=== PATIENT | male | born 1960 | race Caucasian/White ===

== ENCOUNTER 2016-11-16 15:47 | Inpatient (IN) | payer OTHER ==
[~2016-11-16] VITALS: Ht 175.3 cm; Wt 62.1 kg
[~2016-11-16 15:47] MED LIST: ACET-171 PO; DOCU-41 PO; FURO-128 PO; GABA300C PO; HYDR4TAB PO; Marijuana TOPICAL; ONDA-54 PO; POLY17PO2 PO; POTA20TA16 PO
[2016-11-16 16:28] VITALS: BP 107/66; PULSE 104; RESP 16; O2SAT 98
--- NOTE | 2016-11-16 16:57 | ED.REPORT ---
HPI-General Illness Date of Service Nov 16, 2016 ED Provider: Braulio Vanessa MD 56 y/o pt with the hx of stage IV colorectal CA on palliative care, ulcerative colitis, presents to the ED complaining of left flank pain and swelling onset 1 week ago. He c/o associated erythema and induration over the affected area. He denies fever, chills, nausea, vomiting. He was admitted here and transferred to on Jun 25 with diagnosis of "severe sepsis due to pelvic and psoas muscle abscess due to distal colonic perforation". He states a drain was placed into the left flank during that admission. He had surgery at 9 days ago to attempt to resect the cancer, but it was too extensive to treat. Nursing Notes Stated Complaint: PAIN-INFECTION Chief Complaint: Skin Rash/Abscess Nursing Notes Reviewed: Yes Allergies: Coded Allergies: No Known Drug Allergies (Verified Allergy, Unknown, 06/18/16) Scheduled ([Marijuana]) 6-8 PO DAILY Docusate Sodium (Colace) 100 Mg Capsule 100 MG PO BID Furosemide (Lasix) 40 Mg Tablet 40 MG PO DAILY Take twice a day for 3 days then every morning until edema resolves Gabapentin (Neurontin) 300 Mg Capsule 300 MG PO TID take 1 tab PO q 12 06/25 and 1 tab q8 thereafter. Ondansetron (Ondansetron) 8 Mg Tablet 8 MG PO BID Polyethylene Glycol 3350 (Polyethylene Glycol 3350) 17 Gm Powd.pack 17 GM PO DAILY Potassium Chloride (Potassium Chloride) 20 Meq Tab.er.prt 10 MEQ PO DAILY TAKE WITH FOOD, stop taking when no longer taking Lasix Scheduled PRN Acetaminophen (Acetaminophen) 500 Mg Tablet 500 MG PO Q3hrs PRN PRN For Pain Hydromorphone (Hydromorphone) 4 Mg Tablet 4 MG PO Q4H PRN PRN Pain General Time Seen by MD: 16:50 Chief Complaint Abdominal pain Hx Obtained From: Patient Arrived By: Wheelchair Sudden in Onset?: No Onset Occurred: 1 week ago Symptom Duration: Since onset Location: : Abdomen Quality: Painful Severity: Current: Moderate Severity: Maximum: Moderate Similar Sx Previous: Yes Past Medical History Past Medical History - 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 - ulcerative colitis - hx of pneumonia Past Surgical History Shoulder surgery. Placement of colonic stent. Colostomy placement Port-A-Cath Smoking History Never Smoker Social History Other Social History: Good social support, , Local resident Ambulatory Status Independent Review of Systems Full Review of Systems Constitutional: Denies: Chills, Fever Respiratory: Denies: Non-productive cough, Shortness of breath Cardiovascular: Denies: Chest pain, Dyspnea on exertion GI: Reports: Abdominal pain, Denies: Nausea, Vomiting Male: Reports Flank pain, Denies Dysuria Complete sys rev & neg: except as marked. Physical Exam Vital Signs Vital Signs Date Time Temp Pulse Resp B/P Pulse Ox O2 Delivery O2 Flow Rate FiO2 11/16/16 16:28 36.7 104 16 107/66 98 Room Air Initial VS: Reviewed, Vital signs normal Head / Eyes: Atraumatic, Normocephalic, PERRL ENT: Mucous membranes moist, Conjunctiva normal, No scleral icterus Neck: Supple, Full range of motion Respiratory: Breath sounds normal, Clear to auscultation, No respiratory distress Cardiovascular: Regular rate & rhythm, Heart sounds normal, Intact distal pulses Extremities: Vascular intact, Neuro intact, No swelling, No tenderness Skin: Warm, Dry, No cyanosis Neurologic: Alert, Oriented, Nonfocal Psychiatric: Mood/affect normal, Behavior normal, Normal thought content General/Constitutional: Awake, Alert, Cooperative, Not toxic appearing Chronically ill-appearing Abdomen: Atraumatic Diffuse induration, swelling, and tenderness about the left flank 1 cm pustule at the base with surrounding fluctuance Interpretation & Diagnostics Lab Results Interpretation Result Diagram: 11/16/16 1655 11/16/16 1655 Test 11/16/16 16:55 11/16/16 17:51 White Blood Count 41.8th/mm3 (3.8-10.1) Red Blood Count 2.69mil/mm3 (4.40-5.80) Hemoglobin 7.7g/dL (13.8-17.2) Hematocrit 24.6% (41.0-50.0) Mean Corpuscular Volume 91.4fL (81-100) Mean Corpuscular Hemoglobin 28.6pg (27.0-35.0) Mean Corpuscular Hemoglobin Concent 31.3% (32.0-37.0) Red Cell Distribution Width 16.9% (12.3-15.4) Platelet Count 624bil/L (150-400) Neutrophils (%) (Auto) 94.6% (40-74) Lymphocytes (%) (Auto) 1.7% (14-46) Monocytes (%) (Auto) 2.5% (4-12) Eosinophils (%) (Auto) 0.3% (0-5) Basophils (%) (Auto) 0.1% (0-3) Sodium Level 138mEq/L (134-144) Potassium Level 3.3mEq/L (3.5-5.2) Chloride Level 91mEq/L (97-108) Carbon Dioxide Level 31mmol/L (18-29) Blood Urea Nitrogen 14mg/dL (6-24) Creatinine 0.94mg/dL (0.76-1.27) Estimat Glomerular Filtration Rate 89mL/min (>59) Glucose Level 94mg/dL (60-99) Lactic Acid Level 1.3mmol/L (0.4-2.0) Calcium Level 8.8mg/dL (8.5-10.1) Magnesium Level 1.8mg/dL (1.6-2.6) Total Bilirubin 0.3mg/dL (0.0-1.2) Aspartate Amino Transf (AST/SGOT) 21U/L (0-50) Alanine Aminotransferase (ALT/SGPT) 18U/L (0-44) Alkaline Phosphatase 283U/L (25-150) Troponin T < 0.010ug/L (0.0-0.011) Total Protein 6.8g/dL (6.4-8.4) Albumin 2.0g/dL (3.4-5.0) ECG Interpretation ECG Interpretation: Sinus tachycardia rate 100 Multiple PVCs RBBB T wave inversions in V1-V6 which are new compared to EKG on 06/25/16 Time: 17:37 Interpreted by: ED physician Re-Eval/Medical Decision Med Decision/Clinical Course 56-year-old male history of stage IV colon cancer presenting one week status post exploratory laparotomy at outside hospital today with worsening left abdominal swelling and redness. Transfer care to Dr. Oliveira pending labs and CT scan. White blood cell count was noticeably elevated at 41,000 with normal lactate 1.2. Vancomycin and Zosyn were started. Blood cultures were sent. Source of Hx: Old records Re-Evaluation/Progress Note: Pt rechecked. Informed pt of need for admission. pt understand and agrees with plan for admission. All questions addressed. Counseled Regarding: Diagnosis, Lab results Discharge & Departure Primary Impression: Abdominal pain Abdominal location: unspecified location Qualified Code: R10.9 - Unspecified abdominal pain Discharge Condition All VS Reviewed: Yes Condition: Stable Referrals: NOPCP (PCP) Care Transferred to: Dr. Oliveira Care Transferred at: 18:01 Marielena Attestation Portions of this note were transcribed by Tad Garcia. I, Dr. Vanessa personally performed the history, physical exam and medical decision-making; I reviewed and confirmed the accuracy of the information in the transcribed note. Signed by Tad Garcia and Marielena Gilbert, 11/16/16 - 1747 Braulio Vanessa MD Nov 16, 2016 16:56 Divina Galarza Nov 16, 2016 17:09 TAD GARCIA Nov 16, 2016 17:20
[2016-11-16 17:10] LABS: BASOPHILS % (AUTO) 0.1 % (0-3); EOSINOPHILS % (AUTO) 0.3 % (0-5); MONOCYTES % (AUTO) 2.5 % (4-12); Mean Corpuscular Hemoglobin 28.6 pg (27.0-35.0); Mean Corpuscular Volume 91.4 fL (81-100); NEUTROPHILS % (AUTO) 94.6 % (40-74); Platelet Count 624 bil/L (150-400)
[2016-11-16] MEDS ORDERED: Piperacillin-Tazo 3.375 Gm Inj 3.375 GM in Dextrose 5% Minibag Plus 50 ML IV ONE (17:30)
[2016-11-16] MEDS ORDERED: Vancomycin Dose per Pharmacist XX ONE (17:30)
[2016-11-16 17:40] LABS: Magnesium 1.8 mg/dL (1.6-2.6)
[2016-11-16] MEDS ORDERED: Vancomycin Inj 1,250 MG in 0.9% Sodium Chloride 250 ML IV ONE (17:40)
[2016-11-16 17:41] LABS: TROPONIN T < 0.010 ug/L (0.0-0.011)
[2016-11-16] MEDS ORDERED: Iohexol 300 mg/mL 30 mL Inj PO ONE (18:15)
[2016-11-16 18:21] LABS: APPEARANCE,URINE CLOUDY (CLEAR,HAZY); COLOR,URINE DARK YELLOW (YELLOW); OCCULT BLOOD,URINE MODERATE (NEGATIVE); PH,URINE 7.5 (5.0-8.0); UROBILINOGEN,URINE NORMAL (NORMAL)
[2016-11-16 19:13] VITALS: BP 102/62; PULSE 90; RESP 18; O2SAT 96
[2016-11-16] MEDS ORDERED: 0.9% Sodium Chloride 1,000 ML IV ONE (19:15)
[2016-11-16] MEDS ORDERED: HYDROmorphone 1 mg/mL Inj IVPUSH ONE ×3 (19:15→22:00)
--- NOTE | 2016-11-16 19:20 | DRSVH ---
PROCEDURE: X-RAY CHEST ONE VIEW, PORTABLE ([id number]) INDICATIONS: possible sepsis TECHNIQUE: One view of the chest was acquired. COMPARISON: [facility], CR, XR CHEST 1VW (PORTABLE), 06/24/2016, 21:36. FINDINGS: Surgical changes and devices: Left chest port with the tip projecting in the lower SVC. Lungs and pleura: No pleural effusions or pneumothorax. Lungs are clear. Mild bibasilar scarring/a telectasis Mediastinum: Mediastinal contours appear normal. Heart size is normal. Bones and chest wall: No suspicious bony lesions. Overlying soft tissues appear unremarkable. IMPRESSION: No acute disease. Dictated by: Doc Gonzalez M.D. on 11/16/2016 at 19:17 Approved by: Doc Gonzalez M.D. on 11/16/2016 at 19:18
[2016-11-16 20:30] VITALS: BP 109/66
--- NOTE | 2016-11-16 20:30 | DRSVH ---
PROCEDURE: CT ABDOMEN AND PELVIS WITH CONTRAST ([id number]) INDICATIONS: abd pain TECHNIQUE: After the administration of oral and intravenous contrast, 5 mm thick sections acquired from the diap hragms to the symphysis. 5 mm thick coronal and sagittal reformats were performed. For radiation do se reduction, the following was used: automated exposure control, adjustment of mA and/or kV accordi ng to patient size. COMPARISON: Outside Film, CT, CT CHEST ABD PELVIS W CON, 10/19/2016, 13:54. Outside Film, CT, CT ABD PELVIS W CON, 07/27/2016, 12:04. FINDINGS: Image quality: Excellent. ABDOMEN: Lung bases: Patchy mild consolidation in the left lung base. Heart appears enlarged. There is trace p ericardial fluid Solid organs: Liver and spleen are normal in size and enhancement. Gallbladder negative. Biliary s ystem is non-dilated. Pancreas enhances normally. No adrenal nodules. Kidneys are normal in size a nd enhancement, and there is mild bilateral hydronephrosis Peritoneum and bowel: Postsurgical changes are present including a left lower quadrant ostomy, and a stent presumably within the distal large bowel/rectum. There is surrounding abnormal soft tissue mas s presumably rectal neoplasm, measuring 10.6 x 8.2 cm and possible low attenuation internal necrotic appearance. There is diffuse bowel wall thickening, and inflammatory stranding throughout the left abdomen. Nodes and vessels: Shotty retroperitoneal lymph nodes. Aorta IVC unremarkable except for incidentally noted IVC filter Miscellaneous: No ventral hernias. There are innumerable presumed abscesses/phlegmon scattered thro ughout the left psoas muscle, left iliacis muscle, left pelvis, right gluteal region and left postero lateral abdominal wall, which are depicted in detail on the montage image PELVIS: Genitourinary: Bladder wall thickness is normal. Miscellaneous: No inguinal hernias or adenopathy. Diffuse left upper thigh subcutaneous edema/cellu litis. Bones: No suspicious bony lesions. No vertebral body compression fractures. IMPRESSION: Development of innumerable scattered abscesses throughout the left retroperitoneum, pelvis and left p osterior abdominal wall as detailed above, and depicted on the montage image. Redemonstration of large necrotic appearing rectal mass, status post placement of rectal stent. Diffuse bowel wall thickening mostly in the left abdomen which is probably reactive in nature althoug h technically nonspecific. Trace pericardial effusion. Mild patchy left lower lobe consolidation. Mild bilateral hydronephrosis. Findings were personally telephoned and discussed with Dr. Oliveira in the emergency department 11/16/16 20 /27 hours Dictated by: Doc Gonzalez M.D. on 11/16/2016 at 20:11 Approved by: Doc Gonzalez M.D. on 11/16/2016 at 20:27
[2016-11-16] MEDS ORDERED: Alum-Mag Hydrox-Simeth 30 mL Suspension PO PRN ×2 (21:40→22:40)
[2016-11-16] MEDS ORDERED: Ondansetron 2 mg/mL 2 mL Inj IVPUSH PRN ×2 (21:40→22:40)
[2016-11-16] MEDS ORDERED: Polyethylene Glycol (PEG) 17 Gm Powder PO PRN (22:40)
[2016-11-16] MEDS ORDERED: DOCU-41 PO (22:48)
[2016-11-16] MEDS ORDERED: CHOL200025 PO (22:50)
[2016-11-16] MEDS ORDERED: LOV40 SUBQ (22:50)
[2016-11-16] MEDS ORDERED: METH5TAB3 PO (22:50)
[2016-11-16] MEDS ORDERED: GABA600T2 PO (22:50)
[2016-11-16] MEDS ORDERED: FUR20 PO (22:55)
[2016-11-16] MEDS ORDERED: ONDA-53 PO (22:55)
[2016-11-16] MEDS ORDERED: OXYC-474 PO (22:55)
[2016-11-16] MEDS ORDERED: ACET325T51 PO (22:55)
[2016-11-16] MEDS ORDERED: MELA3TAB35 PO (22:55)
[2016-11-16] MEDS ORDERED: IBUP200C PO (22:55)
[2016-11-16] MEDS ORDERED: [UNRECOGNIZED DRUG - REMARK] PO (22:59)
[2016-11-16 23:06] VITALS: BP 101/61; PULSE 99; RESP 18; O2SAT 94
[2016-11-16 23:39] VITALS: BP 101/66; PULSE 92; RESP 20; O2SAT 92
[2016-11-16] MEDS ORDERED: 0.9% Sodium Chloride 250 ML ONE (23:44)
[2016-11-17] MEDS: HYDROmorphone 1 mg/mL Inj IVPUSH PRN ×2 (00:39→04:21)
[2016-11-17] MEDS: Piperacillin-Tazo 3.375 Gm Inj 3.375 GM in Dextrose 5% Minibag Plus 50 ML IV SCH ×2 (01:04→08:36)
--- NOTE | 2016-11-17 01:09 | PCM.HPMED ---
Subjective Date of Service Nov 17, 2016 Primary Provider: Admitting Physician: Lane Mendes MD Primary Care Physician: Nopjania Attending Physician: Lane Mendes MD Admit Status: From the Emergency Department Chief Complaint: Left flank pain and swelling History of Present Illness: 56 y/o M with a history of ulcerative colitis and stage IV colorectal cancer s/ p colostomy in Jun 2016 who underwent surgery 9 days ago at the [facility] in an attempt to resect the cancer, which was unfortunately unsuccessful. He presented to the ED with the complaint of left-sided flank pain and a pustular wound. Associated symptoms include left-sided erythema, swelling and increased abdominal pain. He endorses severe 10/10 abdominal and left flank pain that is worse with movement but otherwise is without symptoms. He denies fever, chills, nausea, vomiting, shortness of breath or chest pain. He states that his colostomy has been functioning normally. Of note he was transferred to on Jun 25 from [facility] for severe sepsis secondary to a pelvic abscess and distal colonic perforation and states that a drain was placed in his left flank during that admission. He states that he first noticed the wound earlier today when his brother was applying a cannabinoid cream to his side and saw a "pimple like" lesion, which "popped" on his way to the ED. In the ED vitals: 36.7, BP 107/66, pulse 104, SpO2 98% on room air. Labs significant for a leukocytosis (wbc of 41.8 with left shift), normal lactic acid of 1.3, anemia (Hgb 7.7/Hct 24.6), hypoalbuminemia (albumin 2.0) and elevated alk phos of 283. ECG sinus rhythm, tachycardia with rate low 100s, multiple PVCs and T wave inversions in V1-V6. Troponin neg x1. Chest xray was negative for acute disease and CT abdomen and pelvis revealed innumerable, scattered abscesses throughout the left retroperitoneum, pelvis and left posterior abdominal wall, re-demonstration of large necrotic appearing rectal mass and diffuse bowel wall thickening. Review of Systems: A comprehensive review of systems was conducted with the patient and found to be negative except as above in the History of Present Illness. Allergies Coded Allergies: No Known Drug Allergies (Verified Allergy, Unknown, 06/18/16) Home Medications Med rec not available at time of admission. reportedly will bring in home med list. PMH Stage IV colorectal adenocarcinoma moderately differentiated adenocarcinoma of the rectum - with invasion through the rectal wall, significant mass effect on the bladder, and extensive metastatic lymphadenopathy. Ulcerative colitis Surgical History Shoulder surgery. Placement of colonic stent. Colostomy placement Port-A-Cath Family History Father at age 79 of Alzheimer's and coronary artery disease. Paternal grandmother had lung cancer. Social History Hx Alcohol Use: Yes (NOTHING TO DRINK SINCE APR 2016) Hx Substance Use: No Hx Tobacco Use: No Smoking Status: Never Smoker Living Arrangement: with Family Exam Vital Signs Vital Sign - Last Date Time Temp Pulse Resp B/P Pulse Ox O2 Delivery O2 Flow Rate FiO2 11/16/16 23:39 37.0 92 20 101/66 92 Room Air Intake and Output 11/16/16 11/16/16 11/17/16 Cumulative From/Thru 14:59 22:59 06:59 11/16/16 16:28 - 11/17/16 00:26 Intake Total 1000 ml 1000 ml Balance 1000 ml 1000 ml Intake IV Total 1000 ml 1000 ml Exam GEN: Alert and oriented x3, no moderate distress secondary to pain, appropriately interactive. HEENT: atraumatic, normocephalic, PERRLA, EOMI, sclera anicteric, mucus membranes dry NECK: No cervical lymphadenopathy, neck supple, nontender, No JVD noted CARDIAC: regular rate and rhythm with no murmur appreciated LUNGS: clear to auscultation bilaterally with adequate respiratory effort ABD: tenderness noted diffusely, mildly distended, normoactive bowel tones; colostomy pink, healthy appearing no surrounding erythema, purulence, stool present in colostomy bag. 1-2cm pustule on left flank seeping pus with surrounding fluctuance. EXT: Radial pulses normal and equivalent bilaterally, dorsalis pedis pulses normal and equivalent bilaterally, pitting edema to mid tibia bilaterally, no cyanosis or clubbing. NEURO: Cranial nerves appear to be fully intact, normal speech, no focal motor or sensory deficits. PSYCH: AOx3, mood and affect appropriate. Lab and Diagnostics Labs Laboratory Tests Test 11/16/16 16:55 11/16/16 17:51 White Blood Count 41.8th/mm3 (3.8-10.1) Red Blood Count 2.69mil/mm3 (4.40-5.80) Hemoglobin 7.7g/dL (13.8-17.2) Hematocrit 24.6% (41.0-50.0) Mean Corpuscular Volume 91.4fL (81-100) Mean Corpuscular Hemoglobin 28.6pg (27.0-35.0) Mean Corpuscular Hemoglobin Concent 31.3% (32.0-37.0) Red Cell Distribution Width 16.9% (12.3-15.4) Platelet Count 624bil/L (150-400) Neutrophils (%) (Auto) 94.6% (40-74) Lymphocytes (%) (Auto) 1.7% (14-46) Monocytes (%) (Auto) 2.5% (4-12) Eosinophils (%) (Auto) 0.3% (0-5) Basophils (%) (Auto) 0.1% (0-3) Sodium Level 138mEq/L (134-144) Potassium Level 3.3mEq/L (3.5-5.2) Chloride Level 91mEq/L (97-108) Carbon Dioxide Level 31mmol/L (18-29) Blood Urea Nitrogen 14mg/dL (6-24) Creatinine 0.94mg/dL (0.76-1.27) Estimat Glomerular Filtration Rate 89mL/min (>59) Glucose Level 94mg/dL (60-99) Lactic Acid Level 1.3mmol/L (0.4-2.0) Calcium Level 8.8mg/dL (8.5-10.1) Magnesium Level 1.8mg/dL (1.6-2.6) Total Bilirubin 0.3mg/dL (0.0-1.2) Aspartate Amino Transf (AST/SGOT) 21U/L (0-50) Alanine Aminotransferase (ALT/SGPT) 18U/L (0-44) Alkaline Phosphatase 283U/L (25-150) Troponin T < 0.010ug/L (0.0-0.011) Total Protein 6.8g/dL (6.4-8.4) Albumin 2.0g/dL (3.4-5.0) Urine Color Dark yellow (YELLOW) Urine Appearance Cloudy (CLEAR,HAZY) Urine pH 7.5 (5.0-8.0) Urine Specific [place] 1.010 (1.003-1.035) Urine Protein 30mg/dL (NEG,TRACE) Urine Glucose (UA) Negativemg/dL (NEGATIVE) Urine Ketones Negativemg/dL (NEGATIVE) Urine Occult Blood Moderate (NEGATIVE) Urine Nitrite Negative (NEGATIVE) Urine Bilirubin Negative (NEGATIVE) Urine Urobilinogen Normalmg/dL (NORMAL) Urine Leukocyte Esterase Large (NEGATIVE) Urine RBC 3-10/hpf (0-2) Urine WBC Packed/hpf (0-5) Urine Epithelial Cells Occasional/hpf (NONE-MOD) Urine Crystals None seen (NONE SEEN) Urine Bacteria Many/hpf (NONE-FEW) Urine Hyaline Casts None/lpf (NONE) Urine Granular Casts None seen (NONE SEEN) Urine Waxy Casts None seen (NONE SEEN) Urine Red Blood Cell Casts None seen (NONE SEEN) Urine White Blood Cell Casts None seen (NONE SEEN) Urine Mucus None seen (None Seen) Urine Trichomonas None seen (NONE SEEN) Urine Yeast None (NONE SEEN) Urinalysis Comment Urine Culture Reflexed Indicated Microbiology 11/16/16 Blood Culture, Received Pending 11/16/16 Urine Culture, Received Pending Result Diagram: 11/16/16 1655 11/16/16 1655 X-Rays, CTs and MRIs X-RAY CHEST ONE VIEW, PORTABLE IMPRESSION: No acute disease. Dictated by: Doc Gonzalez M.D. on 11/16/2016 at 19:17 Approved by: Doc Gonzalez M.D. on 11/16/2016 at 19:18 CT ABDOMEN AND PELVIS WITH CONTRAST IMPRESSION: -Development of innumerable scattered abscesses throughout the left retroperitoneum, pelvis and left posterior abdominal wall as detailed above, and depicted on the montage image. -Redemonstration of large necrotic appearing rectal mass, status post placement of rectal stent. -Diffuse bowel wall thickening mostly in the left abdomen which is probably reactive in nature although technically nonspecific. -Trace pericardial effusion. -Mild patchy left lower lobe consolidation. -Mild bilateral hydronephrosis. -Findings were personally telephoned and discussed with Dr. Oliveira in the emergency department 11/16/16 20/27 hours Dictated by: Doc Gonzalez M.D. on 11/16/2016 at 20:11 Approved by: Doc Gonzalez M.D. on 11/16/2016 at 20:27 Assessment & Plan 56 y/o M with a history of ulcerative colitis and stage IV colorectal cancer s/ p colostomy in Jun 2016 who presented to the ED with the complaint of left- sided flank pain. Admitted for management of multiple intra-abdominal abscesses. 1. Multiple intra-abdominal abscesses, present on admission. Active. - Hx of colorectal cancer s/p colostomy in Jun 2016; unsuccessful attempt to resect cancer at 9 days ago. - CT abd/pelvis with innumerable, abscesses in the left retroperitoneum, pelvis , and left posterior abdominal wall. - General surgery consulted from the ED, recommend IVFs/antibiotics. Will see in the morning. - s/p 1L bolus of NS in the ED - IVFs NS at 150mls/hr - start IV vancomycin/zosyn, pending cultures - IV dilaudid q4h prn for pain 2. Pain secondary to stage IV colorectal adenocarcinoma, present on admission. Ongoing. - IV dilaudid q4h for breakthrough pain - re-evaluate, pending med list ( to bring in) - Could consider Palliative care consultation in the AM as they have seen this patient during prior hospitalizations. 3. Leukocytosis, acute, present on admission. Active - WBC 41.6 with left shift, pt remains afebrile - Blood cultures pending - Repeat CBC with diff in AM. - IVFs and antibiotics as above 4. Stage IV colorectal cancer, ongoing. - Consider contacting the patient's oncologist, Dr. Elias, in the morning. - Pain management as above - Antiemetic available PRN. - Antacid available PRN. - Tylenol available PRN mild pain or fever. Patient admitted under inpatient status with expected length of stay greater than 2 midnights for severity of present symptoms, complexities of treatment plan and risk for adverse events. Pain Evaluation: Adequate Pain Control VTE Prophylaxis Indicated: Meets Criteria for Anticoag Therapy VTE Prophylaxis: Sub-Q Enoxaparin Resuscitation Status: CPR: Attempt Resuscitation Attending Statement The patient was seen and examined together with Dr. Bolden on 11/17/2016 and I agree with the history, exam and plan as outlined in the note above. Violeta Heath DO Nov 17, 2016 01:[address] MD Nov 17, 2016 05:14 Patient admitted under inpatient status with expected length of stay greater than 2 midnights for severity of present symptoms, complexities of treatment plan and risk for adverse events. Disposition: Patient is admitted under observation status with expected length of stay less than 2 midnights due to severity of presenting symptoms, risk of adverse event, and complexity of treatment plan. (Please note that I would not expect all 3 reasons for admission to be listed for observation. Feel free to pick and choose, but have at least 1. CODE STATUS: FEN: IVF: GI Prophylaxis: DVT Prophylaxis: Sub-q Heparin, 5,000units Q8h PRN: Acetaminophen-fever/headache/mild/moderate pain Antiemetics, as needed Bowel regimen, as needed. Pain Evaluation: Adequate Pain Control VTE Prophylaxis Indicated: Meets Criteria for Anticoag Therapy VTE Prophylaxis: Sub-Q Enoxaparin Resuscitation Status: CPR: Attempt Resuscitation Violeta Heath Nov 17, 2016 01:09 adverse event, and complexity of treatment plan. (Please note that I would not expect all 3 reasons for admission to be listed for observation. Feel free to pick and choose, but have at least 1. CODE STATUS: FEN: IVF: GI Prophylaxis: DVT Prophylaxis: Sub-q Heparin, 5,000units Q8h PRN: Acetaminophen-fever/headache/mild/moderate pain Antiemetics, as needed Bowel regimen, as needed. Pain Evaluation: Adequate Pain Control VTE Prophylaxis Indicated: Meets Criteria for Anticoag Therapy VTE Prophylaxis: Sub-Q Enoxaparin Resuscitation Status: CPR: Attempt Resuscitation Violeta Heath Nov 17, 2016 01:09 Bowel regimen, as needed. Pain Evaluation: Adequate Pain Control VTE Prophylaxis Indicated: Meets Criteria for Anticoag Therapy VTE Prophylaxis: Sub-Q Enoxaparin Resuscitation Status: CPR: Attempt Resuscitation Violeta Heath Nov 17, 2016 01:09 adverse event, and complexity of treatment plan. (Please note that I would not expect all 3 reasons for admission to be listed for observation. Feel free to pick and choose, but have at least 1. CODE STATUS: FEN: IVF: GI Prophylaxis: DVT Prophylaxis: Sub-q Heparin, 5,000units Q8h PRN: Acetaminophen-fever/headache/mild/moderate pain Antiemetics, as needed Bowel regimen, as needed. Pain Evaluation: Adequate Pain Control Violeta Heath Nov 17, 2016 01:09
[2016-11-17] MEDS ORDERED: HYDROmorphone 1 mg/mL Inj IVPUSH ONE (01:45)
[2016-11-17 02:06] VITALS: PULSE 95
[2016-11-17] MEDS: 0.9% Sodium Chloride 1,000 ML IV SCH ×2 (02:23→10:16)
--- NOTE | 2016-11-17 02:38 | NUR ---
Arrival to Unit Patient arrived to floor at 2320 from ED via gurney. Patient was in severe pain due to his left flank abscess actively draining during transport. Patient was able to scoot self over to hospital bed, which caused the abscess to drain even more. When discussing patients prescribed IV morphine for pain, patient requested something else, stating that he did not tolerate morphine well the last time it was given. paged, and a new order for 1mg Dilaudid was written to replace the morphine order. NS is currently infusing at 150cc/hr in addition to intermittent abx via portacath access. Patient is able to use the urinal, and is currently on bed rest. Abscess has abd pads and gauze underneath to absorb the drainage. Tele monitor applied, and reads SR 95 per educational technician. Will continue to monitor, and continue Q1 hour checks.
--- NOTE | 2016-11-17 03:46 | PCM.CONPHA ---
Subjective Date of Service: Nov 17, 2016 Requesting Provider: Violeta Heath DO Left flank pain and swelling Reason for Pharmacy Consult: Vancomycin Dosing Objective Vital Signs Date Time Temp Pulse Resp B/P Pulse Ox O2 Delivery O2 Flow Rate FiO2 11/17/16 02:06 95 11/16/16 23:39 37.0 92 20 101/66 92 Room Air 11/16/16 23:06 36.7 99 18 101/61 94 Room Air 11/16/16 20:30 109/66 11/16/16 19:13 36.6 90 18 102/62 96 Room Air 11/16/16 16:28 36.7 104 16 107/66 98 Room Air Intake and Output 11/15/16 11/16/16 11/17/16 00:00 00:00 00:00 Intake Total 1000 ml Balance 1000 ml Weight (Kilograms): 62.100 Height (Feet): 5 Height (Inches): 9.00 Test 11/16/16 16:55 11/16/16 17:51 White Blood Count 41.8th/mm3 (3.8-10.1) Red Blood Count 2.69mil/mm3 (4.40-5.80) Hemoglobin 7.7g/dL (13.8-17.2) Hematocrit 24.6% (41.0-50.0) Mean Corpuscular Volume 91.4fL (81-100) Mean Corpuscular Hemoglobin 28.6pg (27.0-35.0) Mean Corpuscular Hemoglobin Concent 31.3% (32.0-37.0) Red Cell Distribution Width 16.9% (12.3-15.4) Platelet Count 624bil/L (150-400) Neutrophils (%) (Auto) 94.6% (40-74) Lymphocytes (%) (Auto) 1.7% (14-46) Monocytes (%) (Auto) 2.5% (4-12) Eosinophils (%) (Auto) 0.3% (0-5) Basophils (%) (Auto) 0.1% (0-3) Sodium Level 138mEq/L (134-144) Potassium Level 3.3mEq/L (3.5-5.2) Chloride Level 91mEq/L (97-108) Carbon Dioxide Level 31mmol/L (18-29) Blood Urea Nitrogen 14mg/dL (6-24) Creatinine 0.94mg/dL (0.76-1.27) Estimat Glomerular Filtration Rate 89mL/min (>59) Glucose Level 94mg/dL (60-99) Lactic Acid Level 1.3mmol/L (0.4-2.0) Calcium Level 8.8mg/dL (8.5-10.1) Magnesium Level 1.8mg/dL (1.6-2.6) Total Bilirubin 0.3mg/dL (0.0-1.2) Aspartate Amino Transf (AST/SGOT) 21U/L (0-50) Alanine Aminotransferase (ALT/SGPT) 18U/L (0-44) Alkaline Phosphatase 283U/L (25-150) Troponin T < 0.010ug/L (0.0-0.011) Total Protein 6.8g/dL (6.4-8.4) Albumin 2.0g/dL (3.4-5.0) Urine Color Dark yellow (YELLOW) Urine Appearance Cloudy (CLEAR,HAZY) Urine pH 7.5 (5.0-8.0) Urine Specific [place] 1.010 (1.003-1.035) Urine Protein 30mg/dL (NEG,TRACE) Urine Glucose (UA) Negativemg/dL (NEGATIVE) Urine Ketones Negativemg/dL (NEGATIVE) Urine Occult Blood Moderate (NEGATIVE) Urine Nitrite Negative (NEGATIVE) Urine Bilirubin Negative (NEGATIVE) Urine Urobilinogen Normalmg/dL (NORMAL) Urine Leukocyte Esterase Large (NEGATIVE) Urine RBC 3-10/hpf (0-2) Urine WBC Packed/hpf (0-5) Urine Epithelial Cells Occasional/hpf (NONE-MOD) Urine Crystals None seen (NONE SEEN) Urine Bacteria Many/hpf (NONE-FEW) Urine Hyaline Casts None/lpf (NONE) Urine Granular Casts None seen (NONE SEEN) Urine Waxy Casts None seen (NONE SEEN) Urine Red Blood Cell Casts None seen (NONE SEEN) Urine White Blood Cell Casts None seen (NONE SEEN) Urine Mucus None seen (None Seen) Urine Trichomonas None seen (NONE SEEN) Urine Yeast None (NONE SEEN) Urinalysis Comment Urine Culture Reflexed Indicated Assessment/Plan Assessment/Plan A: * Vancomycin dosing by pharmacy for 56 y/o man with intra-abdominal abscesses * The patient received a vancomycin loading dose of 1250 mg IV in the ED * He is also being started on Zosyn * Estimated CrCl is 79 mL/min (Cockcroft & Gault) * Estimated vancomycin half-life is 10 hours and estimated Vd is 43 liters P: * Starting vancomycin 1000 mg IV every 12 hours * Target a vancomycin trough range of 15 - 20 mcg/mL * Drawing a trough level prior to the fourth dose Thank you. Pharmacy will continue to follow this patient. Liz Galvin, PharmD Liz Galvin Nov 17, 2016 03:46
--- NOTE | 2016-11-17 04:32 | NUR ---
Pain Patient is experiencing 10/10 pain after being repositioned in bed. MD notified due to no pain medications due at this time. BP 116/70, HR 94, O2 95% on 2L O2 via NC. @ 0421 T.O. to give the scheduled, Q4 hour, Dilaudid early one time now for pain, in hopes of controlling patients pain. Will continue to monitor, and continue Q 1hour checks.
[2016-11-17 05:00] VITALS: BP 133/77; PULSE 98; RESP 22; O2SAT 96
[2016-11-17 05:33] VITALS: PULSE 94
[2016-11-17] MEDS ORDERED: Vancomycin Inj 1,000 MG in IV Premix 1 EACH IV SCH (06:00)
[2016-11-17 06:12] LABS: BASOPHILS % (AUTO) 0.1 % (0-3); EOSINOPHILS % (AUTO) 0.1 % (0-5); MONOCYTES % (AUTO) 2.4 % (4-12); Mean Corpuscular Hemoglobin 28.7 pg (27.0-35.0); Mean Corpuscular Volume 90.7 fL (81-100); Platelet Count 573 bil/L (150-400)
[2016-11-17 06:23] LABS: Magnesium 1.9 mg/dL (1.6-2.6)
[2016-11-17] MEDS ORDERED: HYDROmorphone 1 mg/mL Inj IVPUSH PRN (08:25)
[2016-11-17] MEDS ORDERED: Vancomycin Dose per Pharmacist XX SCH (08:30)
[2016-11-17] MEDS ORDERED: HYDROmorphone PCA 0.2 mg/mL 30 mL Inj IV PRN (08:45)
[2016-11-17] MEDS ORDERED: Potassium Chloride Inj 30 MEQ in Dextrose 5% 500 ML IV ONE (08:45)
--- NOTE | 2016-11-17 08:45 | PCM.DIMED ---
Discharge Instructions Date of Service Nov 17, 2016 Dates of Hospitalization Nov 16, 2016 at 23:03 Discharge Diagnosis Discharge Diagnosis 1. Retroperitoneal Abscess 2. Rectal Cancer, Unresectable 3. Acute Blood Loss Anemia 4. Hypokalemia Diet Heart Healthy Activity Other (bedrest during transfer) Call your provider Fever or Chills, Shortness of breath, Bleeding, Chest pain, Vomitting, Excessive diarrhea, Weakness (unilateral) Otis Bejarano MD Nov 17, 2016 08:45
--- NOTE | 2016-11-17 09:10 | NUR ---
Social Work- Brief Note Data: EMR reviewed. Pt is a 56 year old male admitted 11/16/16 for intra abdominal abscess, rectal cancer per H&P. Pt's insurance is [facility] and PCP is MD Vivas. SW met with pt and family at bedside regarding discharge plan, SW role explained. Pt alert and oriented. Pt resides in [place] with his family where he receives assistance with ADLs. Pt has DPOA on file, [facility]. Pt is awaiting potential transfer to [facility] or further surgical intervention, status pending. Pt anticipated to transfer to [facility] for further medical care. SW will continue to follow. Assessment: Pt who may transfer to [facility]. Plan: Pt awaiting transfer to [facility] or further surgical intervention, status pending. Pt anticipated to transfer to [facility] for further medical care. SW will continue to follow. LAKISHA Sifuentes
[2016-11-17 09:17] VITALS: PULSE 92
[2016-11-17 10:05] VITALS: RESP 22
--- NOTE | 2016-11-17 11:15 | PCM.DC.MED ---
Discharge Summary Date of Service Nov 17, 2016 Dates of Hospitalization Date of Hospital Admission Nov 16, 2016 at 23:03 Date of Discharge: Nov 17, 2016 Providers: Admitting Physician: Lane Mendes MD Primary Care Physician: Nopjania Attending Physician: Lane Mendes MD Diagnosis at Time of Discharge Diagnosis at Time of Discharge 1. Retroperitoneal Abscess 2. Rectal Cancer, Unresectable 3. Acute Blood Loss Anemia 4. Hypokalemia Consultations 1. General Surgery Procedures XRay, CTs & MRIs X-RAY CHEST ONE VIEW, PORTABLE IMPRESSION: No acute disease. Dictated by: Doc Gonzalez M.D. on 11/16/2016 at 19:17 Approved by: Doc Gonzalez M.D. on 11/16/2016 at 19:18 CT ABDOMEN AND PELVIS WITH CONTRAST IMPRESSION: -Development of innumerable scattered abscesses throughout the left retroperitoneum, pelvis and left posterior abdominal wall as detailed above, and depicted on the montage image. -Redemonstration of large necrotic appearing rectal mass, status post placement of rectal stent. -Diffuse bowel wall thickening mostly in the left abdomen which is probably reactive in nature although technically nonspecific. -Trace pericardial effusion. -Mild patchy left lower lobe consolidation. -Mild bilateral hydronephrosis. -Findings were personally telephoned and discussed with Dr. Oliveira in the emergency department 11/16/16 20/27 hours Dictated by: Doc Gonzalez M.D. on 11/16/2016 at 20:11 Approved by: Doc Gonzalez M.D. on 11/16/2016 at 20:27 Brief History 56 y/o M with a history of ulcerative colitis and stage IV colorectal cancer s/ p colostomy in Jun 2016 who underwent surgery 9 days ago at the [facility] in an attempt to resect the cancer, which was unfortunately unsuccessful. He presented to the ED with the complaint of left-sided flank pain and a pustular wound. Associated symptoms include left-sided erythema, swelling and increased abdominal pain. He endorses severe 10/10 abdominal and left flank pain that is worse with movement but otherwise is without symptoms. He denies fever, chills, nausea, vomiting, shortness of breath or chest pain. He states that his colostomy has been functioning normally. Of note he was transferred to on Jun 25 from [facility] for severe sepsis secondary to a pelvic abscess and distal colonic perforation and states that a drain was placed in his left flank during that admission. He states that he first noticed the wound earlier today when his brother was applying a cannabinoid cream to his side and saw a "pimple like" lesion, which "popped" on his way to the ED. In the ED vitals: 36.7, BP 107/66, pulse 104, SpO2 98% on room air. Labs significant for a leukocytosis (wbc of 41.8 with left shift), normal lactic acid of 1.3, anemia (Hgb 7.7/Hct 24.6), hypoalbuminemia (albumin 2.0) and elevated alk phos of 283. ECG sinus rhythm, tachycardia with rate low 100s, multiple PVCs and T wave inversions in V1-V6. Troponin neg x1. Chest xray was negative for acute disease and CT abdomen and pelvis revealed innumerable, scattered abscesses throughout the left retroperitoneum, pelvis and left posterior abdominal wall, re-demonstration of large necrotic appearing rectal mass and diffuse bowel wall thickening. Hospital Course 56 y/o M with a history of ulcerative colitis and stage IV colorectal cancer s/ p colostomy in Jun 2016 who presented to the ED with the complaint of left- sided flank pain. Admitted for management of multiple intra-abdominal abscesses. 1. Multiple intra-abdominal abscesses, present on admission. Active. - Hx of colorectal cancer s/p colostomy in Jun 2016; unsuccessful attempt to resect cancer at 9 days ago. - CT abd/pelvis with innumerable, abscesses in the left retroperitoneum, pelvis , and left posterior abdominal wall. - General surgery consulted from the ED, recommend IVFs/antibiotics. General Surgery feels pt is too high risk to have surgery here and therefore pt has been transferred to his surgeon at [facility], Dr. Jalloh, who has accepted the patient - s/p 1L bolus of NS in the ED - IVFs NS at 150mls/hr - started pt on IV vancomycin/zosyn, pending cultures - IV dilaudid q4h prn for pain 2. Pain secondary to stage IV colorectal adenocarcinoma, present on admission. Ongoing. - IV dilaudid q4h for breakthrough pain - re-evaluate, pending med list ( to bring in) - Could consider Palliative care consultation in the AM as they have seen this patient during prior hospitalizations. 3. Leukocytosis, acute, present on admission. Active - WBC 41.6 with left shift, pt remains afebrile - Blood cultures pending - Repeat CBC with diff in AM. - IVFs and antibiotics as above 4. Stage IV colorectal cancer, ongoing. - Pain management as above 5. Anemia, Severe - Transfuse 2 units PRBCs prior to transfer to [facility] today 6. Hypokalemia - Replace with IV KCl 30 mEq prior to transfer to [facility] today 7. Disposition - Pt is transferred to [facility] with Dr. Jalloh as the accepting physician in fair/ stable condition Exam Vital Signs (Last) Date Time Temp Pulse Resp B/P Pulse Ox O2 Delivery O2 Flow Rate FiO2 11/17/16 09:17 92 11/17/16 05:00 36.8 22 133/77 96 Nasal Cannula 2.00 Exam GENERAL: NAD, Pt laying in bed comfortably HEENT: AT/NC, PERRLA, EOMI, Mucus Membranes are moist CARDIAC: RRR; No M/R/G PULM: CTAB; No wheezes or rhonchi bilaterally ABD: Soft, Nontender, Nondistended, Positive bowel sounds in all quadrants, No Hepatosplenomegaly appreciated NEURO: Alert and oriented x3; Following all commands PSYCH: Normal mood and affect Test 11/16/16 16:55 11/16/16 17:51 11/17/16 05:40 Lactic Acid Level 1.3mmol/L (0.4-2.0) Total Bilirubin 0.3mg/dL (0.0-1.2) Aspartate Amino Transf (AST/SGOT) 21U/L (0-50) Alanine Aminotransferase (ALT/SGPT) 18U/L (0-44) Alkaline Phosphatase 283U/L (25-150) Troponin T < 0.010ug/L (0.0-0.011) Total Protein 6.8g/dL (6.4-8.4) Albumin 2.0g/dL (3.4-5.0) Urine Color Dark yellow (YELLOW) Urine Appearance Cloudy (CLEAR,HAZY) Urine pH 7.5 (5.0-8.0) Urine Specific [place] 1.010 (1.003-1.035) Urine Protein 30mg/dL (NEG,TRACE) Urine Glucose (UA) Negativemg/dL (NEGATIVE) Urine Ketones Negativemg/dL (NEGATIVE) Urine Occult Blood Moderate (NEGATIVE) Urine Nitrite Negative (NEGATIVE) Urine Bilirubin Negative (NEGATIVE) Urine Urobilinogen Normalmg/dL (NORMAL) Urine Leukocyte Esterase Large (NEGATIVE) Urine RBC 3-10/hpf (0-2) Urine WBC Packed/hpf (0-5) Urine Epithelial Cells Occasional/hpf (NONE-MOD) Urine Crystals None seen (NONE SEEN) Urine Bacteria Many/hpf (NONE-FEW) Urine Hyaline Casts None/lpf (NONE) Urine Granular Casts None seen (NONE SEEN) Urine Waxy Casts None seen (NONE SEEN) Urine Red Blood Cell Casts None seen (NONE SEEN) Urine White Blood Cell Casts None seen (NONE SEEN) Urine Mucus None seen (None Seen) Urine Trichomonas None seen (NONE SEEN) Urine Yeast None (NONE SEEN) Urinalysis Comment Urine Culture Reflexed Indicated White Blood Count 41.9th/mm3 (3.8-10.1) Red Blood Count 2.47mil/mm3 (4.40-5.80) Hemoglobin 7.1g/dL (13.8-17.2) Hematocrit 22.4% (41.0-50.0) Mean Corpuscular Volume 90.7fL (81-100) Mean Corpuscular Hemoglobin 28.7pg (27.0-35.0) Mean Corpuscular Hemoglobin Concent 31.7% (32.0-37.0) Red Cell Distribution Width 16.8% (12.3-15.4) Platelet Count 573bil/L (150-400) Neutrophils (%) (Auto) 95.0% (40-74) Lymphocytes (%) (Auto) 1.5% (14-46) Monocytes (%) (Auto) 2.4% (4-12) Eosinophils (%) (Auto) 0.1% (0-5) Basophils (%) (Auto) 0.1% (0-3) Hematology Comments Rbc Sodium Level 142mEq/L (134-144) Potassium Level 3.2mEq/L (3.5-5.2) Chloride Level 97mEq/L (97-108) Carbon Dioxide Level 31mmol/L (18-29) Blood Urea Nitrogen 12mg/dL (6-24) Creatinine 0.91mg/dL (0.76-1.27) Estimat Glomerular Filtration Rate 92mL/min (>59) Glucose Level 99mg/dL (60-99) Calcium Level 8.1mg/dL (8.5-10.1) Magnesium Level 1.9mg/dL (1.6-2.6) Discharge Medications Discharge Medications ([Marijuana]) 6-8 TOPICAL DAILY (Reported) ([Baking Soda W/ H20]) 2 TSP PO QAM (Reported) 2 TSP OF BAKING SODA W/ 80Z H20 AND ORGANIC SYRUP Cholecalciferol (Vitamin D3) (Vitamin D3) 2,000 Unit Tablet 2,000 UNIT PO QAM ( Reported) Docusate Sodium (Colace) 100 Mg Capsule 300 MG PO QAM (Reported) DOCUSATE 300 MG IN AM, 200 MG AT NOON, 200 MG AT HS Docusate Sodium (Colace) 100 Mg Capsule 200 MG PO BID (Reported) DOCUSATE 300 MG IN AM, 200 MG AT NOON, 200 MG AT HS Enoxaparin (Lovenox) 40 Mg/0.4 Ml Syringe 40 MG SUBQ HS (Reported) Furosemide (Furosemide) 20 Mg Tab 20 MG PO QAM (Reported) Gabapentin (Gabapentin) 600 Mg Tablet 600 MG PO TID (Reported) Methadone (Methadone) 5 Mg Tablet 2.5 MG PO BID (Reported) Polyethylene Glycol 3350 (Polyethylene Glycol 3350) 17 Gm Powd.pack 17 GM PO QAM (Reported) Potassium Chloride (Potassium Chloride) 20 Meq Tab.er.prt 10 MEQ PO DAILY TAKE WITH FOOD, stop taking when no longer taking Lasix Prescribed by: ELDA MAYER, DO As needed Acetaminophen (Acetaminophen) 325 Mg Tablet 650 MG PO Q4H PRN PRN For Pain ( Reported) Ibuprofen (Ibuprofen) 200 Mg Capsule 200-600 MG PO Q6H PRN PRN For Pain ( Reported) Melatonin (Melatonin) 3 Mg Tablet 6 MG PO HS PRN PRN Insomnia (Reported) Ondansetron (Ondansetron) 4 Mg Tablet 4-8 MG PO Q8H PRN PRN For Nausea/Vomiting (Reported) Oxycodone (Roxicodone) 5 Mg Tablet 5-15 MG PO Q4H PRN PRN For Pain (Reported) Followup Plan Disposition: Pt is transferred to [facility] with Dr. Jalloh as the accepting physician. Discharge Diet: Heart Healthy Discharge Activity: Other (bedrest during transfer) Otis Bejarano MD Nov 17, 2016 11:15
[2016-11-17] MEDS ORDERED: 0.9% Sodium Chloride 250 ML IV SCH (11:16)
[2016-11-17] MEDS ORDERED: Sodium Chloride LOK Flush 10 mL Syringe IVFLUSH PRN ×2 (11:20)
[2016-11-17] MEDS ORDERED: HepLOK Flush 100 unit/mL 5 mL Inj IVFLUSH PRN (11:20)
[2016-11-17 12:19] VITALS: BP 115/70; PULSE 83; RESP 20; O2SAT 97
--- NOTE | 2016-11-17 14:31 | CONS ---
[address] [address] CONSULTATION REPORT PATIENT: YANCY ALARCON : 1960 MR#: [id number] ADMIT: 11/16/2016 JOB ID: [id number] DATE OF SERVICE: 11/17/2016 CHIEF COMPLAINT: Left flank pain. HISTORY OF PRESENT ILLNESS: This patient is a 56-year-old man who has been treated for locally advanced rectal cancer, diagnosed in May 2016. He has been stated to have stage IV disease or stage III disease. I do not personally know of any known distant sites of metastases, but he has had a very locally advanced tumor in the pelvis. This was treated with rectal stent as well as diverting sigmoid colostomy. He was then treated with chemotherapy and radiation therapy, and then 10 days ago was taken to the operating room by Dr. Lee at the [facility] for attempted rectal resection. Apparently the operation was technically not possible and was aborted. He was in the hospital there for a few days and was discharged, and at the time of discharge, he thought he was doing fairly well. Promptly after discharge, he started developing increased left-sided abdominal pain and left flank pain. This has progressed over the past five days until he came into the emergency department last night to be evaluated. He has not had any vomiting. He has not had fevers or chills. Yesterday, he noticed a pimple on his left flank and that area spontaneously started draining foul smelling and slightly bloody fluid. He was admitted to the hospitalist service overnight. PAST MEDICAL HISTORY: Ulcerative colitis, history of pneumonia, stage IV adenocarcinoma of the rectum with extensive lymphadenopathy. PAST SURGICAL HISTORY: Shoulder surgery, rectal stent, sigmoid colostomy, Port-A-Cath placement. MEDICATIONS: Home medications include docusate, furosemide, gabapentin, ondansetron, MiraLAX and potassium chloride, Tylenol and Dilaudid tablets. ALLERGIES: No known drug allergies. SOCIAL HISTORY: He is a nonsmoker. He denies alcohol or illicit drug use. FAMILY HISTORY: Noncontributory. REVIEW OF SYSTEMS: A 10-point review of systems is negative. He is complaining of chronic left leg swelling and left leg numbness. Review of systems is otherwise negative. PHYSICAL EXAMINATION: Body mass index 20.2. Temperature 36.8, pulse 94, blood pressure 133/77, saturation 96% on 2 liters. General: Chronically ill-appearing man sitting up in bed. HEENT: Sclerae are anicteric. Mucous membranes are moist. Neck: No lymphadenopathy. Chest is clear. Heart: Regular rate and rhythm. No murmurs. Abdomen is distended and edematous on the left side. He has a left-sided colostomy with soft brown stool in the appliance. He has a low midline scar which is well approximated with no erythema. His left abdomen is diffusely tender with guarding. There is erythema and induration of the left flank. Just above the left iliac crest, there is a 5 mm skin opening which is draining foul-smelling purulent pierce fluid. Extremities: The left leg is edematous. Neuro: No deficits. Psychiatric: Affect is appropriate. LABORATORY DATA: White blood cell count is 41.9, hemoglobin 7.1, hematocrit 22.4, platelets 573. Differential includes 95% polys, potassium 3.2, bicarb 31, creatinine 0.91. Glucose 99. Lactate 1.3. Calcium 8.1. Albumin 2.0. Urinalysis shows a large amount of leukocyte esterase, urine is packed with white blood cells, culture is indicated. IMAGING: CT of the abdomen and pelvis with contrast yesterday shows innumerable scattered abscesses throughout the left retroperitoneum, pelvis and left posterior abdominal wall. The presumed rectal neoplasm has very abnormal soft tissue density measuring 10.6 x 8.2 cm with possible internal necrosis. There is an IVC filter in place. There is mild bilateral hydronephrosis. There is a trace pericardial effusion. There is mild patchy left lower lobe consolidation. ASSESSMENT AND PLAN: A 56-year-old man with a left retroperitoneal and flank abscess, now 10 days status post attempted resection of locally advanced rectal cancer. He is spontaneously draining purulent fluid through the left flank. I have discussed his case with Dr. Clark Jalloh, who is a colorectal surgeon, and partner of Dr. Lee at the [facility]. I am recommending transfer to the [facility] for definitive management, since this is a direct surgical complication of his attempted resection last week. I suspect that he will need to undergo operative drainage. At the very least, I think he will need to undergo surgical debridement of the left flank through the area of spontaneous drainage. Unfortunately, this certainly connects with his left pelvis and left retroperitoneum. It is possible he will require abdominal exploration as well. If transfer cannot be accomplished today, I personally will take him to the operating room here for debridement through the left flank at the very minimum, but even following that, I recommend transfer to the [facility] for definitive management.
--- NOTE | 2016-11-17 15:28 | NUR ---
TRANSFER Patient transferred to [facility] for more advanced care. Patient transported via ALS . Report given to receiving facility. family present upon transfer. Pt had K rider today for K of 3.2. Pt was to receive a blood transfusion prior to transport but transport team here so transfusion was not done. Left flank area red, swollen and draining purulent odorous drainage.
[2016-11-18] MEDS ORDERED: Vancomycin Serum Trough XX ONE (05:00)
== END 2016-11-17 14:49 | disposition short-term general hospital (02) | DRG 372 ==
LOC: SED 15:47 → OSC 23:03
PROVIDERS: ADMIT Family Medicine; ATTEND Family Medicine
DX: K65.1 Peritoneal abscess (principal); C19 Malignant neoplasm of rectosigmoid junction; D62 Acute posthemorrhagic anemia; Z93.3 Colostomy status; E87.6 Hypokalemia

== ENCOUNTER 2016-12-12 16:04 | Inpatient (IN) | payer OTHER ==
[~2016-12-12] VITALS: Ht 177.8 cm; Wt 62.5 kg
[~2016-12-12 16:04] MED LIST changes: -ACET-171 PO; +ACET325T51 PO; +CHOL200025 PO; +FUR20 PO; -FURO-128 PO; -GABA300C PO; +GABA600T2 PO; -HYDR4TAB PO; +IBUP200C PO; +LOV40 SUBQ; +MELA3TAB35 PO; +METH5TAB3 PO; +ONDA-53 PO; -ONDA-54 PO; +OXYC-474 PO; +[UNRECOGNIZED DRUG - REMARK] PO
[2016-12-12 16:10] VITALS: BP 129/83; PULSE 101; RESP 16; O2SAT 99
--- NOTE | 2016-12-12 16:36 | ED.REPORT ---
HPI-General Illness Date of Service December 12, 2016 ED Provider: Rafael Robles MD Patient is a 56 year old male with a hx of ulcerative colitis and stage 4 rectal CA. He was previous treated with pelvic chemoradio therapy and is followed by Dr. Elias. Upon receiving his lab results at a routine visit with Dr. Elias today, he was told he needed to be admitted to the hospital for acute renal failure. Associated symptoms include hematuria (although he did eat a large beet prior), dysuria, and decreased urination onset a few days ago. At baseline, the patient is fatigued. He denies nausea, vomiting, or any other symptoms. He had an exploratory laparotomy in October 2016 in which it was determined his mass was unresectable. He had a CT with contrast on 12/04. Nursing Notes Stated Complaint: KIDNEY FAILURE/CANCER CARE Chief Complaint: General Complaint Nursing Notes Reviewed: Yes Allergies: Coded Allergies: No Known Drug Allergies (Verified Allergy, Unknown, 12/12/16) Scheduled ([Marijuana]) 6-8 TOPICAL DAILY Cholecalciferol (Vitamin D3) (Vitamin D3) 2,000 Unit Tablet 2,000 UNIT PO QAM Ciprofloxacin Hcl (Cipro (eq) 500 MG-6 Tab Prepack) 1 Pkg Pkg 1 EACH PO BID started 12/10/16 Docusate Sodium (Colace) 100 Mg Capsule 200 MG PO BID Furosemide (Furosemide) 20 Mg Tab 20 MG PO QAM Gabapentin (Gabapentin) 600 Mg Tablet 600 MG PO TID Metronidazole (Metronidazole) 500 Mg Tablet 500 MG PO TID started 12/10/16 Polyethylene Glycol 3350 (Polyethylene Glycol 3350) 17 Gm Powd.pack 17 GM PO QAM Potassium Chloride (Potassium Chloride) 20 Meq Tab.er.prt 20 MEQ PO DAILY TAKE WITH FOOD Scheduled PRN Acetaminophen (Acetaminophen) 325 Mg Tablet 650 MG PO Q4H PRN PRN For Pain Ibuprofen (Ibuprofen) 200 Mg Capsule 200-600 MG PO Q6H PRN PRN For Pain Ondansetron (Ondansetron) 4 Mg Tablet 4-8 MG PO Q8H PRN PRN For Nausea/Vomiting Oxycodone (Roxicodone) 5 Mg Tablet 5-20 MG PO Q4H PRN PRN For Pain General Time Seen by MD: 16:30 Chief Complaint Other (Renal failure ) Hx Obtained From: Patient, Spouse Arrived By: Walk-in Sudden in Onset?: Yes Onset Occurred: 3 days ago Symptom Duration: Since onset Recent Healthcare: Recent doctor visit Past Medical History Past Medical History - 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 - ulcerative colitis - hx of pneumonia Past Surgical History Shoulder surgery. Placement of colonic stent. Colostomy placement Port-A-Cath Smoking History Never Smoker Social History Other Social History: Good social support, Local resident Ambulatory Status Independent Review of Systems +renal failure Full Review of Systems Constitutional: Reports: Fatigue GI: Denies: Nausea, Vomiting Male: Reports Dysuria, Reports Hematuria, Reports Urination decreased Complete sys rev & neg: except as marked. Physical Exam Vital Signs Vital Signs Date Time Temp Pulse Resp B/P Pulse Ox O2 Delivery O2 Flow Rate FiO2 12/12/16 16:10 36.7 101 16 129/83 99 Room Air Initial VS: Reviewed General/Constitutional: Well-developed, Well-nourished Head / Eyes: Atraumatic, Normocephalic Neck: Full range of motion Skin: Warm, Dry Neurologic: Alert, Oriented, Nonfocal Psychiatric: Mood/affect normal, Behavior normal, Normal thought content Respiratory / Chest: Breath sounds NL, Breath sounds = bilat, No respiratory distress Port in L anterior chest wall Cardiovascular: Regular rhythm, Heart sounds NL, No gallop, No murmurs, No rubs , Peripheral circulation NL Pitting edema bilaterally with L>R Abdomen: No guarding, No rebound Tenderness/Guarding/Rebound: Positive: Tender diffuse L colostomy bag Well healed surgical scar Lower Extremity / Pelvis / MS: Non-tender Perineum: Positive: Swelling present Significant scrotal edema without erythema or induration Interpretation & Diagnostics Lab Results Interpretation Result Diagram: 12/12/16 1715 12/12/16 2104 Test 12/12/16 17:15 12/12/16 17:47 White Blood Count 16.7th/mm3 (3.8-10.1) Red Blood Count 2.59mil/mm3 (4.40-5.80) Hemoglobin 7.5g/dL (13.8-17.2) Hematocrit 23.9% (41.0-50.0) Mean Corpuscular Volume 92.3fL (81-100) Mean Corpuscular Hemoglobin 29.0pg (27.0-35.0) Mean Corpuscular Hemoglobin Concent 31.4% (32.0-37.0) Red Cell Distribution Width 17.8% (12.3-15.4) Platelet Count 700bil/L (150-400) Neutrophils (%) (Auto) 88.2% (40-74) Lymphocytes (%) (Auto) 3.0% (14-46) Monocytes (%) (Auto) 7.8% (4-12) Eosinophils (%) (Auto) 0.4% (0-5) Basophils (%) (Auto) 0.2% (0-3) Prothrombin Time 12.0sec (8.1-12.5) Prothromb Time International Ratio 1.12ratio Activated Partial Thromboplast Time 31.8sec (22.8-33.0) Estimat Glomerular Filtration Rate 9mL/min (>59) Lactic Acid Level 0.8mmol/L (0.4-2.0) Magnesium Level 1.9mg/dL (1.6-2.6) Total Bilirubin < 0.2mg/dL (0.0-1.2) Aspartate Amino Transf (AST/SGOT) 13U/L (0-50) Alanine Aminotransferase (ALT/SGPT) 5U/L (0-44) Alkaline Phosphatase 72U/L (25-150) Total Protein 7.1g/dL (6.4-8.4) Lipase 10U/L (13-60) Urine Color Yellow (YELLOW) Urine Appearance Cloudy (CLEAR,HAZY) Urine pH 6.5 (5.0-8.0) Urine Specific Reserve 1.010 (1.003-1.035) Urine Protein 100mg/dL (NEG,TRACE) Urine Glucose (UA) Negativemg/dL (NEGATIVE) Urine Ketones Negativemg/dL (NEGATIVE) Urine Occult Blood Large (NEGATIVE) Urine Nitrite Negative (NEGATIVE) Urine Bilirubin Negative (NEGATIVE) Urine Urobilinogen Normalmg/dL (NORMAL) Urine Leukocyte Esterase Large (NEGATIVE) Urine RBC 11-50/hpf (0-2) Urine WBC >50/hpf (0-5) Urine Epithelial Cells Occasional/hpf (NONE-MOD) Urine Crystals Amorphous urates (NONE Urine Bacteria Few/hpf (NONE-FEW) Urine Hyaline Casts None/lpf (NONE) Urine Granular Casts None seen (NONE SEEN) Urine Waxy Casts None seen (NONE SEEN) Urine Red Blood Cell Casts None seen (NONE SEEN) Urine White Blood Cell Casts None seen (NONE SEEN) Urine Mucus None seen (None Seen) Urine Trichomonas None seen (NONE SEEN) Urine Yeast None (NONE SEEN) Urinalysis Comment None Urine Culture Reflexed Indicated Lab Results Interpretation: AU: 2+ Leukocytes 3+ blood ECG Interpretation ECG Interpretation: sinus 98 nL axis and interval no ST, T cahnges no prior for comparison Time: 19:17 Interpreted by: ED physician Re-Eval/Medical Decision Med Decision/Clinical Course The patient is a 56-year-old male with history of nonresectable rectal cancer and large associated mass that is known to be a mass effect upon his bladder and her recent CT scan at the [facility] "invading the bladder" who presents to the emergency department sent in by his oncologist due to acute renal failure. Upon arrival, the patient reports that he has been having hematuria though denies any other acute symptoms. He is cachectic in appearance though otherwise afebrile with stable vital signs. Examination as above. UA: 2+ Leukocytes 3+ blood CBC demonstrated leukocytosis of 16 and hematocrit of 23. Patient's potassium was 6.1, creatinine 6.53 and BUN of 52. These are all markedly elevated from baseline. EKG did not demonstrate any obviously peaked T waves. The patient's hyperkalemia he was treated with the below medications: Insulin/glucose Calcium gluconate Kayexalate IV fluids A Bravo catheter was placed he only drained about 50 mL of bloody appearing urine. Bilateral renal ultrasound was obtained as below: There is a moderate degree of bilateral hydronephrosis as was previously the case associated with a large pelvic mass, reportedly representing rectal carcinoma, with a endoluminal stent passing through the central portion of this mass. The exact boundaries of the mass are somewhat indistinct. No definite acute disease found. Pt was discussed with nephrology and they will formally consult for consideration of hemodialysis. Urology has been consulted as well and they agree with plan thus far. They will additionally consult for consideration of ureteral stent placement. At this time I suspect the patient's acute renal failure is multifactorial and likely related to contrast load from recent contrast CT scan as well as mass effect from his large tumor. She should has been admitted for further management and was signed out to the hospitalist in improved condition. Time of Eval: 18:30 Re-Evaluation/Progress Note: Rechecked patient. Discussed plan for admission. Patient understands and agrees with plan. All questions addressed at this time. Consultation #1: Referral / Consult Name: Noam Elias MD Hvac Tech: Will see patient Note: Discussed pt. case in person. Will see pt. Consultation #2: Referral / Consult Name: Ariel Terrell MD Consulted With: Nephrology Call Returned at: 18:17 Note: Discussed pt. case. Will consult Consultation #3: Referral / Consult Name: Joshua Lovelace MD Consulted With: Hospitalist Call Returned at: 19:12 Hvac Tech: Will see patient, Agrees with eval, Agrees with plan, Accepts admit Note: Discussed pt's case. Accepts admit. Consultation #4: Referral / Consult Name: Yovany Trujillo MD Consulted With: Urology Call Returned at: 20:04 Note: Would like CT's from . Will consult. Counseled Regarding: Diagnosis, Lab results, Need for admission Discharge & Departure Primary Impression: Acute renal failure (ARF) Acute renal failure type: unspecified Qualified Code: N17.9 - Acute kidney failure, unspecified Additional Impressions: Hyperkalemia Hydronephrosis Hydronephrosis type: unspecified Qualified Code: N13.30 - Unspecified hydronephrosis Rectal cancer Abdominal mass Abdominal location: unspecified location Qualified Code: R19.00 - Intra- abdominal and pelvic swelling, mass and lump, unspecified site Severe anemia Leukocytosis Leukocytosis type: unspecified Qualified Code: D72.829 - Elevated white blood cell count, unspecified Dehydration Disposition: ADMITTED TO HOSPITAL Referrals: NOPCP (PCP) Crit Care Except Billable Proc Time Spent: 135-164 minutes Services Performed: Patient management by me, Time spent at bedside, Reviewing test results, Reviewing imaging, Discussing patient care, Documentation in record, Time with fam/surrogate Scribe Attestation Portions of this note were transcribed by Timi Nelson. I, Dr. Robles personally performed the history, physical exam and medical decision-making; I reviewed and confirmed the accuracy of the information in the transcribed note. Signed by: Timi Nelson 12/12/162045 Rafael Robles MD December 12, 2016 16:36 TIMI NELSON December 12, 2016 17:22
[2016-12-12 17:28] LABS: BASOPHILS % (AUTO) 0.2 % (0-3); EOSINOPHILS % (AUTO) 0.4 % (0-5); MONOCYTES % (AUTO) 7.8 % (4-12); Mean Corpuscular Volume 92.3 fL (81-100); NEUTROPHILS % (AUTO) 88.2 % (40-74); Platelet Count 700 bil/L (150-400)
[2016-12-12 17:53] LABS: INR 1.12 ratio
[2016-12-12 17:59] LABS: Lipase 10 U/L (13-60); Magnesium 1.9 mg/dL (1.6-2.6)
[2016-12-12 18:07] LABS: APPEARANCE,URINE CLOUDY (CLEAR,HAZY); COLOR,URINE YELLOW (YELLOW); OCCULT BLOOD,URINE LARGE (NEGATIVE); PH,URINE 6.5 (5.0-8.0); UROBILINOGEN,URINE NORMAL (NORMAL)
[2016-12-12] MEDS ORDERED: Calcium GLUCOnate 10% (Gm) 1 Gm/10 mL Inj IVPUSH PRN (18:10)
[2016-12-12] MEDS ORDERED: Sodium Polystyrene Sulfonate 0.25 Gm/mL 500 mL Suspension PO ONE (18:10)
[2016-12-12] MEDS ORDERED: Ondansetron 2 mg/mL 2 mL Inj IVPUSH PRN ×2 (18:10→20:20)
[2016-12-12] MEDS ORDERED: Insulin Human REGular-Omnicell 100 Unit/mL IV ONE (18:10)
[2016-12-12] MEDS ORDERED: Alum-Mag Hydrox-Simeth 30 mL Suspension PO PRN ×2 (18:10→20:20)
[2016-12-12] MEDS ORDERED: POTA20TA16 PO (18:13)
[2016-12-12] MEDS ORDERED: METR500T19 PO (18:14)
[2016-12-12] MEDS ORDERED: CIPR-198 PO (18:14)
[2016-12-12] MEDS ORDERED: 0.9% Sodium Chloride 1,000 ML IV ONE (18:15)
[2016-12-12] MEDS ORDERED: Dextrose 50% Water 50 mL Inj IV ONE (18:30)
[2016-12-12 18:55] VITALS: BP 126/76; PULSE 91; RESP 11; O2SAT 97
--- NOTE | 2016-12-12 19:34 | DRSVH ---
PROCEDURE: US RENAL SONOGRAM INDICATIONS: arf, hynronephrosis, mass effect? TECHNIQUE: Real-time scanning was performed of the kidneys and bladder, with image documentation. COMPARISON: [facility], CT, CT ABD PELVIS W CON, 11/16/2016, 19:49. FINDINGS: Kidneys: Kidneys are normal in size. Right kidney measures 11.9 cm long; left kidney measures 12.9 cm long. Right renal cortical thickness is 1.5 cm; left renal cortical thickness is 2.7 cm. Renal c ortical echotexture is normal. Again noted is bilateral moderate hydronephrosis but no nephrolithiasi s. This pattern was previously present 11/16/16 No suspicious solid mass lesions. Bladder: The bladder is compressed by a large heterogeneous mass within the lower pelvis as was prev iously the case, currently estimated at measuring up to 10.6 x 17.2 x 11.2 cm. The exact boundaries, however, are indistinct by ultrasound. Centrally positioned within this mass is a stent like struct ure, previously present during CT scanning 11/16/16. Miscellaneous: No free pelvic fluid. IMPRESSION: Impression: There is a moderate degree of bilateral hydronephrosis as was previously th e case associated with a large pelvic mass, reportedly representing rectal carcinoma, with a endolumi nal stent passing through the central portion of this mass. The exact boundaries of the mass are [place] ewhat indistinct. No definite acute disease found. Dictated by: Kavon Arellano M.D. on 12/12/2016 at 19:26 Approved by: Kavon Arellano M.D. on 12/12/2016 at 19:32
[2016-12-12] MEDS ORDERED: Lidocaine 2% 6mL Topical Jelly ONE (19:48)
[2016-12-12 19:52] VITALS: BP 157/97; PULSE 94; RESP 14; O2SAT 97
[2016-12-12] MEDS ORDERED: Polyethylene Glycol (PEG) 17 Gm Powder PO PRN (20:20)
[2016-12-12 20:40] VITALS: BP 129/78; PULSE 93; RESP 16; O2SAT 97
[2016-12-12] MEDS: Heparin 5,000 Unit/mL Inj SUBQ SCH (21:51)
[2016-12-12 22:05] LABS: Phosphorus 8.2 mg/dL (2.5-4.9)
[2016-12-12] MEDS: HYDROcodone-APAP 5-325 mg Tablet PO PRN (22:52)
--- NOTE | 2016-12-12 22:59 | PROG NOTE ---
[address] [address] PROGRESS NOTE PATIENT: YANCY ALARCON : 1960 MR#: [id number] ADMIT: 12/12/2016 JOB ID: [id number] DATE: 12/12/2016 DIAGNOSES: 1. Current admission for acute renal failure, associated with edema, hyperkalemia and muscle twitching. 2. Stage IV rectal adenocarcinoma, currently off therapy. 3. Left iliopsoas abscess, percutaneous drainage tube in place. HISTORY OF PRESENT ILLNESS: The patient is a 56-year-old male with longstanding diagnosis of ulcerative colitis who was diagnosed with stage IV rectal cancer in late 2015. He was treated with two cycles of induction chemotherapy and subsequently completed a course of neoadjuvant pelvic chemoradiotherapy, but his tumor was surgically unresectable. He underwent an exploratory laparotomy at [facility] on November 07, 2016, but the tumor was huge and unresectable with attachment to pelvic sidewalls. Resection attempts were aborted. He has a sigmoid loop colostomy in place. He currently has a percutaneous drainage tube in place for a chronic left lower quadrant abscess. Initial drain was placed on November 17, 2016, but later, about two weeks ago, his drainage tube got caught on something at home and was pulled out. He went back to the [facility] on December 03 , and a new drainage tube was placed in the abscess, which is the current one he has. A CT scan of the abdomen and pelvis with contrast was obtained on that day, with no precontrast serum creatinine measurement, and that showed slight increase of ill-defined rim enhancing abscess in left lower quadrant, and continued increase in size of large rectal mass involving the bladder with a rectal stent in place. There was also a rim enhancing collection tracking along left psoas musculature and a presacral abscess. SUBJECTIVE: The patient came to office for oncology followup today. He has been admitted to hospital for acute renal failure. He reports persistent pelvic pain. Recently, he had two days of gross hematuria, but now his urine has cleared. He has retained a lot of edema lately, and reports bilateral lower extremity swelling and massive scrotal edema. He feels very tired. He has been having frequent involuntary muscle twitches. PHYSICAL EXAMINATION: Blood pressure 144/89, heart rate 107, temperature afebrile, O2 saturation mid 90s on room air. He has bilateral edema in lower extremities. The rest of exam is unremarkable. CURRENT LABORATORIES: Creatinine is 6.53, up from 1.73 two weeks ago. BUN is 52. Albumin is 2.3. Sodium 129. Potassium 6.1. Leukocyte count is 16,700 with neutrophilia hemoglobin 7.5 and platelet count 700,000. IMPRESSION AND RECOMMENDATIONS: 1. Acute renal insufficiency with uremic symptoms and hyperkalemia. Nephrology has been consulted. Most likely etiology is bilateral hydronephrosis due to his large pelvic tumor, as well as IV contrast exposure on December 03 at [facility], and possible ongoing infection given his multiple pelvic abscesses. Urine output is severely low. A Bravo catheter will be placed at emergency department. His recent CT scan showed bladder invasion of tumor with intraluminal mass. I think the patient will need to undergo dialysis given his edema and hyperkalemia, as well as muscle twitches. This will be determined by Nephrology. 2. Once his dialysis has been started and condition stabilized, will need to discuss long-term goals for this patient with advanced unresectable rectal cancer, who is also a poor candidate for palliative chemotherapy given his renal disease and chronic severe anemia. I will follow up on this issue with him tomorrow, and will consider palliative care consult as well. JOSE LUIS
[2016-12-12] MEDS ORDERED: Insulin Human REGular 300 Unit/3 mL Inj SUBQ SCH (23:05)
[2016-12-12] MEDS ORDERED: 0.9% Sodium Chloride 1,000 ML IV SCH (23:05)
--- NOTE | 2016-12-12 23:47 | PCM.HPMED ---
Subjective Date of Service December 12, 2016 Primary Provider: Admitting Physician: Joshua Lovelace MD Primary Care Physician: Tessa Anderson MD Attending Physician: Joshua Lovelace MD Chief Complaint: kidney failure History of Present Illness: Patient is a 56-year-old male history of ulcerative colitis, stage IV rectal adenocarcinoma with diverting colostomy, and LLE DVT who presented to the ED at the recommendation of his oncologist, Dr. Elias, for evaluation of his acute renal failure noted on lab work. Patient was recently admitted at the [facility] for abdominal abscess infection and had a follow-up CT scan on December 03. It was reported that his tumor was too large to resect and there was compression of the colon and bladder and adjacent iliac structures. Prior to the CT scan his creatinine was normal, but no repeat creatinine was done until today. At the office visit it was noted that his creatinine was 6.26 with a BUN of 51 and a potassium of 6.1. Patient reports he has been more fatigued than usual in the last week and is noted some hematuria, dysuria, and muscle twitching. He also reports that his lower extremity edema has been worse then usual and has also had extensive scrotal swelling and tenderness. He has not noticed any fevers, chills, nausea, or diarrhea, but continues to have abdominal pain especially near the site of his colostomy. He denies any chest pain or shortness of breath. In the ER he was afebrile with a pulse of 101 and blood pressure 129/83 and saturating 99% on room air. His CBC was pertinent for a white count of 16.7 which is his similar to his baseline. His hemoglobin was 7.5 with hematocrit 23.9. His platelet count was 700. His CMP was remarkable for sodium 129, potassium 6.1, BUN of 52, creatinine of 6.53, and albumin of 2.3 His UA showed large occult blood, large leukocyte esterase, urine RBC 11-50, urine white blood cell > 50 He had a renal ultrasound which showed moderate bilateral hydronephrosis, which had been previously seen, and also bladder compression medical large tumor In the ER he also received an amp of D50 with 10 units of insulin, Kayexalate, and calcium gluconate for his hyperkalemia Review of Systems: 12 Pt ROS neg except as stated in the HPI Allergies Coded Allergies: No Known Drug Allergies (Verified Allergy, Unknown, 12/12/16) Home Medications Tylenol Vitamin D3 Ciprofloxacin 500 mg twice a day Metronidazole 500 mg 3 times a day Docusate twice a day Furosemide 20 mg daily gabapentin 600 mg 3 times a day Zofran when necessary Oxycodone 5 mg when necessary MiraLAX daily Potassium chloride 20 mEq daily Marijuana topical PMH Stage IV colorectal adenocarcinoma moderately differentiated adenocarcinoma of the rectum - with invasion through the rectal wall, significant mass effect on the bladder, and extensive metastatic lymphadenopathy. Ulcerative colitis Surgical History Shoulder surgery. Placement of colonic stent. Colostomy placement Port-A-Cath on left chest Family History Father at age 79 of Alzheimer's and coronary artery disease. Paternal grandmother had lung cancer. Social History Hx Alcohol Use: Yes (NOTHING TO DRINK SINCE APR 2016) Hx Substance Use: No Hx Tobacco Use: No Smoking Status: Never Smoker Living Arrangement: with Family Exam Vital Signs Vital Sign - Last Date Time Temp Pulse Resp B/P Pulse Ox O2 Delivery O2 Flow Rate FiO2 12/12/16 19:52 94 14 157/97 97 Room Air 12/12/16 16:10 36.7 Exam General: Thin male who appears in no acute distress, alert and oriented 3 HEENT: PERRLA, EOMI, sclerae anicteric, oropharynx mucosa dry Neck: Soft, nontender, no JVD noted CV: Regular rate and rhythm, soft systolic murmur, peripheral pulses intact and equal, Port-A-Cath noted left upper chest Respiratory: CTA B, no wheezing or rhonchi, normal respiratory effort Abdomen: Colostomy in place at left lower quadrant, site is clean with no erythema, bag is draining soft brown stool, pink incision scar noted near hypogastrium, tender to palpation in the lower quadrants, no guarding, no rebound, no rashes noted MSK: Muscle strength grossly intact and equal, no tender joints Extremities: Left lower extremity with 2+ pitting edema from feet up to mid thigh, right lower extremity with trace pitting edema of feet of the knee, no cyanosis noted Neuro: Cranial nerves II-12 grossly intact, face symmetric, sensation grossly intact : Large edematous scrotum, with palpable, edematous, and tender epididymides right greater than left. No rash noted, no Bravo placed yet at time of examination Skin: Warm, dry, intact although fragile and thin skin Psychiatric: Appropriate mood and affect, linear thought process Lab and Diagnostics Result Diagram: 12/12/16 1715 12/12/16 1715 Additional Diagnostics: PROCEDURE: US RENAL SONOGRAM INDICATIONS: arf, hynronephrosis, mass effect? TECHNIQUE: Real-time scanning was performed of the kidneys and bladder, with image documentation. COMPARISON: [facility], CT, CT ABD PELVIS W CON, 11/16/2016, 19:49. FINDINGS: Kidneys: Kidneys are normal in size. Right kidney measures 11.9 cm long; left kidney measures 12.9 cm long. Right renal cortical thickness is 1.5 cm; left renal cortical thickness is 2.7 cm. Renal cortical echotexture is normal. Again noted is bilateral moderate hydronephrosis but no nephrolithiasis. This pattern was previously present 11/16/16 No suspicious solid mass lesions. Bladder: The bladder is compressed by a large heterogeneous mass within the lower pelvis as was previously the case, currently estimated at measuring up to 10.6 x 17.2 x 11.2 cm. The exact boundaries, however, are indistinct by ultrasound. Centrally positioned within this mass is a stent like structure, previously present during CT scanning 11/16/16. Miscellaneous: No free pelvic fluid. IMPRESSION: Impression: There is a moderate degree of bilateral hydronephrosis as was previously the case associated with a large pelvic mass, reportedly representing rectal carcinoma, with a endoluminal stent passing through the central portion of this mass. The exact boundaries of the mass are somewhat indistinct. No definite acute disease found. Assessment & Plan Patient is a 56-year-old male history of ulcerative colitis, stage IV rectal adenocarcinoma with diverting colostomy, and LLE DVT who presented to the ED for acute renal failure and hyperkalemia. 1. Acute Kidney Injury, Present on Admission Likely due to a combination ATN and post obstructive uropathy due to large tumor. Patient has had multiple CTs with contrast in the last few weeks, with the most recent one on December 03. It is also been demonstrated that he has a large tumor burden that is compressing on his colon and bladder. There is also possibility of urinary tract infection with his grossly abnormal UA. Patient received copious hydration in the ED, nephrology, and urology was consulted. Continue to avoid nephrotoxic medications if possible IV normal saline at 150mls/hr Nephrology will evaluate patient in the AM. If symptoms worsen, will call nephrology back for urgent dialysis Urology will evaluate patient in the AM. 2. Hyperkalemia, acute, POA Patient was given Kayexalate 30g, regular insulin and D50 in the ER. This brought the potassium down to 5.7. We will place on telemetry for CV monitoring We will give him another amp of D50 and 10 units of insulin and recheck potassium We will monitor blood sugars closely also, will consider D5 or D10NS if persistently low blood sugar 3. Left Psoas Abscess, POA Patient is currently on ciprofloxacin and Flagyl by mouth. He was originally admitted to [facility] for this, but subsequently was transferred to [facility] for further management. Likely the cause of patient's leukocytosis, although a UTI may also be possible. We will continue patient's antibiotics, may need to request records from [facility] for sensitivity if patient is not improving. 4. Scrotal Edema, POA Scrotal support Urology consulted 5. Rectal Adenocarcinoma, stage IV, POA As managed by oncology, Dr. Elias Peripheral edema secondary to tumor compression of Iliac vessels May need palliative care consultation 6.Ulcerative Colitis with colostomy, POA Colostomy in place in left lower quadrant Inpatient colostomy care ordered Casey 5/325 1-2 tabs PO prn mild pain IV Morphine prn severe pain 7. Chronic normocytic Anemia, POA Hgb 7.5 on admission. Typed and Cross Transfuse if Hgb <7.0 or symptomatic. Tylenol prn fever Zofran prn nausea CODE STATUS: Full resuscitation Disposition: Patient is admitted under inpatient status with expected length of stay greater than to midnight due to risk of adverse effects, decompensation, and medical complexity Pain Evaluation: Adequate Pain Control VTE Prophylaxis: Sub-Q Heparin (Unfractionated), SCDs Resuscitation Status: CPR: Attempt Resuscitation Attending Statement The patient was seen and examined together with Dr. Burton on 12/12 and I agree with the history, exam and plan as outlined in the note above. Ronnie Burton DO December 12, 2016 20:36 Joshua Lovelace MD December 13, 2016 01:39
[2016-12-13] VITALS (18 sets, daily range): BP systolic 125–138; BP diastolic 73–91; PULSE 81–104; RESP 12–18; O2SAT 95–100
[2016-12-13] MEDS: Heparin 5,000 Unit/mL Inj SUBQ SCH (03:28)
[2016-12-13] MEDS ORDERED: Dextrose 5% 0.9% NaCl 1,000 ML IV ONE (03:55)
[2016-12-13] MEDS: HYDROcodone-APAP 5-325 mg Tablet PO PRN (03:58)
[2016-12-13 05:23] LABS: BASOPHILS % (AUTO) 0.2 % (0-3); EOSINOPHILS % (AUTO) 0.6 % (0-5); MONOCYTES % (AUTO) 10.6 % (4-12); Mean Corpuscular Hemoglobin 28.7 pg (27.0-35.0); Mean Corpuscular Volume 93.1 fL (81-100); NEUTROPHILS % (AUTO) 85.7 % (40-74); Platelet Count 659 bil/L (150-400)
[2016-12-13 05:48] LABS: Phosphorus 8.3 mg/dL (2.5-4.9)
[2016-12-13] MEDS: Polyethylene Glycol (PEG) 17 Gm Powder PO SCH (08:30)
[2016-12-13] MEDS ORDERED: 0.9% Sodium Chloride 250 ML ONE (11:21)
--- NOTE | 2016-12-13 11:22 | PCM.CONPAL ---
Date of Service December 13, 2016 Date of Hospital Admission: December 12, 2016 at 18:34 Palliative Care Recommendation Summary of palliative recommendations: -Symptom management (Pain/other) PAIN: pt complaining of blurred vision on Milano and MS IV. HAs done well with oxycodone at home at 15 mg several times a day. He further states that he has had poor outcomes with morphine and methadone, both causing significant AMS without pain relief. He was on dilaudid in the past and this did relieve pain for him while leaving him clear-headed. His brother also states that he had good relief with IV fentanyl once in the past and it did not affect his MS, but the patient is probably not a candidate for patch--see note below under malnutrition. Informed by all this we will change his orders as follows: --DC morphine IV --DC Milano --start 15 mg oxycodone po q 3 hrs to be alternated with --6 mg hydromorphone po q 3 hrs. --Also start hydromorphone 1 mg IV for breakthrough severe pain to replace morphine which was not working. --Start OxyContin 20 mg q 12 hours, first dose tonight. --ABDELRAHMAN Graf who agrees to document the effectiveness as well as any side effects, a my phone is in the orders; please call with questions up till about 11pm. SCROTAL EDEMA: will hope to manage pain of this with med regime above. US to lower pelvis ordered for tonight. MALNUTRITION: his wasting and cachexia are significant. If further treatment is an option, he may need alternative/artifical nutrition support to withstand any anorexia that might accompany the chemotherapy. --pt does express hunger now and is keeping food down. --pt is probably not a candidate for fentanyl patch due to poor fat stores. D/w Dr. Elias the PC consult and what role he would like us to have. He states that while the patient "knows his disease is terminal", he is not "ready to give up"; he has children living at home and wants to have all the time possible with them. Dr. Elias states that they have focused on getting him into radiation for tumor shrinking, then he underwent exploratory lap in [place]. This, unfortunately, showed that his tumor burden was too large to be addressed surgically. The patient returns now to his local oncologist to explore chemotherapy options for the first time. In presenting to the office, his renal function was clearly emergent and so he is admitted to seek a solution that will resume the renal failure 2/2 hydronephrosis 2/[address] Elias plans to see him here in the hospital to discuss his options and long-term goals. Dr. Elias has agreed that palliative care may be helpful in discussing goals and determining what level of intervention would be consistent with this gentleman's goals. Renal Failure: Options for treatment: The patient told me as I entered "I am waiting for them to take me to surgery". His SO has suggested a "second opinion " regarding the nephrostomy tubes; but rather it appears that she just wants to make sure [place] SO [place] call in to [facility]/ oncologist (couldn't find him in the [facility] or directory; not sure what team he is with). They do understand that the nephrostomy tubes are more of an "emergency intervention" to allow his kidneys to return to normal function. PC will return to visit with the patient after nephrostomy tube placements, or tomorrow depending on the patient condition. -DPOA/Advanced Directives/POLST: Patient is making comments regarding " This isn 't worth it" referring to his unrelenting severe pain. He agrees to try the increases of pain medication to see if these can give him relief, and we agreed to wait until he has better pain relief, thus better ability to envision his goals for quality life to continue the palliative care consultation. He is aware that Dr. Elisa will be here tonight to discuss (palliative) chemo options. PLEASE NOTE: His children were in the room during our later conversation so he wished to defer any abby conversation this evening. His SO other or mom might choose to have them out of the room for his conversation with Dr. Elias. did discuss this with RN> -Family/emotional support -Spiritual support Patient Goals: 1. Patient wants to be told the truth about his/her illness, even if it is unpleasant. 2. Patient would like to be told prognosis when it can be predicted, to better guide treatment decisions. 3. Patient would choose quality of life over quantity of life, and defines quality as being able to enjoy family, having adequate pain control. 4. Patient would request that comfort care take priority over cognitive/mental confusion. Additional Medical Diagnoses with primary management by Hospitalist team include : Problems: Resuscitation Status Resuscitation Status: CPR: Attempt Resuscitation . Pain: Severe Symptom management: Pain Pt History History of Present Illness Patient is a 56-year-old male history of ulcerative colitis, stage IV rectal adenocarcinoma with diverting colostomy, and LLE DVT who presented to the ED at the recommendation of his oncologist, Dr. Elias, for evaluation of his acute renal failure noted on lab work. Patient was recently admitted at the [facility] for abdominal abscess infection and had a follow-up CT scan on December 03. It was reported that his tumor was too large to resect and there was compression of the colon and bladder and adjacent iliac structures. Prior to the CT scan his creatinine was normal, but no repeat creatinine was done until today. At the office visit it was noted that his creatinine was 6.26 with a BUN of 51 and a potassium of 6.1. Patient reports he has been more fatigued than usual in the last week and is noted some hematuria, dysuria, and muscle twitching. He also reports that his lower extremity edema has been worse then usual and has also had extensive scrotal swelling and tenderness. He has not noticed any fevers, chills, nausea, or diarrhea, but continues to have abdominal pain especially near the site of his colostomy. He denies any chest pain or shortness of breath. In the ER he was afebrile with a pulse of 101 and blood pressure 129/83 and saturating 99% on room air. His CBC was pertinent for a white count of 16.7 which is his similar to his baseline. His hemoglobin was 7.5 with hematocrit 23.9. His platelet count was 700. His CMP was remarkable for sodium 129, potassium 6.1, BUN of 52, creatinine of 6.53, and albumin of 2.3 His UA showed large occult blood, large leukocyte esterase, urine RBC 11-50, urine white blood cell > 50 He had a renal ultrasound which showed moderate bilateral hydronephrosis, which had been previously seen, and also bladder compression medical large tumor In the ER he also received an amp of D50 with 10 units of insulin, Kayexalate, and calcium gluconate for his hyperkalemia Medications Current Medications: Current Medications Calcium Gluconate 1 gm Q5MIN PRN IVPUSH Last administered on 12/12/16 18:34; Admin Dose 1 GM; Start 12/12/16 at 18:10 Al Hydrox/Mg Hydrox/Simethicone 30 ml Q6 PRN PO; Start 12/12/16 at 18:10; Stop 12/12/16 at 20:32; Status DC Ondansetron HCl Dose range: 4 mg to 8 mg Q4H PRN IVPUSH; Start 12/12/16 at 18:10 ; Stop 12/12/16 at 20:32; Status DC Acetaminophen 975 mg Q6H PRN PO; Start 12/12/16 at 18:10 Heparin Sodium (Porcine) 5,000 unit Q8H SUBQ; Start 12/12/16 at 20:20; Stop at 07:02; Status DC Al Hydrox/Mg Hydrox/Simethicone 30 ml Q6H PRN PO; Start 12/12/16 at 20:20 Ondansetron HCl 4 to 8 mg Q4H PRN IVPUSH; Start 12/12/16 at 20:20 Senna 17.2 mg BID PRN PO; Start 12/12/16 at 20:20 Polyethylene Glycol 17 gm DAILY PRN PO; Start 12/12/16 at 20:20 Temazepam 15 mg HS PRN PO; Start 12/12/16 at 20:20 Acetaminophen/ Hydrocodone Bitart 1-2 TABS Q4H PRN PO Last administered on 03:58; Admin Dose 2 TABLET; Start 12/12/16 at 20:20 Morphine Sulfate 1-2 mg Q4H PRN IV Last administered on 12/13/16 10:07; Admin Dose 2 MG; Start 12/12/16 at 20:20 Docusate Sodium 200 mg BID PO; Start 12/13/16 at 08:30 Furosemide 20 mg DAILY PO; Start 12/13/16 at 08:30 Polyethylene Glycol 17 gm DAILY PO; Start 12/13/16 at 08:30 Cholecalciferol 2,000 unit DAILY PO; Start 12/13/16 at 08:30 Gabapentin 600 mg TID PO; Start 12/13/16 at 08:30 Ciprofloxacin 500 mg BID PO Last administered on 12/12/16 22:52; Admin Dose 500 MG; Start 5/3/17 at 22:00 Metronidazole HCl 500 mg 500 mg TID PO Last administered on 12/12/16 22:52; Admin Dose 500 MG; Start 12/12/16 at 22:00 Sodium Chloride 1,000 ml @ 150 mls/hr Q6H40M IV Last administered on 12/12/16 23:41; Admin Dose 150 MLS/HR; Start 12/12/16 at 23:05; Stop 12/13/16 at 03:56; Status DC Scheduled ([Marijuana]) 6-8 TOPICAL DAILY Cholecalciferol (Vitamin D3) (Vitamin D3) 2,000 Unit Tablet 2,000 UNIT PO QAM Ciprofloxacin Hcl (Cipro (eq) 500 MG-6 Tab Prepack) 1 Pkg Pkg 1 EACH PO BID started 12/10/16 Docusate Sodium (Colace) 100 Mg Capsule 200 MG PO BID Furosemide (Furosemide) 20 Mg Tab 20 MG PO QAM Gabapentin (Gabapentin) 600 Mg Tablet 600 MG PO TID Metronidazole (Metronidazole) 500 Mg Tablet 500 MG PO TID started 12/10/16 Polyethylene Glycol 3350 (Polyethylene Glycol 3350) 17 Gm Powd.pack 17 GM PO QAM Potassium Chloride (Potassium Chloride) 20 Meq Tab.er.prt 20 MEQ PO DAILY TAKE WITH FOOD Scheduled PRN Acetaminophen (Acetaminophen) 325 Mg Tablet 650 MG PO Q4H PRN PRN For Pain Ibuprofen (Ibuprofen) 200 Mg Capsule 200-600 MG PO Q6H PRN PRN For Pain Ondansetron (Ondansetron) 4 Mg Tablet 4-8 MG PO Q8H PRN PRN For Nausea/Vomiting Oxycodone (Roxicodone) 5 Mg Tablet 5-20 MG PO Q4H PRN PRN For Pain Objective Findings Exam Vital Sign - Last Date Time Temp Pulse Resp B/P Pulse Ox O2 Delivery O2 Flow Rate FiO2 12/13/16 08:08 36.6 91 18 127/73 97 Room Air Intake and Output 12/12/16 12/12/16 12/13/16 Cumulative From/Thru 15:00 23:00 07:00 12/12/16 16:10 - 12/13/16 06:17 Intake Total 1000 ml 400 ml 1400 ml Output Total 1000 ml 1000 ml Balance 1000 ml -600 ml 400 ml Intake Oral 400 ml 400 ml IV Total 1000 ml 1000 ml Output Urine Total 500 ml 500 ml Stool Total 500 ml 500 ml # Bowel Movements 0 0 General: Alert/Oriented x3, Moderate distress Lungs: Normal Air Movement Extremities: Warm, Edema (3+scrotal and ALETA) Lab/Diagnostics Lab and Imaging results reviewed in detail in EMR. Patient/Family Conference Members Present Family Members Present SO tello Lopes Discussion/Goals of Care Discussion FAMILY UNDERSTANDING OF DISEASE: [family is present and involved in care. Unable to address issues of advance care planning due to scheduled therapies and severe pain needing intervention. Palliative Care counselled: Time spent Total time 80 minutes; >50% face to face with patient and/or family, providing counselling regarding plans and recommendations, and in care coordination with his/her medical teams. copies to: Noam Elias MD, Sharmon M. ARNP December 13, 2016 11:22 Would patient choose quality of life over quantity of life? Would comfort care be more important than being awake and alert? If patient is no longer alert and aware because of their illness, would you choose comfort for them? Palliative Care counselled: Time spent Total time [ ] minutes; >50% face to face with patient and/or family, providing counselling regarding plans and recommendations, and in care coordination with his/her medical teams. I also spent an additional [ ] minutes counseling for advanced care planning with the patient/the patients family/the surrogate decision maker. Jessica Pete December 13, 2016 11:22
[2016-12-13] MEDS ORDERED: Albuterol 2.5 mg/3 mL Inhalation Solution NEB ONE (11:55)
[2016-12-13] MEDS ORDERED: Heparin 5,000 Units/500 mL NS Premix IV ONE (12:07)
[2016-12-13] MEDS: 0.9% Sodium Chloride 250 ML IV SCH ×2 (12:33→16:20)
[2016-12-13] MEDS ORDERED: Sodium Chloride LOK Flush 10 mL Syringe IVFLUSH PRN ×2 (12:35)
[2016-12-13] MEDS ORDERED: HepLOK Flush 100 unit/mL 5 mL Inj IVFLUSH PRN (12:35)
[2016-12-13] MEDS ORDERED: fentaNYL-PF 50 mCg/mL 2 mL Inj ONE ×2 (12:37→13:16)
[2016-12-13] MEDS ORDERED: levoFLOXacin Inj 500 MG in IV Premix 1 EACH IV ONE (13:01)
--- NOTE | 2016-12-13 13:25 | CONS ---
[address] [address] CONSULTATION REPORT PATIENT: YANCY ALARCON : 1960 MR#: [id number] ADMIT: 12/12/2016 JOB ID: [id number] DATE OF SERVICE: 12/13/2016 CHIEF COMPLAINT: Bilateral hydronephrosis, acute renal failure. HISTORY OF PRESENT ILLNESS: I was asked by emergency department doctor, Dr. Rafael Robles, and hospitalist, Dr. Joshua Lovelace, to evaluate this 56-year-old male for bilateral hydronephrosis and acute renal failure. The patient is followed by medical oncologist, Dr. Noam Elias. The patient has stage IV rectal adenocarcinoma, status post chemotherapy, status post radiation therapy, status post recent exploratory laparotomy on November 07, 2016 at [facility] with tumor unresectable, also with left iliopsoas abscess with percutaneous drainage tube in place, and also with diverting colostomy. The patient was found yesterday to have acute renal failure with creatinine 6.26 and was admitted by hospitalist, Dr. Lovelace, last night for acute renal failure. Laboratories upon presentation in the emergency department showed creatinine 6.53 and hyperkalemia with potassium 6.1. Patient had a CT scan pelvis with IV and p.o. contrast on November 16, 2016 showing mild bilateral hydroureteronephrosis down to a large 10.6 cm rectal mass, also with left retroperitoneal, left pelvis and left posterior abdominal wall abscesses. Of note, patient also had mild bilateral hydronephrosis on CT scan on July 06, 2016. The patient reportedly had a recent CT scan at [facility] with IV contrast, with the CT scan reportedly showing bilateral hydronephrosis. The patient had a renal ultrasound last night showing moderate bilateral hydronephrosis, no nephrolithiasis, no renal mass lesions. Of note, patient was seen by Urology physician certified nursing assistant instructor, Tessa Vasquez, in August 2016 for dysuria, history of recent UTI and incomplete bladder emptying, with dysuria improved with Pyridium, with urinalysis negative and PVR 265 mL during the last visit in August 2016, with plan for cystoscopy in the future after radiation therapy. Patient states he has been recently having significant dysuria, bilateral left greater than right flank and lower abdominal pain. The patient states he had recent gross hematuria which resolved. The patient reports significant fatigue and lower extremity and bilateral scrotal swelling with mild bilateral scrotal discomfort. The patient states he has had urinary urgency. The patient states he has not been having fever or chills at home, with no nausea and no vomiting. Bravo catheter was placed in the emergency department last night with Bravo catheter draining approximately 50-100 mL of clear yellow urine. The patient was admitted by hospitalist, Dr. Lovelace, last night and started on antibiotics and IV fluid hydration and also given Kayexalate, regular insulin and D50 for hyperkalemia, with potassium subsequently decreasing to 5.7. PAST MEDICAL AND SURGICAL HISTORY: Stage IV rectal adenocarcinoma as above, status post chemotherapy, status post radiation therapy, status post diverting colostomy, left iliopsoas abscess with percutaneous drainage tube in place, as per HPI. Status post exploratory laparotomy, as per HPI. Ulcerative colitis, shoulder surgery, left lower extremity DVT, placement of colonic stent, Port-A-Cath placement. MEDICATIONS: Present hospital medications: Colace, Lasix, MiraLAX, vitamin D3, Neurontin, Insulin, Cipro, Flagyl, Maalox p.r.n., Zofran p.r.n., senna p.r.n., MiraLAX p.r.n., temazepam p.r.n., [place] p.r.n., morphine p.r.n., Tylenol p.r.n. ALLERGIES: No known drug allergies. SOCIAL HISTORY: No smoking. No recent alcohol use. FAMILY HISTORY: Noncontributory. REVIEW OF SYSTEMS: Constitutional: No fever, no chills. GI: No nausea, no vomiting. PHYSICAL EXAMINATION: Vital signs: The patient had a fever of 37.9 degrees Celsius last night at 8:40 p.m. Afebrile since then. Temperature presently 36.6 degrees Celsius, heart rate 91, respiratory rate 18, BP 127/73, O2 sat 97% on room air. Bravo cathete urine output 500 mL during the last 8 hour shift. General: Well-developed, well-nourished male in no acute distress. HEENT exam: Head normocephalic, atraumatic. Eyes: Extraocular muscles intact. Neck is supple. Back: Positive for left costovertebral angle tenderness. Chest: No use of accessory muscles. Nonlabored respirations. No retractions. Abdomen: Soft, nondistended, mildly tender left lower quadrant and right lower quadrant, no palpable masses, no rebound, no guarding, midline incision well healed, colostomy in place, left lower quadrant percutaneous drain in place. Skin: Warm and dry. Urologic exam: Penis normal, no lesions. Urethral meatus normal. Bravo catheter in place draining clear yellow urine. Scrotum: Moderate to severe bilateral scrotal edema, nontender, no palpable masses, no erythema, warmth, discharge, fluctuance or crepitus. Bilateral testes not palpable secondary to scrotal edema. Bilateral lower extremities with significant edema. Neurologic exam: Sensation grossly intact to touch. Normal speech. Psych exam: Alert and oriented x3. Normal mood and affect. LABORATORY DATA: Laboratories yesterday at 5:15 p.m. - White blood cell count 16.7, hematocrit 23.9, platelets 700. Sodium 129, potassium 6.1, chloride 94, CO2 17, BUN 52, creatinine 6.53. Glucose 77. Lactic acid 0.8, which is within normal limits. Also yesterday - urinalysis 11-50 red blood cells, greater than 50 white blood cells, negative nitrite, large leukocyte esterase. This morning at 4:47 a.m. - White blood cell count 14.4, hematocrit 23.0, platelets 659. Sodium 137, potassium 6.0, chloride 100, CO2 19, BUN 48, creatinine 6.48, glucose 84. Microbiology: Urine culture December 12, 2016 pending. On November 17, 2016, creatinine 0.901. November 29, 2016, creatinine 1.73. IMAGING: CT scan November 16, 2016 as per HPI. Renal ultrasound December 12, 2016 as per HPI. ASSESSMENT: New onset acute renal failure, likely secondary to combination of bilateral hydronephrosis and bilateral ureteral obstruction which is secondary to large rectal mass, recent administration of IV contrast during CT scan at the [facility], infection with abscesses, and possible urinary tract infection, with hyperkalemia. The patient also has bilateral scrotal edema likely secondary to anasarca. Risks, benefits, and alternatives of bilateral percutaneous nephrostomy tube placement by Interventional Radiology versus surgery, specifically cystoscopy and bilateral ureteral stent placement, versus observation, discussed with the patient. All questions were answered. The patient wishes to have bilateral percutaneous nephrostomy tube placement as recommended, as cystoscopy and bilateral ureteral stent placement would have a very low likelihood of success secondary to very large rectal mass compressing bilateral ureters. PLAN: The plan is for bilateral percutaneous nephrostomy tube placement this morning by Interventional Radiology. Case discussed with interventional radiologist, Dr. Alfredo. Will continue n.p.o. status until patient has Interventional Radiology procedure. Recommend following laboratories, including creatinine, electrolytes, and white blood cell count. Recommend following up on urine culture results. Recommend continuing antibiotics. The case was also discussed with wrapper counter, Dr. Ariel Terrell, who agrees with the plan. Recommend scrotal support and elevating scrotum at all times with rolled towels under the scrotum and athletic supporter. Will order a scrotal ultrasound. The patient will need cystoscopy in the future as an outpatient for his gross hematuria. JOSE LUIS
[2016-12-13] MEDS ORDERED: levoFLOXacin Inj 250 MG in IV Premix 1 EACH IV ONE (13:30)
--- NOTE | 2016-12-13 13:49 | PCM.PNMED ---
Subjective Date of Service December 13, 2016 Subjective Patient is seen and examined. He appears distraught over his current situation. Patient has several lines and tubes coming out of his body. He just has come out of the nephrostomy procedure and the staff tell me that he is producing good urine output. Wanting to eat. He states that he has been bleeding from his urethra when he urinated whenever he urinated on and off for a week now. Patient has completed chemotherapy in the August 24 for patient's brother with Dr. tan. He underwent radiation but also waiting to start maintenance therapy with Dr. tan. But then he happened to have this psosas muscle infection for which he was hospitalized in [facility]. Thus the chemotherapy list postponed. during his clinic visit [facility] dr. tan yesterday lab showed concern for worsened renal function. He states that he received more than one CT scan around December 03. He has intense pain over the suprapubic area. He has a drain placed for the u of w procedure that has clear drainage and it he also has 2 nephrostomy tubes joined draining into one urine catheter. He has a prior placed on the left side of his chest. He has a urine regular Bravo catheter. Patient did not remember when he is supposed to have completed his ciprofloxacin and Flagyl from [facility]. Exam Vital Signs Vital Sign - Last Date Time Temp Pulse Resp B/P Pulse Ox O2 Delivery O2 Flow Rate FiO2 12/13/16 08:08 36.6 91 18 127/73 97 Room Air Intake and Output 12/12/16 12/12/16 12/13/16 Cumulative From/Thru 15:00 23:00 07:00 12/12/16 16:10 - 12/13/16 06:17 Intake Total 1000 ml 400 ml 1400 ml Output Total 1000 ml 1000 ml Balance 1000 ml -600 ml 400 ml Intake Oral 400 ml 400 ml IV Total 1000 ml 1000 ml Output Urine Total 500 ml 500 ml Stool Total 500 ml 500 ml # Bowel Movements 0 0 Exam Gen.: Cachectic appearing Psych: Very distraught Heart: Regular rate and rhythm*or murmurs Lungs: Clear to auscultation Abdomen flat incisions below umbilicus can be seen, has a colostomy bag that without any output, abdomen is flat and nondistended, normal bowel sounds Extremities: His left extremity is swollen all the way up into his groin and scrotum is also swollen, c/o severe tenderness and scrotum Skin: Mild erythema over the lower left leg Neuro: No focal deficits Psych: Mood is somewhat agitated, affect is cooperative IVs and Medications Medications Reviewed: Medications were reviewed in detail Lab and Diagnostics Result Diagram: 12/13/1644612/13/16446 Additional Diagnostics PROCEDURE: US RENAL SONOGRAM INDICATIONS: arf, hynronephrosis, mass effect? TECHNIQUE: Real-time scanning was performed of the kidneys and bladder, with image documentation. COMPARISON: [facility], CT, CT ABD PELVIS W CON, 11/16/2016, 19:49. FINDINGS: Kidneys: Kidneys are normal in size. Right kidney measures 11.9 cm long; left kidney measures 12.9 cm long. Right renal cortical thickness is 1.5 cm; left renal cortical thickness is 2.7 cm. Renal cortical echotexture is normal. Again noted is bilateral moderate hydronephrosis but no nephrolithiasis. This pattern was previously present 11/16/16 No suspicious solid mass lesions. Bladder: The bladder is compressed by a large heterogeneous mass within the lower pelvis as was previously the case, currently estimated at measuring up to 10.6 x 17.2 x 11.2 cm. The exact boundaries, however, are indistinct by ultrasound. Centrally positioned within this mass is a stent like structure, previously present during CT scanning 11/16/16. Miscellaneous: No free pelvic fluid. IMPRESSION: Impression: There is a moderate degree of bilateral hydronephrosis as was previously the case associated with a large pelvic mass, reportedly representing rectal carcinoma, with a endoluminal stent passing through the central portion of this mass. The exact boundaries of the mass are somewhat indistinct. No definite acute disease found. Assessment & Plan Patient is a 56-year-old male history of ulcerative colitis, stage IV rectal adenocarcinoma with diverting colostomy, and LLE DVT who presented to the ED for acute renal failure and hyperkalemia. 1. Acute Kidney Injury, Present on Admission Likely due to a combination ATN and post obstructive uropathy due to large tumor. Patient has had multiple CTs with contrast in the last few weeks, with the most recent one on December 03. It is also been demonstrated that he has a large tumor burden that is compressing on his colon and bladder. There is also possibility of urinary tract infection with his grossly abnormal UA. Patient received copious hydration in the ED, nephrology, and urology was consulted. Continue to avoid nephrotoxic medications if possible Nephrology will evaluate patient in the AM. If symptoms worsen, will call nephrology back for urgent dialysis: Contacted nephrology has seen the patient removed ciprofloxacin, started him on Zosyn. He also contacted urology for nephrostomy procedure. Urology will evaluate patient in the AM.: Urology has seen the patient, patient underwent bilateral suprapubic catheter placement. 2. Hyperkalemia, acute, POA Patient was given Kayexalate 30g, regular insulin and D50 in the ER. This brought the potassium down to 5.7. We will place on telemetry for CV monitoring We will give him another amp of D50 and 10 units of insulin and recheck potassium We will monitor blood sugars closely also, will consider D5 or D10NS if persistently low blood sugar Patient is given given another round of Kayexalate 15 g, and also one gram of Calcium gluconate based on the follow-up evening lab 12/13 that showed potassium of 6.4: Nephrology is aware. Follow-up potassium at 9 PM 3. Left Psoas Abscess, POA Patient is currently on ciprofloxacin and Flagyl by mouth. He was originally admitted to [facility] for this, but subsequently was transferred to [facility] for further management. Likely the cause of patient's leukocytosis, although a UTI may also be possible. We will continue patient's antibiotics, may need to request records from [facility] for sensitivity if patient is not improving. -- Nephrology has switched him to Zosyn to Cipro renal toxic 4. Scrotal Edema, POA Scrotal support Urology consulted: The patient said a scrotal ultrasound is done, read is pending 5. Rectal Adenocarcinoma, stage IV, POA As managed by oncology, Dr. Elias: Dr. Tan has come to see the patient when patient was undergoing the procedure. Peripheral edema secondary to tumor compression of Iliac vessels May need palliative care consultation: Palliative care is consulted, they try to help with pain control. 6.Ulcerative Colitis with colostomy, POA Colostomy in place in left lower quadrant Inpatient colostomy care ordered Pain management per palliative care 7. Chronic normocytic Anemia, POA Hgb 7.5 on admission. Typed and Cross Transfuse if Hgb <7.0 or symptomatic. Patient is transfused with 2 units of blood 12/13, posttransfusion H&H pending Tylenol prn fever Zofran prn nausea CODE STATUS: Full resuscitation Disposition: Patient is admitted under inpatient status with expected length of stay greater than to midnight due to risk of adverse effects, decompensation, and medical complexity Pain Evaluation: Pain not Controlled VTE Prophylaxis: Sub-Q Heparin (Unfractionated), SCDs VTE Mechanical Devices: Intermittant Pneumatic CD Resuscitation Status: CPR: Attempt Resuscitation Time spent 25 minutes Mitzi Salguero DO December 13, 2016 13:49
--- NOTE | 2016-12-13 14:11 | DRSVH ---
PROCEDURE: NEPHROSTOMY INSERT CATH (PNL) 1. Left nephrostomy tube placement. 2. Left antegrade pyelogram. 3. Right nephrostomy tube placement. 4. Right antegrade pyelogram. 5. Ultrasound guidance for renal access. 6. Conscious sedation for 50 minutes. INDICATIONS: Ureteral obstruction. TECHNIQUE: The indications, alternatives, benefits, risks, and complications of the procedure were e xplained to the patient and any family members present. Informed written consent was obtained and pl aced in the chart. The patient was brought to the angiography suite. Conscious sedation was adminis tered intravenously by care home staff, with continuous cardiorespiratory monitoring. The patient was placed in the oblique position on the angiography table. The back was prepped and dr aped in a sterile fashion, with 1% lidocaine used for local anaesthesia. A left interpolar posterior renal calyx was accessed using sonographic guidance with an Accustick set. A small amount of air wa s instilled to confirm positioning of the needle. Contrast was injected through the Accustick needle for an antegrade pyelogram. An 0.018 Mandrill wire was advanced into the renal pelvis and exchanged for an Accustick dilator/sheath. A 035 wire was advanced into the proximal to mid ureter. After di latation of the nephrostomy tract, a 8 Burkinan pigtail catheter was advanced under fluoroscopic guidan ce. The catheter was pigtailed in the renal pelvis and locked. A small amount of contrast was injec randell through the nephrostomy catheter. Catheter was secured to the skin surface. A right interpolar posterior renal calyx was accessed using sonographic guidance with an Accustick se t. A small amount of air was instilled to confirm positioning of the needle. Contrast was injected through the Accustick needle for an antegrade pyelogram. An 0.018 Mandrill wire was advanced into th e renal pelvis and exchanged for an Accustick dilator/sheath. A 035 wire was advanced into the proxi mal to mid ureter. After dilatation of the nephrostomy tract, a 8 Burkinan pigtail catheter was advanc ed under fluoroscopic guidance. The catheter was pigtailed in the renal pelvis and locked. A small amount of contrast was injected through the nephrostomy catheter. Catheter was secured to the skin s urface. The patient was stable during the course of the procedure. FLUOROSCOPY TIME: 4.3 minutes. COMPARISON: [facility], CT, CT ABD PELVIS W CON, 11/16/2016, 19:49. FINDINGS: Bilateral hydronephrosis is present, moderate in degree. At the conclusion of the procedur e, the pigtail catheter is within the renal pelvis. IMPRESSION: Successful placement of bilateral nephrostomy tubes without complication. Dictated by: Edgar Alfredo M.D. on 12/13/2016 at 14:07 Approved by: Edgar Alfredo M.D. on 12/13/2016 at 14:10
--- NOTE | 2016-12-13 15:09 | CONS ---
[address] [address] CONSULTATION REPORT PATIENT: YANCY ALARCON : 1960 MR#: [id number] ADMIT: 12/12/2016 JOB ID: [id number] NEPHROLOGY CONSULTATION: DATE OF SERVICE: 12/13/2016 REQUESTING PHYSICIAN: Dr. Salguero. REASON FOR CONSULTATION: Management of abnormal kidney function and hyperkalemia. CHIEF COMPLAINT: Abnormal blood work. PRESENT ILLNESS: This is a 56-year-old, male with significant past medical history of ulcerative colitis, stage IV rectal adenocarcinoma, status post diverting colostomy, and history of DVT, who presented to the emergency room due to abnormal blood work. The patient was evaluated by Dr. Elias yesterday and he was found to have BUN of 52 and creatinine of 6.53. The patient then was informed to go to the hospital for further investigation. Unfortunately, he was recently diagnosed with stage IV rectal cancer. He had chemotherapy and radiation. He underwent exploratory laparotomy in October 2016. Unfortunately, the tumor was enormous and unresectable. He ended up having sigmoid loop colostomy. Later on, patient was found to have left psoas abscess and the drain was placed on November 17, 2016. Later on, the catheter was accidentally pulled out. He went back to the [facility] and had a new catheter placed. He also had CAT scan abdomen and pelvis with contrast performed on that day. According to the family, it was done about a week ago. They were not aware of the level of his serum creatinine at that time. The patient came to see Dr. Elisa yesterday and was found to have abnormal kidney function and he was told to come to the hospital. The renal sonogram showed moderate degree of bilateral hydronephrosis; as was previously the case associated with a large pelvic mass. The patient received IV fluid overnight and received medical management for his potassium. His current BMP showed potassium of 6.0 and BUN of 48 and creatinine of 6.48. I have discussed with urologist, Dr. Trujillo. We had agreed that the first approach should be percutaneous nephrostomy tube placement. The patient has not decided to proceed with the procedure yet. He would like to discuss with his family members first. PAST MEDICAL HISTORY: 1. Stage IV colorectal adenocarcinoma, status post chemo and radiation. 2. Status post colostomy. 3. Underlying disease of ulcerative colitis. 4. Left toe abscess, status post drainage. SURGICAL HISTORY: 1. Status post shoulder surgery. 2. Status post Port-A-Cath placement on the left upper chest. 3. Status post loop diverting colostomy. 4. Status post percutaneous drainage tube place of the left iliopsoas abscess. 5. Left lower extremity DVT. SOCIAL HISTORY: Denies current use of alcohol, tobacco, illicit drugs. FAMILY HISTORY: Father at age 79 of Alzheimer's and coronary artery disease. Paternal grandmother had lung cancer. ALLERGIES: No known drug allergies. MEDICATIONS: Tylenol, vitamin D3, ciprofloxacin, Flagyl, docusate, furosemide, gabapentin, Zofran, oxycodone, MiraLAX, potassium chloride, marijuana topical. REVIEW OF SYSTEMS: Fourteen point review of system was performed. PHYSICAL EXAMINATION: Temperature 36.6, pulse 91, respiratory rate 18, blood pressure 127/73, O2 sat 96% on room air. General appearance: Awake, alert, oriented x3. Frail appearance. HEENT: PERRLA. Atraumatic. Dry mucous membranes. No icteric sclerae. No JVD. No lymphadenopathy. No thyroid enlargement. Heart: Regular rhythm. Normal S1, S2. No murmurs, rubs, or gallops. Lungs: Clear to auscultation bilaterally. Abdomen is soft. Active bowel sounds. Colostomy in place on the left lower quadrant. Percutaneous drainage noted. Extremities: 1+ edema on the lower extremity; left more than right. Positive for skin wrinkles. : Bravo catheter in place. LABORATORY DATA: Sodium 137, potassium 6.0, chloride 100, bicarb 19, BUN 48, creatinine 6.48. Glucose 84, calcium 8.4, phosphorus 8.3, albumin 2.6. Hemoglobin 7.1. INR 1.12. UA: Specific gravity 1.010, protein 111, 250 RBC over 50 WBC. ASSESSMENT: 1. Acute kidney injury, multifactorial including obstructive uropathy, contrast-induced nephropathy, possible acute interstitial nephritis from the antibiotics. At this point, I would like to continue IV fluids. We will give him D5W with 150 mEq of sodium bicarbonate at 100 cc/hour. Before starting dialysis, I would like to correct the obstruction. We will arrange for percutaneous nephrostomy tube placement if patient agrees. If it cannot improve his kidney function, we will consider hemodialysis. 2. Hyperkalemia. The patient received medical management overnight. I will repeat his BMP again. I will add albuterol 10 mg nebulizer for that matter. 3. Pyuria, suspected complicated urinary tract infection in the setting of obstruction. 4. Iliopsoas abscess, status post drainage. 5. Stage IV colorectal cancer, status post chemoradiation and colostomy. 6. Left lower extremity deep venous thrombosis. PLAN: Will check the BMP at 3 p.m. Will start patient on D5W with 150 mEq of sodium bicarb. Will order urine eosinophils. Will contact IR for the percutaneous nephrostomy tube placement. We will monitor closely. The patient would benefit for a Palliative Care consultation. Thank you for the consultation. We will monitor along with you. MTDD
[2016-12-13] MEDS: Sodium Bicarb 8.4% Inj 150 MEQ in Dextrose 5% 1,000 ML IV SCH (16:00)
[2016-12-13] MEDS: Piperacillin-Tazo 3.375 Gm Inj 3.375 GM in Dextrose 5% Minibag Plus 50 ML IV SCH (16:05)
[2016-12-13] MEDS ORDERED: HYDROmorphone 1 mg/mL Inj IVPUSH PRN (16:40)
[2016-12-13] MEDS ORDERED: Calcium GLUCO 10% (Gm) Inj 1 GM in 0.9% Sodium Chloride 50 ML IV ONE (18:15)
[2016-12-13] MEDS: oxyCODONE ER 20 mg ER12 Tablet PO SCH (20:29)
--- NOTE | 2016-12-13 22:01 | DRSVH ---
PROCEDURE: US TESTICULAR AND SCROTAL SONOGRAM ([id number]) INDICATIONS: B/L scrotal edema TECHNIQUE: Real-time scanning was performed of the scrotum and testicles, with image documentation. Color and p ulse Doppler interrogation was performed of both testicles. COMPARISON: None. FINDINGS: Right: Testicle is normal in size at 2.9 x 1.9 x 2.3 cm, and homogenous in echotexture. Epididymis is normal in overall size and morphology. Several small epididymal cysts are present. The largest willy sures 13 x 9 x 9 mm. No hydrocele or varicoceles. Overlying scrotal skin is abnormally thickened me asuring 1.7 cm Left: Testicle is normal in size at 3.0 x 2.1 x 2.4 cm, and homogeneous in echotexture. Epididymis is normal in overall size and morphology. No hydrocele or varicoceles. Overlying scrotal skin is ab normally thickened measuring 1.4 cm Doppler: Color and pulse Doppler demonstrate normal and symmetric arterial flow in both testicles. IMPRESSION: No abnormality of either testicle. Right epididymis shows some small cysts but is otherwi se normal and the left epididymis is normal. Bilateral scrotal swelling is present. No abnormal blood flow is appreciated to indicate cellulitis o f the mass cannot be excluded. Recent CT scan shows generous amount of subcutaneous edema in the upper thighs. Images at this part o f a generalized process? Dictated by: Bro White M.D. on 12/13/2016 at 21:55 Approved by: Bro White M.D. on 12/13/2016 at 22:00
[2016-12-14] VITALS (7 sets, daily range): BP systolic 121–146; BP diastolic 76–97; PULSE 99–112; RESP 14–18; O2SAT 95–98
[2016-12-14] MEDS: oxyCODONE ER 20 mg ER12 Tablet PO SCH ×2 (00:10→09:32)
[2016-12-14] MEDS: Piperacillin-Tazo 3.375 Gm Inj 3.375 GM in Dextrose 5% Minibag Plus 50 ML IV SCH ×2 (02:03→13:18)
[2016-12-14 03:33] LABS: BASOPHILS % (AUTO) 0.4 % (0-3); EOSINOPHILS % (AUTO) 0.6 % (0-5); MONOCYTES % (AUTO) 8.6 % (4-12); NEUTROPHILS % (AUTO) 87.1 % (40-74); Platelet Count 679 bil/L (150-400)
[2016-12-14 03:57] LABS: Magnesium 1.7 mg/dL (1.6-2.6); Phosphorus 7.3 mg/dL (2.5-4.9)
[2016-12-14] MEDS: Sodium Bicarb 8.4% Inj 150 MEQ in Dextrose 5% 1,000 ML IV SCH (08:33)
[2016-12-14] MEDS: Polyethylene Glycol (PEG) 17 Gm Powder PO SCH (09:56)
--- NOTE | 2016-12-14 09:59 | PCM.PALLBR ---
Palliative Care Recommendation Summary of palliative recommendations: Symptom management (Pain/other) PAIN: Patient has had altered mental status and blurred vision on [place], Methadone, and MS IV in the past. He reports well toleration with oxycodone 15mg PO several times a day at home. He also had good experience with Dilaudid in the past, but seems to be bothered by it this morning. We started him on alternating Oxycodone PO and Dilaudid PO with the hope to see which one works the best for the patient. He is not a good candidate for Fentanyl patch due to malnutrition. We do not think a pain drip is appropriate for the patient as he is concerned of altered mental status from too much opioids. At this point, we are not clear which pain medication works the best for the patient. However, we will change his pain regimen as follows: --DC oxycodone PO. --Continue with 6 mg hydromorphone po q 3 hrs. --Also continue hydromorphone 1 mg IV for breakthrough severe pain to replace morphine which was not working. --Continue OxyContin 20 mg q 12 hours. --Discussed with ARAM Bertrand who agrees to document the effectiveness as well as any side effects. She has Jessica's cell phone to call with questions. --If patient continues to have more symptoms with the oral Hydromorphone with no significant pain relief, will switch him back to oral Oxycodone. UPDATED PAIN PLAN as of 1600 on 12/14/16: --After multiple discussions with hospitalist, other palliative care provider and oncologist, we are opting to put patient on a dilaudid ORDER MAKE UP CLERK to get him through the weekend. --start at 0.5mg/hr, with 0.5 mg doses q 15 min --CAll Jessica OKEEFE with PC if needed to adjust: [phone] Elias: --Dr. Elias feels this would interfere with treating infection. FCTM with Dr. Jada amador [phone]: Patient was very emotional about his level of suffering and the poor options he feels he has. Dr. Elias did state that chemo might offer a chance at further life prolongation but could end up coming with additional burden to patient. He stated that it would be "perfectly reasonable" for patient to consider hospice at home and forego chemo. HAd two discussions with family members, both Magdy his brother and Marianne his SO, who both understand the options. Marianne states that he has done poorly on chemo that he received twice down at [facility]. She feels he would be at high risk for poor QOL with any chemo. FAmily will continue to discuss over weekend. I have given them my number to call if they have questions. PLEASE NOTE: Given the intensity of the decision that the patient is facing, we deferred discussion of his code status. His focus on QOL is consistent with him opting to be DNR--This could be addressed over the weekend or with palliative care on Saturday. SCROTAL EDEMA: will hope to manage pain medication regime as above. Testicular U/S on 12/13 showed No abnormality of either testicle. Right epididymis shows some small cysts but is otherwise normal and the left epididymis is normal. Bilateral scrotal swelling is present. No abnormal blood flow is appreciated to indicate cellulitis of the mass cannot be excluded. Recent CT scan shows generous amount of subcutaneous edema in the upper thighs. --improved now with nephrostomy tubes MALNUTRITION: his wasting and cachexia are significant. If further treatment is an option, he may need alternative/artifical nutrition support to withstand any anorexia that might accompany the chemotherapy. --pt does express hunger now and is keeping food down. No note from Oncology yesterday. Will follow up with Dr. Elias for treatment plan. Palliative care team will see the patient later this afternoon to discuss about his discussion with Oncology and his long-term goals. RENAL FAILURE: his renal function improved s/p nephrostomy tubes placement. Continue to follow up with Nephrology. -DPOA/Advanced Directives/POLST: Patient made comments regarding " This isn't worth it" referring to his unrelenting severe pain. Palliative care team will wait until the patient has better pain relief before we start the discussion about his goals for quality life. -Family/emotional support: Excellent. We met the patient's significant other ( Sherron), his daughters, his brother, and his mother yesterday. -Spiritual support: Pascale saw the patient before her nephostomy tube placement and will continue to follow. Patient Goals: 1. Patient wants to be told the truth about his/her illness, even if it is unpleasant. 2. Patient would like to be told prognosis when it can be predicted, to better guide treatment decisions. 3. Patient would choose quality of life over quantity of life, and defines quality as being able to enjoy family, having adequate pain control. 4. Patient would request that comfort care take priority over cognitive/mental confusion. Additional Medical Diagnoses with primary management by Hospitalist team include : Problems: End of Life Preferences Pt was in too much pain throughout the day to have a focused conversation regarding his goals. Goals of Care currently wanting full range of treatments to improve his condition, but he also states at times that "this isn't worth it". Unable to focus on his true goals today other than to continue to want pain to be better relieved. Disposition Pt wants to go home as soon as possible. Does not think anything is getting better in the hospital now that the immediate danger from the hydronephrosis/ acute renal failure is passed. Resuscitation Status Resuscitation Status: CPR: Attempt Resuscitation POLST Updates/Changes Previous POLST?: No . Pain: Severe Symptom management: Pain Total time 150 minutes; >50% face to face with patient and/or family, providing counselling regarding plans and recommendations, making multiple adjustments to his medication regime in response to unrelenting pain, also multiple conversations in care coordination with his/her medical teams. Of this 60 minutes is spent counseling for advanced care planning with the patient/the patients family/the surrogate decision maker. Attending Statement The patient was seen and examined together with Dr. Hill on 12/14/2016 and I have added additional information to the note above to reflect further care and plans that developed later in the day, requiring additional time spent with the patient and in care coordination.. copies to: Noam Elias MD Palliative Brief Note Date of Service December 14, 2016 . Kirill is a 56-year-old male history of ulcerative colitis, stage IV rectal adenocarcinoma with diverting colostomy, and LLE DVT who presented to the ED at the recommendation of his oncologist, Dr. Elias, for evaluation of his acute renal failure noted on lab work. Overnight, patient complains about uncontrolled pain despite of being on Oxycotin and alternating Oxycodone PO and Dilaudid PO overnight. He is not sure which oral narcotic worked better for him, but seems to feel "loopy" from both. No Dilaudid IV was given overnight. Patient received 1 unit of PRBC. No other acute event per nursing. This morning, patient states to feel tired from lack of sleep the last couple days. He inquires about 6mg of Dilaudid PO seems so little compared to the 15mg of Oxycodone PO, so the opioid conversion was briefly discussed. Patient reports to feel loopy from the Dilaudid PO that was last administered at 0700am this morning, but he would like to get some sleep. He also states that abdominal and back pain is still persistent. On exam, patient appears cachetic but not in acute distress. He seems to space out intermittently. ADDENDUM: Returned to patient room from [phone] and then [phone] to discuss pain plan with hospitalist, RN and oncologist, if he is able to get over. Multiple options and plans discussed--see plan above. Crystal Hill DO December 14, 2016 09:59 Jessica Pete December 14, 2016 16:05
--- NOTE | 2016-12-14 12:16 | PCM.PNNEPH ---
Subjective Date of Service December 14, 2016 Subjective Kidney function continue to improved. Good UOP via nephrostomy tube. Exam Vital Signs Vital Sign - Last Date Time Temp Pulse Resp B/P Pulse Ox O2 Delivery O2 Flow Rate FiO2 12/14/16 08:43 36.5 112 18 146/97 98 Room Air 12/13/16 15:29 2.00 Intake and Output 12/13/16 12/13/16 12/14/16 Cumulative From/Thru 15:00 23:00 07:00 12/12/16 16:10 - 12/14/16 05:57 Intake Total 2868 ml 2606 ml 6874 ml Output Total 4050 ml 5230 ml 99329 ml Balance -1182 ml -2624 ml -3406 ml Intake Oral 600 ml 1737 ml 2737 ml IV Total 2268 ml 569 ml 3837 ml Packed Cells 300 ml 300 ml Output Urine Total 550 ml 100 ml 1150 ml Stool Total 250 ml 750 ml Drainage Total 3500 ml 4880 ml 8380 ml # Bowel Movements 2 2 Exam General appearance: Awake, alert, oriented x3. Frail appearance. HEENT: PERRLA. Atraumatic. Dry mucous membranes. No icteric sclerae. No JVD. No lymphadenopathy. No thyroid enlargement. Heart: Regular rhythm. Normal S1, S2. No murmurs, rubs, or gallops. Lungs: Clear to auscultation bilaterally. Abdomen is soft. Active bowel sounds. Colostomy in place on the left lower quadrant. Percutaneous drainage noted. Extremities: 1+ edema on the lower extremity; left more than right. Positive for skin wrinkles. : Bravo catheter in place, scrotal swelling noted. bilateral nephrostomy tube in place. Lab and Diagnostics Result Diagram: 12/14/16 0320 12/14/16 0320 Additional Diagnostics PROCEDURE: US RENAL SONOGRAM INDICATIONS: arf, hynronephrosis, mass effect? TECHNIQUE: Real-time scanning was performed of the kidneys and bladder, with image documentation. COMPARISON: [facility], CT, CT ABD PELVIS W CON, 11/16/2016, 19:49. FINDINGS: Kidneys: Kidneys are normal in size. Right kidney measures 11.9 cm long; left kidney measures 12.9 cm long. Right renal cortical thickness is 1.5 cm; left renal cortical thickness is 2.7 cm. Renal cortical echotexture is normal. Again noted is bilateral moderate hydronephrosis but no nephrolithiasis. This pattern was previously present 11/16/16 No suspicious solid mass lesions. Bladder: The bladder is compressed by a large heterogeneous mass within the lower pelvis as was previously the case, currently estimated at measuring up to 10.6 x 17.2 x 11.2 cm. The exact boundaries, however, are indistinct by ultrasound. Centrally positioned within this mass is a stent like structure, previously present during CT scanning 11/16/16. Miscellaneous: No free pelvic fluid. IMPRESSION: Impression: There is a moderate degree of bilateral hydronephrosis as was previously the case associated with a large pelvic mass, reportedly representing rectal carcinoma, with a endoluminal stent passing through the central portion of this mass. The exact boundaries of the mass are somewhat indistinct. No definite acute disease found. Plan Impression ASSESSMENT: 1. Acute kidney injury, multifactorial including obstructive uropathy, contrast-induced nephropathy and low effective circulating volume. s/p bilateral nephrostomy tube placement on 12/13. Kidney function improving slowly. 2. Hyperkalemia. improving. 3. Pyuria, suspected complicated urinary tract infection in the setting of obstruction. 4. Iliopsoas abscess, status post drainage. 5. Stage IV colorectal cancer, status post chemoradiation and colostomy. 6. Left lower extremity deep venous thrombosis. Plan: d/c bicarb gtt. start D5 1/2NS 100 m/lhr. Decrease dose of neurontin 600 mg TID to 300 mg BID given low eGFR. Continue IV zosyn. Repeat abd US in 1-2 days. Ariel Terrell MD December 14, 2016 12:16
[2016-12-14] MEDS: 0.9% Sodium Chloride 250 ML IV SCH ×2 (12:33→16:20)
[2016-12-14] MEDS: Dextrose 5% 0.45% NaCl 1,000 ML IV SCH ×2 (13:22→22:15)
--- NOTE | 2016-12-14 14:30 | PCM.PNMED ---
Subjective Date of Service December 14, 2016 Subjective Patient is seen and examined. He appears to have better pain control though he appears also more sleepy. Has a lot of family in the room. says she feels his antibiotics on Saturday the for a total of 10 days. Patient's renal function and potassium are improving. Patient has not seen Dr. Tan yet due to his procedures yesterday, but thinks he will be here soon this afternoon. Patient is able to walk and eat. No other concerns today Exam Vital Signs Vital Sign - Last Date Time Temp Pulse Resp B/P Pulse Ox O2 Delivery O2 Flow Rate FiO2 12/14/16 08:43 36.5 112 18 146/97 98 Room Air 12/13/16 15:29 2.00 Intake and Output 12/13/16 12/13/16 12/14/16 Cumulative From/Thru 15:00 23:00 07:00 12/12/16 16:10 - 12/14/16 05:57 Intake Total 2868 ml 2606 ml 6874 ml Output Total 4050 ml 5230 ml 85385 ml Balance -1182 ml -2624 ml -3406 ml Intake Oral 600 ml 1737 ml 2737 ml IV Total 2268 ml 569 ml 3837 ml Packed Cells 300 ml 300 ml Output Urine Total 550 ml 100 ml 1150 ml Stool Total 250 ml 750 ml Drainage Total 3500 ml 4880 ml 8380 ml # Bowel Movements 2 2 Exam Gen.: Cachectic appearing Psych: Very distraught Heart: Mildly tachycardic and rhythm no S3-S4 murmurs Lungs: Clear to auscultation Abdomen flat incisions below umbilicus can be seen, has a colostomy bag that without any output, abdomen is flat and nondistended, normal bowel sounds Extremities: His left extremity is swollen all the way up into his groin and scrotum is also swollen, c/o severe tenderness and scrotum. Swelling has improved in his left lower extremity today Skin: Mild erythema over the lower left leg Neuro: No focal deficits Psych: Mood is somewhat agitated, affect is cooperative IVs and Medications IV Fluids None Medications Reviewed: Medications were reviewed in detail Lab and Diagnostics Result Diagram: 12/14/16 0320 12/14/16 0320 Additional Diagnostics PROCEDURE: US RENAL SONOGRAM INDICATIONS: arf, hynronephrosis, mass effect? TECHNIQUE: Real-time scanning was performed of the kidneys and bladder, with image documentation. COMPARISON: [facility], CT, CT ABD PELVIS W CON, 11/16/2016, 19:49. FINDINGS: Kidneys: Kidneys are normal in size. Right kidney measures 11.9 cm long; left kidney measures 12.9 cm long. Right renal cortical thickness is 1.5 cm; left renal cortical thickness is 2.7 cm. Renal cortical echotexture is normal. Again noted is bilateral moderate hydronephrosis but no nephrolithiasis. This pattern was previously present 11/16/16 No suspicious solid mass lesions. Bladder: The bladder is compressed by a large heterogeneous mass within the lower pelvis as was previously the case, currently estimated at measuring up to 10.6 x 17.2 x 11.2 cm. The exact boundaries, however, are indistinct by ultrasound. Centrally positioned within this mass is a stent like structure, previously present during CT scanning 11/16/16. Miscellaneous: No free pelvic fluid. IMPRESSION: Impression: There is a moderate degree of bilateral hydronephrosis as was previously the case associated with a large pelvic mass, reportedly representing rectal carcinoma, with a endoluminal stent passing through the central portion of this mass. The exact boundaries of the mass are somewhat indistinct. No definite acute disease found. Assessment & Plan Patient is a 56-year-old male history of ulcerative colitis, stage IV rectal adenocarcinoma with diverting colostomy, and LLE DVT who presented to the ED for acute renal failure and hyperkalemia. 1. Acute Kidney Injury, Present on Admission Likely due to a combination ATN and post obstructive uropathy due to large tumor. Patient has had multiple CTs with contrast in the last few weeks, with the most recent one on December 03. It is also been demonstrated that he has a large tumor burden that is compressing on his colon and bladder. There is also possibility of urinary tract infection with his grossly abnormal UA. Patient received copious hydration in the ED, nephrology, and urology was consulted. Continue to avoid nephrotoxic medications if possible Nephrology will evaluate patient in the AM. If symptoms worsen, will call nephrology back for urgent dialysis: Contacted nephrology has seen the patient removed ciprofloxacin, started him on Zosyn. He also contacted urology for nephrostomy procedure. Urology will evaluate patient in the AM.: Urology has seen the patient, patient underwent bilateral suprapubic catheter placement. -- Postop day #2 nephrostomy procedure bilateral. Patient is producing good urine output. Creatinine is improving -- Started patient on normal saline 100 mL per hour fluids 2. Hyperkalemia, acute, POA Patient was given Kayexalate 30g, regular insulin and D50 in the ER. This brought the potassium down to 5.7. We will place on telemetry for CV monitoring We will give him another amp of D50 and 10 units of insulin and recheck potassium We will monitor blood sugars closely also, will consider D5 or D10NS if persistently low blood sugar Patient is given given another round of Kayexalate 15 g, and also one gram of Calcium gluconate based on the follow-up evening lab 12/13 that showed potassium of 6.4: Nephrology is aware. Follow-up potassium at 9 PM -- Resolved on 12/14 3. Left Psoas Abscess, POA Patient is currently on ciprofloxacin and Flagyl by mouth. He was originally admitted to [facility] for this, but subsequently was transferred to [facility] for further management. Likely the cause of patient's leukocytosis, although a UTI may also be possible. We will continue patient's antibiotics, may need to request records from [facility] for sensitivity if patient is not improving. -- Nephrology has switched him to Zosyn to Cipro renal toxic: Patient is expected to be on these antibiotics through 12/20 per his 4. Scrotal Edema, POA Scrotal support Urology consulted: The patient had a scrotal ultrasound is done: No remarkable findings per report 5. Rectal Adenocarcinoma, stage IV, POA As managed by oncology, Dr. Elias: Dr. Tan has come to see the patient when patient was undergoing the procedure. Peripheral edema secondary to tumor compression of Iliac vessels May need palliative care consultation: Palliative care is consulted, they try to help with pain control. He appears to have recurrent pain control today but he is on immediate acting medications, he does not have enough body fat for a fentanyl p patch .H&H analysis on [facility] 6.Ulcerative Colitis with colostomy, POA Colostomy in place in left lower quadrant Inpatient colostomy care ordered Pain management per palliative care: Patient did not like morphine sulfate, OxyContin, methadone. Fentanyl patch is not an option due to his low body weight. Palliative care may consider putting him on a STRIKE OPERATIONS OFFICER for the weekend 12/14 7. Chronic normocytic Anemia, POA Hgb 7.5 on admission. Typed and Cross Transfuse if Hgb <7.0 or symptomatic. Patient is transfused with 2 units of blood 12/13, posttransfusion H&H pending: Chemotherapy appropriately -- Hemoglobin currently stable 8.7 Tylenol prn fever Zofran prn nausea CODE STATUS: Full resuscitation Disposition: Patient is admitted under inpatient status with expected length of stay greater than to midnight due to risk of adverse effects, decompensation, and medical complexity. Patient has not achieved ideal pain control. Renal function is still trending down but not at baseline yet Pain Evaluation: Adequate Pain Control VTE Prophylaxis: Sub-Q Heparin (Unfractionated), SCDs VTE Mechanical Devices: Intermittant Pneumatic CD Resuscitation Status: CPR: Attempt Resuscitation Time spent 20 minutes Mitzi Salguero DO December 14, 2016 14:30
[2016-12-14] MEDS: LORazepam 0.5 mg Tablet PO PRN (14:52)
[2016-12-14] MEDS: HYDROmorphone 1 mg/mL Inj IVPUSH PRN ×2 (15:02→17:19)
[2016-12-14] MEDS ORDERED: fentaNYL-PF 50 mCg/mL 2 mL Inj IVPUSH PRN (15:45)
[2016-12-14] MEDS: Dextrose 5% 500 ML IV SCH (17:32)
[2016-12-14] MEDS ORDERED: MetoCLOpramide 5 mg/mL 2 mL Inj IVPUSH PRN (17:35)
[2016-12-14] MEDS ORDERED: HYDROmorphone 0.5 mg/0.5 mL iSecure Syringe IVPUSH PRN (17:35)
--- NOTE | 2016-12-14 18:09 | PROG NOTE ---
[address] [address] PROGRESS NOTE PATIENT: YANCY ALARCON : 1960 MR#: [id number] ADMIT: 12/12/2016 JOB ID: [id number] DATE: 12/14/2016 DIAGNOSIS: 1. Acute renal failure due to bilateral ureteral obstruction from large pelvic mass, status post bilateral percutaneous nephrostomy, improving. 2. Stage IV rectal adenocarcinoma. 3. Cancer-related pain. 4. Chronic deep venous thrombosis of left lower extremity. SUBJECTIVE: The patient remains in severe pain. It exacerbates with urination and rectal discharge. He is very emotional and frustrated. His quality of life has been quite terrible lately, and he is not sure what to do about it. OBJECTIVE: Very emotional and tearful today. Continues to have involuntary muscle twitches, but less. Was initially slightly confused when we woke him up, but then was awake, alert, oriented x3. Blood pressure 146/97 heart rate 112. Temperature afebrile. WBC count 17,000, with neutrophilia. Hemoglobin 8.7 (post transfusion). Platelet count 679,000. Creatinine has much improved, currently 4.21. Hyperkalemia has resolved. IMPRESSION AND PLAN: We had a long discussion with Ms. Pete of palliative care, the patient and his son today. We talked about his pain management and long-term options. He is very restricted currently given that he has a permanent colostomy, a drainage tube for his left pelvic abscess, two nephrostomy tubes, Bravo catheter, and telemetry. He is not sure whether to undergo palliative chemotherapy with all these difficulties or not. We talked quite a bit about these, and at the end of the day did not reach a firm conclusion. This patient has not received much palliative chemotherapy, and therefore could potentially receive life-prolonging palliative chemotherapy to increase his survival, which is his primary goal, but of course, treatment would be difficult with all these other ongoing difficulties and comorbidities. I encouraged him to think about this more and discuss with his and brother, and will follow up on Saturday, next week. JOSE LUIS
[2016-12-14] MEDS: HYDROmorphone PCA 0.2 mg/mL 30 mL Inj IV PRN (18:41)
[2016-12-14] MEDS: 0.9% Sodium Chloride 1,000 ML IV SCH (22:49)
[2016-12-15] VITALS (13 sets, daily range): BP systolic 127–140; BP diastolic 71–82; PULSE 94–120; RESP 16–18; O2SAT 94–99
[2016-12-15] MEDS: HYDROmorphone PCA 0.2 mg/mL 30 mL Inj IV PRN ×4 (00:37→18:44)
[2016-12-15] MEDS: Piperacillin-Tazo 3.375 Gm Inj 3.375 GM in Dextrose 5% Minibag Plus 50 ML IV SCH ×2 (01:02→12:34)
[2016-12-15] MEDS: 0.9% Sodium Chloride 1,000 ML IV SCH ×2 (01:05→09:02)
[2016-12-15 07:40] LABS: Mean Corpuscular Hemoglobin 28.9 pg (27.0-35.0); Mean Corpuscular Volume 93.1 fL (81-100)
[2016-12-15] MEDS: Dextrose 5% 0.45% NaCl 1,000 ML IV SCH (08:15)
[2016-12-15] MEDS: Polyethylene Glycol (PEG) 17 Gm Powder PO SCH (09:04)
[2016-12-15] MEDS ORDERED: Neomycin-Bacitracin-Polymyxin 15 Gm Ointment TOPICAL PRN (12:50)
--- NOTE | 2016-12-15 13:08 | PCM.PNNEPH ---
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 Polyuria noted. c/o being thirsty. serum creatinine continues to improved. Exam Vital Signs Vital Sign - Last Date Time Temp Pulse Resp B/P Pulse Ox O2 Delivery O2 Flow Rate FiO2 12/15/16 09:36 37.0 120 18 133/82 99 Room Air 12/13/16 15:29 2.00 Intake and Output 12/14/16 12/14/16 12/15/16 Cumulative From/Thru 15:00 23:00 07:00 12/12/16 16:10 - 12/15/16 06:00 Intake Total 880 ml 1100 ml 8854 ml Output Total 2500 ml 4000 ml 27901 ml Balance -1620 ml -2900 ml -7926 ml Intake Oral 880 ml 1100 ml 4717 ml IV Total 3837 ml Packed Cells 300 ml Output Urine Total 100 ml 100 ml 1350 ml Stool Total 750 ml Drainage Total 2400 ml 3900 ml 16942 ml # Bowel Movements 0 2 Exam General appearance: Awake, alert, oriented x3. Frail appearance. HEENT: PERRLA. Atraumatic. Dry mucous membranes. No icteric sclerae. No JVD. No thyroid enlargement. Heart: Regular rhythm. Normal S1, S2. No murmurs, rubs, or gallops. tachycardic. Lungs: Clear to auscultation bilaterally. Abdomen is soft. Active bowel sounds. Colostomy in place on the left lower quadrant. Percutaneous drainage noted. Extremities: 1+ edema LLE. : Bravo catheter in place, scrotal swelling noted. bilateral nephrostomy tube in place. Lab and Diagnostics Result Diagram: 12/15/1615 12/15/16714 Additional Diagnostics PROCEDURE: US RENAL SONOGRAM INDICATIONS: arf, hynronephrosis, mass effect? TECHNIQUE: Real-time scanning was performed of the kidneys and bladder, with image documentation. COMPARISON: [facility], CT, CT ABD PELVIS W CON, 11/16/2016, 19:49. FINDINGS: Kidneys: Kidneys are normal in size. Right kidney measures 11.9 cm long; left kidney measures 12.9 cm long. Right renal cortical thickness is 1.5 cm; left renal cortical thickness is 2.7 cm. Renal cortical echotexture is normal. Again noted is bilateral moderate hydronephrosis but no nephrolithiasis. This pattern was previously present 11/16/16 No suspicious solid mass lesions. Bladder: The bladder is compressed by a large heterogeneous mass within the lower pelvis as was previously the case, currently estimated at measuring up to 10.6 x 17.2 x 11.2 cm. The exact boundaries, however, are indistinct by ultrasound. Centrally positioned within this mass is a stent like structure, previously present during CT scanning 11/16/16. Miscellaneous: No free pelvic fluid. IMPRESSION: Impression: There is a moderate degree of bilateral hydronephrosis as was previously the case associated with a large pelvic mass, reportedly representing rectal carcinoma, with a endoluminal stent passing through the central portion of this mass. The exact boundaries of the mass are somewhat indistinct. No definite acute disease found. Plan Impression ASSESSMENT: 1. Acute kidney injury, multifactorial including obstructive uropathy due to large pelvic mass, contrast-induced nephropathy and low effective circulating volume. s/p bilateral nephrostomy tube placement on 12/13. Kidney function improving. 2. Postobstructive uropathy. 3. Pyuria, suspected complicated urinary tract infection in the setting of obstruction. 4. Iliopsoas abscess, status post drainage. 5. Stage IV colorectal cancer, status post chemoradiation and colostomy. 6. Left lower extremity deep venous thrombosis. 7. Ulcerative colitis. Plan: d/c NS Switch to 1/2 NS 150 ml/hr. Continue supportive treatment. BMP and CBC in am. Ariel Terrell MD December 15, 2016 13:08
--- NOTE | 2016-12-15 13:09 | PCM.PNSURG ---
Objective Vital Sign- Last 8 Hours Date Time Temp Pulse Resp B/P Pulse Ox O2 Delivery O2 Flow Rate FiO2 12/15/16 09:36 37.0 120 18 133/82 99 Room Air 12/15/16 09:07 102 12/15/16 08:30 17 96 12/15/16 06:00 36.4 98 17 127/74 96 Room Air 12/15/16 05:43 94 Intake and Output- Last 8 Hour 12/15/16 Cumulative From/Thru 07:00 12/12/16 16:10 - 12/15/16 06:00 Intake Total 1100 ml 8854 ml Output Total 4000 ml 21546 ml Balance -2900 ml -7926 ml Intake Oral 1100 ml 4717 ml IV Total 3837 ml Packed Cells 300 ml Output Urine Total 100 ml 1350 ml Stool Total 750 ml Drainage Total 3900 ml 57847 ml # Bowel Movements 0 2 Result Diagram: 12/15/16 0715 12/15/16 0715 Diagnostics: Scrotal U/S (12/13/16): normal B/L testes with normal and symmetric arterial flow in B/L testes, several small R epididymal cysts, thickened B/L scrotal skin with no abnormal blood flow Assessment & Plan VTE Prophylaxis: Sub-Q Heparin (Unfractionated), SCDs Resuscitation Status: CPR: Attempt Resuscitation Yovany Trujillo MD December 15, 2016 13:09 Resuscitation Status: CPR: Attempt Resuscitation Yovany Trujillo MD December 15, 2016 13:09
--- NOTE | 2016-12-15 15:23 | PCM.PNSURG ---
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 Patient is s/p B/L percutaneous nephrostomy tube placement 2 days ago [address] IR Dr. Alfredo. Objective Vital Sign- Last 8 Hours Date Time Temp Pulse Resp B/P Pulse Ox O2 Delivery O2 Flow Rate FiO2 12/15/16 14:51 36.9 97 16 140/79 99 Room Air 12/15/16 09:36 37.0 120 18 133/82 99 Room Air 12/15/16 09:07 102 12/15/16 08:30 17 96 Intake and Output- Last 8 Hour 12/15/16 Cumulative From/Thru 07:00 12/12/16 16:10 - 12/15/16 06:00 Intake Total 1100 ml 8854 ml Output Total 4000 ml 99198 ml Balance -2900 ml -9501 ml Intake Oral 1100 ml 4717 ml IV Total 3837 ml Packed Cells 300 ml Output Urine Total 100 ml 1350 ml Stool Total 750 ml Drainage Total 3900 ml 99174 ml # Bowel Movements 0 2 B/L percutaneous nephrostomy tube urine output: 2400/3900ml last 2 8hr. shifts Bravo catheter urine output: 100/100ml last 2 8hr. shifts General: Alert, Oriented X3, Cooperative, No Acute Distress Neck: Supple Lungs: Normal Air Movement Abdomen: Soft, Non-distended, Other (mild LLQ and RLQ tenderness, no palpable masses, no rebound or guarding, midline incision well-lhealed, colostomy in place, LLQ percutaneous drain in place) SURGICAL WOUND : Wound Location/Description B/L percutaneous nephrostomy tube site dressings clean/dry/intact, no ecchymosis ; exam: Scrotum: moderate to severe B/L scrotal edema, non-tender, no palpable masses, no erythema, warmth, discharge, fluctuance, or crepitus, B/L testes not palpable secondary to scrotal edema Neuro: Normal Speech, Sensation Intact Catheters: Urethral 2 Way Bravo (in place, draining small amount of light blood -tinged urine), Nephrostomy (B/L nephrostomy tubes in place, draining large amount of clear urine) Result Diagram: 12/15/16 0715 12/15/16 0715 Lab & Micro Results: 12/12/16: urine Cx 10-25,000 mixed UG haley Diagnostics: Scrotal U/S (12/13/16): normal B/L testes with normal and symmetric arterial flow in B/L testes, no testicular masses, several small R epididymal cysts, thickened and edematous B/L scrotal skin with no abnormal blood flow Assessment & Plan Impression Acute renal failure and hyperkalemia, likely secondary to combination of B/L hydronephrosis and B/L ureteral obstruction (which is secondary to large rectal mass/tumor), recent administration of IV contrast during CT scan at , and infection with abscesses and possible UTI, also with B/L scrotal edema secondary to anasarca, s/p B/L percutaneous nephrostomy tube placement 2 days [address] IR Dr. Alfredo, afebrile, hemodynamically stable, with excellent urine output from B/L percutaneous nephrostomy tubes and low urine output from Bravo catheter, with labs this AM showing Cr significantly decreased to 2.36 (from 4.21 yesterday) and resolved hypokalemia Problems: Plan Continue B/L percutaneous nephrostomy tube to straight drainage. Wound care nursing consult for nephrostomy tube care and teaching. When patient is discharged, he will be discharged with B/L percutaneous nephrostomy tubes in place. Remove Bravo catheter today, then record all voided urine output. Recommend continuing to follow labs (including Cr and lytes) Recommend scrotal support/elevation at all times When patient is discharged from the hospital, he will need to follow-up with me in the office for follow-up (approx. 2-3 weeks after discharge). Patient will need cystoscopy sometime in the future as an outpatient for his gross hematuria. Patient will need to follow-up with his medical oncologist Dr. Elias after discharge from hospital VTE Prophylaxis: Sub-Q Heparin (Unfractionated) Resuscitation Status: CPR: Attempt Resuscitation Yovany Trujillo MD December 15, 2016 15:23 Patient will need to follow-up with his medical oncologist Dr. Elias after discharge from hospital VTE Prophylaxis: Sub-Q Heparin (Unfractionated), SCDs Resuscitation Status: CPR: Attempt Resuscitation Yovany Trujillo MD December 15, 2016 15:23 Yovany Trujillo MD December 15, 2016 15:23 hematuria. VTE Prophylaxis: Sub-Q Heparin (Unfractionated), SCDs Resuscitation Status: CPR: Attempt Resuscitation Yovany Trujillo MD December 15, 2016 15:23
[2016-12-15] MEDS ORDERED: NEOMY/BACITRA/POLYMYX OINT 1 PACKET/0.9 GM PACKET TOPICAL PRN (16:00)
[2016-12-15] MEDS: Heparin 5,000 Unit/mL Inj SUBQ SCH ×2 (16:09→16:11)
[2016-12-15] MEDS: Dextrose 5% 500 ML IV SCH (17:20)
[2016-12-15] MEDS: LORazepam 0.5 mg Tablet PO PRN (18:17)
--- NOTE | 2016-12-15 22:46 | PCM.PNMED ---
Subjective Date of Service December 15, 2016 Subjective Patient states that his pain is mostly under control however he does feel cloudy at times. He is asking me "what comes next". We discussed his approach to how to deal with his options based on 's discussion with him on 12/14. Encouraged family support and further discussions with family. Patient is advised to elevate his scrotum to reduce edema and pain Exam Vital Signs Vital Sign - Last Date Time Temp Pulse Resp B/P Pulse Ox O2 Delivery O2 Flow Rate FiO2 12/15/16 20:44 37.6 94 16 131/82 97 Room Air 12/13/16 15:29 2.00 Intake and Output 12/14/16 12/14/16 12/15/16 Cumulative From/Thru 15:00 23:00 07:00 12/12/16 16:10 - 12/15/16 06:00 Intake Total 880 ml 1100 ml 8854 ml Output Total 1575 ml 2500 ml 4000 ml 85086 ml Balance -1575 ml -1620 ml -2900 ml -9501 ml Intake Oral 880 ml 1100 ml 4717 ml IV Total 3837 ml Packed Cells 300 ml Output Urine Total 100 ml 100 ml 1350 ml Stool Total 750 ml Drainage Total 1575 ml 2400 ml 3900 ml 77546 ml # Bowel Movements 0 2 IVs and Medications IV Fluids Half normal saline 150 mL/h Medications Reviewed: Medications were reviewed in detail Lab and Diagnostics Result Diagram: 12/15/1615 12/15/16 0715 Additional Diagnostics PROCEDURE: US RENAL SONOGRAM INDICATIONS: arf, hynronephrosis, mass effect? TECHNIQUE: Real-time scanning was performed of the kidneys and bladder, with image documentation. COMPARISON: [facility], CT, CT ABD PELVIS W CON, 11/16/2016, 19:49. FINDINGS: Kidneys: Kidneys are normal in size. Right kidney measures 11.9 cm long; left kidney measures 12.9 cm long. Right renal cortical thickness is 1.5 cm; left renal cortical thickness is 2.7 cm. Renal cortical echotexture is normal. Again noted is bilateral moderate hydronephrosis but no nephrolithiasis. This pattern was previously present 11/16/16 No suspicious solid mass lesions. Bladder: The bladder is compressed by a large heterogeneous mass within the lower pelvis as was previously the case, currently estimated at measuring up to 10.6 x 17.2 x 11.2 cm. The exact boundaries, however, are indistinct by ultrasound. Centrally positioned within this mass is a stent like structure, previously present during CT scanning 11/16/16. Miscellaneous: No free pelvic fluid. IMPRESSION: Impression: There is a moderate degree of bilateral hydronephrosis as was previously the case associated with a large pelvic mass, reportedly representing rectal carcinoma, with a endoluminal stent passing through the central portion of this mass. The exact boundaries of the mass are somewhat indistinct. No definite acute disease found. Assessment & Plan Patient is a 56-year-old male history of ulcerative colitis, stage IV rectal adenocarcinoma with diverting colostomy, and LLE DVT who presented to the ED for acute renal failure and hyperkalemia. 1. Acute Kidney Injury, Present on Admission Likely due to a combination ATN and post obstructive uropathy due to large tumor. Patient has had multiple CTs with contrast in the last few weeks, with the most recent one on December 03. It is also been demonstrated that he has a large tumor burden that is compressing on his colon and bladder. There is also possibility of urinary tract infection with his grossly abnormal UA. Patient received copious hydration in the ED, nephrology, and urology was consulted. Continue to avoid nephrotoxic medications if possible Nephrology will evaluate patient in the AM. If symptoms worsen, will call nephrology back for urgent dialysis: Contacted nephrology has seen the patient removed ciprofloxacin, started him on Zosyn. He also contacted urology for nephrostomy procedure. Urology will evaluate patient in the AM.: Urology has seen the patient, patient underwent bilateral suprapubic catheter placement. -- Postop day #2 nephrostomy procedure bilateral. Patient is producing good urine output. Creatinine is improving -- He is on 150 mL/h half-normal saline for nephro -- Improving kidney function 12/14 -- Monitor daily BMP 2. Hyperkalemia, acute, POA Patient was given Kayexalate 30g, regular insulin and D50 in the ER. This brought the potassium down to 5.7. We will place on telemetry for CV monitoring We will give him another amp of D50 and 10 units of insulin and recheck potassium We will monitor blood sugars closely also, will consider D5 or D10NS if persistently low blood sugar Patient is given given another round of Kayexalate 15 g, and also one gram of Calcium gluconate based on the follow-up evening lab 12/13 that showed potassium of 6.4: Nephrology is aware. Follow-up potassium at 9 PM -- Resolved on 12/14 -- Monitor daily BMP 3. Left Psoas Abscess, POA Patient is currently on ciprofloxacin and Flagyl by mouth. He was originally admitted to [facility] for this, but subsequently was transferred to [facility] for further management. Likely the cause of patient's leukocytosis, although a UTI may also be possible. We will continue patient's antibiotics, may need to request records from [facility] for sensitivity if patient is not improving. -- Nephrology has switched him to Zosyn to Cipro renal toxic: Patient is expected to be on these antibiotics through 12/20 per his 4. Scrotal Edema, POA Scrotal support Urology consulted: The patient had a scrotal ultrasound is done: No remarkable findings per report -- Encouraged elevating scrotum to reduce swelling by using a towel 5. Rectal Adenocarcinoma, stage IV, POA As managed by oncology, Dr. Elias: Dr. Tan has come to see the patient when patient was undergoing the procedure. Peripheral edema secondary to tumor compression of Iliac vessels May need palliative care consultation: Palliative care is consulted, they try to help with pain control. He appears to have recurrent pain control today but he is on immediate acting medications, he does not have enough body fat for a fentanyl p patch .H&H analysis on [facility] 6.Ulcerative Colitis with colostomy, POA Colostomy in place in left lower quadrant Inpatient colostomy care ordered Pain management per palliative care: Patient did not like morphine sulfate, OxyContin, methadone. Palliative care put him on a DERMATOLOGY TECHNICIAN for the weekend 12/14 7. Chronic normocytic Anemia, POA Hgb 7.5 on admission. Typed and Cross Transfuse if Hgb <7.0 or symptomatic. Patient is transfused with 2 units of blood 12/13, posttransfusion H&H pending: Chemotherapy appropriately -- Hemoglobin currently stable at 9.2 -- Monitor with daily CBC Tylenol prn fever Zofran prn nausea CODE STATUS: Full resuscitation Disposition: Patient is admitted under inpatient status with expected length of stay greater than to midnight due to risk of adverse effects, decompensation, and medical complexity. Patient has not achieved ideal pain control. Renal function is still trending down but not at baseline yet. Dr. Helton is expecting to have more discussions with patient on 12/18. Pain control per palliative care Pain Evaluation: Adequate Pain Control VTE Prophylaxis: Sub-Q Heparin (Unfractionated) VTE Mechanical Devices: Intermittant Pneumatic CD Resuscitation Status: CPR: Attempt Resuscitation Time spent 20 minutes Mitzi Salguero DO December 15, 2016 22:46
[2016-12-16] VITALS (10 sets, daily range): BP systolic 131–149; BP diastolic 85–89; PULSE 80–107; RESP 14–20; O2SAT 96–100
[2016-12-16] MEDS: Heparin 5,000 Unit/mL Inj SUBQ SCH ×4 (00:06→16:30)
[2016-12-16] MEDS: Piperacillin-Tazo 3.375 Gm Inj 3.375 GM in Dextrose 5% Minibag Plus 50 ML IV SCH ×2 (00:39→12:40)
[2016-12-16] MEDS: HYDROmorphone PCA 0.2 mg/mL 30 mL Inj IV PRN ×4 (02:00→19:47)
[2016-12-16] MEDS: LORazepam 0.5 mg Tablet PO PRN (02:20)
[2016-12-16 05:18] LABS: Mean Corpuscular Hemoglobin 28.6 pg (27.0-35.0); Mean Corpuscular Volume 94.4 fL (81-100)
[2016-12-16] MEDS: Polyethylene Glycol (PEG) 17 Gm Powder PO SCH (09:05)
--- NOTE | 2016-12-16 10:07 | DRSVH ---
PROCEDURE: X-RAY CHEST ONE VIEW ([id number]) INDICATIONS: fever work up TECHNIQUE: One view of the chest was acquired. COMPARISON: None. FINDINGS: Surgical changes and devices: Left-sided portacatheter present. Lungs and pleura: No pleural effusions or pneumothorax. Lungs are clear. Mediastinum: Mediastinal contours appear normal. Heart size is normal. Bones and chest wall: No suspicious bony lesions. Overlying soft tissues appear unremarkable. IMPRESSION: No acute process. Dictated by: Edgar Alfredo M.D. on 12/16/2016 at 10:05 Approved by: Edgar Alfredo M.D. on 12/16/2016 at 10:05
[2016-12-16] MEDS: Dextrose 5% 500 ML IV SCH (10:13)
[2016-12-16] MEDS: 0.9% Sodium Chloride 250 ML IV SCH (10:13)
--- NOTE | 2016-12-16 11:40 | PCM.PNSURG ---
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 Bravo catheter was removed yesterday. Objective Vital Sign- Last 8 Hours Date Time Temp Pulse Resp B/P Pulse Ox O2 Delivery O2 Flow Rate FiO2 12/16/16 09:38 99 12/16/16 09:07 14 99 12/16/16 06:43 37.1 80 16 131/89 97 Room Air 12/16/16 06:06 20 99 12/16/16 05:28 94 Intake and Output- Last 8 Hour 12/16/16 Cumulative From/Thru 07:00 12/12/16 16:10 - 12/16/16 06:43 Intake Total 2090 ml 20374 ml Output Total 1230 ml 31395 ml Balance 860 ml -7769 ml Intake Oral 400 ml 6674 ml IV Total 1690 ml 7127 ml Packed Cells 300 ml Output Urine Total 20 ml 1470 ml Stool Total 750 ml Drainage Total 1210 ml 42383 ml # Bowel Movements 2 B/L percutaneous nephrostomy tube urine output: 2155/1200ml last 2 8hr. shifts General: Alert, Oriented X3, Cooperative, No Acute Distress Neck: Supple Lungs: Normal Air Movement Abdomen: Soft, Non-distended, Other (mild LLQ and RLQ tenderness, no palpable masses, no rebound or guarding, colostomy in place, LLQ percutaneous drain in place) SURGICAL WOUND : Wound Location/Description B/L percutaneous nephrostomy tube site dressings clean/dry/intact, no ecchymosis ; exam: Scrotum: moderate B/L scrotal edema (mildly improved), non-tender, no palpable masses, no erythema, warmth, discharge, fluctuance, or crepitus, B/ L testes not palpable secondary to scrotal edema Neuro: Normal Speech, Sensation Intact Catheters: Nephrostomy (B/L nephrostomy tubes in place, draining large amount of clear urine) Result Diagram: 12/16/16 0500 12/16/16 0500 Lab & Micro Results: 12/12/16: urine Cx 10-25,000 mixed UG haley Diagnostics: Scrotal U/S (12/13/16): normal B/L testes with normal and symmetric arterial flow in B/L testes, no testicular masses, several small R epididymal cysts, thickened and edematous B/L scrotal skin with no abnormal blood flow Assessment & Plan Impression Acute renal failure and hyperkalemia, likely secondary to combination of B/L hydronephrosis and B/L ureteral obstruction (which is secondary to large rectal mass/tumor), recent administration of IV contrast during CT scan at , and infection with abscesses and possible UTI, also with B/L scrotal edema secondary to anasarca, s/p B/L percutaneous nephrostomy tube placement on 12/[address] Alfredo, afebrile, hemodynamically stable, with continued excellent urine output from B/L percutaneous nephrostomy tubes, with labs this AM showing Cr decreased to 1.48 and normal lytes Problems: Plan Continue B/L percutaneous nephrostomy tube to straight drainage. Wound care nursing consult for nephrostomy tube care and teaching. When patient is discharged, he will be discharged with B/L percutaneous nephrostomy tubes in place. Recommend continuing to follow labs (including Cr and lytes) Recommend scrotal support/elevation at all times When patient is discharged from the hospital, he will need to follow-up with me in the office for follow-up (approx. 2-3 weeks after discharge). Patient will need cystoscopy sometime in the future as an outpatient for his gross hematuria. VTE Prophylaxis: Sub-Q Heparin (Unfractionated) Resuscitation Status: CPR: Attempt Resuscitation Yovany Trujillo MD December 16, 2016 11:40 Yovany Trujillo MD December 16, 2016 11:40
[2016-12-16 11:47] LABS: APPEARANCE,URINE SLIGHTLY CLOUDY (CLEAR,HAZY)
[2016-12-16 11:48] LABS: OCCULT BLOOD,URINE LARGE (NEGATIVE); UROBILINOGEN,URINE NORMAL (NORMAL)
[2016-12-16] MEDS: Lidocaine 5% 35.5 Gm Ointment TOPICAL PRN ×2 (12:29→14:09)
--- NOTE | 2016-12-16 13:25 | PCM.PNNEPH ---
Subjective Date of Service December 16, 2016 Subjective Pain has been controlled with IV SLP. Bravo catheter was removed yesterday. His kidney function continued to improve. Worsening leukocytosis noted. He had low-grade temperature last night. Exam Vital Signs Vital Sign - Last Date Time Temp Pulse Resp B/P Pulse Ox O2 Delivery O2 Flow Rate FiO2 12/16/16 09:38 99 12/16/16 09:07 14 99 12/16/16 06:43 37.1 131/89 Room Air 12/13/16 15:29 2.00 Intake and Output 12/15/16 12/15/16 12/16/16 Cumulative From/Thru 15:00 23:00 07:00 12/12/16 16:10 - 12/16/16 06:43 Intake Total 3157 ml 2090 ml 47613 ml Output Total 2285 ml 1230 ml 09349 ml Balance 872 ml 860 ml -7769 ml Intake Oral 1557 ml 400 ml 6674 ml IV Total 1600 ml 1690 ml 7127 ml Packed Cells 300 ml Output Urine Total 100 ml 20 ml 1470 ml Stool Total 750 ml Drainage Total 2185 ml 1210 ml 89982 ml # Bowel Movements 2 Exam General appearance: Awake, alert, oriented x3. Cachectic. HEENT: PERRLA. Atraumatic. Dry mucous membranes. No icteric sclerae. No JVD. No thyroid enlargement. Heart: Regular rhythm. Normal S1, S2. No murmurs, rubs, or gallops. Lungs: Clear to auscultation bilaterally. Abdomen is soft. Active bowel sounds. Colostomy in place on the left lower quadrant. Percutaneous drainage noted. Extremities: 1+ edema on LLE. : mild scrotal swelling noted. Bilateral nephrostomy tube in place. Lab and Diagnostics Result Diagram: 12/16/16 0500 12/16/16 0500 Additional Diagnostics PROCEDURE: US RENAL SONOGRAM INDICATIONS: arf, hynronephrosis, mass effect? TECHNIQUE: Real-time scanning was performed of the kidneys and bladder, with image documentation. COMPARISON: [facility], CT, CT ABD PELVIS W CON, 11/16/2016, 19:49. FINDINGS: Kidneys: Kidneys are normal in size. Right kidney measures 11.9 cm long; left kidney measures 12.9 cm long. Right renal cortical thickness is 1.5 cm; left renal cortical thickness is 2.7 cm. Renal cortical echotexture is normal. Again noted is bilateral moderate hydronephrosis but no nephrolithiasis. This pattern was previously present 11/16/16 No suspicious solid mass lesions. Bladder: The bladder is compressed by a large heterogeneous mass within the lower pelvis as was previously the case, currently estimated at measuring up to 10.6 x 17.2 x 11.2 cm. The exact boundaries, however, are indistinct by ultrasound. Centrally positioned within this mass is a stent like structure, previously present during CT scanning 11/16/16. Miscellaneous: No free pelvic fluid. IMPRESSION: Impression: There is a moderate degree of bilateral hydronephrosis as was previously the case associated with a large pelvic mass, reportedly representing rectal carcinoma, with a endoluminal stent passing through the central portion of this mass. The exact boundaries of the mass are somewhat indistinct. No definite acute disease found. Plan Impression ASSESSMENT: 1. Acute kidney injury, multifactorial including obstructive uropathy due to large pelvic mass, contrast-induced nephropathy and low effective circulating volume. s/p bilateral nephrostomy tube placement on 12/13. Bravo catheter was removed on 12/15. 2. Postobstructive uropathy. 3. Pyuria, suspected complicated urinary tract infection in the setting of obstruction. 4. Iliopsoas abscess, status post drainage. 5. Stage IV colorectal cancer, status post chemoradiation and colostomy. 6. Left lower extremity deep venous thrombosis. 7. Ulcerative colitis. 8. Worsening leukocytosis with low-grade temperature. 9. Normocytic anemia suspected anemia of chronic disease. Plan: Continue half normal saline at 150 mL per hour. Recommend ID consultation. Repeat CBC and BMP in the morning. Will order iron panel and ferritin level. Ariel Terrell MD December 16, 2016 13:25
--- NOTE | 2016-12-16 19:28 | PCM.PNMED ---
Subjective Date of Service December 16, 2016 Subjective Patient states that he has burning pain in urethral meatus, chronically burning pain when he urinates. Eating somewhat. Still confused about how he could take [employer] [employer] home. He is expected to see palliative care tomorrow and Dr. Bayron kebededay. Elevated WBC today. Kidney function continues to improve. Patient appears very distraught, spent 1/2 hr in the bath room showing me and his nurse, how much it hurts to urinate. He still gets the urge to urinate, he produces a bit of purulent material from the urethra ( says on going for months) , he then produces bit of blood. Says it hurts when he does this every single time, lots of pressure sensation. He feels he needs more guidance on how to continue to be like this. Exam Vital Signs Vital Sign - Last Date Time Temp Pulse Resp B/P Pulse Ox O2 Delivery O2 Flow Rate FiO2 12/16/16 18:22 16 12/16/16 14:15 36.7 96 143/88 96 Room Air 12/13/16 15:29 2.00 Intake and Output 12/15/16 12/15/16 12/16/16 Cumulative From/Thru 15:00 23:00 07:00 12/12/16 16:10 - 12/16/16 06:43 Intake Total 3157 ml 2090 ml 12719 ml Output Total 2285 ml 1230 ml 34841 ml Balance 872 ml 860 ml -7769 ml Intake Oral 1557 ml 400 ml 6674 ml IV Total 1600 ml 1690 ml 7127 ml Packed Cells 300 ml Output Urine Total 100 ml 20 ml 1470 ml Stool Total 750 ml Drainage Total 2185 ml 1210 ml 17624 ml # Bowel Movements 2 Exam General: Sleeping at this time, when woken up was pleasant for some time then proceeded to the bath room to tell the nurse and the examiner how his pain amplifies with urination HEENT: NCAT Heart: RRR, no s3/s4 sounds Lungs clear to auscultation Abdomen flat and nondistended Mood: Depressed Affect: Labile Neuro: Appears to be drifting in and out of pain/anger/distress IVs and Medications IV Fluids Half normal saline 150 mL/h Medications Reviewed: Medications were reviewed in detail Lab and Diagnostics Result Diagram: 12/16/16 0500 12/16/16 0500 Additional Diagnostics PROCEDURE: US RENAL SONOGRAM INDICATIONS: arf, hynronephrosis, mass effect? TECHNIQUE: Real-time scanning was performed of the kidneys and bladder, with image documentation. COMPARISON: [facility], CT, CT ABD PELVIS W CON, 11/16/2016, 19:49. FINDINGS: Kidneys: Kidneys are normal in size. Right kidney measures 11.9 cm long; left kidney measures 12.9 cm long. Right renal cortical thickness is 1.5 cm; left renal cortical thickness is 2.7 cm. Renal cortical echotexture is normal. Again noted is bilateral moderate hydronephrosis but no nephrolithiasis. This pattern was previously present 11/16/16 No suspicious solid mass lesions. Bladder: The bladder is compressed by a large heterogeneous mass within the lower pelvis as was previously the case, currently estimated at measuring up to 10.6 x 17.2 x 11.2 cm. The exact boundaries, however, are indistinct by ultrasound. Centrally positioned within this mass is a stent like structure, previously present during CT scanning 11/16/16. Miscellaneous: No free pelvic fluid. IMPRESSION: Impression: There is a moderate degree of bilateral hydronephrosis as was previously the case associated with a large pelvic mass, reportedly representing rectal carcinoma, with a endoluminal stent passing through the central portion of this mass. The exact boundaries of the mass are somewhat indistinct. No definite acute disease found. Assessment & Plan Patient is a 56-year-old male history of ulcerative colitis, stage IV rectal adenocarcinoma with diverting colostomy, and LLE DVT who presented to the ED for acute renal failure and hyperkalemia. 1. Acute Kidney Injury, Present on Admission Likely due to a combination ATN and post obstructive uropathy due to large tumor. Patient has had multiple CTs with contrast in the last few weeks, with the most recent one on December 03. It is also been demonstrated that he has a large tumor burden that is compressing on his colon and bladder. There is also possibility of urinary tract infection with his grossly abnormal UA. Patient received copious hydration in the ED, nephrology, and urology was consulted. Continue to avoid nephrotoxic medications if possible Nephrology will evaluate patient in the AM. If symptoms worsen, will call nephrology back for urgent dialysis: Contacted nephrology has seen the patient removed ciprofloxacin, started him on Zosyn. He also contacted urology for nephrostomy procedure. Urology will evaluate patient in the AM.: Urology has seen the patient, patient underwent bilateral suprapubic catheter placement. -- Postop day #2 nephrostomy procedure bilateral. Patient is producing good urine output. Creatinine is improving -- He is on 150 mL/h half-normal saline per nephrology -- Improving kidney function 12/16 -- Uro recs 12/16 : "ontinue B/L percutaneous nephrostomy tube to straight drainage. Wound care nursing consult for nephrostomy tube care and teaching. When patient is discharged, he will be discharged with B/L percutaneous nephrostomy tubes in place. Recommend continuing to follow labs (including Cr and lytes) Recommend scrotal support/elevation at all times When patient is discharged from the hospital, he will need to follow-up with me in the office for follow-up (approx. 2-3 weeks after discharge). Patient will need cystoscopy sometime in the future as an outpatient for his gross hematuria. " 2. Hyperkalemia, acute, POA Patient was given Kayexalate 30g, regular insulin and D50 in the ER. This brought the potassium down to 5.7. We will place on telemetry for CV monitoring We will give him another amp of D50 and 10 units of insulin and recheck potassium We will monitor blood sugars closely also, will consider D5 or D10NS if persistently low blood sugar Patient is given given another round of Kayexalate 15 g, and also one gram of Calcium gluconate based on the follow-up evening lab 12/13 that showed potassium of 6.4: Nephrology is aware. -- Resolved on 12/14 -- Monitor daily BMP 3. Left Psoas Abscess, POA Patient is currently on ciprofloxacin and Flagyl by mouth. He was originally admitted to [facility] for this, but subsequently was transferred to [facility] for further management. Likely the cause of patient's leukocytosis, although a UTI may also be possible. We will continue patient's antibiotics, may need to request records from [facility] for sensitivity if patient is not improving. -- Nephrology has switched him to Zosyn to Cipro renal toxic: Patient is expected to be on these antibiotics through 12/20 per his 4. Scrotal Edema, POA Scrotal support Urology consulted: The patient had a scrotal ultrasound is done: No remarkable findings per report -- Encouraged elevating scrotum to reduce swelling by using a towel 5. Pain in urethra with urination: -- Lidocaine gel, Azo, belladonna alkaloids are ordered for relief. Patient states he is getting purulence while trying to urinate. He says he has been having it for months, pain does not stop. -- He urinates a few drops, but he feels pressure sensation. -- After talking with palliative care/[facility] [employer], Pain pump was adjusted to give him more basal at 1 mg, patient demand boluses of 0.8 mg. This is communicated to both him pharmacy and the nursing staff Also has dilaudid po 8mg Q3HPRN. Also has dilaudid po 8mg Q3HPRN -- consider diazepam suppositories, consider discussing this with urology 6. Rectal Adenocarcinoma, stage IV, POA As managed by oncology, Dr. Elias: Dr. Tan has come to see the patient when patient was undergoing the procedure. Peripheral edema secondary to tumor compression of Iliac vessels May need palliative care consultation: Palliative care is consulted, they try to help with pain control. He appears to have recurrent pain control today but he is on immediate acting medications, he does not have enough body fat for a fentanyl p patch 7.Ulcerative Colitis with colostomy, POA Colostomy in place in left lower quadrant Inpatient colostomy care ordered Pain management per palliative care: Patient did not like morphine sulfate, OxyContin, methadone. Palliative care put him on a [place] [employer] for the weekend 12/14. 8. Chronic normocytic Anemia, POA Hgb 7.5 on admission. Typed and Cross Transfuse if Hgb <7.0 or symptomatic. Patient is transfused with 2 units of blood 12/13, posttransfusion H&H came up appropriately -- Monitor with daily CBC 9 acute leukocytosis on 12/17: Blood cultures, chest x-ray, UA are ordered to address this. A culture swab is also ordered for urethral purulent drainage -- Chest x-ray negative, UA positive: Sensitivities pending -- Blood cultures are pending -- Added vancomycin to cover for MRSA. -- Consult ID in the a.m. patient may benefit from daptomycin for MRSA due to his poor renal function. Discussed the initial dose of vancomycin with pharmacy in light of his recently improving renal function. Tylenol prn fever Zofran prn nausea CODE STATUS: Full resuscitation Disposition: Patient is admitted under inpatient status with expected length of stay greater than to midnight due to risk of adverse effects, decompensation, and medical complexity. Patient has not achieved ideal pain control. Renal function is still trending down but not at baseline yet. Dr. Tan is expecting to have more discussions with patient on 12/18. Pain control per palliative care Pain Evaluation: Pain not Controlled VTE Prophylaxis: Sub-Q Heparin (Unfractionated) VTE Mechanical Devices: Intermittant Pneumatic CD Resuscitation Status: CPR: Attempt Resuscitation Time spent 35 minutes Mitzi Salguero DO December 16, 2016 19:21
[2016-12-16] MEDS ORDERED: Phenazopyridine 97.5 mg Tablet PO ONE (19:40)
[2016-12-16] MEDS ORDERED: Belladonna Alk-Opium 60 mg Rectal Suppository RECTAL ONE (20:05)
[2016-12-16 20:43] LABS: COLOR,URINE BLOODY (YELLOW)
[2016-12-16 20:44] LABS: APPEARANCE,URINE CLOUDY (CLEAR,HAZY); OCCULT BLOOD,URINE LARGE (NEGATIVE); UROBILINOGEN,URINE NORMAL (NORMAL)
[2016-12-16] MEDS ORDERED: Vancomycin Inj 1,000 MG in IV Premix 1 EACH IV ONE (22:00)
[2016-12-17] VITALS (14 sets, daily range): BP systolic 116–139; BP diastolic 65–85; PULSE 84–108; RESP 14–20; O2SAT 93–100
[2016-12-17] MEDS: Heparin 5,000 Unit/mL Inj SUBQ SCH ×5 (00:30→23:32)
[2016-12-17] MEDS: HYDROmorphone PCA 0.2 mg/mL 30 mL Inj IV PRN ×6 (00:40→23:01)
[2016-12-17] MEDS ORDERED: Vancomycin Inj 1,000 MG in IV Premix 1 EACH IV ONE (00:40)
[2016-12-17] MEDS: Piperacillin-Tazo 3.375 Gm Inj 3.375 GM in Dextrose 5% Minibag Plus 50 ML IV SCH ×2 (03:54→18:54)
[2016-12-17] MEDS ORDERED: MetoCLOpramide 5 mg/mL 2 mL Inj IVPUSH PRN (05:54)
[2016-12-17 06:09] LABS: BASOPHILS % (AUTO) 0.2 % (0-3); EOSINOPHILS % (AUTO) 1.2 % (0-5); MONOCYTES % (AUTO) 8.2 % (4-12); Mean Corpuscular Volume 94.4 fL (81-100); NEUTROPHILS % (AUTO) 87.4 % (40-74); Platelet Count 622 bil/L (150-400)
--- NOTE | 2016-12-17 07:00 | PCM.PHAPRO ---
Progress Date of Service: December 17, 2016 kidney failure Vancomycin Management Per Pharmacy: Indication: UTI Goal Trough: 10-15 mg/dL Labs: WBC: 17.4 SrCr: 1.48 mg/dL (down from 6.53 mg/dL 3 days prior and baseline SrCr ~ 0.7 mg/ dL), will monitor very closely Lactate: 1.0 Vitals: HR: 95-105 BPM, slightly elevated BP: Stable Temp: Low grade temps Micro: Urine Culture pending Additional ABX: Zosyn IV Nephrotoxic Risk Factors: LIZ on admission - continues to improve, Zosyn IV Urine Output: ~4.2 Liters in past 24 hrs Recommendation: Load: Vancomycin 1000 mg IV x 1 Maintenance: Vancomycin 500 mg IV Q12h Vanco Trough: Will draw vancomycin trough on 12/18 @ 0730 prior to 3rd maintenance dose (early) to monitor for appropriate clearance in this gentleman with LIZ. Pharmacy to continue to monitor and adjust dose as needed. Thank You, Pauline Mendoza, Pharm D. Pauline Mendoza December 17, 2016 07:00
[2016-12-17] MEDS ORDERED: Potassium Chloride 20 mEq SR Tablet PO ONE (08:05)
[2016-12-17] MEDS ORDERED: Vancomycin Dose per Pharmacist XX SCH (08:30)
[2016-12-17] MEDS: Vancomycin Inj 500 MG in 0.9% Sodium Chloride 100 ML IV SCH ×2 (08:44→23:07)
[2016-12-17] MEDS ORDERED: Magnesium Sulf 4 Gm/100 mL H2O 4 GM in IV Premix 1 EACH IV ONE (08:55)
[2016-12-17] MEDS ORDERED: KCl 40 mEq/D5W 500 mL 40 MEQ in IV Premix 1 EACH IV ONE (08:55)
[2016-12-17] MEDS: Polyethylene Glycol (PEG) 17 Gm Powder PO SCH (10:01)
--- NOTE | 2016-12-17 11:19 | PCM.PNNEPH ---
Subjective Date of Service December 17, 2016 Subjective The patient's renal function continues to improve. His appetite is improved and he denies any chest pain, shortness of breath, cough or wheezing. His blood pressures have averaged 130 and 140. Intake and output for a 24-hour showed 5539 in and 40-55 out. This morning his hemoglobin is 8.8, sodium 138, potassium 3.1, chloride 100 bicarbonate 27, BUN and creatinine were 8 and 1.12 respectively. His magnesium is 1.1. Exam Vital Signs Vital Sign - Last Date Time Temp Pulse Resp B/P Pulse Ox O2 Delivery O2 Flow Rate FiO2 12/17/16 09:36 36.5 91 18 128/80 97 Room Air 12/13/16 15:29 2.00 Intake and Output 12/16/16 12/16/16 12/17/16 Cumulative From/Thru 15:00 23:00 07:00 12/12/16 16:10 - 12/17/16 06:43 Intake Total 3449 ml 2575 ml 09242 ml Output Total 3025 ml 2510 ml 57799 ml Balance 424 ml 65 ml -7280 ml Intake Oral 1574 ml 800 ml 9048 ml IV Total 1875 ml 1775 ml 26064 ml Packed Cells 300 ml Output Urine Total 60 ml 1530 ml Stool Total 750 ml Drainage Total 2965 ml 2510 ml 11224 ml # Bowel Movements 2 Exam HEENT examination is remarkable for pale sclera and significant cachexia. There is bitemporal wasting. Neck is supple without adenopathy, thyromegaly, or jugular venous distention. Lungs are clear to auscultation. Heart is regular and rhythmical with a soft systolic murmur. Abdomen is soft without any tenderness rebound guarding masses or hepatosplenomegaly. She does not show any evidence of any clubbing, cyanosis, or edema. Skin turgor is slightly diminished and is no evidence of any rashes. Lab and Diagnostics Result Diagram: 12/17/1652912/17/16529 Additional Diagnostics PROCEDURE: US RENAL SONOGRAM INDICATIONS: arf, hynronephrosis, mass effect? TECHNIQUE: Real-time scanning was performed of the kidneys and bladder, with image documentation. COMPARISON: [facility], CT, CT ABD PELVIS W CON, 11/16/2016, 19:49. FINDINGS: Kidneys: Kidneys are normal in size. Right kidney measures 11.9 cm long; left kidney measures 12.9 cm long. Right renal cortical thickness is 1.5 cm; left renal cortical thickness is 2.7 cm. Renal cortical echotexture is normal. Again noted is bilateral moderate hydronephrosis but no nephrolithiasis. This pattern was previously present 11/16/16 No suspicious solid mass lesions. Bladder: The bladder is compressed by a large heterogeneous mass within the lower pelvis as was previously the case, currently estimated at measuring up to 10.6 x 17.2 x 11.2 cm. The exact boundaries, however, are indistinct by ultrasound. Centrally positioned within this mass is a stent like structure, previously present during CT scanning 11/16/16. Miscellaneous: No free pelvic fluid. IMPRESSION: Impression: There is a moderate degree of bilateral hydronephrosis as was previously the case associated with a large pelvic mass, reportedly representing rectal carcinoma, with a endoluminal stent passing through the central portion of this mass. The exact boundaries of the mass are somewhat indistinct. No definite acute disease found. Plan Impression Impression #1 acute kidney injury which appears to be resolving number to obstructive uropathy #3 dehydration over 4 bilateral hydronephrosis #5 hypokalemia #6 hypomagnesemia Recommendations #1 is for potassium and magnesium replacement. Do need to closely follow his electrolytes as he is recovering. Magdy Brady DO December 17, 2016 11:19
[2016-12-17] MEDS: Lidocaine 5% 35.5 Gm Ointment TOPICAL PRN (11:45)
[2016-12-17] MEDS: 0.9% Sodium Chloride 250 ML IV SCH (12:33)
[2016-12-17] MEDS: Dextrose 5% 500 ML IV SCH (15:47)
--- NOTE | 2016-12-17 15:55 | PCM.PNMED ---
Subjective Date of Service December 17, 2016 Subjective Afebrile. Patient states he has worsening of his left thigh swelling. Swelling is painful. Continues to have persistent leukocytosis. Repeat urinalyses shows pyuria. On antibiotics vancomycin and Zosyn. Kidney function continues to improve. Exam Vital Signs Vital Sign - Last Date Time Temp Pulse Resp B/P Pulse Ox O2 Delivery O2 Flow Rate FiO2 12/17/16 13:33 36.8 85 18 116/71 95 Room Air 12/13/16 15:29 2.00 Intake and Output 12/16/16 12/16/16 12/17/16 Cumulative From/Thru 15:00 23:00 07:00 12/12/16 16:10 - 12/17/16 06:43 Intake Total 3449 ml 2575 ml 65357 ml Output Total 3025 ml 2510 ml 54261 ml Balance 424 ml 65 ml -7280 ml Intake Oral 1574 ml 800 ml 9048 ml IV Total 1875 ml 1775 ml 86476 ml Packed Cells 300 ml Output Urine Total 60 ml 1530 ml Stool Total 750 ml Drainage Total 2965 ml 2510 ml 04139 ml # Bowel Movements 2 Exam General: Sleeping at this time, when woken up was pleasant for some time then proceeded to the bath room to tell the nurse and the examiner how his pain amplifies with urination HEENT: NCAT Heart: RRR, no s3/s4 sounds Lungs clear to auscultation Abdomen flat and nondistended TIERRA: Firm, tender swelling on the left thigh, lateral side. Nonfluctuant Mood: Depressed Affect: Labile Neuro: Alert and oriented IVs and Medications Medications Reviewed: Medications were reviewed in detail Lab and Diagnostics Result Diagram: 12/17/1652912/17/16529 Additional Diagnostics PROCEDURE: US RENAL SONOGRAM INDICATIONS: arf, hynronephrosis, mass effect? TECHNIQUE: Real-time scanning was performed of the kidneys and bladder, with image documentation. COMPARISON: [facility], CT, CT ABD PELVIS W CON, 11/16/2016, 19:49. FINDINGS: Kidneys: Kidneys are normal in size. Right kidney measures 11.9 cm long; left kidney measures 12.9 cm long. Right renal cortical thickness is 1.5 cm; left renal cortical thickness is 2.7 cm. Renal cortical echotexture is normal. Again noted is bilateral moderate hydronephrosis but no nephrolithiasis. This pattern was previously present 11/16/16 No suspicious solid mass lesions. Bladder: The bladder is compressed by a large heterogeneous mass within the lower pelvis as was previously the case, currently estimated at measuring up to 10.6 x 17.2 x 11.2 cm. The exact boundaries, however, are indistinct by ultrasound. Centrally positioned within this mass is a stent like structure, previously present during CT scanning 11/16/16. Miscellaneous: No free pelvic fluid. IMPRESSION: Impression: There is a moderate degree of bilateral hydronephrosis as was previously the case associated with a large pelvic mass, reportedly representing rectal carcinoma, with a endoluminal stent passing through the central portion of this mass. The exact boundaries of the mass are somewhat indistinct. No definite acute disease found. Assessment & Plan Patient is a 56-year-old male history of ulcerative colitis, stage IV rectal adenocarcinoma with diverting colostomy, and LLE DVT who presented to the ED for acute renal failure and hyperkalemia. #. Acute Kidney Injury, Present on Admission, improved Multifactorial but mainly due to obstruction:Likely due to a combination ATN and obstructive uropathy due to large tumor. Patient has had multiple CTs with contrast in the last few weeks, with the most recent one on December 03. It is also been demonstrated that he has a large tumor burden that is compressing on his colon and bladder. There is also possibility of urinary tract infection with his grossly abnormal UA. Continue to avoid nephrotoxic medications if possible Status post bilateral nephrostomy -- Improving kidney function 12/16 - When patient is discharged, he will be discharged with B/L percutaneous nephrostomy tubes in place. -Creatinine at 1.1 today, initial creatinine 6.53 #. Hyperkalemia, acute, POA. Resolved Patient was initially given Kayexalate 30g, regular insulin and D50 in the ER. This brought the potassium down -- Resolved on 12/14 #. Left Psoas Abscess, POA Patient ws on ciprofloxacin and Flagyl by mouth prior to admission Patient continues to have left thigh swelling which is concerning for worsening of psoas abscess We will continue patient's antibiotics Zosyn and vancomycin, may need to request records from [facility] for sensitivity if patient is not improving. -CT abdomen and pelvis/left thigh with IV contrast requested. ID consulted -- Initial plan was to continue outpatient antibiotics through 12/20 per his #. Scrotal Edema, POA Scrotal support Urology consulted: The patient had a scrotal ultrasound is done: No remarkable findings per report -- Encouraged elevating scrotum to reduce swelling by using a towel #. Pain in urethra with urination: -- Lidocaine gel, Azo, belladonna alkaloids are ordered for relief. Patient states he is getting purulence while trying to urinate. He says he has been having it for months, pain does not stop. -- He urinates a few drops, but he feels pressure sensation. #. Rectal Adenocarcinoma, stage IV, POA As managed by oncology, Dr. Elias: Peripheral edema secondary to tumor compression of Iliac vessels Palliative care is consulted, they try to help with pain control. #.Ulcerative Colitis with colostomy, POA Colostomy in place in left lower quadrant Inpatient colostomy care ordered Pain management per palliative care: Patient did not like morphine sulfate, OxyContin, methadone. Palliative care put him on a ADDICTION SPECIALIST for the weekend 12/14. #. Chronic normocytic Anemia, POA Hgb 7.5 on admission. Typed and Cross Transfuse if Hgb <7.0 or symptomatic. Patient is transfused with 2 units of blood 12/13, posttransfusion H&H came up appropriately -- Monitor with daily CBC #acute leukocytosis on 12/17: Blood cultures, chest x-ray, UA are ordered to address this. A culture swab is also ordered for urethral purulent drainage -- Chest x-ray negative, UA positive: Sensitivities pending -- Blood cultures are pending -- Added vancomycin to cover for MRSA. -- Consult ID in the a.m. patient may benefit from daptomycin for MRSA due to his poor renal function. Discussed the initial dose of vancomycin with pharmacy in light of his recently improving renal function. Tylenol prn fever Zofran prn nausea CODE STATUS: Full resuscitation Disposition: Patient is admitted under inpatient status with expected length of stay greater than to midnight due to risk of adverse effects, decompensation, and medical complexity. Patient has not achieved ideal pain control. Renal function is still trending down but not at baseline yet. Dr. Tan is expecting to have more discussions with patient on 12/18. Pain control per palliative care VTE Prophylaxis: Sub-Q Heparin (Unfractionated) VTE Mechanical Devices: Intermittant Pneumatic CD Resuscitation Status: CPR: Attempt Resuscitation Israel Naylor MD December 17, 2016 15:55 VTE Prophylaxis: Sub-Q Heparin (Unfractionated) VTE Mechanical Devices: Intermittant Pneumatic CD Resuscitation Status: CPR: Attempt Resuscitation Israel Naylor MD December 17, 2016 15:55
--- NOTE | 2016-12-17 16:45 | DRSVH ---
PROCEDURE: CT ABDOMEN AND PELVIS WITH CONTRAST ([id number]) INDICATIONS: ileopsoas ascess.left thigh abscess TECHNIQUE: After the administration of oral and intravenous contrast, 5 mm thick sections acquired from the diap hragms to the symphysis. 5 mm thick coronal and sagittal reformats were performed. For radiation do se reduction, the following was used: automated exposure control, adjustment of mA and/or kV accordi ng to patient size. COMPARISON: [facility], CT, CT ABD PELVIS W CON, 11/16/2016, 19:49. Outside Film, CT, CT ABD PELVIS W CON, 07/27/2016, 12:04. Outside Film, CT, CT ABD PELVIS W CON, 07/13/2016, 13:04. FINDINGS: Image quality: Excellent. ABDOMEN: Lung bases: Lung bases are clear. Heart size is normal. Solid organs: Liver and spleen are normal in size and enhancement. Gallbladder is contracted. Bili indigo system is non-dilated. Pancreas enhances normally. No adrenal nodules. Kidneys are normal in s ize and enhancement, without hydronephrosis. Bilateral nephrostomy tubes are present. Peritoneum and bowel: Stomach and small bowel are within normal limits. There is mild diffuse fluid distention of the colon. Left lower quadrant colostomy is present. Large necrotic rectal mass is pres ent, as before, which is increased in size, currently measuring 17 cm albert-posterior. Rectal stent is present, as before, and is occluded. No free fluid or air. Nodes and vessels: No retroperitoneal or mesenteric adenopathy. Aorta and inferior vena cava are no rmal in caliber. IVC filter is present. Left iliac fossa drainage catheter is present, and the previ ously seen left-sided retroperitoneal abscesses have nearly completely resolved. Miscellaneous: No ventral hernias. PELVIS: Genitourinary: Bladder wall thickness is normal. Miscellaneous: No inguinal hernias or adenopathy. Moderate diffuse subcutaneous edema is present. Bones: No suspicious bony lesions. No vertebral body compression fractures. IMPRESSION: 1. Near-complete resolution of left retroperitoneal abscess following left iliac fossa drainage hayley ter placement. 2. Resolved bilateral hydronephrosis following nephrostomy placement. 3. Increased, large necrotic rectal mass. 4. Moderate diffuse subcutaneous edema. Dictated by: Edgar Alfredo M.D. on 12/17/2016 at 16:40 Approved by: Edgar Alfredo M.D. on 12/17/2016 at 16:43
--- NOTE | 2016-12-17 17:08 | DRSVH ---
PROCEDURE: CT LOWER EXTREMITY LEFT WITH CONTRAST INDICATIONS: ileopsoas ascess.left thigh abscess TECHNIQUE: After the administration of intravenous contrast, 3 mm axial sections acquired of the left lower extr emity, with coronal and sagittal reformats. For radiation dose reduction, the following was used: a utomated exposure control, adjustment of mA and/or kV according to patient size. COMPARISON: None. FINDINGS: Image quality: Excellent. Bones: No fracture nor osseous lesion. Soft tissues: Moderate diffuse subcutaneous fat stranding. Moderate facet and in fluid adjacent to th e anterior and posterior compartments of the left thigh, as well as within the anterior posterior com partments of the left calf. No focal fluid collection to indicate abscess. Large centrally necrotic r ectal mass is present. IMPRESSION: 1. Left lower extremity deep and superficial cellulitis. No abscess. No osteomyelitis. 2. Large centrally necrotic rectal mass. Dictated by: Edgar Alfredo M.D. on 12/17/2016 at 16:43 Approved by: Edgar Alfredo M.D. on 12/17/2016 at 17:06
--- NOTE | 2016-12-17 19:11 | PCM.PALLBR ---
Palliative Care Recommendation Summary of palliative recommendations: 12/17/16 Pain- will try oxycontin at 20 mg BID-his calculated dose is much higher but he has been intol of other LA meds. This was tried end of last week and he did not use DIVERSIFIED CROPS FARMWORKER through the travis but felt "loopy". Will try again to find something he will be able to go home on. He may need some patience with oxycontin to "balance" this. He has a fair narcotic requirement If he decides to go for comfort care- will consider dexamethasone for pain management. FCTM with patient, his mother, brother and both sisters and Lisette. Reviewing pain mangement and GOC. He wishes to postpone any decisions until CT results and his discussion with Dr. Elias. This is reviewed with Dr. Elias and he will be in tomorrow afternoon to see pt. Depression- had been on ecitalopram-unclear if helpful but I will restart since he is clearly depressed. Code status discussion deferred. Symptom management (Pain/other) PAIN: Patient has had altered mental status and blurred vision on [place], Methadone, and MS IV in the past. He reports well toleration with oxycodone 15mg PO several times a day at home. He also had good experience with Dilaudid in the past, but seems to be bothered by it this morning. We started him on alternating Oxycodone PO and Dilaudid PO with the hope to see which one works the best for the patient. He is not a good candidate for Fentanyl patch due to malnutrition. We do not think a pain drip is appropriate for the patient as he is concerned of altered mental status from too much opioids. At this point, we are not clear which pain medication works the best for the patient. However, we will change his pain regimen as follows: --DC oxycodone PO. --Continue with 6 mg hydromorphone po q 3 hrs. --Also continue hydromorphone 1 mg IV for breakthrough severe pain to replace morphine which was not working. --Continue OxyContin 20 mg q 12 hours. --Discussed with ARAM Bertrand who agrees to document the effectiveness as well as any side effects. She has [employer]'s cell phone to call with questions. --If patient continues to have more symptoms with the oral Hydromorphone with no significant pain relief, will switch him back to oral Oxycodone. UPDATED PAIN PLAN as of 1600 on 12/14/16: --After multiple discussions with hospitalist, other palliative care provider and oncologist, we are opting to put patient on a dilaudid DIVERSIFIED CROPS FARMWORKER to get him through the weekend. --start at 0.5mg/hr, with 0.5 mg doses q 15 min --CAll Jessica OKEEFE with PC if needed to adjust: [phone] Elias: --Dr. Elias feels this would interfere with treating infection. FCTM with Dr. Elias [facility] [phone]: Patient was very emotional about his level of suffering and the poor options he feels he has. Dr. Elias did state that chemo might offer a chance at further life prolongation but could end up coming with additional burden to patient. He stated that it would be "perfectly reasonable" for patient to consider hospice at home and forego chemo. HAd two discussions with family members, both Magdy his brother and Lisette his SO, who both understand the options. Lisette states that he has done poorly on chemo that he received twice down at [facility]. She feels he would be at high risk for poor QOL with any chemo. FAmily will continue to discuss over weekend. I have given them my number to call if they have questions. PLEASE NOTE: Given the intensity of the decision that the patient is facing, we deferred discussion of his code status. His focus on QOL is consistent with him opting to be DNR--This could be addressed over the weekend or with palliative care on Saturday. SCROTAL EDEMA: will hope to manage pain medication regime as above. Testicular U/S on 12/13 showed No abnormality of either testicle. Right epididymis shows some small cysts but is otherwise normal and the left epididymis is normal. Bilateral scrotal swelling is present. No abnormal blood flow is appreciated to indicate cellulitis of the mass cannot be excluded. Recent CT scan shows generous amount of subcutaneous edema in the upper thighs. --improved now with nephrostomy tubes MALNUTRITION: his wasting and cachexia are significant. If further treatment is an option, he may need alternative/artifical nutrition support to withstand any anorexia that might accompany the chemotherapy. --pt does express hunger now and is keeping food down. No note from Oncology yesterday. Will follow up with Dr. Elias for treatment plan. Palliative care team will see the patient later this afternoon to discuss about his discussion with Oncology and his long-term goals. RENAL FAILURE: his renal function improved s/p nephrostomy tubes placement. Continue to follow up with Nephrology. -DPOA/Advanced Directives/POLST: Patient made comments regarding " This isn't worth it" referring to his unrelenting severe pain. Palliative care team will wait until the patient has better pain relief before we start the discussion about his goals for quality life. -Family/emotional support: Excellent. We met the patient's significant other ( Sherron), his daughters, his brother, and his mother yesterday. -Spiritual support: Pascale saw the patient before her nephostomy tube placement and will continue to follow. Patient Goals: 1. Patient wants to be told the truth about his/her illness, even if it is unpleasant. 2. Patient would like to be told prognosis when it can be predicted, to better guide treatment decisions. 3. Patient would choose quality of life over quantity of life, and defines quality as being able to enjoy family, having adequate pain control. 4. Patient would request that comfort care take priority over cognitive/mental confusion. Additional Medical Diagnoses with primary management by Hospitalist team include : Problems: End of Life Preferences Remains too upset to focus on code status Goals of Care currently wanting full range of treatments to improve his condition, but he also states at times that "this isn't worth it". Unable to focus on his true goals today other than to continue to want pain to be better relieved. Disposition Pt wants to go home as soon as possible. interested in pursuing naturopathic approach but not willing to give up on medical options--if there are any that are appropriate Resuscitation Status Resuscitation Status: CPR: Attempt Resuscitation POLST Updates/Changes Previous POLST?: No Total time 80 minutes; >50% face to face with patient and/or family, providing counselling regarding plans and recommendations, and in care coordination with his/her medical teams. [facility], 2nd meeting with patient re burden and med management questions, discussion with dr. Elias and Brown I also spent an additional [ ] minutes counseling for advanced care planning with the patient/the patients family/the surrogate decision maker. Palliative Brief Note Date of Service December 17, 2016 . 56-year-old gentleman followed by with known rectal CA as well as ulcerative colitis. He had a partial response to chemotherapy went down to the [facility] with evaluation for possible surgical debulking but was noted to have extensive disease with involvement to the pelvic wall bladder and surgery was not attempted. His diagnosis was in April 2016 and over that time course he has lost approximately 50 pounds. He developed a psoas abscess that was drained at the [facility]. He presented in acute renal failure due to bilateral hydronephroses. He had a previous diverting colostomy and this time had bilateral nephrostomies with his creatinine going from 6.26 down to 1.12 today. He had a short run of nonsustained V. tach that was asymptomatic. His magnesium level I.1 and that is being repleted. He had been on an antidepressant for approximately one month his was not clear if it was helpful but it seems to been stopped. Pain management has been a problem. His pain is in both legs but particularly his left. He also has severe urinary urgency and profound discomfort in his penis and into his bladder despite needing his nephrostomies. He has only small amount of urine through his urethra associated with some amount of pus but profound pain. Trial of Bravo catheter made no impact on this symptom. He continues to have small amounts of stool per rectum which also triggers pain. He is presently on hydromorphone 8 mg every 3 hours as well as hydromorphone DIVERS[employer]IED CROPS FARMWORKER. He found even low-dose methadone as well as morphine causing breathing fogging and altered mental status. He was told he is too thin for fentanyl. He is having a difficult time coping with the progression of his illness.. He has 2 young children. He acknowledges he has denied his decline and has not made arrangements as far as transferring things for his /SO and getting legal affairs arranged. He lost his father 3 years ago to dementia and what sounds like type I bipolar. He has one brother and 2 sisters all of whom are supportive and his mother is still alive and able to visit him in the hospital. He and his are both interested in naturopathic approach but he is not willing to give up the idea that there is still something to do for this in the medical realm O: thin, cachectic, pupils pinpoint, alert OX3, easily tearful diverts easily to details of care from discussion of goals of care distraught over the number of tubes he has/and will need to manage Digna Horner MD December 17, 2016 19:11
--- NOTE | 2016-12-17 19:14 | CONS ---
[address] [address] CONSULTATION REPORT PATIENT: YANCY ALARCON : 1960 MR#: [id number] ADMIT: 12/12/2016 JOB ID: [id number] DATE OF SERVICE: 12/17/2016 REASON FOR CONSULT: Psoas abscess, left side. HISTORY OF PRESENT ILLNESS: The patient is an extremely unfortunate, 56-year-old gentleman known to me from an admission last May. At that time, the patient had been recently diagnosed with a stage IV colorectal cancer. He had undergone a diverting colostomy for colonic relief and was discharged in mid June but almost immediately after return home, developed change in mental status and was returned to this hospital and readmitted on the . When he was admitted here, June 25, he had cardiac issues with tachycardia, as well as hypotension, change in mental status, and overall appeared critically ill. Imaging showed a large pelvic mass which was increasing in size with obstruction of a rectal stent that had previously been placed and it appeared there may be bowel perforation. Because of this, the patient was transferred to the [facility] where he had a colonic stent placed. The patient tells me that the outcome after the colonic stent was not entirely satisfactory and he continued to have a great deal of problems with his abdomen in general with a large mass and pain and chronic swelling of his left lower extremity secondary to this large pelvic mass. Eventually, the patient received both chemo and radiation with reduction in size of the tumor, and in October, he returned to the [facility] apparently for attempted resection of the remaining pelvic tumor. Unfortunately, at that surgery, it was found that the tumor was not resectable and was deemed inoperable. The patient then returned home. He was subsequently evaluated here on November 17, when he developed swelling in his flank and which exploded and pus drained at that time. Erythema, tenderness, and tremendous pain were noticed in his left flank area. He noted at that time that his colostomy was working normally and that this had been a rapidly progressive pimple that developed in his left flank and then worsened and exploded on or about November 17. Imaging at that time suggested that there were extensive abscesses in addition to his nonresectable tumor within his abdomen, including the peritoneum and pelvis. At that time, the patient's white blood count was extraordinarily elevated. The patient reported that this fluid that had drain from his left flank on or about November 17 was extremely foul-smelling. Because of the extensive nature of this process, the patient was transferred again back to the [facility] to Drs. Jalloh and Rosa, who had previously directed his care. The patient tells me that at the [facility], that second week of November, he underwent placement of a large drain in his left flank and received antibiotics before being discharged home on oral Cipro and Flagyl. The patient relates that he was taking oral Cipro and Flagyl up until last week, when on December 12, he was seen in clinic and found to have a creatinine which had abruptly jumped to 6.26 and a potassium of 6.1. This was felt to be likely on the basis of obstruction due to his large and unresectable tumor. The patient noticed that his left lower extremity had been more swollen than usual, though it has been swollen for months, and that he also had increased scrotal swelling and tenderness. Since admission, there have been attempts to keep the patient well-hydrated and this has led to improvement in his renal function. He was switched from the Cipro and Flagyl he had been receiving at [facility] to vancomycin and Zosyn empirically at the time of his readmission because of a leukocytosis. Also, as part of his management here, he has received bilateral percutaneous nephrostomies. With the hydration, nephrostomies, and antibiotics, his renal function has improved dramatically. ID consultation was requested at this time regarding optimal management of what is probably still left psoas and retroperitoneal infection, which in concert with his tumor burden, is causing continued pain and perhaps drainage issues as reflected by his enlarged left leg. The patient reports that really throughout the past several days, he has been free of fevers or chills. He denies any significant cough, shortness of breath, or chest pain. He has had abdominal and left flank pain which has persisted, but actually if anything, is better since admission and the placement of the percutaneous nephrostomies. The patient notes that the left lower extremity swelling is constant and has been really since back in June. He does not think it is worse acutely. PAST MEDICAL HISTORY: 1. 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 2. History of ulcerative colitis. 3. Colostomy. 4. Obstructive uropathy diagnosed on this admission with bilateral percutaneous nephrostomy tubes. 5. Indwelling Bravo catheter because of edema of the scrotum and penis. SOCIAL HISTORY: The patient was a fairly heavy drinker until his June diagnosis of extensive colorectal cancer. Does not smoke cigarettes. Is lifelong nonsmoker. He has not traveled outside the [facility]. FAMILY HISTORY: Negative for TB in first-degree relatives but positive for coronary artery disease. REVIEW OF SYSTEMS: Was done. The patient reports his weight is down but it is actually a little better than it was at its karlos. He said he can walk with difficulty but he is very weak. He denies any fevers, chills, or sweats. He has no significant headache. No visual complaint, no sore throat or trouble swallowing. No cough or shortness of breath. He is not having chest pain. He does have abdominal pain, both in the lower abdomen and the left flank area. This was severe last week but is somewhat better now. He is having minimal pain at the site of his percutaneous nephrostomies. He notes that his scrotal swelling and edema has decreased since admission. The left lower extremity edema is about at his baseline, though it is still quite pronounced. He reports his left leg was twice as big as it currently is a few weeks ago. He has no sensory complaints in his lower extremities. The remainder of the review of systems negative. PHYSICAL EXAMINATION: Reveals a gentleman who has been afebrile since admission back on December 12. Temp now 36.8, pulse 85, respiratory rate 18, blood pressure 116/71, saturating 95% on room air. He appears chronically ill and somewhat wasted. His current BMI is 19.8, weight 62 kg. He does have some degree of temporal wasting. Eyes without conjunctivitis or scleral icterus. Nose normal. Oral cavity: No thrush or hairy leukoplakia. Teeth in fair repair. Neck supple without adenopathy. He does not have JVD. His lungs are relatively clear anteriorly. Cardiac tones: Regular rate and rhythm without notable murmur. A port is present in the left upper chest and it is nontender. His abdomen has colostomy present. He also has a drain from his left flank at the site of his recent psoas abscess and bilateral percutaneous nephrostomy tubes. The abdomen is relatively firm diffusely but without great tenderness. It is difficult to appreciate whether there may be a mass behind his abdomen or not. exam: The patient has scrotal edema but does not have a Bravo today. The left lower extremity is grossly swollen, about double the size of the right, and that said, there is no erythema or significant tenderness there. The peripheral pulses are reasonable bilaterally and both feet are well perfused. Neurologically, the patient is 4+ weak throughout but symmetrical. Just to summarize the drains, the patient has two nephrostomy tubes, a left flank drain. He does not have a Bravo as it was recently removed. He does have a colostomy, and that is the sum and total of his drains at this point. LABORATORIES: Include white blood count 17,400, platelet count 622. Hematocrit 29. Creatinine 1.12 which is continuing to improve. It was 6.53 creatinine when he came in, now all the way down to normal basically. Albumin 2.1. Procalcitonin 0.47 and that is a single measurement done today. Urinalysis on admission, greater than 50 white cells, greater than 50 red cells. Cultures from this admission, urine grew mixed haley. Blood cultures were negative, and a repeat urine has been sterile. IMAGING ON THIS ADMISSION: Included a retroperitoneal ultrasound, which shows moderate hydronephrosis and a large pelvic mass that was done on admission before his nephrostomies were placed. Subsequently, both nephrostomies were placed on December 13. A chest x-ray, done on December 16, shows no infiltrate. IMPRESSION: This is an extraordinarily complicated case in an unfortunate gentleman who last fall was diagnosed with advanced colorectal cancer. He has had persistent swelling of his left lower extremity and I see no reason to think that that is infected at this point. He did have a tremendous discharge of purulent material from his left flank in November, which was a treated at the [facility] by placement of a drain and broad-spectrum intravenous antibiotics, which were later changed to oral Cipro and Flagyl. He was subsequently admitted to this facility in acute renal failure which was on the basis of obstruction which has resolved with placement of bilateral percutaneous nephrostomies and appropriate hydration. At this point, I see little evidence of overwhelming infection and would be inclined to continue with broad-spectrum intravenous antibiotics while he is here in the hospital with a transition back to Cipro and Flagyl prior to discharge. The patient is currently on vancomycin and Zosyn, and I think the vancomycin is probably not needed given the intra-abdominal and pelvic nature of this infection. RECOMMENDATIONS: 1. I would continue the patient on vancomycin and Zosyn, at least until we get back a MRSA screen. 2. If the MRSA screen is negative, I would drop the vancomycin. 3. When the patient is ready for discharge, I would be inclined to go back on Cipro, Flagyl for a very prolonged course. 4. I have requested all microbiologic data, discharge summaries, admission notes, and consults from his recent [facility] admissions, both in October when he had his surgery and November when he was readmitted with a flank abscess. 5. Will continue to follow this patient closely with you. 6. Note that 70 minutes were spent evaluating the extensive records, interviewing the patient, and trying to piece all of this together.
[2016-12-17] MEDS: oxyCODONE ER 20 mg ER12 Tablet PO SCH (20:49)
[2016-12-18] VITALS (13 sets, daily range): BP systolic 117–130; BP diastolic 72–91; PULSE 85–100; RESP 12–20; O2SAT 95–100
[2016-12-18] MEDS: Piperacillin-Tazo 3.375 Gm Inj 3.375 GM in Dextrose 5% Minibag Plus 50 ML IV SCH ×3 (02:57→17:23)
[2016-12-18] MEDS: HYDROmorphone PCA 0.2 mg/mL 30 mL Inj IV PRN ×5 (02:57→17:22)
[2016-12-18 06:13] LABS: Magnesium 1.9 mg/dL (1.6-2.6); Phosphorus 2.5 mg/dL (2.5-4.9)
[2016-12-18 07:11] LABS: BASOPHILS % (AUTO) 0.2 % (0-3); EOSINOPHILS % (AUTO) 2.7 % (0-5); MONOCYTES % (AUTO) 9.1 % (4-12); Mean Corpuscular Hemoglobin 29.9 pg (27.0-35.0); Mean Corpuscular Volume 93.8 fL (81-100); NEUTROPHILS % (AUTO) 83.8 % (40-74); Platelet Count 602 bil/L (150-400)
[2016-12-18] MEDS ORDERED: Vancomycin Serum Trough XX ONE (07:30)
[2016-12-18] MEDS: Heparin 5,000 Unit/mL Inj SUBQ SCH ×2 (08:30→16:30)
[2016-12-18] MEDS: oxyCODONE ER 20 mg ER12 Tablet PO SCH ×3 (08:38→20:13)
[2016-12-18] MEDS: Polyethylene Glycol (PEG) 17 Gm Powder PO SCH (08:38)
--- NOTE | 2016-12-18 11:39 | PROG NOTE ---
[address] [address] PROGRESS NOTE PATIENT: YANCY ALARCON : 1960 MR#: [id number] ADMIT: 12/12/2016 JOB ID: [id number] DATE: 12/18/2016 INFECTIOUS DISEASE FOLLOWUP NOTE: REASON FOR FOLLOWUP: Left flank abscess and possible left lower extremity cellulitis in a patient with a growing pelvic mass secondary to malignancy. INTERVAL HISTORY: The patient reports no fevers, chills, or sweats overnight. He has had no cough, shortness of breath, or chest pain. No nausea or vomiting. He reports that minimal drainage is coming from his left flank abscess. Drained percutaneous nephrostomy seemed to be draining well, and he still has a colostomy, which is functional. PHYSICAL EXAMINATION: Reveals an afebrile gentleman. Temperature 36.7, pulse 86, respiratory rate 16, blood pressure 123/84. He is saturating 100% on room air. Examination of the oral cavity is unremarkable. Lungs clear posteriorly. Bilateral nephrostomies and left flank drains are in place and appear benign. Abdomen without change. Colostomy still present. No skin rash. The left lower extremity is swollen, as it has been really for about eight months since his tumor was diagnosed, though the radiologist suggested there could be cellulitis there. I is neither warm nor tender, though it is clearly swollen. LABORATORIES: Include a white count of 13,000 platelet count 602. Creatinine 1.0. Procalcitonin 0.47. Urinalysis with greater than 50 white cells, and that was from December 16. It has not been repeated. The PCR for MRSA was negative. IMAGING: Done yesterday. Lower extremity CT shows left lower extremity with deep and superficial cellulitis. No abscess is present and no osteo. In terms of the abdominal CT, there is a very large and growing mass, 17 cm in AP diameter. The large retroperitoneal abscess has essentially resolved with the left iliac fossa drain in place. The patient's hydronephrosis has resolved with the nephrostomy tubes. IMPRESSION: This patient is in a very tough situation, as he has a very impressively growing tumor. The family asked to see the CT scans, and I showed them the one from a month ago compared to the one from now which shows that the tumor mass is much, much larger. The positives here are that his renal failure has resolved with the nephrostomy tubes and that his abscess seems to have been adequately drained. I do not think he has significant cellulitis in his left lower extremity. These are all, of course, minor issues compared to the tumor, which is approaching truly huge proportions and basically fills the lower pelvis by my nonexpert read of the CT. RECOMMENDATIONS: 1. We can drop the vancomycin, and that has been done. 2. Will continue with Zosyn while he is here in the hospital. 3. When he goes home, I would advocate a continued course of Cipro and Flagyl with a rather indeterminate conclusion depending on what we think about the nature of his left flank abscess and what his overall outlook is. 4. No additional change in antibiotics contemplated at this time. 5. This case discussed with Dr. Horner. Unless there is some new chemo or salvage surgery available, I do not see how this patient will continue to survive with this rapidly growing pelvic tumor mass, and it seems as if the patient is not ready to face that unfortunate circumstance at this time.
[2016-12-18] MEDS: 0.9% Sodium Chloride 250 ML IV SCH (11:40)
--- NOTE | 2016-12-18 12:01 | PCM.PNNEPH ---
Subjective Date of Service December 18, 2016 Subjective Patient is doing well from a renal standpoint. His appetite is good and his sodium, potassium, and phosphorus are all back to normal. He denies any cough, wheezing or chest pain. Exam Vital Signs Vital Sign - Last Date Time Temp Pulse Resp B/P Pulse Ox O2 Delivery O2 Flow Rate FiO2 12/18/16 09:54 86 12/18/16 08:51 36.7 123/84 100 Room Air 12/18/16 08:41 16 12/13/16 15:29 2.00 Intake and Output 12/17/16 12/17/16 12/18/16 Cumulative From/Thru 15:00 23:00 07:00 12/12/16 16:10 - 12/18/16 06:41 Intake Total 2324 ml 2392 ml 91274 ml Output Total 2300 ml 3670 ml 93279 ml Balance 24 ml -1278 ml -8534 ml Intake Oral 600 ml 700 ml 09635 ml IV Total 1724 ml 1692 ml 88165 ml Packed Cells 300 ml Output Urine Total 1530 ml Stool Total 750 ml Drainage Total 2300 ml 3670 ml 78473 ml # Bowel Movements 2 Exam Neck is supple without adenopathy, thyromegaly, or jugular venous distention. Lungs were clear to auscultation. Heart is regular rhythm with a soft systolic murmur. Abdomen is soft out any tenderness or rebound or guarding mask masses noted. His nephrostomy tube is draining well. Extremities do not show any evidence of any clubbing cyanosis or edema. Skin turgor is good. Lab and Diagnostics Result Diagram: 12/18/16 0520 12/18/16 0520 Additional Diagnostics PROCEDURE: US RENAL SONOGRAM INDICATIONS: arf, hynronephrosis, mass effect? TECHNIQUE: Real-time scanning was performed of the kidneys and bladder, with image documentation. COMPARISON: [facility], CT, CT ABD PELVIS W CON, 11/16/2016, 19:49. FINDINGS: Kidneys: Kidneys are normal in size. Right kidney measures 11.9 cm long; left kidney measures 12.9 cm long. Right renal cortical thickness is 1.5 cm; left renal cortical thickness is 2.7 cm. Renal cortical echotexture is normal. Again noted is bilateral moderate hydronephrosis but no nephrolithiasis. This pattern was previously present 4/7/17 No suspicious solid mass lesions. Bladder: The bladder is compressed by a large heterogeneous mass within the lower pelvis as was previously the case, currently estimated at measuring up to 10.6 x 17.2 x 11.2 cm. The exact boundaries, however, are indistinct by ultrasound. Centrally positioned within this mass is a stent like structure, previously present during CT scanning 11/16/16. Miscellaneous: No free pelvic fluid. IMPRESSION: Impression: There is a moderate degree of bilateral hydronephrosis as was previously the case associated with a large pelvic mass, reportedly representing rectal carcinoma, with a endoluminal stent passing through the central portion of this mass. The exact boundaries of the mass are somewhat indistinct. No definite acute disease found. Plan Impression Impression 1 resolving acute kidney injury. Recommendations #1 I would like to cut back on his IV fluids to 40 mg mL and in light of his improvement will sign off. Please let us know if any questions or any change in the patient's condition thank you Magdy Brady DO December 18, 2016 12:01
--- NOTE | 2016-12-18 14:04 | PCM.PNMED ---
Subjective Date of Service December 18, 2016 Subjective Kidney function continues to improve. Discontinued IV fluids. Left thigh CT scan negative for abscess. Afebrile. Awaiting to talk to his oncologist today regarding future plan and goals of care. Exam Vital Signs Vital Sign - Last Date Time Temp Pulse Resp B/P Pulse Ox O2 Delivery O2 Flow Rate FiO2 12/18/16 12:15 36.8 18 117/72 97 Room Air 12/18/16 09:54 86 12/13/16 15:29 2.00 Intake and Output 12/17/16 12/17/16 12/18/16 Cumulative From/Thru 15:00 23:00 07:00 12/12/16 16:10 - 12/18/16 06:41 Intake Total 2324 ml 2392 ml 92139 ml Output Total 2300 ml 3670 ml 55660 ml Balance 24 ml -1278 ml -8534 ml Intake Oral 600 ml 700 ml 81532 ml IV Total 1724 ml 1692 ml 59370 ml Packed Cells 300 ml Output Urine Total 1530 ml Stool Total 750 ml Drainage Total 2300 ml 3670 ml 11896 ml # Bowel Movements 2 Exam General: Alert and oriented 3 HEENT: NCAT Heart: RRR, no s3/s4 sounds Lungs clear to auscultation Abdomen flat and nondistended. Colostomy in place TIERRA: Firm, tender swelling on the left thigh, lateral side. Nonfluctuant Mood: Depressed Neuro: Alert and oriented IVs and Medications Medications Reviewed: Medications were reviewed in detail Lab and Diagnostics Result Diagram: 12/18/16 0520 12/18/16 0520 X-Rays, CTs and MRIs PROCEDURE: CT ABDOMEN AND PELVIS WITH CONTRAST ([id number]) INDICATIONS: ileopsoas ascess.left thigh abscess IMPRESSION: 1. Near-complete resolution of left retroperitoneal abscess following left iliac fossa drainage catheter placement. 2. Resolved bilateral hydronephrosis following nephrostomy placement. 3. Increased, large necrotic rectal mass. 4. Moderate diffuse subcutaneous edema. Dictated by: Edgar Alfredo M.D. on 12/17/2016 at 16:40 PROCEDURE: CT LOWER EXTREMITY LEFT WITH CONTRAST INDICATIONS: ileopsoas ascess.left thigh abscess IMPRESSION: 1. Left lower extremity deep and superficial cellulitis. No abscess. No osteomyelitis. 2. Large centrally necrotic rectal mass. Dictated by: Edgar Alfredo M.D. on 12/17/2016 at 16:43 PROCEDURE: US RENAL SONOGRAM INDICATIONS: arf, hynronephrosis, mass effect? IMPRESSION: Impression: There is a moderate degree of bilateral hydronephrosis as was previously the case associated with a large pelvic mass, reportedly representing rectal carcinoma, with a endoluminal stent passing through the central portion of this mass. The exact boundaries of the mass are somewhat indistinct. No definite acute disease found. Additional Diagnostics Assessment & Plan Patient is a 56-year-old male history of ulcerative colitis, stage IV rectal adenocarcinoma with diverting colostomy, and LLE DVT who presented to the ED for acute renal failure and hyperkalemia. #. Acute Kidney Injury, Present on Admission, improved Multifactorial but mainly due to obstruction, obstructive uropathy due to large tumor. Status post bilateral nephrostomy -- Improving kidney function 12/16 - When patient is discharged, he will be discharged with B/L percutaneous nephrostomy tubes in place. -Creatinine at 1.0 today, initial creatinine 6.53 -Discontinued IV fluids. #. Hyperkalemia, acute, POA. Resolved Patient was initially given Kayexalate 30g, regular insulin and D50 in the ER. This brought the potassium down -- Resolved on 12/14 #. Left Psoas Abscess, POA Patient was on ciprofloxacin and Flagyl by mouth prior to admission Patient continues to have left thigh swelling , CT of the left thigh is negative for abscess. Possible cellulitis. Initially started on Zosyn and vancomycin, MRSA nasal screen negative. Vancomycin discontinued today 12/18. Awaiting records from [facility] for sensitivity ID Dr. Dasilva on board -- Initial plan was to continue outpatient antibiotics through 12/20 per his #. Scrotal Edema, POA Scrotal support The patient had a scrotal ultrasound is done: No remarkable findings per report Encouraged elevating scrotum to reduce swelling by using a towel #. Pain in urethra with urination: -- Lidocaine gel, Azo, belladonna alkaloids are ordered for relief. Patient states he is getting purulence while trying to urinate. He says he has been having it for months, pain does not stop. -- He urinates a few drops, but he feels pressure sensation. #. Rectal Adenocarcinoma, stage IV, POA managed by oncology, Dr. Elias: Peripheral edema secondary to tumor compression of Iliac vessels Palliative care is consulted, #.Ulcerative Colitis with colostomy, POA Colostomy in place in left lower quadrant Inpatient colostomy care ordered Pain management per palliative care: Patient did not like morphine sulfate, OxyContin, methadone. Palliative care put him on a RAMP JOCKEY for the weekend 12/14. #. Chronic normocytic Anemia, POA Hgb 7.5 on admission. Patient is transfused with 2 units of blood 12/13, posttransfusion H&H came up appropriately CODE STATUS: Full resuscitation Disposition: Dr. Tan is expecting to have more discussions with patient on 12/18. Pain control per palliative care. VTE Prophylaxis: Sub-Q Heparin (Unfractionated) VTE Mechanical Devices: Intermittant Pneumatic CD Resuscitation Status: CPR: Attempt Resuscitation Israel Naylor MD December 18, 2016 14:04 -- Blood cultures are pending -- Added vancomycin to cover for MRSA. -- Consult ID in the a.m. patient may benefit from daptomycin for MRSA due to his poor renal function. Discussed the initial dose of vancomycin with pharmacy in light of his recently improving renal function. Tylenol prn fever Zofran prn nausea CODE STATUS: Full resuscitation Disposition: Patient is admitted under inpatient status with expected length of stay greater than to midnight due to risk of adverse effects, decompensation, and medical complexity. Patient has not achieved ideal pain control. Renal function is still trending down but not at baseline yet. Dr. Tan is expecting to have more discussions with patient on 12/18. Pain control per palliative care VTE Prophylaxis: Sub-Q Heparin (Unfractionated) VTE Mechanical Devices: Intermittant Pneumatic CD Resuscitation Status: CPR: Attempt Resuscitation Israel Naylor MD December 18, 2016 14:04
[2016-12-18] MEDS: Dextrose 5% 500 ML IV SCH (17:18)
--- NOTE | 2016-12-18 17:39 | PCM.PALLBR ---
Palliative Care Recommendation Summary of palliative recommendations: 5.9.17- Pain-tolerating change in meds-calculated dosing and will attempt to shift to oxycontin 40 mg TID with HM 8 mg for BTP. Reviewed with pt that goal is to stop the LEGAL ASSOCIATE. He is anxious to go home and is hoping for tomorrow if pain is managed. Code status reviewed including very poor prognosis of survival on pt with advance malignancy and code. Reviewed again-goal to be at home with his kids etc He may be ready to complete POLST tomorrow. Depression- did very well in discussion with Dr. Elias. Seems to be having more open discussions with family about EOL 12/17/16 Pain- will try oxycontin at 20 mg BID-his calculated dose is much higher but he has been intol of other LA meds. This was tried end of last week and he did not use LEGAL ASSOCIATE through the travis but felt "loopy". Will try again to find something he will be able to go home on. He may need some patience with oxycontin to "balance" this. He has a fair narcotic requirement If he decides to go for comfort care- will consider dexamethasone for pain management. FCTM with patient, his mother, brother and both sisters and Lisette. Reviewing pain mangement and GOC. He wishes to postpone any decisions until CT results and his discussion with Dr. Elias. This is reviewed with Dr. Elias and he will be in tomorrow afternoon to see pt. Depression- had been on ecitalopram-unclear if helpful but I will restart since he is clearly depressed. Code status discussion deferred. Symptom management (Pain/other) PAIN: Patient has had altered mental status and blurred vision on Virgin, Methadone, and MS IV in the past. He reports well toleration with oxycodone 15mg PO several times a day at home. He also had good experience with Dilaudid in the past, but seems to be bothered by it this morning. We started him on alternating Oxycodone PO and Dilaudid PO with the hope to see which one works the best for the patient. He is not a good candidate for Fentanyl patch due to malnutrition. We do not think a pain drip is appropriate for the patient as he is concerned of altered mental status from too much opioids. At this point, we are not clear which pain medication works the best for the patient. However, we will change his pain regimen as follows: --DC oxycodone PO. --Continue with 6 mg hydromorphone po q 3 hrs. --Also continue hydromorphone 1 mg IV for breakthrough severe pain to replace morphine which was not working. --Continue OxyContin 20 mg q 12 hours. --Discussed with ARAM Bertrand who agrees to document the effectiveness as well as any side effects. She has Jessica's cell phone to call with questions. --If patient continues to have more symptoms with the oral Hydromorphone with no significant pain relief, will switch him back to oral Oxycodone. UPDATED PAIN PLAN as of 1600 on 12/14/16: --After multiple discussions with hospitalist, other palliative care provider and oncologist, we are opting to put patient on a dilaudid LEGAL ASSOCIATE to get him through the weekend. --start at 0.5mg/hr, with 0.5 mg doses q 15 min --CAll Jessica OKEEFE with PC if needed to adjust: [phone] Elias: --Dr. Elias feels this would interfere with treating infection. FCTM with Dr. Elias [facility] [id number]: Patient was very emotional about his level of suffering and the poor options he feels he has. Dr. Elias did state that chemo might offer a chance at further life prolongation but could end up coming with additional burden to patient. He stated that it would be "perfectly reasonable" for patient to consider hospice at home and forego chemo. HAd two discussions with family members, both Magdy his brother and Lisette his SO, who both understand the options. Lisette states that he has done poorly on chemo that he received twice down at [facility]. She feels he would be at high risk for poor QOL with any chemo. FAmily will continue to discuss over weekend. I have given them my number to call if they have questions. PLEASE NOTE: Given the intensity of the decision that the patient is facing, we deferred discussion of his code status. His focus on QOL is consistent with him opting to be DNR--This could be addressed over the weekend or with palliative care on Saturday. SCROTAL EDEMA: will hope to manage pain medication regime as above. Testicular U/S on 12/13 showed No abnormality of either testicle. Right epididymis shows some small cysts but is otherwise normal and the left epididymis is normal. Bilateral scrotal swelling is present. No abnormal blood flow is appreciated to indicate cellulitis of the mass cannot be excluded. Recent CT scan shows generous amount of subcutaneous edema in the upper thighs. --improved now with nephrostomy tubes MALNUTRITION: his wasting and cachexia are significant. If further treatment is an option, he may need alternative/artifical nutrition support to withstand any anorexia that might accompany the chemotherapy. --pt does express hunger now and is keeping food down. No note from Oncology yesterday. Will follow up with Dr. Elias for treatment plan. Palliative care team will see the patient later this afternoon to discuss about his discussion with Oncology and his long-term goals. RENAL FAILURE: his renal function improved s/p nephrostomy tubes placement. Continue to follow up with Nephrology. -DPOA/Advanced Directives/POLST: Patient made comments regarding " This isn't worth it" referring to his unrelenting severe pain. Palliative care team will wait until the patient has better pain relief before we start the discussion about his goals for quality life. -Family/emotional support: Excellent. We met the patient's significant other ( Sherron), his daughters, his brother, and his mother yesterday. -Spiritual support: Pascale saw the patient before her nephostomy tube placement and will continue to follow. Patient Goals: 1. Patient wants to be told the truth about his/her illness, even if it is unpleasant. 2. Patient would like to be told prognosis when it can be predicted, to better guide treatment decisions. 3. Patient would choose quality of life over quantity of life, and defines quality as being able to enjoy family, having adequate pain control. 4. Patient would request that comfort care take priority over cognitive/mental confusion. Additional Medical Diagnoses with primary management by Hospitalist team include : Problems: End of Life Preferences discussion started about possible change in code status Goals of Care Pain control and get home. He is able to discuss options-chemo vs not-no decision made. Disposition Pt wants to go home as soon as possible. interested in pursuing naturopathic approach but not willing to give up on medical options--if there are any that are appropriate Resuscitation Status Resuscitation Status: CPR: Attempt Resuscitation POLST Updates/Changes Previous POLST?: No . Pain: Moderate Total time 80 minutes; >50% face to face with patient and/or family, providing counselling regarding plans and recommendations, and in care coordination with his/her medical teams. meeting in AM with pt and SO, then with FCJUSTINE and Dr. Elias and in travis re code status discussion.and med magement re pain control I also spent an additional [ ] minutes counseling for advanced care planning with the patient/the patients family/the surrogate decision maker. copies to: Tessa Anderson MD; Noam Elias MD Palliative Brief Note Date of Service December 18, 2016 . 56-year-old patient with large rectal cancer invading bladder causing obstructive renal failure now resolved with diverting urostomy tubes. He also had left parapsoas abscess drained at the [facility] with scant persistent drainage.. Meeting with patient, his partner- Lisette, 2 sisters, his mother, one brother-in- law- in conjunction with Initial meeting with pt and SO Lisette earlier in the day and case reviewed with Dr. Dasilva. CT scans reviewed with patient. He again gets focused on detail rather than all of establishing plan. He is easily overwhelmed with discussion as is his mother. Lisette is concerned regarding the toll of chemotherapy in the past Patient is concerned by many aspects of chemotherapy and side effects. Pros and cons of pursuing chemotherapy versus home with hospice are reviewed.. No specific decision made at the time of discussion. Digna Horner MD December 18, 2016 17:39
--- NOTE | 2016-12-18 18:26 | PROG NOTE ---
[address] [address] PROGRESS NOTE PATIENT: YANCY ALARCON : 1960 MR#: [id number] ADMIT: 12/12/2016 JOB ID: [id number] DATE: 12/18/2016 DIAGNOSES: 1. Progressive stage IV rectal adenocarcinoma, KRAS wild type. 2. Acute kidney injury, secondary to bilateral ureteral obstruction from pelvic tumor, status post bilateral nephrostomy, with normalization of renal function. 3. Left iliopsoas abscess, status post drainage, resolved. SUBJECTIVE: The patient continues to struggle with intermittent pelvic pain. His muscle twitches and intermittent confusion seem to have resolved. OBJECTIVE: He is awake, alert and oriented x3. He is intermittently emotional. Vital signs are all normal. LABORATORIES: Leukocyte count has improved to 13,000. Platelet count remains high at 602,000, hemoglobin 9.1. Creatinine has normalized at 1.0. CT scan of abdomen and pelvis was done with contrast yesterday. It shows near complete resolution of left retroperitoneal abscess. Bilateral hydronephrosis has resolved. The large necrotic pelvic mass had increased and currently measures 17 cm anteroposteriorly. IMPRESSION AND PLAN: I had a very long conversation with patient and his extended family members including mother, , two sisters, son and [id number] in the presence of Dr. Digna Horner. We again reviewed the poor prognosis, which he is well aware of. We discussed schedule of treatments, expected side effects and the palliative intent of therapy. This patient is totally unsure whether he wants to receive palliative chemotherapy or not. I think most of his family members are against it as well. My main message to him was that if he is unsure about palliative chemotherapy, and if he is not mentally prepared and committed to receive therapy on time and accept the expected side effects, he should not start it to begin with. Based on my experience with this patient and what I have come to know about his perceptions and strengths and limitations, I think he would be better off staying at home and receiving comfort care in the setting of hospice. Having said that, we have not finalized our conversation and decision-making, but he has some decisions to make and conversations to have with the rest of the family and inform me of his desires later. I will return for followup tomorrow or day after tomorrow if he remains an inpatient, but he does not need to stay in hospital from oncology point of view.
[2016-12-18] MEDS: HYDROmorphone 1 mg/mL Inj IVPUSH PRN (21:36)
[2016-12-19] MEDS: Heparin 5,000 Unit/mL Inj SUBQ SCH ×4 (00:30→23:54)
[2016-12-19] MEDS: Piperacillin-Tazo 3.375 Gm Inj 3.375 GM in Dextrose 5% Minibag Plus 50 ML IV SCH ×3 (00:31→16:49)
[2016-12-19] MEDS: HYDROmorphone 1 mg/mL Inj IVPUSH PRN ×12 (04:46→22:57)
[2016-12-19 08:05] VITALS: BP 158/97; PULSE 105; RESP 18; O2SAT 98
[2016-12-19] MEDS: oxyCODONE ER 20 mg ER12 Tablet PO SCH ×3 (08:10→20:47)
[2016-12-19] MEDS: Polyethylene Glycol (PEG) 17 Gm Powder PO SCH (08:11)
[2016-12-19 09:13] LABS: BASOPHILS % (AUTO) 0.4 % (0-3); EOSINOPHILS % (AUTO) 1.2 % (0-5); MONOCYTES % (AUTO) 9.2 % (4-12); Mean Corpuscular Hemoglobin 29.2 pg (27.0-35.0); Mean Corpuscular Volume 94.3 fL (81-100); NEUTROPHILS % (AUTO) 84.6 % (40-74); Platelet Count 628 bil/L (150-400)
[2016-12-19 09:34] LABS: Magnesium 1.6 mg/dL (1.6-2.6)
[2016-12-19] MEDS ORDERED: Lidocaine 2% 5 mL Topical Jelly TOPICAL PRN (09:40)
[2016-12-19] MEDS ORDERED: Magnesium Sulf 2 Gm/50mL Water 2 GM in IV Premix 1 EACH IV ONE (10:15)
--- NOTE | 2016-12-19 11:45 | PCM.PALLBR ---
Palliative Care Recommendation Unfortunate 56-year-old man with stage IV rectal carcinoma, originally admitted with bilateral ureteral obstruction secondary to tumor mass, now status post bilateral nephrostomy tubes. His oncologist has recommended to him that he proceed to hospice/comfort care, but the patient remains unable to make a decision whether to take this wrote versus attempting a trial of palliative chemotherapy. He also continues to insist on full CODE STATUS and will not discuss that issue further. Attempting over the last several days to transition to pain regimen that he will be able to maintain at home- today complains of inadequate pain relief/ increasing discomfort off of SEISMOGRAPH SHOOTER. On the one hand, he says he would like enough pain medication to "knock me out" if that is what it would take to be comfortable, but on the other hand he flatly refuses to discuss potential for respiratory depression/respiratory failure/CODE STATUS. Summary of palliative recommendations: 12/19/16- increase his OxyContin to 60 mg every 8 hours. Continue breakthrough oral hydromorphone, 8 mg every 3 hours as needed. Given his worsening pain, increase his access to IV hydromorphone for breakthrough pain. Try lidocaine jelly topically to penis/scrotum which he complains is uncomfortable from edema and distention. Depending on his plans for further treatment, consider adding dexamethasone as an adjunct for pain/discomfort relief. His oncologist is previously been wary of this because of potential to increase risk of infection. Will plan on returning through the day to reassess his pain relief and to discuss further his plans/wishes for additional care. 5..17- Pain-tolerating change in meds-calculated dosing and will attempt to shift to oxycontin 40 mg TID with HM 8 mg for BTP. Reviewed with pt that goal is to stop the SEISMOGRAPH SHOOTER. He is anxious to go home and is hoping for tomorrow if pain is managed. Code status reviewed including very poor prognosis of survival on pt with advance malignancy and code. Reviewed again-goal to be at home with his kids etc Depression- did very well in discussion with Dr. Elias. Seems to be having more open discussions with family about EOL 12/17/16 Pain- will try oxycontin at 20 mg BID-his calculated dose is much higher but he has been intol of other LA meds. This was tried end of last week and he did not use SEISMOGRAPH SHOOTER through the travis but felt "loopy". Will try again to find something he will be able to go home on. He may need some patience with oxycontin to "balance" this. He has a fair narcotic requirement If he decides to go for comfort care- will consider dexamethasone for pain management. FCTM with patient, his mother, brother and both sisters and Marianne. Reviewing pain mangement and GOC. He wishes to postpone any decisions until CT results and his discussion with Dr. Elias. This is reviewed with Dr. Elias and he will be in tomorrow afternoon to see pt. Depression- had been on ecitalopram-unclear if helpful but I will restart since he is clearly depressed. Code status discussion deferred. MALNUTRITION: his wasting and cachexia are significant. If further treatment is an option, he may need alternative/artifical nutrition support to withstand any anorexia that might accompany the chemotherapy. --pt does express hunger now and is keeping food down. RENAL FAILURE: his renal function improved s/p nephrostomy tubes placement. Continue to follow up with Nephrology. -DPOA/Advanced Directives/POLST: Patient earlier made comments regarding " This isn't worth it" referring to his unrelenting severe pain, but is unable and unwilling to have concrete discussions at this time -Family/emotional support: Excellent. We met the patient's significant other ( Sherron), his daughters, his brother, and his mother yesterday. -Spiritual support: Pascale saw the patient before her nephostomy tube placement and will continue to follow. Patient Goals: 1. Patient wants to be told the truth about his illness, even if it is unpleasant. 2. Patient would like to be told prognosis when it can be predicted, to better guide treatment decisions. 3. Patient would choose quality of life over quantity of life, and defines quality as being able to enjoy family, having adequate pain control. 4. Patient would request that comfort care take priority over cognitive/mental confusion. Additional Medical Diagnoses with primary management by Hospitalist team include : #. Acute Kidney Injury, Present on Admission, improved #. Hyperkalemia, acute, POA. Resolved #. Left Psoas Abscess, POA #. Scrotal Edema, POA #. Pain in urethra with urination: #. Rectal Adenocarcinoma, stage IV, POA #.Ulcerative Colitis with colostomy, POA #. Chronic normocytic Anemia, POA Problems: End of Life Preferences Remains full code; unable/unwilling to discuss today Goals of Care Pain control and get home. He is able to discuss options-chemo vs not-no decision made. Disposition Pt wants to go home as soon as possible. interested in pursuing naturopathic approach but not willing to give up on medical options--if there are any that are appropriate Resuscitation Status Resuscitation Status: CPR: Attempt Resuscitation POLST Updates/Changes Previous POLST?: No . Pain: Severe Symptom management: Pain Total time 40 minutes; >50% face to face with patient and family, providing counselling regarding plans and recommendations, and in care coordination with his medical teams. Of the above total time, 15 minutes counseling for advanced care planning with the patient and his family Palliative Brief Note Date of Service December 19, 2016 . Returned to reevaluate patient. Prior to visiting, reviewed his updated records in the EMR in detail, spoke with his bedside nurse and also with his previous palliative care physician. When I arrived, he is lying in bed, awake with family members at bedside. He complains of a very uncomfortable night with significant pain. Nurses report he is only able to get relief of pain from a combination of oral and IV medications. He was unhappy that his SEISMOGRAPH SHOOTER was discontinued but is now receiving bolus IV hydromorphone as needed from nurses. He also complains of progressive scrotal and penile edema- I explained to him that this was an unfortunate consequence of his tumor mass in the pelvis and his bedridden status and that there was no simple way to relieve the edema. We did talk about alternative topical therapies that might help. We reviewed his conversation with Dr. Elias. He remains unable to make any decisions regarding end-of-life care/interventions such as CPR, and he also still cannot decide whether to proceed with palliative chemotherapy. His brother notes that "I am continuing to wait for a miracle". I spoke with his [id number] outside the room and she was quite tearful- family members reportedly understand and accept that the patient is nearing end-of-life, but the patient has been unable to accept this. Per our discussion, goal today would be to get his pain back under control, and thereafter continue to try to work at getting him completely off IV medications so that he can transition to home or care facility. Physical exam is limited- he is cachectic, chronically ill-appearing lying in bed, occasionally wincing with discomfort. Heart and lung exams unchanged. Scrotum and penis with progressive edema. Labs and imaging studies reviewed in detail. Carrillo Snell MD December 19, 2016 11:45
[2016-12-19 11:48] VITALS: BP 135/85; PULSE 90; RESP 18; O2SAT 100
[2016-12-19] MEDS: 0.9% Sodium Chloride 250 ML IV SCH (12:08)
[2016-12-19] MEDS: Lidocaine 5% 35.5 Gm Ointment TOPICAL PRN (13:41)
--- NOTE | 2016-12-19 16:43 | PCM.PNMED ---
Subjective Date of Service December 19, 2016 Subjective Pain remains uncontrolled. Still requiring IV Dilaudid. Palliative adjusting his pain regimen. Oncologist Had family meeting with patient and family. Patient not decided yet whether to continue palliative chemotherapy or hospice. Exam Vital Signs Vital Sign - Last Date Time Temp Pulse Resp B/P Pulse Ox O2 Delivery O2 Flow Rate FiO2 12/19/16 11:48 36.6 90 18 135/85 100 Room Air 12/13/16 15:29 2.00 Intake and Output 12/18/16 12/18/16 12/19/16 Cumulative From/Thru 15:00 23:00 07:00 12/12/16 16:10 - 12/19/16 06:32 Intake Total 1647 ml 204 ml 38280 ml Output Total 2000 ml 91579 ml Balance -353 ml 204 ml -8683 ml Intake Oral 680 ml 43477 ml IV Total 967 ml 204 ml 54410 ml Packed Cells 300 ml Output Urine Total 2000 ml 3530 ml Stool Total 750 ml Drainage Total 00349 ml # Bowel Movements 2 Exam General: Alert and oriented 3, cachectic HEENT: NCAT Heart: RRR, no s3/s4 sounds Lungs clear to auscultation Abdomen flat and nondistended. Colostomy in place TIERRA: Firm, tender swelling on the left thigh, lateral side. Nonfluctuant Mood: Depressed Neuro: Alert and oriented IVs and Medications Medications Reviewed: Medications were reviewed in detail Lab and Diagnostics Result Diagram: 12/19/1645 12/19/1645 X-Rays, CTs and MRIs PROCEDURE: CT ABDOMEN AND PELVIS WITH CONTRAST ([id number]) INDICATIONS: ileopsoas ascess.left thigh abscess IMPRESSION: 1. Near-complete resolution of left retroperitoneal abscess following left iliac fossa drainage catheter placement. 2. Resolved bilateral hydronephrosis following nephrostomy placement. 3. Increased, large necrotic rectal mass. 4. Moderate diffuse subcutaneous edema. Dictated by: Edgar Alfredo M.D. on 12/17/2016 at 16:40 PROCEDURE: CT LOWER EXTREMITY LEFT WITH CONTRAST INDICATIONS: ileopsoas ascess.left thigh abscess IMPRESSION: 1. Left lower extremity deep and superficial cellulitis. No abscess. No osteomyelitis. 2. Large centrally necrotic rectal mass. Dictated by: Edgar Alfredo M.D. on 12/17/2016 at 16:43 PROCEDURE: US RENAL SONOGRAM INDICATIONS: arf, hynronephrosis, mass effect? IMPRESSION: Impression: There is a moderate degree of bilateral hydronephrosis as was previously the case associated with a large pelvic mass, reportedly representing rectal carcinoma, with a endoluminal stent passing through the central portion of this mass. The exact boundaries of the mass are somewhat indistinct. No definite acute disease found. Additional Diagnostics Assessment & Plan Patient is a 56-year-old male history of ulcerative colitis, stage IV rectal adenocarcinoma with diverting colostomy, and LLE DVT who presented to the ED for acute renal failure and hyperkalemia. #. Acute Kidney Injury, Present on Admission, improved Multifactorial but mainly due to obstruction, obstructive uropathy due to large tumor. Status post bilateral nephrostomy -- Improving kidney function - When patient is discharged, he will be discharged with B/L percutaneous nephrostomy tubes in place. -Creatinine stable at 1.0 , initial creatinine 6.53 -Discontinued IV fluids. #. Hyperkalemia, acute, POA. Resolved Patient was initially given Kayexalate 30g, regular insulin and D50 in the ER. This brought the potassium down -- Resolved on 12/14 #. Left Psoas Abscess, POA Patient was on ciprofloxacin and Flagyl by mouth prior to admission Patient continues to have left thigh swelling , CT of the left thigh is negative for abscess. Possible cellulitis. Initially started on Zosyn and vancomycin, MRSA nasal screen negative. Vancomycin discontinued today 12/18. Awaiting records from [facility] for sensitivity ID Dr. Dasilva on board -- Initial plan was to continue outpatient antibiotics through 12/20 per his . Will discharge on Cipro and Flagyl for few more days #. Scrotal Edema, POA Scrotal support The patient had a scrotal ultrasound is done: No remarkable findings per report Encouraged elevating scrotum to reduce swelling by using a towel #. Pain in urethra with urination: -- Lidocaine gel, Azo, belladonna alkaloids are ordered for relief. #. Rectal Adenocarcinoma, stage IV, POA managed by oncology, Dr. Elias: Oncologist Had family meeting with patient and family. Patient not decided yet whether to continue palliative chemotherapy or Go on hospice. Peripheral edema secondary to tumor compression of Iliac vessels , #.Ulcerative Colitis with colostomy, POA Colostomy in place in left lower quadrant Inpatient colostomy care ordered Pain management per palliative care: Patient did not like morphine sulfate, OxyContin, methadone. Palliative care put him on a ADOPTION AGENT for the weekend 12/14. #. Chronic normocytic Anemia, POA Hgb 7.5 on admission. Patient is transfused with 2 units of blood 12/13, posttransfusion H&H came up appropriately CODE STATUS: Full resuscitation Disposition: Eventually home with in 1-2 days pending pain control VTE Prophylaxis: Sub-Q Heparin (Unfractionated) VTE Mechanical Devices: Intermittant Pneumatic CD Resuscitation Status: CPR: Attempt Resuscitation Israel Naylor MD December 19, 2016 16:43
[2016-12-19 22:17] VITALS: BP 134/74; PULSE 95; RESP 18; O2SAT 94
[2016-12-20] MEDS: HYDROmorphone 1 mg/mL Inj IVPUSH PRN ×6 (00:55→22:22)
[2016-12-20] MEDS: Piperacillin-Tazo 3.375 Gm Inj 3.375 GM in Dextrose 5% Minibag Plus 50 ML IV SCH ×3 (01:02→17:35)
[2016-12-20] MEDS: LORazepam 0.5 mg Tablet PO PRN (04:13)
[2016-12-20 05:26] VITALS: BP 130/82; PULSE 82; RESP 18; O2SAT 99
[2016-12-20] MEDS: Heparin 5,000 Unit/mL Inj SUBQ SCH ×2 (08:30→16:30)
[2016-12-20 08:43] LABS: BASOPHILS % (AUTO) 0.5 % (0-3); EOSINOPHILS % (AUTO) 1.7 % (0-5); MONOCYTES % (AUTO) 10.6 % (4-12); Mean Corpuscular Hemoglobin 29.4 pg (27.0-35.0); Mean Corpuscular Volume 93.7 fL (81-100); Platelet Count 597 bil/L (150-400)
[2016-12-20] MEDS: Polyethylene Glycol (PEG) 17 Gm Powder PO SCH (09:15)
[2016-12-20] MEDS: oxyCODONE ER 20 mg ER12 Tablet PO SCH ×3 (09:17→20:44)
[2016-12-20] MEDS: Lidocaine 5% 35.5 Gm Ointment TOPICAL PRN ×2 (09:19→13:51)
[2016-12-20] MEDS: 0.9% Sodium Chloride 250 ML IV SCH (12:33)
[2016-12-20 12:45] VITALS: BP 120/77; PULSE 101; RESP 20; O2SAT 98
--- NOTE | 2016-12-20 13:57 | PCM.PALLBR ---
Palliative Care Recommendation Unfortunate 56-year-old man with stage IV rectal carcinoma, originally admitted with bilateral ureteral obstruction secondary to tumor mass, now status post bilateral nephrostomy tubes. His oncologist has recommended to him that he proceed to hospice/comfort care, but the patient remains unable to make a decision whether to take this wrote versus attempting a trial of palliative chemotherapy. He also continues to insist on full CODE STATUS and will not discuss that issue further. Attempting over the last several days to transition to pain regimen that he will be able to maintain at home- today complains of inadequate pain relief/ increasing discomfort off of MANAGER BUDGET. On the one hand, he says he would like enough pain medication to "knock me out" if that is what it would take to be comfortable, but on the other hand he flatly refuses to discuss potential for respiratory depression/respiratory failure/CODE STATUS. Summary of palliative recommendations: 12/20/16-Pain- start dexamethasone 4 mg daily for 5 days and then see if can be decreased o 2 mg. Will need PPI coverage. Will also increase hydromorphone dose to 12 mg Q3H PRN and continue on oxycontin at 60 mg TID Gabapentin increased to 600 mg TID Edema- L leg and scrotum. Reviewed elevation and flor wrap/ stockings for edema but expect little decrease Depression-I think he would benefit greatly from the spiritual/SW support of hospice. Restarting his escitalopram at 10 mg (was on ) CODE statues- unchanged. He can't accept the idea of no code thinking this means he will just -no trying etc. 12/19/16- increase his OxyContin to 60 mg every 8 hours. Continue breakthrough oral hydromorphone, 8 mg every 3 hours as needed. Given his worsening pain, increase his access to IV hydromorphone for breakthrough pain. Try lidocaine jelly topically to penis/scrotum which he complains is uncomfortable from edema and distention. Depending on his plans for further treatment, consider adding dexamethasone as an adjunct for pain/discomfort relief. His oncologist is previously been wary of this because of potential to increase risk of infection. Will plan on returning through the day to reassess his pain relief and to discuss further his plans/wishes for additional care. 12.18.- Pain-tolerating change in meds-calculated dosing and will attempt to shift to oxycontin 40 mg TID with HM 8 mg for BTP. Reviewed with pt that goal is to stop the MANAGER BUDGET. He is anxious to go home and is hoping for tomorrow if pain is managed. Code status reviewed including very poor prognosis of survival on pt with advance malignancy and code. Reviewed again-goal to be at home with his kids etc Depression- did very well in discussion with Dr. Elias. Seems to be having more open discussions with family about EOL 12/17/16 Pain- will try oxycontin at 20 mg BID-his calculated dose is much higher but he has been intol of other LA meds. This was tried end of last week and he did not use MANAGER BUDGET through the travis but felt "loopy". Will try again to find something he will be able to go home on. He may need some patience with oxycontin to "balance" this. He has a fair narcotic requirement If he decides to go for comfort care- will consider dexamethasone for pain management. FCTM with patient, his mother, brother and both sisters and Marianne. Reviewing pain mangement and GOC. He wishes to postpone any decisions until CT results and his discussion with Dr. Elias. This is reviewed with Dr. Elias and he will be in tomorrow afternoon to see pt. Depression- had been on ecitalopram-unclear if helpful but I will restart since he is clearly depressed. Code status discussion deferred. MALNUTRITION: his wasting and cachexia are significant. If further treatment is an option, he may need alternative/artifical nutrition support to withstand any anorexia that might accompany the chemotherapy. --pt does express hunger now and is keeping food down. RENAL FAILURE: his renal function improved s/p nephrostomy tubes placement. Continue to follow up with Nephrology. -DPOA/Advanced Directives/POLST: Patient earlier made comments regarding " This isn't worth it" referring to his unrelenting severe pain, but is unable and unwilling to have concrete discussions at this time -Family/emotional support: Excellent. We met the patient's significant other ( Sherron), his daughters, his brother, and his mother yesterday. -Spiritual support: Pascale saw the patient before her nephostomy tube placement and will continue to follow. Patient Goals: 1. Patient wants to be told the truth about his illness, even if it is unpleasant. 2. Patient would like to be told prognosis when it can be predicted, to better guide treatment decisions. 3. Patient would choose quality of life over quantity of life, and defines quality as being able to enjoy family, having adequate pain control. 4. Patient would request that comfort care take priority over cognitive/mental confusion. Additional Medical Diagnoses with primary management by Hospitalist team include : #. Acute Kidney Injury, Present on Admission, improved #. Hyperkalemia, acute, POA. Resolved #. Left Psoas Abscess, POA #. Scrotal Edema, POA #. Pain in urethra with urination: #. Rectal Adenocarcinoma, stage IV, POA #.Ulcerative Colitis with colostomy, POA #. Chronic normocytic Anemia, POA Problems: End of Life Preferences Remains full code. He cannot accept the option. Even Marianne thinks it worth it so he can give his last goodbyes etc. Goals of Care Pain control and get home. He does not think he will go for chemo-with goal to go home with pain managed. Marianne is willing to consider hospice if he continues to weaken and she can't get him in for OV. Their goal is to stay at home but neither able to decide to change code status Disposition Pt wants to go home as soon as possible. interested in pursuing naturopathic approach but not willing to give up on medical options--if there are any that are appropriate Resuscitation Status Resuscitation Status: CPR: Attempt Resuscitation POLST Updates/Changes Previous POLST?: No . Symptom management: Depression, Anxiety, Pain Total time 65 minutes; >50% face to face with patient and/or family, providing counselling regarding plans and recommendations, and in care coordination with his/her medical teams. extensive discussion with Marianne and pt re options and goals of care. Coordination of care with Dr. Naylor I also spent an additional [ ] minutes counseling for advanced care planning with the patient/the patients family/the surrogate decision maker. copies to: Noam Elias MD Palliative Brief Note Date of Service December 20, 2016 . Pt had significant pain through noc and this AM-given HM 1 mg IV and slept. Dozes intermittently in discussion re code status and goals. 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 O:intermittently somnolent but when awake he is appropriate in responses. continues to reiterate that any acceptance of EOL means he has given up and he will just . He feels he would have significant regrets if he does this. he continues to think the swelling in scrotum and leg are treatable. He brings up the ? of surg which has been reviewed not as an option multiple times. stable labs and renal fxn remains normal Digna Horner MD December 20, 2016 13:57
--- NOTE | 2016-12-20 14:22 | PCM.PNMED ---
Subjective Date of Service December 20, 2016 Subjective pain remains uncontrolled. Palliative team adjusting medications. To be started on dexamethasone for better pain control. Exam Vital Signs Vital Sign - Last Date Time Temp Pulse Resp B/P Pulse Ox O2 Delivery O2 Flow Rate FiO2 12/20/16 12:45 36.5 101 20 120/77 98 Room Air Intake and Output 12/19/16 12/19/16 12/20/16 Cumulative From/Thru 15:00 23:00 07:00 12/12/16 16:10 - 12/20/16 06:10 Intake Total 800 ml 1668 ml 905 ml 77795 ml Output Total 2430 ml 2000 ml 2180 ml 81716 ml Balance -1630 ml -332 ml -1275 ml -39523 ml Intake Oral 800 ml 1448 ml 720 ml 75722 ml IV Total 220 ml 185 ml 55948 ml Packed Cells 300 ml Output Urine Total 2180 ml 5710 ml Stool Total 750 ml Drainage Total 2430 ml 2000 ml 81607 ml # Bowel Movements 1 3 Exam General: Alert and oriented 3, cachectic HEENT: NCAT Heart: RRR, no s3/s4 sounds Lungs clear to auscultation Abdomen flat and nondistended. Colostomy in place TIERRA: Firm, tender swelling on the left thigh, lateral side. Nonfluctuant Mood: Depressed Neuro: Alert and oriented IVs and Medications Medications Reviewed: Medications were reviewed in detail Lab and Diagnostics Result Diagram: 12/20/1635 12/20/16 0835 X-Rays, CTs and MRIs PROCEDURE: CT ABDOMEN AND PELVIS WITH CONTRAST ([id number]) INDICATIONS: ileopsoas ascess.left thigh abscess IMPRESSION: 1. Near-complete resolution of left retroperitoneal abscess following left iliac fossa drainage catheter placement. 2. Resolved bilateral hydronephrosis following nephrostomy placement. 3. Increased, large necrotic rectal mass. 4. Moderate diffuse subcutaneous edema. Dictated by: Edgar Alfredo M.D. on 12/17/2016 at 16:40 PROCEDURE: CT LOWER EXTREMITY LEFT WITH CONTRAST INDICATIONS: ileopsoas ascess.left thigh abscess IMPRESSION: 1. Left lower extremity deep and superficial cellulitis. No abscess. No osteomyelitis. 2. Large centrally necrotic rectal mass. Dictated by: Edgar Alfredo M.D. on 12/17/2016 at 16:43 PROCEDURE: US RENAL SONOGRAM INDICATIONS: arf, hynronephrosis, mass effect? IMPRESSION: Impression: There is a moderate degree of bilateral hydronephrosis as was previously the case associated with a large pelvic mass, reportedly representing rectal carcinoma, with a endoluminal stent passing through the central portion of this mass. The exact boundaries of the mass are somewhat indistinct. No definite acute disease found. Additional Diagnostics Assessment & Plan Patient is a 56-year-old male history of ulcerative colitis, stage IV rectal adenocarcinoma with diverting colostomy, and LLE DVT who presented to the ED for acute renal failure and hyperkalemia. #Intractable pain -Patient remains uncontrolled. 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 Acute Kidney Injury, Present on Admission, improved Multifactorial but mainly due to obstruction, obstructive uropathy due to large tumor. Status post bilateral nephrostomy -- Improving kidney function - When patient is discharged, he will be discharged with B/L percutaneous nephrostomy tubes in place. -Creatinine stable at 1.0 , initial creatinine 6.53 -Discontinued IV fluids. #. Hyperkalemia, acute, POA. Resolved Patient was initially given Kayexalate 30g, regular insulin and D50 in the ER. This brought the potassium down -- Resolved on 12/14 #. Left Psoas Abscess, POA Patient was on ciprofloxacin and Flagyl by mouth prior to admission Patient continues to have left thigh swelling , CT of the left thigh is negative for abscess. Possible cellulitis. Initially started on Zosyn and vancomycin, MRSA nasal screen negative. Vancomycin discontinued today 12/18. Awaiting records from [facility] for sensitivity ID Dr. Dasilva on board -- Initial plan was to continue outpatient antibiotics through 12/20 per his . Will discharge on Cipro and Flagyl for few more days #. Scrotal Edema, POA Scrotal support The patient had a scrotal ultrasound is done: No remarkable findings per report Encouraged elevating scrotum to reduce swelling by using a towel #. Pain in urethra with urination: -- Lidocaine gel, Azo, belladonna alkaloids are ordered for relief. #. Rectal Adenocarcinoma, stage IV, POA managed by oncology, Dr. Elias: Oncologist Had family meeting with patient and family. Patient initially not decided yet whether to continue palliative chemotherapy or not. He and his significant other Marianne had meeting with Dr Horner and decided not to get palliative chemotherapy. Also agrees to get hospice informational visit Peripheral edema secondary to tumor compression of Iliac vessels #. Chronic normocytic Anemia, POA Hgb 7.5 on admission. Patient is transfused with 2 units of blood 12/13, posttransfusion H&H came up appropriately CODE STATUS: Full resuscitation Disposition: Eventually home with in 1-2 days pending pain control remains full code VTE Prophylaxis: Sub-Q Heparin (Unfractionated) VTE Mechanical Devices: Intermittant Pneumatic CD Resuscitation Status: CPR: Attempt Resuscitation Israel Naylor MD December 20, 2016 14:22
[2016-12-20 20:14] VITALS: BP 114/76; PULSE 97; RESP 18; O2SAT 98
[2016-12-21] MEDS: Heparin 5,000 Unit/mL Inj SUBQ SCH ×4 (00:30→23:59)
[2016-12-21] MEDS: 0.9% Sodium Chloride 250 ML IV SCH (00:30)
[2016-12-21] MEDS: Piperacillin-Tazo 3.375 Gm Inj 3.375 GM in Dextrose 5% Minibag Plus 50 ML IV SCH ×3 (00:30→16:08)
[2016-12-21] MEDS: HYDROmorphone 1 mg/mL Inj IVPUSH PRN ×7 (00:44→20:33)
[2016-12-21] MEDS: Polyethylene Glycol (PEG) 17 Gm Powder PO SCH (08:30)
[2016-12-21] MEDS: oxyCODONE ER 20 mg ER12 Tablet PO SCH ×3 (08:30→20:22)
[2016-12-21] MEDS: Pantoprazole 20 mg ER24 Tablet PO SCH (08:32)
[2016-12-21] MEDS: BusPIRone 15 mg Dividose Tablet PO SCH ×2 (09:50→20:23)
[2016-12-21 12:07] VITALS: BP 120/78; PULSE 95; RESP 16; O2SAT 99
--- NOTE | 2016-12-21 12:08 | PCM.PALLBR ---
Palliative Care Recommendation Unfortunate 56-year-old man with stage IV rectal carcinoma, originally admitted with bilateral ureteral obstruction secondary to tumor mass, now status post bilateral nephrostomy tubes. His oncologist has recommended to him that he proceed to hospice/comfort care, and today the patient indicated to me that he is not going to pursue palliative chemotherapy at this time. Attempting over the last several days to transition to pain regimen that he will be able to maintain at home- today have improved pain relief but continues to use significant amounts of IV hydromorphone for breakthrough pain. Summary of palliative recommendations: 12/21/16-Pain- continue dexamethasone 4 mg daily for 5 days (today is day #2) and then see if can be decreased to 2 mg. Continues on Protonix for gastric protection. Continue hydromorphone dose 12 mg Q3H PRN and continue on Oxycontin, but with dose increased to 90 mg TID Gabapentin continues at 600 mg TID Continue escitalopram 10 mg daily Start BuSpar, 7.5 mg twice daily, this as an adjunct to other his pain/anxiety medications. Plan on increasing to 15 mg twice daily in the next several days. Edema- L leg and scrotum. Reviewed elevation and flor wrap/ stockings for edema but expect little decrease CODE statues- unchanged. He can't accept the idea of no code thinking this means he will just -no trying etc. 12/19/16- increase his OxyContin to 60 mg every 8 hours. Continue breakthrough oral hydromorphone, 8 mg every 3 hours as needed. Given his worsening pain, increase his access to IV hydromorphone for breakthrough pain. Try lidocaine jelly topically to penis/scrotum which he complains is uncomfortable from edema and distention. Depending on his plans for further treatment, consider adding dexamethasone as an adjunct for pain/discomfort relief. His oncologist is previously been wary of this because of potential to increase risk of infection. Will plan on returning through the day to reassess his pain relief and to discuss further his plans/wishes for additional care. 12.18.- Pain-tolerating change in meds-calculated dosing and will attempt to shift to oxycontin 40 mg TID with HM 8 mg for BTP. 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 He is anxious to go home and is hoping for tomorrow if pain is managed. Code status reviewed including very poor prognosis of survival on pt with advance malignancy and code. Reviewed again-goal to be at home with his kids etc Depression- did very well in discussion with Dr. Elias. Seems to be having more open discussions with family about EOL -DPOA/Advanced Directives/POLST: Patient earlier made comments regarding " This isn't worth it" referring to his unrelenting severe pain, but is unable and unwilling to have concrete discussions at this time -Family/emotional support: His significant other expressed significant anxiety regarding her legal/financial standing in light of his impending demise. See palliative BALL WINDER note of 12/21/16 for details. -Spiritual support: Pascale saw the patient before her nephostomy tube placement and will continue to follow. Patient Goals: 1. Patient wants to be told the truth about his illness, even if it is unpleasant. 2. Patient would like to be told prognosis when it can be predicted, to better guide treatment decisions. 3. Patient would choose quality of life over quantity of life, and defines quality as being able to enjoy family, having adequate pain control. 4. Patient would request that comfort care take priority over cognitive/mental confusion. Additional Medical Diagnoses with primary management by Hospitalist team include : #. Acute Kidney Injury, Present on Admission, improved #. Hyperkalemia, acute, POA. Resolved #. Left Psoas Abscess, POA #. Scrotal Edema, POA #. Pain in urethra with urination: #. Rectal Adenocarcinoma, stage IV, POA #.Ulcerative Colitis with colostomy, POA #. Chronic normocytic Anemia, POA Problems: End of Life Preferences Remains full code. He cannot accept the option. Goals of Care Pain control and get home. He does not think he will go for chemo-with goal to go home with pain managed. Marianne is willing to consider hospice if he continues to weaken and she can't get him in for OV. Their goal is to stay at home but neither able to decide to change code status Disposition Pt wants to go home as soon as possible. interested in pursuing naturopathic approach but not willing to give up on medical options--if there are any that are appropriate Resuscitation Status Resuscitation Status: CPR: Attempt Resuscitation POLST Updates/Changes Previous POLST?: No . Pain: Mild Symptom management: Depression, Anxiety, Pain Total time 40 minutes; >50% face to face with patient , providing counselling regarding plans and recommendations, and in care coordination with his medical teams. Palliative Brief Note Date of Service December 21, 2016 . Returned to reevaluate patient. Prior to visiting, reviewed his updated records in the EMR in detail, spoke with his bedside nurse and received signout from prior palliative provider. Also reviewed his case with palliative BALL WINDER after her meeting with patient and his significant other. Medication recommendations reviewed in detail with Dr. Gomez. On my arrival, he is sitting up in chair and looked to be comfortable and did much better spirits today. He confirmed that he had slept better last evening and that his overall pain control was improved, though it is noted that he still is using IV hydromorphone for breakthrough pain very frequently. No new side effects or problems with his oral narcotics. On exam, frail/cachectic man sitting in chair. Vital signs noted. Skin is warm and dry. Head and neck exam without acute changes. Lungs clear anterolaterally, heart tones regular, abdomen soft and rounded. Drains in place and ostomy bag in place. Extremities with diffuse atrophy. Carrillo Snell MD December 21, 2016 12:08
--- NOTE | 2016-12-21 16:23 | PCM.PNMED ---
Subjective Date of Service December 21, 2016 Subjective Pain better controlled with dexamethasone but still requires Dilaudid IV. Exam Vital Signs Vital Sign - Last Date Time Temp Pulse Resp B/P Pulse Ox O2 Delivery O2 Flow Rate FiO2 12/21/16 12:07 36.9 95 16 120/78 99 Room Air Intake and Output 12/20/16 12/20/16 12/21/16 Cumulative From/Thru 15:00 23:00 07:00 12/12/16 16:10 - 12/21/16 06:22 Intake Total 1457 ml 975 ml 84277 ml Output Total 2030 ml 1530 ml 48407 ml Balance -573 ml -555 ml -54497 ml Intake Oral 1320 ml 975 ml 69437 ml IV Total 137 ml 94679 ml Packed Cells 300 ml Output Urine Total 30 ml 25 ml 5765 ml Stool Total 30 ml 780 ml Drainage Total 2000 ml 1475 ml 91851 ml # Bowel Movements 1 4 Exam General: Alert and oriented 3, cachectic HEENT: NCAT Heart: RRR, no s3/s4 sounds Lungs clear to auscultation Abdomen flat and nondistended. Colostomy in place TIERRA: Firm, tender swelling on the left thigh, lateral side. Nonfluctuant Mood: Depressed Neuro: Alert and oriented IVs and Medications Medications Reviewed: Medications were reviewed in detail Lab and Diagnostics Result Diagram: 12/20/1683412/20/16834 X-Rays, CTs and MRIs PROCEDURE: CT ABDOMEN AND PELVIS WITH CONTRAST ([id number]) INDICATIONS: ileopsoas ascess.left thigh abscess IMPRESSION: 1. Near-complete resolution of left retroperitoneal abscess following left iliac fossa drainage catheter placement. 2. Resolved bilateral hydronephrosis following nephrostomy placement. 3. Increased, large necrotic rectal mass. 4. Moderate diffuse subcutaneous edema. Dictated by: Edgar Alfredo M.D. on 12/17/2016 at 16:40 PROCEDURE: CT LOWER EXTREMITY LEFT WITH CONTRAST INDICATIONS: ileopsoas ascess.left thigh abscess IMPRESSION: 1. Left lower extremity deep and superficial cellulitis. No abscess. No osteomyelitis. 2. Large centrally necrotic rectal mass. Dictated by: Edgar Alfredo M.D. on 12/17/2016 at 16:43 PROCEDURE: US RENAL SONOGRAM INDICATIONS: arf, hynronephrosis, mass effect? IMPRESSION: Impression: There is a moderate degree of bilateral hydronephrosis as was previously the case associated with a large pelvic mass, reportedly representing rectal carcinoma, with a endoluminal stent passing through the central portion of this mass. The exact boundaries of the mass are somewhat indistinct. No definite acute disease found. Additional Diagnostics Assessment & Plan Patient is a 56-year-old male history of ulcerative colitis, stage IV rectal adenocarcinoma with diverting colostomy, and LLE DVT who presented to the ED for acute renal failure and hyperkalemia. #Intractable pain -Patient remains uncontrolled. 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 Acute Kidney Injury, Present on Admission, improved Multifactorial but mainly due to obstruction, obstructive uropathy due to large tumor. Status post bilateral nephrostomy -- Improving kidney function - When patient is discharged, he will be discharged with B/L percutaneous nephrostomy tubes in place. -Creatinine stable at 1.0 , initial creatinine 6.53 -Discontinued IV fluids. #. Hyperkalemia, acute, POA. Resolved Patient was initially given Kayexalate 30g, regular insulin and D50 in the ER. This brought the potassium down -- Resolved on 12/14 #. Left Psoas Abscess, POA Patient was on ciprofloxacin and Flagyl by mouth prior to admission Patient continues to have left thigh swelling , CT of the left thigh is negative for abscess. Possible cellulitis. Initially started on Zosyn and vancomycin, MRSA nasal screen negative. Vancomycin discontinued today 12/18. ID Dr. Dasilva on board -- Initial plan was to continue outpatient antibiotics through 12/20 per his . Will discharge on Cipro and Flagyl for few more days #. Scrotal Edema, POA Scrotal support The patient had a scrotal ultrasound is done: No remarkable findings per report Encouraged elevating scrotum to reduce swelling by using a towel #. Pain in urethra with urination: -- Lidocaine gel, Azo, belladonna alkaloids are ordered for relief. #. Rectal Adenocarcinoma, stage IV, POA managed by oncology, Dr. Elias: Oncologist Had family meeting with patient and family. Patient initially not decided yet whether to continue palliative chemotherapy or not. He and his significant other Marianne had meeting with Dr Horner and decided not to get palliative chemotherapy. Also agrees to get hospice informational visit Peripheral edema secondary to tumor compression of Iliac vessels #. Chronic normocytic Anemia, POA Hgb 7.5 on admission. Patient is transfused with 2 units of blood 12/13, posttransfusion H&H came up appropriately CODE STATUS: Full resuscitation Disposition: Eventually home with in 1-2 days pending pain control remains full code VTE Prophylaxis: Sub-Q Heparin (Unfractionated) VTE Mechanical Devices: Intermittant Pneumatic CD Resuscitation Status: CPR: Attempt Resuscitation Israel Naylor MD December 21, 2016 16:23
[2016-12-21 20:01] VITALS: BP 117/73; PULSE 91; RESP 16; O2SAT 97
[2016-12-22] MEDS: HYDROmorphone 1 mg/mL Inj IVPUSH PRN ×3 (00:05→06:27)
[2016-12-22] MEDS: Piperacillin-Tazo 3.375 Gm Inj 3.375 GM in Dextrose 5% Minibag Plus 50 ML IV SCH ×4 (00:05→19:50)
[2016-12-22 05:23] VITALS: BP 103/61; PULSE 91; RESP 16; O2SAT 97
[2016-12-22 07:40] VITALS: BP 95/73; PULSE 89; RESP 9; O2SAT 100
[2016-12-22] MEDS: oxyCODONE ER 20 mg ER12 Tablet PO SCH ×3 (08:00→20:08)
[2016-12-22] MEDS: BusPIRone 15 mg Dividose Tablet PO SCH ×2 (08:03→20:05)
[2016-12-22] MEDS: Pantoprazole 20 mg ER24 Tablet PO SCH (08:03)
[2016-12-22] MEDS: Polyethylene Glycol (PEG) 17 Gm Powder PO SCH (08:05)
[2016-12-22] MEDS: Heparin 5,000 Unit/mL Inj SUBQ SCH ×3 (08:07→19:54)
[2016-12-22 08:29] LABS: BASOPHILS % (AUTO) 0.5 % (0-3); EOSINOPHILS % (AUTO) 2.3 % (0-5); MONOCYTES % (AUTO) 13.2 % (4-12); Mean Corpuscular Hemoglobin 28.6 pg (27.0-35.0); Mean Corpuscular Volume 94.4 fL (81-100); NEUTROPHILS % (AUTO) 79.1 % (40-74); Platelet Count 602 bil/L (150-400)
--- NOTE | 2016-12-22 10:50 | PCM.DIMED ---
Discharge Instructions Date of Service December 22, 2016 Dates of Hospitalization December 12, 2016 at 18:34 Discharge Diagnosis Discharge Diagnosis #Intractable pain #. Rectal Adenocarcinoma, stage IV, POA #. Acute Kidney Injury, Present on Admission, improved #. Hyperkalemia, acute, POA. Resolved #. Left Psoas Abscess, POA #. Scrotal Edema, POA #. Pain in urethra with urination: #. Chronic normocytic Anemia, POA Diet No restrictions Activity Limited until seen by PCP Call your provider Fever or Chills, Shortness of breath, Bleeding, Chest pain, Vomitting, Excessive diarrhea, Weakness (unilateral) Patient Instructions you were hospitalized due to acute kidney failure due to obstructive uropathy secondary to obstructing/ compressing mass/rectal cancer. You underwent bilateral nephrostomy and kidney function improved.You also had intractable pain. Please continue pain medications as prescribed. Current pain regimen; Hydromorphone 12 mg by mouth every 3 hours, OxyContin 60 mg by mouth 3 times a day, gabapentin 600 mg 3 times a day, started on dexamethasone 4 mg daily 12/20 for 5 days. Please take 4 mg by mouth daily for 3 more days and continue 2 mg by mouth daily after that . Please Continue escitalopram 10 mg daily and BuSpar, 7.5 mg twice daily, please follow-up with palliative care outpatient and they may increase dose to 15 bid after several days.you have completed antibiotics for ileocecal abscess. Please follow-up with your oncologist in 1 week. Please follow-up with palliative clinic in 1 week. Follow-up Provider: Tessa Anderson MD Follow-up with PCP in: 1 week Provider: PALLIATIVE,CARE Follow-up in: 1 week Mid-level Provider (F9): Noam Elias MD Follow-up with Mid-level in: 1 week Israel Naylor MD December 22, 2016 10:50
[2016-12-22] MEDS ORDERED: ESCI10TA52 PO (11:01)
[2016-12-22] MEDS ORDERED: HYDR2TAB27 PO (11:01)
[2016-12-22] MEDS ORDERED: PANT20TA2 PO (11:01)
[2016-12-22] MEDS ORDERED: LIDO5O TOPICAL (11:01)
[2016-12-22] MEDS ORDERED: DXM4T PO (11:01)
[2016-12-22] MEDS ORDERED: OXYC20TA55 PO (11:01)
[2016-12-22] MEDS ORDERED: BUSP15TA3 PO (11:01)
[2016-12-22] MEDS ORDERED: TEMA15CA3 PO (11:01)
--- NOTE | 2016-12-22 11:52 | PCM.DC.MED ---
Discharge Summary Date of Service December 22, 2016 Dates of Hospitalization Date of Hospital Admission December 12, 2016 at 18:34 Date of Discharge: December 22, 2016 Providers: Admitting Physician: Joshua Lovelace MD Primary Care Physician: Tessa Anderson MD Attending Physician: Joshua Lovelace MD Diagnosis at Time of Discharge Diagnosis at Time of Discharge #Intractable pain #. Rectal Adenocarcinoma, stage IV, POA #. Acute Kidney Injury, Present on Admission, improved #. Hyperkalemia, acute, POA. Resolved #. Left Psoas Abscess, POA #. Scrotal Edema, POA #. Pain in urethra with urination: #. Chronic normocytic Anemia, POA Consultations palliative Dr Horner Oncology Dr Elias urology dr Trujillo Procedures XRay, CTs & MRIs PROCEDURE: CT ABDOMEN AND PELVIS WITH CONTRAST ([id number]) INDICATIONS: ileopsoas ascess.left thigh abscess IMPRESSION: 1. Near-complete resolution of left retroperitoneal abscess following left iliac fossa drainage catheter placement. 2. Resolved bilateral hydronephrosis following nephrostomy placement. 3. Increased, large necrotic rectal mass. 4. Moderate diffuse subcutaneous edema. Dictated by: Edgar Alfredo M.D. on 12/17/2016 at 16:40 PROCEDURE: CT LOWER EXTREMITY LEFT WITH CONTRAST INDICATIONS: ileopsoas ascess.left thigh abscess IMPRESSION: 1. Left lower extremity deep and superficial cellulitis. No abscess. No osteomyelitis. 2. Large centrally necrotic rectal mass. Dictated by: Edgar Alfredo M.D. on 12/17/2016 at 16:43 PROCEDURE: US RENAL SONOGRAM INDICATIONS: arf, hynronephrosis, mass effect? IMPRESSION: Impression: There is a moderate degree of bilateral hydronephrosis as was previously the case associated with a large pelvic mass, reportedly representing rectal carcinoma, with a endoluminal stent passing through the central portion of this mass. The exact boundaries of the mass are somewhat indistinct. No definite acute disease found. Invasive Procedures PROCEDURE: NEPHROSTOMY INSERT CATH (PNL) 1. Left nephrostomy tube placement. 2. Left antegrade pyelogram. 3. Right nephrostomy tube placement. 4. Right antegrade pyelogram. 5. Ultrasound guidance for renal access. 6. Conscious sedation for 50 minutes. INDICATIONS: Ureteral obstruction. Other Diagnostics Brief History per HPI Patient is a 56-year-old male history of ulcerative colitis, stage IV rectal adenocarcinoma with diverting colostomy, and LLE DVT who presented to the ED at the recommendation of his oncologist, Dr. Elias, for evaluation of his acute renal failure noted on lab work. Patient was recently admitted at the [facility] for abdominal abscess infection and had a follow-up CT scan on December 03. It was reported that his tumor was too large to resect and there was compression of the colon and bladder and adjacent iliac structures. Prior to the CT scan his creatinine was normal, but no repeat creatinine was done until today. At the office visit it was noted that his creatinine was 6.26 with a BUN of 51 and a potassium of 6.1. Patient reports he has been more fatigued than usual in the last week and is noted some hematuria, dysuria, and muscle twitching. He also reports that his lower extremity edema has been worse then usual and has also had extensive scrotal swelling and tenderness. He has not noticed any fevers, chills, nausea, or diarrhea, but continues to have abdominal pain especially near the site of his colostomy. He denies any chest pain or shortness of breath. In the ER he was afebrile with a pulse of 101 and blood pressure 129/83 and saturating 99% on room air. His CBC was pertinent for a white count of 16.7 which is his similar to his baseline. His hemoglobin was 7.5 with hematocrit 23.9. His platelet count was 700. His CMP was remarkable for sodium 129, potassium 6.1, BUN of 52, creatinine of 6.53, and albumin of 2.3 His UA showed large occult blood, large leukocyte esterase, urine RBC 11-50, urine white blood cell > 50 He had a renal ultrasound which showed moderate bilateral hydronephrosis, which had been previously seen, and also bladder compression medical large tumor In the ER he also received an amp of D50 with 10 units of insulin, Kayexalate, and calcium gluconate for his hyperkalemia Hospital Course Patient is a 56-year-old male history of ulcerative colitis, stage IV rectal adenocarcinoma with diverting colostomy, and LLE DVT who presented to the ED for acute renal failure and hyperkalemia. #Intractable pain -Patient remains uncontrolled. Continues to require IV Dilaudid -Current pain regimen: Hydromorphone 12 mg by mouth every 3 hours, OxyContin 60 mg by mouth 3 times a day, gabapentin 600 mg 3 times a day, started on dexamethasone 4 mg daily 12/20 for 5 days. Advised continue 2 mg daily after that. Advised to follow-up with palliative -palliative started on Buspar 7.5 mg bid today ,plan to increase to 15 bid after discharge . 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 Acute Kidney Injury, Present on Admission, improved due to obstruction, obstructive uropathy due to large tumor. Status post bilateral nephrostomy -- Improving kidney function - When patient is discharged, he will be discharged with B/L percutaneous nephrostomy tubes in place. -Creatinine stable at 1.0 , initial creatinine 6.53 #. Hyperkalemia, acute, POA. Resolved Patient was initially given Kayexalate 30g, regular insulin and D50 in the ER. This brought the potassium down -- Resolved on 12/14 #. Left Psoas Abscess, POA Patient was on ciprofloxacin and Flagyl by mouth prior to admission Patient continues to have left thigh swelling , CT of the left thigh is negative for abscess. Possible cellulitis. Initially started on Zosyn and vancomycin, MRSA nasal screen negative. Vancomycin discontinued 12/18. Continued on Zosyn until day of discharge ID Dr. Dasilva on board Preadmission plan was to continue outpatient antibiotics through 12/20 per his . Will discharge off antibiotics -May consider removing drain outpatient if output continues to be low #. Scrotal Edema, POA Scrotal support The patient had a scrotal ultrasound is done: No remarkable findings per report Encouraged elevating scrotum to reduce swelling by using a towel #. Pain in urethra with urination: -- Lidocaine gel, Azo, belladonna alkaloids are ordered for relief. #. Rectal Adenocarcinoma, stage IV, POA oncology, Dr. Elias: Oncologist Had family meeting with patient and family. Patient initially not decided yet whether to continue palliative chemotherapy or not. He and his significant other Marianne had meeting with Dr Horner and decided not to get palliative chemotherapy. Declines hospice Peripheral edema secondary to tumor compression of Iliac vessels #. Chronic normocytic Anemia, POA Hgb 7.5 on admission. Patient is transfused with 2 units of blood 12/13, posttransfusion H&H came up appropriately CODE STATUS: Full resuscitation Disposition: home with HH Condition on discharge improved Exam Vital Signs (Last) Date Time Temp Pulse Resp B/P Pulse Ox O2 Delivery O2 Flow Rate FiO2 12/22/16 07:40 36.6 89 9 95/73 100 Room Air Exam General: Alert and oriented 3, cachectic HEENT: NCAT Heart: RRR, no s3/s4 sounds Lungs clear to auscultation Abdomen flat and nondistended. Colostomy in place. Bilateral nephrostomy in place. Left ileopsoas drain in place draining minimal clear fluid TIERRA: Firm, tender swelling on the left thigh, lateral side. Nonfluctuant Mood: Depressed Neuro: Alert and oriented Test 12/12/16 17:15 12/16/16 08:20 12/16/16 12:25 12/17/16 05:30 Prothrombin Time 12.0sec (8.1-12.5) Prothromb Time International Ratio 1.12ratio Activated Partial Thromboplast Time 31.8sec (22.8-33.0) Lipase 10U/L (13-60) Lactic Acid Level 1.0mmol/L (0.4-2.0) Urine Color Bloody (YELLOW) Urine Appearance Cloudy (CLEAR,HAZY) Urine pH 8.0 (5.0-8.0) Urine Specific [place] 1.020 (1.003-1.035) Urine Protein >300mg/dL (NEG,TRACE) Urine Glucose (UA) Negativemg/dL (NEGATIVE) Urine Ketones Negativemg/dL (NEGATIVE) Urine Occult Blood Large (NEGATIVE) Urine Nitrite Negative (NEGATIVE) Urine Bilirubin Negative (NEGATIVE) Urine Urobilinogen Normalmg/dL (NORMAL) Urine Leukocyte Esterase Small (NEGATIVE) Urine RBC >50/hpf (0-2) Urine WBC >50/hpf (0-5) Urine Epithelial Cells Few/hpf (NONE-MOD) Urine Crystals None seen (NONE SEEN) Urine Bacteria Moderate/hpf (NONE-FEW) Urine Hyaline Casts None/lpf (NONE) Urine Granular Casts None seen (NONE SEEN) Urine Waxy Casts None seen (NONE SEEN) Urine Red Blood Cell Casts None seen (NONE SEEN) Urine White Blood Cell Casts None seen (NONE SEEN) Urine Mucus None seen (None Seen) Urine Trichomonas None seen (NONE SEEN) Urine Yeast None (NONE SEEN) Urinalysis Comment None Urine Culture Reflexed Indicated Hold Urine Received (Received) Iron Level 24ug/dL (35-150) Total Iron Binding Capacity 94ug/dL (250-450) Percent Iron Saturation 26%sat (15-50) Unsaturated Iron Binding 70.0ug/dL Ferritin 1354ng/mL (30-400) Procalcitonin 0.47ng/mL (0.00-0.08) Test 12/18/16 05:20 12/19/16 08:45 12/22/16 08:10 Phosphorus Level 2.5mg/dL (2.5-4.9) Magnesium Level 1.6mg/dL (1.6-2.6) White Blood Count 12.9th/mm3 (3.8-10.1) Red Blood Count 3.01mil/mm3 (4.40-5.80) Hemoglobin 8.6g/dL (13.8-17.2) Hematocrit 28.4% (41.0-50.0) Mean Corpuscular Volume 94.4fL (81-100) Mean Corpuscular Hemoglobin 28.6pg (27.0-35.0) Mean Corpuscular Hemoglobin Concent 30.3% (32.0-37.0) Red Cell Distribution Width 16.8% (12.3-15.4) Platelet Count 602bil/L (150-400) Neutrophils (%) (Auto) 79.1% (40-74) Lymphocytes (%) (Auto) 4.4% (14-46) Monocytes (%) (Auto) 13.2% (4-12) Eosinophils (%) (Auto) 2.3% (0-5) Basophils (%) (Auto) 0.5% (0-3) Sodium Level 138mEq/L (134-144) Potassium Level 4.4mEq/L (3.5-5.2) Chloride Level 97mEq/L (97-108) Carbon Dioxide Level 27mmol/L (18-29) Blood Urea Nitrogen 9mg/dL (6-24) Creatinine 0.96mg/dL (0.76-1.27) Estimat Glomerular Filtration Rate 87mL/min (>59) Glucose Level 98mg/dL (60-99) Calcium Level 8.9mg/dL (8.5-10.1) Total Bilirubin 0.2mg/dL (0.0-1.2) Aspartate Amino Transf (AST/SGOT) 27U/L (0-50) Alanine Aminotransferase (ALT/SGPT) 13U/L (0-44) Alkaline Phosphatase 80U/L (25-150) Total Protein 7.1g/dL (6.4-8.4) Albumin 2.6g/dL (3.4-5.0) Discharge Medications Discharge Medications ([Marijuana]) 6-8 TOPICAL DAILY (Reported) Buspirone (Buspirone) 15 Mg Tablet 7.5 MG PO BID Prescribed by: WESTON HERRERA MD Cholecalciferol (Vitamin D3) (Vitamin D3) 2,000 Unit Tablet 2,000 UNIT PO QAM ( Reported) Dexamethasone (Dexamethasone) 4 Mg Tablet 4 MG PO DAILYWM Prescribed by: WESTON HERRERA MD Docusate Sodium (Colace) 100 Mg Capsule 200 MG PO BID (Reported) Escitalopram Oxalate (Escitalopram Oxalate) 10 Mg Tablet 10 MG PO DAILY Prescribed by: WESTON HERRERA MD Gabapentin (Gabapentin) 600 Mg Tablet 600 MG PO TID (Reported) Oxycodone ER (Oxycontin) 20 Mg Tab.er.12h 90 MG PO TID Prescribed by: WESTON HERRERA MD Pantoprazole DR (Pantoprazole DR) 20 Mg Tablet.dr 20 MG PO DAILYAC Prescribed by: WESTON HERRERA MD Polyethylene Glycol 3350 (Polyethylene Glycol 3350) 17 Gm Powd.pack 17 GM PO QAM (Reported) As needed Acetaminophen (Acetaminophen) 325 Mg Tablet 650 MG PO Q4H PRN PRN For Pain ( Reported) Hydromorphone (Dilaudid) 2 Mg Tablet 12 MG PO Q3H PRN PRN For Pain Prescribed by: WESTON HERRERA MD Lidocaine HCl (Lidocaine) 142 Appl/37.5 Gm Oint 1 APPLIC TOPICAL PRN PRN PRN For Pain Prescribed by: WESTON HERRERA MD Ondansetron (Ondansetron) 4 Mg Tablet 4-8 MG PO Q8H PRN PRN For Nausea/Vomiting (Reported) Temazepam (Restoril) 15 Mg Capsule 15 MG PO HS PRN PRN Insomnia Prescribed by: WESTON HERRERA MD Followup Plan Disposition: Home with home health Discharge Diet: No restrictions Discharge Activity: Limited until seen by PCP Patient Instructions you were hospitalized due to acute kidney failure due to obstructive uropathy secondary to obstructing/ compressing mass/rectal cancer. You underwent bilateral nephrostomy and kidney function improved.You also had intractable pain. Please continue pain medications as prescribed. Current pain regimen; Hydromorphone 12 mg by mouth every 3 hours, OxyContin 60 mg by mouth 3 times a day, gabapentin 600 mg 3 times a day, started on dexamethasone 4 mg daily 12/20 for 5 days. Please take 4 mg by mouth daily for 3 more days and continue 2 mg by mouth daily after that . Please Continue escitalopram 10 mg daily and BuSpar, 7.5 mg twice daily, please follow-up with palliative care outpatient and they may increase dose to 15 bid after several days.you have completed antibiotics for ileocecal abscess. Please follow-up with your oncologist in 1 week. Please follow-up with palliative clinic in 1 week. Follow-up Provider: Tessa Anderson MD Follow-up with PCP in: 1 week Provider: PALLIATIVE,CARE Follow-up in: 1 week Mid-level Provider: Noam Elias MD Follow-up with Mid-level in: 1 week Time spent 40 minutes copies to: Tessa Anderson MD; Yovany Trujillo MD; Noam Elias MD; Digna Horner MD, Melaku MD December 22, 2016 11:52
[2016-12-22] MEDS: 0.9% Sodium Chloride 250 ML IV SCH (12:15)
[2016-12-22 12:21] VITALS: BP 113/85; PULSE 94; RESP 8; O2SAT 100
[2016-12-22 16:13] VITALS: BP 114/71; PULSE 96; RESP 10; O2SAT 97
[2016-12-22 19:10] LABS: APPEARANCE,URINE CLOUDY (CLEAR,HAZY); COLOR,URINE BLOODY (YELLOW); OCCULT BLOOD,URINE LARGE (NEGATIVE); PH,URINE 8.5 (5.0-8.0); UROBILINOGEN,URINE NORMAL (NORMAL)
[2016-12-22 20:23] VITALS: BP 121/79; PULSE 86; RESP 16; O2SAT 100
[2016-12-23 05:23] VITALS: BP 114/76; PULSE 94; RESP 18; O2SAT 100
[2016-12-23] MEDS: oxyCODONE ER 20 mg ER12 Tablet PO SCH ×2 (07:25→14:03)
[2016-12-23] MEDS: Polyethylene Glycol (PEG) 17 Gm Powder PO SCH (07:27)
[2016-12-23] MEDS: BusPIRone 15 mg Dividose Tablet PO SCH (07:27)
[2016-12-23] MEDS: Heparin 5,000 Unit/mL Inj SUBQ SCH (07:27)
[2016-12-23] MEDS: Pantoprazole 20 mg ER24 Tablet PO SCH (07:27)
[2016-12-23] MEDS: Piperacillin-Tazo 3.375 Gm Inj 3.375 GM in Dextrose 5% Minibag Plus 50 ML IV SCH (08:30)
[2016-12-23 10:56] VITALS: BP 133/80; PULSE 105; RESP 18; O2SAT 97
== END 2016-12-23 15:45 | disposition home health service (06) | DRG 659 ==
LOC: SED 16:04 → OSC 18:34 → OBSVTOIN 18:34 → OSC 20:40
PROVIDERS: ADMIT Hospitalist; ATTEND Hospitalist
PROC: 0T143JD Bypass Left Kidney Pelvis to Cutaneous with Synthetic Substitute, Percutaneous Approach (ICD-10-PCS; principal; 2016-12-13)
PROC: 0T133JD Bypass Right Kidney Pelvis to Cutaneous with Synthetic Substitute, Percutaneous Approach (ICD-10-PCS; 2016-12-13)
PROC: BT141ZZ Fluoroscopy of Kidneys, Ureters and Bladder using Low Osmolar Contrast (ICD-10-PCS; 2016-12-13)
PROC: 30233N1 Transfusion of Nonautologous Red Blood Cells into Peripheral Vein, Percutaneous Approach (ICD-10-PCS; 2016-12-13)
DX: N17.0 Acute kidney failure with tubular necrosis (principal); K68.12 Psoas muscle abscess; C20 Malignant neoplasm of rectum; N13.8 Other obstructive and reflux uropathy; K51.90 Ulcerative colitis, unspecified, without complications; E46 Unspecified protein-calorie malnutrition; Z68.1 Body mass index [BMI] 19.9 or less, adult; R64 Cachexia; N39.0 Urinary tract infection, site not specified; E87.5 Hyperkalemia; N13.30 Unspecified hydronephrosis; Z92.21 Personal history of antineoplastic chemotherapy; Z93.3 Colostomy status; N50.89 Other specified disorders of the male genital organs; D64.9 Anemia, unspecified; Z92.3 Personal history of irradiation; Z86.718 Personal history of other venous thrombosis and embolism; N14.1 Nephropathy induced by other drugs, medicaments and biological substances; T50.8X5A Adverse effect of diagnostic agents, initial encounter; R30.9 Painful micturition, unspecified; E83.42 Hypomagnesemia

== ENCOUNTER 2016-12-30 22:16 | Inpatient (IN) | payer OTHER ==
[~2016-12-30] VITALS: Ht 175.3 cm; Wt 51.8 kg
[~2016-12-30 22:16] MED LIST changes: +BUSP15TA3 PO; +DXM4T PO; +ESCI10TA52 PO; -FUR20 PO; +HYDR2TAB27 PO; -IBUP200C PO; +LIDO5O TOPICAL; -LOV40 SUBQ; -MELA3TAB35 PO; -METH5TAB3 PO; -OXYC-474 PO; +OXYC20TA55 PO; +PANT20TA2 PO; -POTA20TA16 PO; +TEMA15CA3 PO; -[UNRECOGNIZED DRUG - REMARK] PO
[2016-12-30 22:20] VITALS: BP 131/86; PULSE 120; RESP 20; O2SAT 100
--- NOTE | 2016-12-30 22:25 | ED.REPORT ---
HPI-General Illness Date of Service December 30, 2016 ED Provider: Adal Pham MD 56 y/o male with a hx of ulcerative colitis and stage 4 rectal CA presents to the ED via EMS complaining of engorged scrotum. The pt also complains of right hip and sciatic nerve pain. He takes Oxycodone at home but it didn't seem to improve his sx. The medics administered 10mg Morphine, with no effect. Nursing Notes Stated Complaint: CANCER,UNCONTROLLED PAIN Chief Complaint: General Complaint Nursing Notes Reviewed: Yes Allergies: Coded Allergies: No Known Drug Allergies (Verified Allergy, Unknown, 12/12/16) Scheduled ([Marijuana]) 6-8 TOPICAL DAILY Buspirone (Buspirone) 15 Mg Tablet 7.5 MG PO BID Cholecalciferol (Vitamin D3) (Vitamin D3) 2,000 Unit Tablet 2,000 UNIT PO QAM Dexamethasone (Dexamethasone) 4 Mg Tablet 4 MG PO DAILYWM Docusate Sodium (Colace) 100 Mg Capsule 200 MG PO BID Escitalopram Oxalate (Escitalopram Oxalate) 10 Mg Tablet 10 MG PO DAILY Gabapentin (Gabapentin) 600 Mg Tablet 600 MG PO TID Oxycodone ER (Oxycontin) 20 Mg Tab.er.12h 90 MG PO TID Pantoprazole DR (Pantoprazole DR) 20 Mg Tablet.dr 20 MG PO DAILYAC Polyethylene Glycol 3350 (Polyethylene Glycol 3350) 17 Gm Powd.pack 17 GM PO QAM Scheduled PRN Acetaminophen (Acetaminophen) 325 Mg Tablet 650 MG PO Q4H PRN PRN For Pain Hydromorphone (Dilaudid) 2 Mg Tablet 12 MG PO Q3H PRN PRN For Pain Lidocaine HCl (Lidocaine) 142 Appl/37.5 Gm Oint 1 APPLIC TOPICAL PRN PRN PRN For Pain Ondansetron (Ondansetron) 4 Mg Tablet 4-8 MG PO Q8H PRN PRN For Nausea/Vomiting Temazepam (Restoril) 15 Mg Capsule 15 MG PO HS PRN PRN Insomnia General Time Seen by MD: 22:24 Chief Complaint Other (Engorged scrotum) Hx Obtained From: Patient Arrived By: Ambulance Sudden in Onset?: No Onset Occurred: 1 day ago Symptom Duration: Since onset Location: : Hip right Quality: Painful Radiation: : Does not radiate Severity: Current: Moderate Severity: Maximum: Moderate Recent Healthcare: Recent doctor visit Similar Sx Previous: No Past Medical History Past Medical History - 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 - ulcerative colitis - hx of pneumonia Past Surgical History Shoulder surgery. Placement of colonic stent. Colostomy placement Port-A-Cath Smoking History Never Smoker Social History Other Social History: Good social support, Local resident Ambulatory Status Independent Review of Systems Reports: engorged scrotum Reports: Right hip pain Complete sys rev & neg: except as marked. Physical Exam Vital Signs Vital Signs Date Time Temp Pulse Resp B/P Pulse Ox O2 Delivery O2 Flow Rate FiO2 12/31/16 02:00 105 18 155/93 99 Room Air 12/30/16 22:20 36.2 120 20 131/86 100 Initial VS: Reviewed, Vital signs abnormal Head / Eyes: Atraumatic, Normocephalic Neck: Supple, Full range of motion Respiratory: Breath sounds normal, Clear to auscultation, No respiratory distress Extremities: Vascular intact, Neuro intact, No swelling, No tenderness Skin: Warm, Dry, No cyanosis Neurologic: Alert, Oriented, Nonfocal General/Constitutional: Awake, Alert, Cooperative Appearance / Presentation: Positive: Cachectic Cardiovascular: Heart rate NL, Regular rhythm, Heart sounds NL, No gallop, No murmurs, No rubs 2+ pitting edema in left lower extremity. Trace edema in right lower extremity. Abdomen: Atraumatic, Soft, Non-tender Colostomy bag Bilateral nephrosomy tube sites appear normal Bilateral scrotal edema Erythematous penis with drainage Interpretation & Diagnostics Lab Results Interpretation Result Diagram: 12/30/16223012/30/162230 Test 12/30/16 22:31 White Blood Count 16.9th/mm3 (3.8-10.1) Red Blood Count 3.35mil/mm3 (4.40-5.80) Hemoglobin 9.8g/dL (13.8-17.2) Hematocrit 31.5% (41.0-50.0) Mean Corpuscular Volume 94.0fL (81-100) Mean Corpuscular Hemoglobin 29.3pg (27.0-35.0) Mean Corpuscular Hemoglobin Concent 31.1% (32.0-37.0) Red Cell Distribution Width 15.6% (12.3-15.4) Platelet Count 805bil/L (150-400) Neutrophils (%) (Auto) 83.7% (40-74) Lymphocytes (%) (Auto) 4.4% (14-46) Monocytes (%) (Auto) 10.4% (4-12) Eosinophils (%) (Auto) 0.9% (0-5) Basophils (%) (Auto) 0.3% (0-3) Hold Purple Top Tube Received (Received) Hold Blue Top Tube Received (Received) Sodium Level 135mEq/L (134-144) Potassium Level 3.9mEq/L (3.5-5.2) Chloride Level 94mEq/L (97-108) Carbon Dioxide Level 25mmol/L (18-29) Blood Urea Nitrogen 19mg/dL (6-24) Creatinine 0.87mg/dL (0.76-1.27) Estimat Glomerular Filtration Rate 97mL/min (>59) Glucose Level 95mg/dL (60-99) Calcium Level 9.5mg/dL (8.5-10.1) Magnesium Level 1.7mg/dL (1.6-2.6) Total Bilirubin 0.2mg/dL (0.0-1.2) Aspartate Amino Transf (AST/SGOT) 28U/L (0-50) Alanine Aminotransferase (ALT/SGPT) 26U/L (0-44) Alkaline Phosphatase 177U/L (25-150) Total Protein 8.5g/dL (6.4-8.4) Albumin 3.1g/dL (3.4-5.0) Hold Catron Top Tube Received (Received) Lab Results Interpretation: Elevated white blood count, anemia Re-Eval/Medical Decision Med Decision/Clinical Course 56-year-old male with metastatic colon cancer with metastasis and significant local invasion and compression of adjacent organs presents with increasing pain. He was found to have increasing swelling and felt drainage from the penis (total urine diversion through bilateral nephrostomies). I am concerned with his elevated white count and this drainage that infection may be part of the cause of the increased pain. He will be admitted for pain management and further evaluation of the infection. Source of Hx: Old records Time of Eval: 00:02 Re-Evaluation/Progress Note: Rechecked pt. Discussed lab results and plan to admit. Pt understands and agrees with the plan for admission. All questions addressed. Consultation #1: Call Returned at: 23:58 Hardboard Coating Machine Operator: Will see patient, Agrees with eval, Agrees with plan Note: Consulted Dr. Lee Jalloh, Oncologist, who will see the patient tomorrow. Consultation #2: Referral / Consult Name: Alfreda Castro DO Consulted With: Hospitalist Call Returned at: 02:12 Hardboard Coating Machine Operator: Will see patient, Agrees with eval, Agrees with plan, Accepts admit Counseled Regarding: Diagnosis, Lab results, Need for admission Discharge & Departure Primary Impression: UTI (urinary tract infection) Urinary tract infection type: site unspecified Hematuria presence: without hematuria Qualified Code: N39.0 - Urinary tract infection, site not specified Additional Impression: Intractable pain Discharge Condition All VS Reviewed: Yes Referrals: Tessa Anderson MD (PCP) Lee Jalloh Attestation Portions of this note were transcribed by Divina Galarza. I, , personally performed the history, physical exam and medical decision-making;I reviewed and confirmed the accuracy of the information in the transcribed note. Signed by Marielena Gilbert. 12/31/16 00:17 copies to: Tessa Anderson MD; Lee aJlloh Howard L MD December 30, 2016 22:25 Divina Galarza December 30, 2016 22:35
[2016-12-30] MEDS: HYDROmorphone 1 mg/mL Inj IVPUSH PRN ×2 (22:50→23:24)
[2016-12-30 22:51] LABS: Mean Corpuscular Hemoglobin 29.3 pg (27.0-35.0)
[2016-12-30 22:52] LABS: Platelet Count 805 bil/L (150-400)
[2016-12-30 22:59] LABS: Magnesium 1.7 mg/dL (1.6-2.6)
[2016-12-30 23:21] LABS: BASOPHILS % (AUTO) 0.3 % (0-3); EOSINOPHILS % (AUTO) 0.9 % (0-5); MONOCYTES % (AUTO) 10.4 % (4-12); NEUTROPHILS % (AUTO) 83.7 % (40-74)
[2016-12-30] MEDS: fentaNYL-PF 50 mCg/mL 2 mL Inj IVPUSH PRN (23:48)
[2016-12-31] VITALS (8 sets, daily range): BP systolic 117–155; BP diastolic 78–93; PULSE 101–130; RESP 16–20; O2SAT 99–100
[2016-12-31] MEDS ORDERED: cefTRIAXone Inj 2,000 MG in Dextrose 5% Minibag Plus 50 ML IV ONE (00:10)
[2016-12-31] MEDS: fentaNYL-PF 50 mCg/mL 2 mL Inj IVPUSH PRN ×3 (00:22→01:31)
[2016-12-31] MEDS ORDERED: fentaNYL-PF 50 mCg/mL 2 mL Inj IVPUSH PRN (00:25)
[2016-12-31] MEDS ORDERED: 0.9% Sodium Chloride 1,000 ML IV ONE (00:25)
[2016-12-31] MEDS ORDERED: HYDROmorphone PCA 0.2 mg/mL 30 mL Inj IV PRN ×2 (01:00→05:15)
[2016-12-31] MEDS ORDERED: Alum-Mag Hydrox-Simeth 30 mL Suspension PO PRN ×2 (02:25→11:55)
[2016-12-31] MEDS ORDERED: Ondansetron 2 mg/mL 2 mL Inj IVPUSH PRN ×2 (02:25→11:55)
[2016-12-31] MEDS ORDERED: Polyethylene Glycol (PEG) 17 Gm Powder PO PRN ×2 (02:25→11:55)
[2016-12-31] MEDS ORDERED: Lidocaine 5% 35.5 Gm Ointment TOPICAL PRN (03:50)
--- NOTE | 2016-12-31 04:35 | NUR ---
admission patient admitted. very anxious about scrotal discomfort medical record used to complete admission information. dilaudid site safety representative discontinued. plan to give dilaudid 12mg po. also plan to administer ativan 1mg iv slow push. patient spends most of his time in the bathroom. difficulty staying in bed due to anxiety and discomfort about scrotum scrotum is reddened. swollen, firm to touch. care ongoing
--- NOTE | 2016-12-31 04:41 | PCM.HPMED ---
Subjective Date of Service December 31, 2016 Primary Provider: Admitting Physician: Alfreda Castro DO Primary Care Physician: Tessa Anderson MD Attending Physician: Alfreda Castro DO Chief Complaint: Intractable scrotal pain and swelling. History of Present Illness: Patient is a 56-year-old male history of ulcerative colitis, stage IV rectal adenocarcinoma with diverting colostomy, recent stay at [facility] for uropathy with b/l nephrostomy tubes placed, and LLE DVT who presented to the ED for severe intractable scrotal pain and swelling. Patient was recently admitted at the [facility] for abdominal abscess infection and had a follow-up CT scan on December 03. It was reported that his tumor was too large to resect and there was compression of the colon and bladder and adjacent iliac structures. He was recently discharged from [facility] for renal failure and obstructive uropathy with resolution after b/l nephrostomy tubes placed. Patient reports he has been experiencing progressive swelling and pain in his scrotum since discharge last week. He reports some ability to urinate but notes that he has progressive green foul smelling drainage from his penis since discharge last week. His new pain is in and around his scrotum. He denies fever, chills,, nausea, vomiting diaphoresis, headache, syncope, chest pain, shortness of breath, change in stool output from the ostomy, decrease in nephrostomy urine output. He reports severe abdominal pain which is continuous from previous visit, severe scrotal pain and edema, progressive bowel greenish penile discharge. In the emergency department upon admission patient's temperature was 36.2, pulse 120, respirations 20, blood pressure 130/86, pulse ox 100% on room air. Patient's white count was 16.9, hemoglobin 9.8, platelets 805, neutrophil percent 83.7, CMP 135 potassium 3.9 chloride 94 CO2 25. Creatinine 0.87, lactic acid pending, calcium 9.5, phosphorus pending, magnesium 1.7, AST and MALT 28/26, alkaline phosphatase 177 which is elevated from previous visit, In the emergency department patient received IV fluids, ceftriaxone, Dilaudid CABLE INSTALLATION TECHNICIAN and fentanyl 100 g every 15 minutes. Review of Systems: C:The patient reports his weight is down but it is actually a little better than it was at its karlos. He said he can walk with difficulty but he is very weak. He denies any fevers, chills, or sweats. HEENT: He has no significant headache. No visual complaint, no sore throat or trouble swallowing. Resp: No cough or shortness of breath. Cardiac: He is not having chest pain. GI: : He notes that his scrotal swelling and edema. Extremities: The left lower extremity edema is about at his baseline, though it is still quite pronounced. He reports his left leg was twice as big as it currently is a few weeks ago. He has no sensory complaints in his lower extremities. The remainder of the review of systems negative. Allergies Coded Allergies: No Known Drug Allergies (Verified Allergy, Unknown, 12/12/16) Home Medications Acetaminophen 325 mg tablets 650 mg by mouth every 4 when necessary Buspirone 15 mg tablet 7.5 mg by mouth twice a day Colace R Calciferol 2000 unit tablets by mouth every morning Dexamethasone 4 mg tablets 4 mg by mouth daily with meals Docusate sodium twice a day Escitalopram 10 mg daily Gabapentin 600 mg tablets 600 mg 3 times a day Hydromorphone M42 milligram tablets 12 mg by mouth every 3 hours as needed for pain Lidocaine HCl topical ointment Ondansetron 4 mg every 8 hours when necessary nausea vomiting Oxycodone ER 20 mg tablet 90 mg by mouth 3 times a day Pantoprazole 20 mg by mouth daily at night Polyethylene glycol in the morning Temazepam 15 mg by mouth at night as needed for insomnia Marijuana topical ointment as needed. PMH 1. 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 2. History of ulcerative colitis. 3. Colostomy. 4. Obstructive uropathy diagnosed on this admission with bilateral percutaneous nephrostomy tubes. 5. Indwelling Bravo catheter because of edema of the scrotum and penis Surgical History Patient was in too much pain to relay surgical history. Family History Negative for TB in first-degree relatives but positive for coronary artery disease Social History Hx Alcohol Use: Yes (NOTHING TO DRINK SINCE APR 2016) Hx Substance Use: No Hx Tobacco Use: No Smoking Status: Never Smoker Exam Vital Signs Vital Sign - Last Date Time Temp Pulse Resp B/P Pulse Ox O2 Delivery O2 Flow Rate FiO2 12/31/16 02:55 36.2 105 18 155/93 99 Room Air Intake and Output 12/30/16 12/30/16 12/31/16 Cumulative From/Thru 15:00 23:00 07:00 12/30/16 22:20 - 12/31/16 00:22 Intake Total 999 ml 999 ml Balance 999 ml 999 ml Intake IV Total 999 ml 999 ml Exam General: Chronically ill and cachectic gentleman lying in bed in moderate to severe pain. appropriately interactive, HEENT: Normocephalic, atraumatic. External ears without defect. Pupils equal, round,responsive, not pinpoint or dilated. Oropharynx free of erythema with moist mucosa. Normal dentition. Cardiovascular: tachycardic rate with normal rhythm with no murmurs, rubs, or gallops appreciated Pulmonary: Clear to auscultation bilaterally with no crackles, wheezes, or rhonchi. Normal respiratory effort with no use of accessory muscles. Abdomen: Bowel tones present. Soft, extremely tender to palpation near ostomy, nondistended. No hepatosplenomegaly or masses appreciated. Extremities: No clubbing, cyanosis, edema, or lymphadenopathy appreciated. Skin: Normal temperature, turgor, and texture; no rash, ulcers, or subcutaneous nodules appreciated. Neurological: Cranial nerves grossly intact. Normal muscle strength, tone, and bulk. Reflexes, coordination, and sensory function within normal limits. No known gait impairment. Psychiatric: Normal mood and affect. Alert and oriented to person, place, and time. Genitourinary: Severely swollen scrotum roughly the size of a softball, without drainage and skin is intact, with no obvious signs of inclusion. Extremely tense and tender to palpation. No drainage present of penis, mild edema foreskin. Lab and Diagnostics Result Diagram: 12/30/16223012/30/162230 Assessment & Plan Patient is a 56-year-old male history of ulcerative colitis, stage IV rectal adenocarcinoma with diverting colostomy, Uropathy with b/l nephrostomy tubes, and LLE DVT who presented to the ED for severe intractable scrotal pain and swelling. 1. Intractable scrotal pain and swelling, present on admission. Active. - Patient remains uncontrolled. Continues to require IV Dilaudid CABLE INSTALLATION TECHNICIAN. - Continue previous pain regimen: Hydromorphone 12 mg by mouth every 3 hours, OxyContin 90 mg by mouth 3 times a day, gabapentin 600 mg 3 times a day, started on dexamethasone 4 mg daily 12/20 for 5 days - Palliative started on Buspar 7.5 mg bid with plant to increase 15 mg on previous visit. - Ativan PRN anxiety. - Appreciate palliative care team's efforts and expertise for pain management. - Consider percutaneous drainage. - Consider repeat CT Abdomen for progression of tumor and compression of vessels or thrombotic process. - Consider oncology consult. - Urology consult placed in [facility], am to contact 2. Leukocytosis, present on admission. Active. - Likely related to steroid use. Possibly infectious. - HR 120, 36.7 temp - Cultures pending blood and penile drainage. - Previous MRSA negative. - Lactic acid pending. - Will start Antibiotics from previous admission. - Patient was on ciprofloxacin and Flagyl by mouth prior to admission, will restart - Recommend consult with ID Dr. Dasilva. 3. Tachycardia, present on admission. Active. - Likely pain related however, Consider PE with new onset tachycardia, tumor burden and vessel compression. - Wells score 8.5, = moderate risk - 40.6% chance. - Consider CT chest PE. 4. Scrotal Edema, Present on admission. Active. - Scrotal support. - The patient had a scrotal ultrasound is done on previous visit with: No remarkable findings per report. - Encouraged elevating scrotum to reduce swelling by using a towel. - urology consult. 5. Rectal Adenocarcinoma, stage IV, present on admission. Active. - Managed by oncology, Dr. Elias: - Oncologist Had family meeting with patient and family. Patient initially not decided yet whether to continue palliative chemotherapy or not. He and his significant other Marianne had meeting with Dr Horner and decided not to get palliative chemotherapy. 6. Chronic normocytic Anemia, present on admission. Active. - Hgb 7.5 on previous admission. Currently 9.8 - Patient is transfused with 2 units of blood 12/13, posttransfusion H&H came up appropriately CODE STATUS: Full resuscitation Acetaminophen for mild pain when necessary. Bowel regimen Senna and MiraLAX scheduled and PRN. Zofran when necessary for nausea and vomiting. SubQ heparin for now. SCDs in place. Disposition: Patient is admitted under inpatient status. Discharge is dependent upon scrotal swelling and pain. Discharge home, when medically stable. Pain Evaluation: Pain not Controlled Resuscitation Status: CPR: Attempt Resuscitation Attending Statement The patient was seen and examined together with house staff on 12.31.2016 and I agree with the history, exam and plan as outlined in the note above. REED DANIELSON DO December 31, 2016 03:04 Alfreda Castro DO December 31, 2016 05:47
[2016-12-31] MEDS ORDERED: MetoCLOpramide 5 mg/mL 2 mL Inj IVPUSH PRN (05:15)
[2016-12-31] MEDS ORDERED: HYDROmorphone 1 mg/mL Inj IVPUSH ONE (05:30)
--- NOTE | 2016-12-31 05:51 | NUR ---
noncompliance patient is impulsive and anxious. does not follow instructions. non compliant with fall precautions asked repeatedly and shown how to be safer. patient refuses. ambulates independently in room , back and forth to bathroom every 5 min. generally refuses to use bsc
--- NOTE | 2016-12-31 06:36 | NUR ---
confusion patient becoming more and more confused. unable to redirect. tries to take off telemetry. wants to leave. unable to reorient. states 'i am in [place] and i am hooked up to a bunny machine." notified night resident. regarding the filler operator orders, because it may be difficult for the patient to understand the filler operator and use it. bsc, bed alarm. Addendum: 12/31/16 at 0648 by LITO AYALA RN spoke to dr dominguez. gave orders to hold dilaudid filler operator. plan to order iv push dialudid for break thru pain control called patient's brother rajat. rajat will be in. explained to patient.
[2016-12-31] MEDS: Pantoprazole 20 mg ER24 Tablet PO SCH (07:30)
--- NOTE | 2016-12-31 08:00 | NUR ---
Pain/agitation/assessment Pt reports intractable pain, refusing to allow assessment. Crying out and groaning, IV pain medication given, awaiting review from Dr Horner regarding pain management, FARMWORKER DAIRY has been discontinued. Pt is very impulsive, getting out of bed and to the bathroom, very agitated with pain, brother at bedside assisting with care. Frequent intentional rounding in place, will continue to monitor.
[2016-12-31] MEDS ORDERED: Sodium Chloride LOK Flush 10 mL Syringe IVFLUSH SCH (08:30)
[2016-12-31] MEDS ORDERED: Heparin 5,000 Unit/mL Inj SUBQ SCH (08:30)
[2016-12-31] MEDS ORDERED: OXYCODONE PO SCH ×2 (08:30)
[2016-12-31] MEDS ORDERED: Ciprofloxacin Inj 400 MG in IV Premix 1 EACH IV SCH (08:30)
[2016-12-31] MEDS ORDERED: oxyCODONE ER 20 mg ER12 Tablet PO SCH (08:30)
[2016-12-31] MEDS ORDERED: metroNIDAZOLE Inj 1,000 MG in IV Premix 1 EACH IV SCH (08:30)
[2016-12-31] MEDS: HYDROmorphone 1 mg/mL Inj IVPUSH PRN ×3 (09:01→13:51)
--- NOTE | 2016-12-31 09:07 | NUR ---
Palliative Care Palliative Care received order from Dr Wyatt 12/31/16 to assist with pain management. Patient is a 56 year old man who is well-known to the Palliative Care Team. He has rectal cancer and was re-admitted 12/31/16 for care of intractable scrotal pain and swelling. He has had several admits in the last few months. Marianne Darwin (significant other) [phone] Magdy Cook (brother) [phone], Palliative Care to follow. Dayanara Dee
[2016-12-31] MEDS: Haloperidol 5 mg/mL Inj IVPUSH PRN ×2 (09:44→15:26)
--- NOTE | 2016-12-31 09:49 | PCM.CONPAL ---
Date of Service December 31, 2016 Date of Hospital Admission: December 31, 2016 at 02:10 Date of Palliative Consult: December 31, 2016 Requesting Provider: REED DANIELSON DO Reason Palliative Care Consult: Pain, Goals of Care Discussion Hospital Unit @time of consult: Medical/Pediatric Care Palliative Care Recommendation Summary of palliative recommendations: -Symptom management (Pain/other) Pain- his meds were changed to methadone 5 mg BID and oxycodone 5 mg 3 tabs Q 4 PRN--which wasn't holding him. Reviewed need to increase his methadone and continue with prn oxycodone. Started hydromorphone by continuous infusion now at 1 mg per hour which may need increase to 1.5 mg shortly if not settling with bolus and haldol. Agitation- big issue-trying haloperidol with some success. Reviewed this may worsen. component of urinary urgency--will try B&O supp Weight loss and profound debility Will contact hospice for info visit. Marianne and family accepting this. -DPOA/Advanced Directives/POLST-DPOAHC is Marianne and now . -Family/emotional support-extensive. -Spiritual support-organized zoroastrian not a part of his life. Problems: End of Life Preferences Reviewed with family/Marianne his . At this point it would be futile and harmful to code him if something happened. They accept this and code status is changed to DNR/DNI Will need POLST done before d/c Disposition Goal of home with hospice assist. Resuscitation Status Resuscitation Status: DNR/DNI:Do Not Resuscitate/Intubate POLST Updates/Changes Artificially Admin Nutrition: No Artifical Nutrition by Tube POLST Discussed with: Health Care Agent (DPOAHC) . Advanced Care Planning Address: Code status change Pain: Moderate Symptom management: Agitation, Delirium Pt History History of Present Illness Patient is a 56-year-old male history of ulcerative colitis, stage IV rectal adenocarcinoma with diverting colostomy, recent stay at [facility] for uropathy with b/l nephrostomy tubes placed, and LLE DVT who presented to the ED for severe intractable scrotal pain and swelling. Attempt at surgical management thwarted by extent of tumor now with obstructive uropathy requiring diversion and progressive pain and swelling LLE and scrotum. Pain management has been an issue with attempt at d/cing him with Oxycontin 90 mg TID and hydromorphone 8 mg 2-3 tabs Q 3 hour PRN. His brother describes - first difficulty getting the oxycontin then unclear on how he takes his meds. In a 4 hour stretch of his brother being there over the weekend he took pills ( unknown what) first 4 tabs then 1-2 hours later another 2 and then again another 2 tabs. He has had poor PO intake and increasing agitation and restlessness. He has had increasing confusion, trying to pull out his catheters/ IV with a goal to "go home" since here. He has known progressive stage 4 rectal CA and is not able to manage any further chemo.He has declined hospice because he "can believe I am dying". He has intractable pain with urinary urgency and severe pain at the end of attempts to urinate. He has had recent scant rectal bleeding. He has a baseline diverting colostomy. He has been followed by Dr. Elias who advised against further chemo due to debility as well as the patient's difficulty with tolerating the burden of chemo -appts, infusions, N,V etc. Pt and Marianne are hoping for goal of "holistic" approach. He has lost 10 kg in the last few weeks. He and his SO Marianne last week. They had been partners for about 20 yrs. Past Medical History Significant PMH Noted: Stage IV colorectal adenocarcinoma moderately differentiated adenocarcinoma of the rectum - with invasion through the rectal wall, significant mass effect on the bladder, and extensive metastatic lymphadenopathy. Ulcerative colitis Surgical History Shoulder surgery. Placement of colonic stent. Colostomy placement Port-A-Cath on left chest anirudh nephrostomy for obstruction Family History Father at age 79 of Alzheimer's and coronary artery disease. Paternal grandmother had lung cancer. 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 Social Support: has involvement from family-mother, brother Magdy, 2 sisters-Jacob and ?Rebekah Living Situation: lives with Marianne-his now as of last week Spiritual Support Spiritual Support he has not had interest in this Responsive Patient Symptoms Pain (current): Severe *Requires 72 Hour Followup Pain (maximium): Severe *Requires 72 Hour Followup Tiredness/Fatigue: Moderate Depression: Moderate Anxiety: Moderate Anorexia: Moderate Delirium increasing agitation Palliative Performance Scale PPS Patient Status: Current PPS Ambulation: Reduced PPS Activity: Unable to do most activity PPS Self-Care: Occasional assistance necessary PPS Intake: Normal or reduced PPS Conscious Level: Full or confusion Performance Scale: 60% Allergy Allergies Reviewed: Yes (defines intolerance to methadone and morphine with mental confusion and halluciantions) Medications Current Medications: Current Medications Hydromorphone HCl 1 mg Q15MIN PRN IVPUSH Last administered on 12/30/16 23:24; Admin Dose 1 MG; Start 12/30/16 at 22:35; Stop 12/31/16 at 06:44; Status DC Fentanyl Citrate 100 mcg Q15MIN PRN IVPUSH Last administered on 12/31/16 01:31 ; Admin Dose 100 MCG; Start 12/30/16 at 23:30; Stop 12/31/16 at 06:47; Status DC Fentanyl Citrate 100 mcg Q15MIN PRN IVPUSH; Start 12/31/16 at 00:25; Stop 12/31 at 06:47; Status DC Al Hydrox/Mg Hydrox/Simethicone 30 ml Q6H PRN PO; Start 12/31/16 at 02:25 Ondansetron HCl 4-8 mg Q4H PRN IVPUSH; Start 12/31/16 at 02:25 Senna 17.2 mg BID PRN PO; Start 12/31/16 at 02:25 Polyethylene Glycol 17 gm DAILY PRN PO; Start 12/31/16 at 02:25 Sodium Chloride 10 ml GUY IVFLUSH; Start 12/31/16 at 08:30 Acetaminophen 650 mg Q4H PRN PO; Start 12/31/16 at 03:50 Buspirone HCl 7.5 mg BID PO; Start 12/31/16 at 08:30 Dexamethasone 4 mg DAILYWM PO; Start 12/31/16 at 08:00 Escitalopram Oxalate 10 mg DAILY PO; Start 12/31/16 at 08:30 Hydromorphone HCl 12 mg Q3H PRN PO Last administered on 12/31/16 08:58; Admin Dose 12 MG; Start 12/31/16 at 03:50; Stop 12/31/16 at 09:26; Status DC Lidocaine HCl 1 applic PRN PRN TOPICAL Last administered on 12/31/16 05:40; Admin Dose 1 APPLIC; Start 12/31/16 at 03:50 Oxycodone HCl 90 mg TID PO; Start 12/31/16 at 08:30; Status UNV Pantoprazole 20 mg DAILYAC PO; Start 12/31/16 at 07:30 Temazepam 15 mg HS PRN PO; Start 12/31/16 at 03:50 Gabapentin 600 mg TID PO; Start 12/31/16 at 08:30 Lorazepam 1 mg Q4H PRN IVPUSH Last administered on 12/31/16 04:35; Admin Dose 1 MG; Start 12/31/16 at 03:50 Oxycodone HCl 10 mg/Oxycodone HCl 80 mg 90 mg TID PO; Start 12/31/16 at 08:30; Stop 12/31/16 at 09:26; Status DC Ciprofloxacin Lactate 400 mg/ Premix 200 ml @ 200 mls/hr Q12 IV; Start at 08:30 Metronidazole/ Sodium Chloride/ Premix 200 ml @ 200 mls/hr Q12 IV; Start at 08:30 Heparin Sodium (Porcine) 5,000 unit Q12 SUBQ; Start 12/31/16 at 08:30 Naloxone HCl 0.04 mg Q1MIN PRN IVPUSH; Start 12/31/16 at 05:15 Metoclopramide HCl Dose Range: 5 mg to... Q6H PRN IVPUSH; Start 12/31/16 at 05: 15 Diphenhydramine HCl Dose Range: 12.5 mg... Q4H PRN IVPUSH; Start 12/31/16 at 05 :15 Hydromorphone HCl 1 mg Q1H PRN IVPUSH Last administered on 12/31/16 09:01; Admin Dose 1 MG; Start 12/31/16 at 06:40 Haloperidol Lactate for restlessness/ agitation Q4 PRN IVPUSH; Start 12/31/16 at 09:15; Status UNV Scheduled ([Marijuana]) 6-8 TOPICAL DAILY Buspirone (Buspirone) 15 Mg Tablet 7.5 MG PO BID Cholecalciferol (Vitamin D3) (Vitamin D3) 2,000 Unit Tablet 2,000 UNIT PO QAM Dexamethasone (Dexamethasone) 4 Mg Tablet 4 MG PO DAILYWM Docusate Sodium (Colace) 100 Mg Capsule 200 MG PO BID Escitalopram Oxalate (Escitalopram Oxalate) 10 Mg Tablet 10 MG PO DAILY Gabapentin (Gabapentin) 600 Mg Tablet 600 MG PO TID Oxycodone ER (Oxycontin) 20 Mg Tab.er.12h 90 MG PO TID Pantoprazole DR (Pantoprazole DR) 20 Mg Tablet.dr 20 MG PO DAILYAC Polyethylene Glycol 3350 (Polyethylene Glycol 3350) 17 Gm Powd.pack 17 GM PO QAM Scheduled PRN Acetaminophen (Acetaminophen) 325 Mg Tablet 650 MG PO Q4H PRN PRN For Pain Hydromorphone (Dilaudid) 2 Mg Tablet 12 MG PO Q3H PRN PRN For Pain Lidocaine HCl (Lidocaine) 142 Appl/37.5 Gm Oint 1 APPLIC TOPICAL PRN PRN PRN For Pain Ondansetron (Ondansetron) 4 Mg Tablet 4-8 MG PO Q8H PRN PRN For Nausea/Vomiting Temazepam (Restoril) 15 Mg Capsule 15 MG PO HS PRN PRN Insomnia Objective Findings Exam Vital Sign - Last Date Time Temp Pulse Resp B/P Pulse Ox O2 Delivery O2 Flow Rate FiO2 12/31/16 09:08 36.8 114 18 121/80 99 Room Air Intake and Output 12/30/16 12/30/16 12/31/16 Cumulative From/Thru 15:00 23:00 07:00 12/30/16 22:20 - 12/31/16 06:52 Intake Total 999 ml 999 ml Output Total 225 ml 225 ml Balance 774 ml 774 ml Intake IV Total 999 ml 999 ml Output Urine Total 175 ml 175 ml Stool Total 50 ml 50 ml # Bowel Movements 5 5 Objective mod agitated but oriented to place and who I am etc., markedly cachectic. able to get up from side of bed with assist of 1 and amb without assist to BR General: Alert, Oriented, Person, Place, Moderate distress, Agitated, Other ( up to commode then to be and within minutes up to BR and continues. Longest time in be 4-5 min) HEENT: Mucous Membranes Dry Heart: Regular Rate/Rhythm Lungs: Diminished (shallow respirations) Abdomen: Other (marked scrotal swelling and LLE modest swelling, back in bed- scant amt of fluid/?urine drips from penis, blood tinged mucous from rectum) Neuro: Cranial Nerve 3-12 Intact Extremities: No Edema Lab/Diagnostics Lab and Imaging results reviewed in detail in EMR. BMP normal, CR 0.87m alb 3.1 and alk phos 177 Patient/Family Conference Members Present Family Members Present patient, brother Marianne Curran; sister and mother-for part of discussion Medical Team Members Present? [facility] Discussion/Goals of Care Discussion FAMILY UNDERSTANDING OF DISEASE: Pt is able to say he is dying but then as prior retracts and diverts conversation. Family is aware no further treatments are available and at this time only supportive means are possible. Pain management is goals of all involved. His IRON INSTALLER was d/tam since pt was not able to manage it's use due to confusion. Agitation and confusion now a much bigger issue than with past hospitalization only 2 weeks ago. DISEASE PROGRESSION/EVIDENCE OF DECLINE: Significant decline in past month. Estimate prognosis as now about 1 month and Marianne states that would be consistent with the time frame given when they were down at the and surgery was thwarted. SYMPTOM BURDEN: Pain and agitation for pt and for Marianne it is dealing with this and their children. This has not been discussed with them. GOALS: Pain and agitation control with home with hospice HOPES/WORRIES: members of the family still want to hope for "the miracle" Reviewed hospice doesn't need to change this hope but can give him better QOL and control in the rest of his life. Also reviewed assistance with grief including for their children. Time spent Total time 70 minutes; >50% face to face with patient and/or family, providing counselling regarding plans and recommendations, and in care coordination with his/her medical teams. including full family conference, review with Dr. Wallace and med management. This included 30 min on ACP with change in code status I also spent an additional [ ] minutes counseling for advanced care planning with the patient/the patients family/the surrogate decision maker. copies to: Noam Elias MD, Deborah A MD December 31, 2016 09:49
--- NOTE | 2016-12-31 09:50 | NUR ---
Pain/agitation 1 mg IV Dilaudid, and 12 mg PO Dilaudid, given for pain, 0.5 mg of IV Haldol given, resulted in poor pain control and brief rest in bed by pt. Pt continues to cry out regarding pain, is moving from bed to bathroom from relief, Dilaudid DRAWBENCH OPERATOR HELPER to be initiated shortly. Will continue to monitor, family at beside very concerned about patients discomfrt. Will continue to monitor.
[2016-12-31] MEDS: HYDROmorphone PCA 0.2 mg/mL 30 mL Inj IV PRN ×4 (10:53→22:34)
[2016-12-31] MEDS: BusPIRone 15 mg Dividose Tablet PO SCH ×2 (12:44→20:49)
--- NOTE | 2016-12-31 14:03 | NUR ---
Palliative care note D/A: Pt admitted for pain control and increased scrotal swelling. He is noted to be quite restless and agitated, some confusion and anxiety as well. Case discussed with DR. Horner. PC team planned to discuss pt needs away from pt who is not able to participate. Dr. Horner and this worker met with pt spouse Sherron (note that pt and Sherron where while he was recently at home) as well as pt mother, pt brother Magdy and his two sisters and one brother in law. Dr. Horner indicates that pt has lost 20 pds since last discharge which was fairly recently. Pt is noted to have been eating fairly well at home. Dr. Horner explains either increased metabolic load due to tumor growth or the tumor not allowing caloric use. Family agrees that pt has not done well since last admit. Sherron indicates that pt said recently "I think I am dying but I don't realize it." Pain needs are discussed. Went over latest adjustment from Dr. Elias as well as what was paid for by insurance. Dr. Horner describes need to sedate pt and allow him to relax into his pain meds and increased control of his needs. Dr. Horner explains use of haldol to assist with his sedation/agitation. Dr. Horner to start on continuous drip. Hospice is discussed. hSerron and rest of family agree that this is the correct plan for pt. Discuss how [facility] will be able to support pt enough for him to have his needs managed well while at home. He will be hopefully able to have an increased QOL. Note that pt will not be able to be dc'ed home without services of [facility] as his pain and symptoms are so complex. Sherron also indicates that couple's children are aware that their father is ill but have not been told the extreme seriousness of his prognosis. Indicate that [facility] can assist with having conversations with children and mother about pt illness and expected course. Dr. Horner now indicating that she feels pt has a month or so. Sherron indicates that a [facility] info visit on 01/01/17 anywhere from 0930 on would be fine. Her cell is [phone]. Discuss code status. Dr. Horner indicates again that to have pt be full code would hurt him and would not give him an opportunity to say his final good byes. She recommends strongly to Sherron that pt be no code. He and rest of family can continue to hope and pray for a miracle but also arrange for care that will not be detrimental to him. Sherron agrees to DNR/DNI. Please note that POLST is not yet completed. Phone call to Светлана at [facility]. Have arranged for 0945 [facility] info visit for 01/01/17 and for pt to tentatively be opened on 01/03/17. Can push this back as needed. Next openings as of this writing are on the weekend. Phone call to Sherron to inform her of [facility] info visit time. P: Palliative care to continue to follow. Lucita TAYLOR CCM Addendum: 12/31/16 at 1446 by ALEX SERRATO SS Palliative care note Msg left for Hollie tarango in regards to [facility] info visit and tentative open for services date. Lucita TAYLOR [facility]
[2016-12-31] MEDS ORDERED: Belladonna Alk-Opium 60 mg Rectal Suppository RECTAL PRN (14:55)
[2016-12-31] MEDS: 0.9% Sodium Chloride 250 ML IV SCH (15:08)
[2016-12-31] MEDS ORDERED: Sodium Chloride LOK Flush 10 mL Syringe IVFLUSH PRN ×2 (15:10)
[2016-12-31] MEDS ORDERED: HepLOK Flush 100 unit/mL 5 mL Inj IVFLUSH PRN (15:10)
--- NOTE | 2016-12-31 16:00 | NUR ---
XM1 TANK DRIVER Dilaudid XM1 TANK DRIVER in place, with continuos infusion of 1 mg, 0.3 mg XM1 TANK DRIVER dose and loading dose of 1 mg. 1 mg of IV Haldol give with good relief of pain and agitation. Pt is resting quietly, family is at bedside, assisting with care. Call light in reach. Frequent rounding in place.
[2016-12-31] MEDS: Sodium Chloride LOK Flush 10 mL Syringe IVFLUSH SCH ×2 (16:30→20:49)
[2017-01-01] MEDS: HYDROmorphone PCA 0.2 mg/mL 30 mL Inj IV PRN ×5 (03:37→23:42)
[2017-01-01 03:40] VITALS: RESP 10
--- NOTE | 2017-01-01 04:27 | NUR ---
neuro/confusion: pt. refused flo bed alarm. pt. woke up confused middle of the night, went to bathroom without calling, was disoriented to time and place, pt. pulled his port iv out on his way to the bathroom, charge nurse notified, ER nurse to come and reaccess port, pt. reoriented to his room, rt. nephrostomy tube also came out a little.
[2017-01-01 04:58] VITALS: BP 121/83; PULSE 110; RESP 18; O2SAT 98
[2017-01-01] MEDS: BusPIRone 15 mg Dividose Tablet PO SCH ×2 (08:18→20:30)
[2017-01-01] MEDS: Pantoprazole 20 mg ER24 Tablet PO SCH (08:18)
[2017-01-01] MEDS: Sodium Chloride LOK Flush 10 mL Syringe IVFLUSH SCH ×3 (08:30→23:43)
--- NOTE | 2017-01-01 08:38 | PCM.PALLBR ---
Palliative Care Recommendation Summary of palliative recommendations: Symptom management (Pain/other): per Pall Care Pain: 1. Increase his methadone from 10mg bid to 15mg BID today. This is based on his use of 23.5mg IV Hydromorphone in the last 24 hours, which is equal to 40mg methadone orally. 2. Continue hydromorphone continuous infusion at 1mg/hr. Agitation/Anxiety: 1. PRN IV haldol has had some success, but still underlying constant level of agitation/anxiety. Start scheduled haldol 1mg po TID around the clock to keep agitation levels lower. 2. Continue buspirone for agitated anxiety as well. 3. Starting mirtazipine at night for appetite (see below). This also helps with lowering agitation. If this starts to be effective, may stop buspirone to decrease pill load later when pt at home with hospice. 4. For one day only: we will start ativan 0.5mg/hr IV from now until 7a.m. tomorrow just so patient can get some rest, he feels he has not slept all night. Discussed with family and answered questions. The ativan infusion will stop at 7a.m. 01/02. Urinary urgency: 1. B&O supp were ordered but are not being given. (Perhaps pt rejects rectal route, or its uncomfortable. Will check with him on this). 2. Start pyridium 2 tablets po TID scheduled to act as local anesthesia to penile urethra, and reduce local discomfort. Weight loss and profound debility: 1. We are not offering dexamethasone, which would help appetite, as it might aggravate the pt's ongoing agitation. 2. Mirtazipine, low dose at HS, is alternate appetite stimulant that has bonus effect of calming agitation. We will start this tonight. Dose is 7.5mg q HS scheduled. Hospice Eligible: Family has a hospice info visit today at 945a.m. DPOA/Advanced Directives/POLST: DPOAHC is Marianne, his . Family/emotional support: extensive. Spiritual support: organized sikh not a part of his life. Problems: End of Life Preferences Reviewed with family/Marianne his . At this point it would be futile and harmful to code him if something happened. They accept this and code status is changed to DNR/DNI Will need POLST done before d/c Disposition Goal of home with hospice assist. Resuscitation Status Resuscitation Status: DNR/DNI:Do Not Resuscitate/Intubate POLST Updates/Changes Artificially Admin Nutrition: No Artifical Nutrition by Tube POLST Discussed with: Health Care Agent (DPOAHC) Total time 65 minutes; >50% face to face with patient and/or family, providing counselling regarding plans and recommendations, and in care coordination with his/her medical teams. Palliative Brief Note Date of Service January 01, 2017 . Patient Identification: Mr. Cook is a 56-year-old WMM with a history of ulcerative colitis, stage IV rectal adenocarcinoma with a large rectal mass compressing his colon, bladder and adjacent iliac structures for which he received a diverting colostomy in a [facility]. Then he recently had b/l nephrostomy tubes placed at [facility] due to obstructive uropathy. He also had a LLE DVT at that admission. He is now admitted 12/31 for severe intractable scrotal pain and swelling and green penile discharge. He has been followed by Dr. Elias who advised against further chemo due to debility as well as the patient's difficulty with tolerating the burden of chemo-appts, infusions, N,V etc. Prior to this admission he has declined hospice because he "can believe I am dying". He has lost 10 kg in the last few weeks. Hospital Course: On day of admission 12/31, Mr. Cook and his family met with Palliative Care's Dr. Digna Horner and finally decided to accept hospice at home, once his pain is in better control. He was started on IV hydromorphone drip and oral methadone with intent to convert over to all oral medications for home use. Overnight, he was confused and pulled the IV attached to his port. This has since been replaced and hydromorphone is running again. Subjective: He has just received his a.m. dose of methadone, and states his pain is 8/10. Social: He and his SO Marianne last week. They had been partners for about 20 yrs. Exam: General: markedly cachectic HEENT: Mucous Membr Moist/Gila Heart: Regular Rate/Rhythm Lungs: Diminished with shallow respirations Abdomen: : marked scrotal swelling Ext: moderate LLE edema MS: able to get up from side of bed with assist of 1 and amb without assist to BR Mental Status: mod agitated but oriented to person and place . Maty Gomez MD January 01, 2017 08:38
[2017-01-01] MEDS ORDERED: LORazepam 100 mg/100 mL NS 100 MG in IV Premix 1 EACH IV SCH (10:00)
[2017-01-01] MEDS: Phenazopyridine 97.5 mg Tablet PO SCH ×4 (10:06→20:30)
[2017-01-01] MEDS: Haloperidol 5 mg/mL Inj IVPUSH PRN (10:06)
--- NOTE | 2017-01-01 10:48 | NUR ---
Palliative care note D/A: Case discussed briefly with RN who notes that there is not a POLST yet. Work on POLST was deferred during visit on 12/31/16 due to number of additional emotional and difficult subjects that were addresses during that care conference. POLST could be addressed later in admission or even by Hospice, if needed. PC will continue to work on POLST during this admission. Met with Rebekah from [facility] who notes that consents were signed by pt. Case discussed further with Dr. Gomez today, in regards to potential plans for Thurs [facility] open. Pt remains very restless and agitated. Per nrsg notes, up to bathroom and may have dislodged his line. Dr. Gomez has discussed with family and decision has been reached to start pt on continuous Ativan drip with the hopes that he will be able to get some rest. Plan will be to continue this medication regime until am of 01/02/17 and reassess at that time. Discuss possibility of dc on 01/03/17 with [facility] to open. Dr. Gomez asks that plan remain in place until more is known about medication effectiveness on am of 01/02/17. She also indicates that it is possible that as pt is able to relax more, that he may pass away while in acute care. Will learn more over the next 24 hours. Above discussed with sukhdeep Navarrete. P: Palliative care to follow. Lucita TAYLOR, [facility]
[2017-01-01 11:25] VITALS: RESP 18; O2SAT 97
--- NOTE | 2017-01-01 14:27 | NUR ---
Social Work-screening: Data:EMR reviewed. Pt is a 56 y/o male who was admitted on 12/31/16 for UTI per H&P. Pt's insurance is [email or web address] and PCP is Tessa Anderson MD. EMR reviewed. Pt's readmission score is 5-high risk. Pt resides at home with his where he remains independent with ADLS.Palliative care set up Hospice information visit today. SW updated by Palliative care that pt and have signed Hospice consents. SW spoke with Светлана for Hospice. Светлана will get back to SW with date of being able to open with pt. SW attempted to meet with pt and family, no one present. SW to follow up with Hospice tomorrow. SW will continue to follow. Assessment:Pt who will benefit from Hospice. Plan:Pt and family have signed consents with Hospice. SW to follow up with Светлана tomorrow on Hospice opening date, Светлана looking into this. SW will continue to follow. LAKISHA Pichardo
[2017-01-01] MEDS: 0.9% Sodium Chloride 250 ML IV SCH (15:08)
[2017-01-01 15:15] VITALS: RESP 14
--- NOTE | 2017-01-01 15:59 | NUR ---
FLAT EXAMINER/MEDS Patient continues with Dilaudid FLAT EXAMINER for pain. Patient has not used his patient control this shift and is maintaining with the continuous dose only. Patient up for urination or bowel movements every 5-10 min. citing constant urge. Patient given Belladonna suppository with good results-patient now able to rest. Per Palliative care, may hold oral medications today while patient is asleep/sedate. IV Ativan to be discontinued tomorrow 01/02/17 at 07:00 and the plan is that oral medications will be resumed following that time. Addendum: 01/01/17 at 1815 by ML OROPEZA RN Bedding found saturated. Stop cock on urostomy tubing had gotten turned and was leaking urine. Patient/bedding changed.
[2017-01-01 17:57] VITALS: RESP 18
--- NOTE | 2017-01-01 18:29 | PCM.PNMED ---
Subjective Date of Service January 01, 2017 Subjective ROS deferred 2ndry to patient's family requesting that patient be allowed to sleep. Exam Vital Signs Vital Sign - Last Date Time Temp Pulse Resp B/P Pulse Ox O2 Delivery O2 Flow Rate FiO2 01/01/17 17:57 18 01/01/17 11:25 97 01/01/17 04:58 36.9 110 121/83 Room Air Intake and Output 12/31/16 12/31/16 01/01/17 Cumulative From/Thru 15:00 23:00 07:00 12/30/16 22:20 - 01/01/17 04:59 Intake Total 800 ml 1799 ml Output Total 225 ml Balance 800 ml 1574 ml Intake Oral 800 ml 800 ml IV Total 999 ml Output Urine Total 175 ml Stool Total 50 ml # Bowel Movements 5 Exam Full exam deferred 2ndry to patient's family requesting patient be allowed to sleep. General: No Acute Distress Head: Normal IVs and Medications Medications Reviewed: Medications were reviewed in detail Lab and Diagnostics Result Diagram: 12/30/16223012/30/162230 Assessment & Plan 56-year-old male history of ulcerative colitis, stage IV rectal adenocarcinoma with diverting colostomy, Uropathy with b/l nephrostomy tubes, and LLE DVT who presented to the ED for severe intractable scrotal pain and swelling. # Intractable scrotal pain and swelling, present on admission. Active. - Appreciate palliative care consult. Will followup with recommendations - Continue with IV Dilaudid POLITICAL SCIENCE CHAIR. - Continue to titrate pain medications with comfort as goal # Leukocytosis, present on admission. Active. - Likely related to steroid use. Possibly infectious. - Cultures pending blood and penile drainage. - Previous MRSA negative. - Patient was on ciprofloxacin and Flagyl by mouth prior to admission, will restart # Scrotal Edema, Present on admission. Active. - Scrotal support. - The patient had a scrotal ultrasound is done on previous visit with: No remarkable findings per report. - Encouraged elevating scrotum to reduce swelling by using a towel. # Rectal Adenocarcinoma, stage IV, present on admission. Active. - Discussed with his oncologist, Dr. Elias, on 01/01. Per discussion patient' s prognosis is expected to less than 6 months and at most one year. Dr. Elias supports the Hospice option at this time. - # Chronic normocytic Anemia, present on admission. Active. - Patient is transfused with 2 units of blood 12/13, posttransfusion H&H came up appropriately # Goals of care: - Appreciate palliative care consult. Will followup with recommendations - Had a long discussion with patient's family members including his /DPOA. Wishes are to pursue the hospice option and likely move to full comfort care soon. Resuscitation Status: DNR/DNI:Do Not Resuscitate/Intubate Ravi Castillo January 01, 2017 18:29
--- NOTE | 2017-01-01 20:48 | NUR ---
po meds: po meds help due to sleepiness, pt. appears comfortable, resp rate 12. Addendum: 01/01/17 at 2312 by BINDU NEWTON RN pt. woke up, tried to get out of bed, was able to get pt. to take methadone, haldol, and gabapentin, pt. chewed pills, sleeping now, comfortable.
[2017-01-01 22:16] VITALS: BP 120/77; PULSE 66; RESP 18; O2SAT 96
[2017-01-02 05:07] VITALS: RESP 12
[2017-01-02] MEDS: 0.9% Sodium Chloride 250 ML IV SCH (05:58)
[2017-01-02] MEDS: HYDROmorphone PCA 0.2 mg/mL 30 mL Inj IV PRN ×4 (05:58→19:16)
[2017-01-02 06:35] VITALS: BP 156/93; PULSE 109; RESP 14; O2SAT 95
[2017-01-02 09:30] VITALS: RESP 13
--- NOTE | 2017-01-02 10:19 | NUR ---
SW - Continued Discharge Planning Data: Pt is on day 2 of hospitalization for UTI, intractable pain. EMR reviewed. Per morning rounds pt is not medically ready for discharge and they are working to better manage his pain. He will likely be here 2 more days. EHSAN contacted Car[phone] to update her re: pushing open date back. She stated they will tentatively schedule open date for Friday 01/05. SW will keep them updated. Pt to transfer home via POV and open with Hospice when medically ready. Consents signed. SW will continue to follow for needs. Assessment: Pt who has signed consents for Hospice Plan: Pt to transfer home via POV and open with Hospice when medically ready. Consents signed. Tentative open date 01/05. SW will continue to keep Hospice updated. SW will continue to follow for needs. LAKISHA Flynn
[2017-01-02] MEDS: Phenazopyridine 97.5 mg Tablet PO SCH ×2 (10:49→14:49)
[2017-01-02] MEDS: BusPIRone 15 mg Dividose Tablet PO SCH ×2 (10:51→20:30)
[2017-01-02] MEDS: Sodium Chloride LOK Flush 10 mL Syringe IVFLUSH SCH ×2 (10:53→18:22)
[2017-01-02] MEDS: Pantoprazole 20 mg ER24 Tablet PO SCH (11:16)
[2017-01-02] MEDS ORDERED: HYDROmorphone 1 mg/mL 2 mL Solution PO PRN (11:40)
[2017-01-02] MEDS ORDERED: LORazepam Oral Conc 2 mg/mL 30 mL Solution PO PRN (12:22)
[2017-01-02] MEDS ORDERED: HYDROmorphone 1 mg/mL 2 mL Solution PO SCH (12:30)
--- NOTE | 2017-01-02 12:48 | PCM.PALLBR ---
Palliative Care Recommendation Summary of palliative recommendations: 01/02/17- Pain-Continue on methadone 15 mg BID. Consider decreasing hydromorphone to 1/2 and then d/c. Will postpone this due to continued agitation Agitation-recurrent within 2 hours of stopping lorazepam drip. Will try oral PRN at Q 4H.-Still on routine dosing of haloperidol Urinary urgency--B&O supp did seem to help as per nsg. Unclear if pyridium is since not getting to penis so for now will d/c Debility and weakness and malignancy- trial of dexamethasone for this and pain seemed to be of no benefit so d/tam yesterday. Disposition-patient and part of family want him to go home. 2 children at home 4 and 9yo who apparently have not been informed that their father is dying. Acceptance by family-particularly his Marianne-for hospice --he can't go home without them for back up o f EOL issues. Would need addnal backup either with member of family in conjunction with Marianne or with hired caregivers. Will attempt to change meds to PO with backup meds ordered in order to give option for going home in near future. Again would need hospice due to level of care-and challenges from family Spirituality-pt and Marianne not interested-Magdy and other family are involved in this and regular prayer. Symptom management (Pain/other): per Pall Care Pain: 1. Increase his methadone from 10mg bid to 15mg BID today. This is based on his use of 23.5mg IV Hydromorphone in the last 24 hours, which is equal to 40mg methadone orally. 2. Continue hydromorphone continuous infusion at 1mg/hr. Agitation/Anxiety: 1. PRN IV haldol has had some success, but still underlying constant level of agitation/anxiety. Start scheduled haldol 1mg po TID around the clock to keep agitation levels lower. 2. Continue buspirone for agitated anxiety as well. 3. Starting mirtazipine at night for appetite (see below). This also helps with lowering agitation. If this starts to be effective, may stop buspirone to decrease pill load later when pt at home with hospice. 4. For one day only: we will start ativan 0.5mg/hr IV from now until 7a.m. tomorrow just so patient can get some rest, he feels he has not slept all night. Discussed with family and answered questions. The ativan infusion will stop at 7a.m. 01/02. Urinary urgency: 1. B&O supp were ordered but are not being given. (Perhaps pt rejects rectal route, or its uncomfortable. Will check with him on this). 2. Start pyridium 2 tablets po TID scheduled to act as local anesthesia to penile urethra, and reduce local discomfort. Weight loss and profound debility: 1. We are not offering dexamethasone, which would help appetite, as it might aggravate the pt's ongoing agitation. 2. Mirtazipine, low dose at HS, is alternate appetite stimulant that has bonus effect of calming agitation. We will start this tonight. Dose is 7.5mg q HS scheduled. Hospice Eligible: Family has a hospice info visit today at 945a.m. DPOA/Advanced Directives/POLST: DPOAHC is Marianne, his . Family/emotional support: extensive. Spiritual support: organized oriental orthodox not a part of his life. Problems: End of Life Preferences Reviewed with family/Marianne his . At this point it would be futile and harmful to code him if something happened. They accept this and code status is changed to DNR/DNI Will need POLST done before d/c Goals of FPC with hospice when hospitalist deems possible. Disposition Goal of home with hospice assist. Resuscitation Status Resuscitation Status: DNR/DNI:Do Not Resuscitate/Intubate POLST Updates/Changes Artificially Admin Nutrition: No Artifical Nutrition by Tube POLST Discussed with: Health Care Agent (DPOAHC) . Symptom management: Drowsiness/sleepiness, Agitation, Pain, Delirium Total time 45 minutes; >50% face to face with patient and/or family, providing counselling regarding plans and recommendations, and in care coordination with his/her medical teams. involved in family discussion, reviewing with Dr. Sheikh, and nsging team. EHSAN Lucita communicated to hospice re goal for discharge. I also spent an additional [ ] minutes counseling for advanced care planning with the patient/the patients family/the surrogate decision maker. copies to: Tessa Anderson MD Palliative Brief Note Date of Service January 02, 2017 . Patient with progressive deterioration with nephrostomies for obstruction and past colostomy and rectal stent. He has had increasing agitation and decreasing weight and debility. He has improved with methadone increase along with IV hydromorphone and regular dosing of haloperidol and IV lorazepam. Can still arouse, attempt to get out of bed. Did get out of bed with assist in the night after soaking bed due to leaking from occluded nephrostomies. Urine from nephrostomies dark orange, urine dripping from penis appears clear. O: profoundly cachectic, less scrotal swelling, tachycardia rate approx 120 regular lungs- shallow respirations. no edema abd- scaphoid Digna Horner MD January 02, 2017 12:48
[2017-01-02] MEDS ORDERED: LORazepam 1 mg Tablet PO PRN (15:10)
--- NOTE | 2017-01-02 15:38 | NUR ---
NUTRITION ASSESSMENT: ASSESS: 56 YO male with multiple medical complications including Stg IV terminal colorectal adenocarcinoma with completion of treatment 08/24, admitted with UTI and intractable pain. Pt is planning to discharge with hospice once pain is under control per notes, possibly 01/05. Pt with minimal po intake at this time. PMHx: Ulcerative colitis, colon cancer, colostomy, abdominal perineal resection LABS: Reviewed.Alk Phos 177, alb 3.1 MEDS: Reviewed. GI: Colostomy. CURRENT WT: 53 kg. Recent Admit wt: 64 kg. Wt in Apr 2016: 72 kg. Severe wt loss noted. DIET: Soft. PO intake 0-25% of meals x 2 days. EST. NEEDS: WT GAIN [id number] kcals (30-40 kcals/kg BW), 90-120 g protein (1.5-2.0 g/kg BW) NUTRITION DIAGNOSIS: 1.) Altered GI tract function related to alteration in GI tract structure/function as evidenced by rectal cancer and colostomy -- 2.) Inadequate oral intake related to decreased appetite and swallowing difficulty as evidenced by severe wt loss over past ~8 months NUTRITION INTERVENTION: 1.) Will add ensure to all meal trays. MONITOR / EVAL: PO intake, overall POC, weights, nutritional status. Follow per high nutritional risk guidelines.
--- NOTE | 2017-01-02 16:49 | PCM.PNMED ---
Subjective Date of Service January 02, 2017 Subjective ROS limited 2ndry to patient quite sedated on current pain medication and Ativan. He opens his eyes and seems to deny any discomfort. Exam Vital Signs Vital Sign - Last Date Time Temp Pulse Resp B/P Pulse Ox O2 Delivery O2 Flow Rate FiO2 01/02/17 09:30 13 01/02/17 06:35 36.8 109 156/93 95 Room Air Intake and Output 01/01/17 01/01/17 01/02/17 Cumulative From/Thru 15:00 23:00 07:00 12/30/16 22:20 - 01/02/17 06:35 Intake Total 700 ml 1001 ml 220 ml 3720 ml Output Total 292 ml 300 ml 750 ml 1567 ml Balance 408 ml 701 ml -530 ml 2153 ml Intake Oral 700 ml 236 ml 0 ml 1736 ml IV Total 765 ml 220 ml 1984 ml Output Urine Total 285 ml 300 ml 750 ml 1510 ml Stool Total 7 ml 57 ml # Voids 7 7 # Bowel Movements 0 0 5 Exam Full exam deferred 2ndry to patient being comfort care at this time. He appears to be calm and in no acute discomfort General: No Acute Distress Head: Normal Eyes: Scleral Anicteric Chest & Lungs: Chest Wall Normal, Clear to auscultation & percussion Cardiovascular: Regular Rate/Rhythm Abdomen: Non-tender, Other (ostomy and drain in place) IVs and Medications Medications Reviewed: Medications were reviewed in detail Lab and Diagnostics Result Diagram: 12/30/16223012/30/162230 Assessment & Plan 56-year-old male history of ulcerative colitis, stage IV rectal adenocarcinoma with diverting colostomy, Uropathy with b/l nephrostomy tubes, and LLE DVT who presented to the ED for severe intractable scrotal pain and swelling. # Intractable scrotal pain and swelling, present on admission. Active. - Appreciate palliative care consult. Will followup with recommendations - Continue with IV Dilaudid CONTRACTS ADMINISTRATOR. - Continue to titrate pain medications with comfort as goal - Further transitioning of pain meds to oral per palliative care # Leukocytosis, present on admission. Active. - Likely related to steroid use. Possible infection as well - Cultures pending - Previous MRSA negative. - Patient was on ciprofloxacin and Flagyl by mouth prior to admission, will continue for now # Scrotal Edema, Present on admission. Active. - Scrotal support. - The patient had a scrotal ultrasound is done on previous visit with: No remarkable findings per report. - Encouraged elevating scrotum to reduce swelling by using a towel. # Rectal Adenocarcinoma, stage IV, present on admission. Active. - Discussed with his oncologist, Dr. Elias, on 01/01. Per discussion patient' s prognosis is expected to less than 6 months and at most one year. Dr. Elias supports the Hospice option at this time. # Chronic normocytic Anemia, present on admission. Active. - Patient is transfused with 2 units of blood 12/13, posttransfusion H&H came up appropriately # Goals of care: - Appreciate palliative care consult. Will followup with recommendations Dispo: 2-3 days pending adequate pain and symptom control Resuscitation Status: DNR/DNI:Do Not Resuscitate/Intubate Ravi Castillo January 02, 2017 16:49
--- NOTE | 2017-01-02 16:50 | NUR ---
spiritual care: follow up conversational visit with family and caring visit with pt who was unresponsive. family reported on plan and emotional coping as they anticipate hospice care and pt's .
[2017-01-02 18:36] VITALS: RESP 14
--- NOTE | 2017-01-02 18:42 | NUR ---
Pain Control/Comfort: Patient has been restless off and on today. He continues receive ENVELOPE FOLDING MACHINE OPERATOR Hydromorphone with an hourly rate of 1mg /hr (and the 0.3 he receives when using ENVELOPE FOLDING MACHINE OPERATOR button) He has also been started on oral pain meds as well. Patient needs to be instructed to use his ENVELOPE FOLDING MACHINE OPERATOR button when he begins to be restless and uncomfortable. Patient is has also continued on IV Ativan continuous drip 0.5 mg /hr. (order OKd by ann marie JEWELL) for patients anxiety. Patients family have been at his bedside for most of the day and he has also had a sitter for his safety.
[2017-01-02] MEDS ORDERED: LORazepam 100 mg/100 mL Drip IV PRN ×2 (19:35)
[2017-01-02 22:38] VITALS: RESP 9; O2SAT 92
--- NOTE | 2017-01-03 | NUR ---
Ativan waste Ativan drip wasted 90 mg with Bao Christensen RN.
[2017-01-03] MEDS: Sodium Chloride LOK Flush 10 mL Syringe IVFLUSH SCH ×3 (00:30→16:56)
[2017-01-03] MEDS: HYDROmorphone PCA 0.2 mg/mL 30 mL Inj IV PRN ×4 (01:25→19:38)
[2017-01-03 04:35] VITALS: BP 148/87; PULSE 117; RESP 16; O2SAT 93
[2017-01-03 05:07] VITALS: RESP 16; O2SAT 95
--- NOTE | 2017-01-03 05:30 | NUR ---
Sedation Pt pocketing food in mouth at dinner time, oral care performed. Pt unarousable at beginning of assessment. Moved limbs and pt was still sleeping. Pt voiced pain when rolled on right side for waqas care. Did not administer evening medications for aspiration risk as patient was unable to hold attention and was sedated. FELDT score 0. Dilaudid MAINTENANCE INSTRUCTOR continuous and Ativan 0.5 mg/hr infusing.
--- NOTE | 2017-01-03 06:09 | NUR ---
Took over care at 2300 Patient sleeping comfortably. Awakens easily to touch/voice. moves both arms and legs. readjusting sheet. nephrostomy draining orange/blessing urine. colostomy has no output at this time. abdomen appears distended. bowel tones activex4 quadrants. patients breathing nonlabored RR 16-18. patient turned every 2 hours for comfort. Ativan gtt infusing at 0.5mls/hr and dilaudid SERVICE CENTER TECHNICIAN infusing continuously at 1mg/hr. patient appears comfortable, flinches occasionally when touching is abdomen or arms. vital signs stable. Addendum: 01/03/17 at 0617 by JENELLE ALBRIGHT RN Witheld PO medication due to patient RASS score and comfort level. patient appears comfortable at this time. no c/o pain. no s/s of pain at this time.
[2017-01-03] MEDS ORDERED: LORAZEPAM IV PRN (10:30)
[2017-01-03] MEDS ORDERED: STERILE IV PRN (10:30)
--- NOTE | 2017-01-03 11:01 | PCM.PALLBR ---
Palliative Care Recommendation Summary of palliative recommendations: 01/03/17 Pain: 1. Restarted oral methadone 15mg BID in hopes that pt would be awake enough to take pills while ativan infusion is off. 2. Continue Hydromorphone infusion with APPLICATION SECURITY ENGINEER button (which pt is not pushing) . Anxiety: Ativan infusion stopped again this afternoon around 1pm after discussion with family and Marianne. They would like him a little more awake to talk with family and say some goodbyes. Urinary urgency: B&O supp did seem to help as per nsg Prognosis: Likely 3-4 days. Family Conference: present were Dr. Gomez, Dr. Delaney, Marianne, brother Magdy, sisters Jacob and Gabi and Jimmy's mother Miguel. All family members respectful and tender towards one another. 1. Hospice can start taking care of patient on 01/05, but unclear whether pt can be control on solely oral pain and agitation medications. So far, we have not been able to achieve this in hospital. 2. Dr. Gomez counseled family this afternoon that in her opinion it would be hard to manage his agitation and pain at home. acknowledges that home care would be burdensome for her and family, but is feeling guilty because earlier this week Cordell had asked her to get him home. He has two young daughters at home, and there is a lot of family concern around how the children (4 and 9 yo daughters) would react to a home . Marianne asks for 24 hours to think about this. She will talk to Dr. Gomez on 01/04 about whether to keep trying for the option of taking Jimmy home vs. in hospital. Spirituality: Pt and Marianne not interested. Magdy and other family are involved in organized religious and comforted by regular prayer. DPOA/Advanced Directives/POLST: DPOAHC is Marianne, his . Problems: End of Life Preferences Reviewed with family/Marianne his . At this point it would be futile and harmful to code him if something happened. They accept this and code status is changed to DNR/DNI Will need POLST done before d/c Goals of [facility] with hospice when hospitalist deems possible. Disposition Goal of home with hospice assist. Resuscitation Status Resuscitation Status: DNR/DNI:Do Not Resuscitate/Intubate POLST Updates/Changes Artificially Admin Nutrition: No Artifical Nutrition by Tube POLST Discussed with: Health Care Agent (DPOAHC) . Advanced Care Planning Address: Comfort care Pain: Severe Symptom management: Anxiety, Agitation Total time 100 minutes; >50% face to face with patient and/or family, providing counselling regarding plans and recommendations, and in care coordination with his/her medical teams. Palliative Brief Note Date of Service January 03, 2017 . 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 Then he recently had b/l nephrostomy tubes placed at [facility] due to obstructive uropathy. He was admitted 12/31 for severe intractable scrotal pain and swelling and green penile discharge. He has been followed by Dr. Elias who advised against further chemo due to debility as well as the patient 's difficulty with tolerating the burden of chemo-appts, infusions, N,V etc. Hospital Course: On day of admission 12/31, Mr. Cook and his family met with Palliative Care's Dr. Digna Horner and finally decided to accept hospice at home, once his pain is in better control. He was started on IV hydromorphone drip and oral methadone with intent to convert over to all oral medications for home use. Unfortunately, he has had recurrent agitation and needed multiple oral medications for this, which were not effective. After discussion with his family , he was tentatively placed on an ativan infusion (0.5mg/hr) for 24 hours on during which he was very calm and then somewhat somnolent. His ativan was stopped on 01/02 and he then woke up and became more agitated within just a few hours of holding it. It was restarted 01/02 evening and he became so sedated he was no longer taking any pills by mouth. Ativan was off 5 hours from 7a.m.- 1250pm. Restarted with some agitation. Then were stopped again this afternoon around 1pm after discussion with family and Marianne. They would like him a little more awake to talk with family and say some goodbyes. Dr. Gomez counseled family that in her opinion it would be hard to manage his agitation and pain at home. agrees with this, but is feeling guilty because earlier this week he had asked her to get him home. He has two young daughters at home, and there is a lot of family concern around how the children would react to a home . Subjective: He could not swallow any oral meds this morning. He opens his eyes spontaneously, but is nonverbal. Exam: General: markedly cachectic HEENT: Mucous Membranes dry Heart: Regular Rate/Rhythm, S1,S2. Lungs: Diminished with shallow respirations Abdomen: firm distended lower abdomen, hard palpable mass, bowel sounds in all 4 quadrants : marked scrotal swelling Ext: moderate LLE edema MS: bedbound, needs 2+ people to turn him in bed. Mental Status: sedated Maty Gomez MD January 03, 2017 11:00 was no longer taking any pills by mouth. Ativan was off 5 hours from 7a.m.- 1250pm. Restarted with some agitation. Then were stopped again this afternoon around 1pm after discussion with family and Marianne. They would like him a little more awake to talk with family and say some goodbyes. Dr. Gomez counseled family that in her opinion it would be hard to manage his agitation and pain at home. agrees with this, but is feeling guilty because earlier this week he had asked her to get him home. He has two young daughters at home, and there is a lot of family concern around how the children would react to a home . Subjective: He could not swallow any oral meds this morning. He opens his eyes spontaneously, but is nonverbal. Exam: General: markedly cachectic HEENT: Mucous Membranes dry Heart: Regular Rate/Rhythm, S1,S2. Lungs: Diminished with shallow respirations Abdomen: firm distended lower abdomen, hard palpable mass, bowel sounds in all 4 quadrants : marked scrotal swelling Ext: moderate LLE edema MS: bedbound, needs 2+ people to turn him in bed. Mental Status: sedated Maty Gomez MD January 03, 2017 11:00
[2017-01-03] MEDS: Furosemide 10 mg/mL 4 mL Inj IVPUSH SCH (12:42)
[2017-01-03] MEDS ORDERED: LORazepam Oral Conc 2 mg/mL 30 mL Solution PO PRN (13:10)
[2017-01-03] MEDS: 0.9% Sodium Chloride 250 ML IV SCH (15:08)
--- NOTE | 2017-01-03 15:24 | PCM.PNMED ---
Subjective Date of Service January 03, 2017 Subjective ROS limited 2ndry to patient quite sedated on current pain medication and Ativan. Exam Vital Signs Vital Sign - Last Date Time Temp Pulse Resp B/P Pulse Ox O2 Delivery O2 Flow Rate FiO2 01/03/17 05:07 16 95 01/03/17 04:35 36.6 117 148/87 Room Air Intake and Output 01/02/17 01/02/17 01/03/17 Cumulative From/Thru 15:00 23:00 07:00 12/30/16 22:20 - 01/03/17 06:49 Intake Total 300 ml 509 ml 4529 ml Output Total 450 ml 675 ml 2692 ml Balance -150 ml -166 ml 1837 ml Intake Oral 300 ml 0 ml 2036 ml IV Total 509 ml 2493 ml Output Urine Total 450 ml 675 ml 2635 ml Stool Total 57 ml # Voids 7 # Bowel Movements 5 Exam Full exam deferred 2ndry to patient being comfort care at this time. He appears to be calm and in no acute discomfort General: No Acute Distress IVs and Medications Medications Reviewed: Medications were reviewed in detail Lab and Diagnostics Result Diagram: 12/30/16223012/30/162230 Assessment & Plan 56-year-old male history of ulcerative colitis, stage IV rectal adenocarcinoma with diverting colostomy, Uropathy with b/l nephrostomy tubes, and LLE DVT who presented to the ED for severe intractable scrotal pain and swelling. # Intractable scrotal pain and swelling, present on admission. Active. - Appreciate palliative care consult. Will followup with recommendations - Continue to titrate pain medications with comfort as goal - Further transitioning of pain meds to oral per palliative care # Leukocytosis, present on admission. Active. - Likely related to steroid use. Possible infection as well - Cultures negative to date - Previous MRSA negative. - Patient was on ciprofloxacin and Flagyl by mouth prior to admission, stopped now per palliative care # Scrotal Edema, Present on admission. Active. - Scrotal support. - The patient had a scrotal ultrasound done on previous visit with: No remarkable findings per report. - Encouraged elevating scrotum to reduce swelling by using a towel. # Rectal Adenocarcinoma, stage IV, present on admission. Active. - Discussed with his oncologist, Dr. Elias, on 01/01. Per discussion patient' s prognosis is expected to less than 6 months and at most one year. Dr. Elias supports the Hospice option at this time. # Chronic normocytic Anemia, present on admission. Active. - Patient is transfused with 2 units of blood 12/13, posttransfusion H&H came up appropriately # Goals of care: - Appreciate palliative care consult. Will followup with recommendations - Patient transitioned to full comfort care now with possible goal of going home with hospice Dispo: 2-3 days pending adequate pain and symptom control Resuscitation Status: DNR/DNI:Do Not Resuscitate/Intubate Ravi Castillo January 03, 2017 15:24
[2017-01-03] MEDS ORDERED: Methadone 10 mg/mL Oral Concentrate PO ONE (16:55)
[2017-01-03] MEDS: Methadone 10 mg/mL 30 mL Oral Concentration PO SCH (16:55)
--- NOTE | 2017-01-03 17:16 | NUR ---
spiritual care: family emotional support, listening to family as they shared updates about pt's anticipated .
[2017-01-03 17:40] VITALS: BP 154/90; PULSE 121; RESP 20; O2SAT 93
[2017-01-03 18:43] VITALS: RESP 12
--- NOTE | 2017-01-03 18:45 | NUR ---
Comfort and pain: Patient has been dozing off and on today. The IV Ativan drip was started and stopped and started again at the patients family request for his comfort and ability to visit with his family. Patient continues to be on continuous Hydromorphone MATH INTERVENTIONIST with adequate pain control. Patient was also started on oral liquid methadone , which he was able to drink with sips of apple juice. Patients family and friends remained at his bedside throughout the day. Palliative care is managing care of this patient.
[2017-01-03 21:01] VITALS: BP 156/94; PULSE 121; RESP 14; O2SAT 93
[2017-01-03 23:34] VITALS: RESP 14; O2SAT 95
[2017-01-04] VITALS (10 sets, daily range): BP systolic 149–154; BP diastolic 93–94; PULSE 122–131; RESP 14–20; O2SAT 90–94
[2017-01-04] MEDS: Sodium Chloride LOK Flush 10 mL Syringe IVFLUSH SCH ×3 (00:30→15:48)
[2017-01-04] MEDS: HYDROmorphone PCA 0.2 mg/mL 30 mL Inj IV PRN ×4 (01:37→20:30)
--- NOTE | 2017-01-04 02:41 | NUR ---
Comfort Pt restless at beginning of shift. Increased Ativan drip to 1mg/hr, effective able to rest throughout the night with no s/sx of pain or distress. RR14. Frequent turning for comfort. Hourly rounding in place. Call light within reach. Son at bedside. Care continues
[2017-01-04] MEDS: Furosemide 10 mg/mL 4 mL Inj IVPUSH SCH (08:46)
--- NOTE | 2017-01-04 08:55 | PCM.PALLBR ---
Palliative Care Recommendation Summary of palliative recommendations: 01/04/17 Sx management plan: Pain: 1. Restarted oral methadone 15mg BID in hopes that pt would be awake enough to take pills while ativan infusion is off. 2. Continue Hydromorphone infusion with AUTOMATED EQUIPMENT ENGINEER TECHNICIAN button (which pt is not pushing) . Anxiety: Ativan infusion stopped at 830a.m. to reevaluate his anxiety/ agitation off medication. Hydromorphone infusion is still running for pain prevention. On return rounds at 1230pm, pt has remained calm, with no signs of anxiety or agitation. 1. Decision made to stop ativan infusion and use only prn ativan (1mg IV q 1 hour as needed) for breaththrough anxiety/agitation. Discussed plan with RN and family. Urinary urgency: B&O supp did seem to help as per nsg, but have not been given since 01/01. Order still in place, use per RN judgment. Dr. Gomez rounded several times in patient's room, speaking to family members and RN. She left a message with Marianne on their home answering machine at home. Marianne arrived 1pm and Dr. Gomez spoke to her again re: home with hospice. Marianne wants to try to take her home on Sunday 01/[address] Gomez made contact with Dr. Ale Casillas to make sure IV hydromorphone can be continued by hospice agency for pt's comfort. 01/03 Family Conference: present were Dr. Gomez, Dr. Delaney, Marianne, brother Magdy, sisters Jacob and Gabi and Jimmy's mother Miguel. All family members respectful and tender towards one another. 1. Hospice can open care of patient at his home on SatJanuary 07, but unclear whether pt can be control on solely oral pain and agitation medications. So far , we have not been able to achieve this in hospital. 2. Dr. Gomez counseled family this afternoon that in her opinion it would be hard to manage his agitation and pain at home. acknowledges that home care would be burdensome for her and family, but is feeling guilty because earlier this week Cordell had asked her to get him home. He has two young daughters at home, and there is a lot of family concern around how the children (4 and 9 yo daughters) would react to a home . Marianne asks for 24 hours to think about this. She will talk to Dr. Gomez on 01/04 about whether to keep trying for the option of taking Jimmy home vs. in hospital. Prognosis: Likely 3-4 days. Spirituality: Pt and Marianne not interested. Magdy and other family are involved in organized tenriism and comforted by regular prayer. DPOA/Advanced Directives/POLST: DPOAHC is Marianne, his . Disposition: Still unclear at this time. Please review Case Management notes. Problems: End of Life Preferences Reviewed with family/Marianne his . At this point it would be futile and harmful to code him if something happened. They accept this and code status is changed to DNR/DNI Will need POLST done before d/c Goals of [facility] with hospice when hospitalist deems possible. Disposition Goal of home with hospice assist. Resuscitation Status Resuscitation Status: DNR/DNI:Do Not Resuscitate/Intubate POLST Updates/Changes Artificially Admin Nutrition: No Artifical Nutrition by Tube POLST Discussed with: Health Care Agent (DPOAHC) Total time 65 minutes; >50% face to face with patient and/or family, providing counselling regarding plans and recommendations, and in care coordination with his/her medical teams. I also spent an additional [ ] minutes counseling for advanced care planning with the patient/the patients family/the surrogate decision maker. Palliative Brief Note Date of Service January 04, 2017 . Patient Identification: Mr. 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. Then he recently had b/l nephrostomy tubes placed at [facility] due to obstructive uropathy. He was admitted 12/31 for severe intractable scrotal pain and swelling and green penile discharge. He has been followed by Dr. Elias who advised against further chemo due to debility as well as the patient 's difficulty with tolerating the burden of chemo-appts, infusions, N,V etc. Hospital Course: On day of admission 12/31, Mr. Cook and his family met with Palliative Care's Dr. Digna Horner and finally decided to accept hospice at home, once his pain is in better control. He was started on IV hydromorphone drip and oral methadone with intent to convert over to all oral medications for home use. Unfortunately, he has had recurrent agitation and needed multiple oral medications for this, which were not effective. After discussion with his family , he was tentatively placed on an ativan infusion (0.5mg/hr) for 24 hours on during which he was very calm and then somewhat somnolent. His ativan was stopped on 01/02 and he then woke up and became more agitated within just a few hours of holding it. It was restarted 01/02 evening and he became so sedated he was no longer taking any pills by mouth. Ativan was off 5 hours from 7a.m.- 1250pm. Restarted with some agitation. Then were stopped again this afternoon around 1pm after discussion with family and Marianne. They would like him a little more awake to talk with family and say some goodbyes. On 01/03, Dr. Gomez counseled family that in her opinion it would be hard to manage his agitation and pain at home. agrees with this, but is feeling guilty because earlier this week he had asked her to get him home. He has two young daughters at home, and there is a lot of family concern around how the children would react to a home . Overnight pt became more agitated and needed ativan infusion increased from 0.5mg/hr to 1mg/hr. At 0830a.m. pt somnelent on morning rounds and Dr. Gomez asked for ativan gtt to be put on hold, so we re-evaluate him in a few hours. Subjective: He could not swallow any oral meds this morning. His eyes do not open. He is nonverbal. There are no nonverbal signs of pain/distress. Exam: General: markedly cachectic HEENT: Mucous Membranes dry Heart: Regular Rate/Rhythm, S1,S2. Lungs: Diminished with shallow respirations Abdomen: firm distended lower abdomen, hard palpable mass, bowel sounds in all 4 quadrants : marked scrotal swelling Ext: moderate LLE edema MS: bedbound, needs 2+ people to turn him in bed. Mental Status: sedated Maty Gomez MD January 04, 2017 08:55
--- NOTE | 2017-01-04 09:56 | NUR ---
Palliative care note D/A: Case discussed today in PC rounds. May need to plan for dc for pt. Phone call to [facility] to confirm opening aishaAlessia Светлана at [facility] indicates that pt is on list for open on Saturday01/07/17. P: Palliative care to follow. Lucita ATYLOR CCM Addendum: 01/04/17 at 1007 by ALEX SERRATO PC Note amendment D/A: Additional information from PC rounds this am is that Palliative Care strongly indicates that should pt become able to be discharged, will need assistance of hospice, regardless of destination. Pt is highly complex, end of life medication needs, requiring assistance of hospice level of expertise. Options for consideration for dc, if needed, could be Hospice House in [facility], home with hospice or SNF with hospice. Will discuss with [facility]. P: Palliative care to follow. Lucita TAYLOR [facility] Addendum: 01/04/17 at 1318 by ALEX SERRATO PC note amendment D/A: Dr. Gomez able to meet with pt and his spouse Sherron. She indicates she would like to take him home on Saturday, with support of [facility]. Above discussed with Carlee BANUELOS, gabrielp. Dr. Gomez to discuss pt needs with Dr. Casillas at [facility]. left for Светлана at [facility] in regards to plan and to ask her to please coordinate with case management. P: Palliative care to continue to follow. Lucita TAYLOR, CCM
[2017-01-04] MEDS: Methadone 10 mg/mL 30 mL Oral Concentration PO SCH ×3 (11:58→22:41)
[2017-01-04] MEDS ORDERED: Methadone 10 mg/mL Oral Concentrate PO ONE ×2 (11:58→22:41)
--- NOTE | 2017-01-04 12:06 | NUR ---
Methadone late Patient was on Ativan drip this morning. Palliative care MD asked for Ativan drip to be stopped to allow patient to wake up a little bit. Patient Ativan drip was stopped at 0830 and patient was unarousable at the time. Methadone solution was ordered for 0830, but was administered at 1200 due to patient not being awake enough to swallow safely. Patient did swallow a weak swallow when medication was administered.
--- NOTE | 2017-01-04 12:08 | NUR ---
Morning activity Patient was unarousable this morning. Patient Ativan drip was stopped at 0830 per palliative care doctor request. About an hour after Ativan drip was stopped, patient started to become more awake. Patient would try to talk, but no voice would come out. Oral care was given/offered every 2 hours but patient refused several times by shaking his head and mouthing no. Patient was unable to take Gabapentin due to not being able to safely swallow the medication. Patient was able to swallow oral methadone solution, but weak swallow was observed. Patient has been offered food and drinks today, but has been unable to swallow them. Patient was given bed bath with a full set of linen change. Nephrostomy tubes are draining blessing urine with pink tinge at times with 300cc output by 1200. Patient has not had any bowel movement in colostomy. Patient drain is draining minimal sanguinous fluid. Patient continues on CLAY MIXER Dilaudid and at this time is showing no signs of discomfort except when he was turned for linen change. Patient family in room and friends have been in to visit as well.
--- NOTE | 2017-01-04 13:01 | NUR ---
spiritual care: follow-family conversational support and listening to family members as they continue to plan, process and grieve. written resources given. spiritism visitor declined for today
--- NOTE | 2017-01-04 14:06 | PCM.PNMED ---
Subjective Date of Service January 04, 2017 Subjective ROS limited 2ndry to patient quite sedated on current pain medication Exam Vital Signs Vital Sign - Last Date Time Temp Pulse Resp B/P Pulse Ox O2 Delivery O2 Flow Rate FiO2 01/04/17 13:36 14 92 01/04/17 05:19 37.3 122 149/93 Room Air Intake and Output 01/03/17 01/03/17 01/04/17 Cumulative From/Thru 15:00 23:00 07:00 12/30/16 22:20 - 01/04/17 06:13 Intake Total 50 ml 485 ml 5064 ml Output Total 1160 ml 1220 ml 5072 ml Balance -1110 ml -735 ml -8 ml Intake Oral 50 ml 0 ml 2086 ml IV Total 485 ml 2978 ml Output Urine Total 1160 ml 1220 ml 5015 ml Stool Total 57 ml # Voids 7 # Bowel Movements 0 5 Exam Full exam deferred 2ndry to patient being comfort care at this time. He appears to be calm and in no acute discomfort General: No Acute Distress IVs and Medications Medications Reviewed: Medications were reviewed in detail Lab and Diagnostics Result Diagram: 12/30/16223012/30/162230 Assessment & Plan 56-year-old male history of ulcerative colitis, stage IV rectal adenocarcinoma with diverting colostomy, Uropathy with b/l nephrostomy tubes, and LLE DVT who presented to the ED for severe intractable scrotal pain and swelling. # Intractable scrotal pain and swelling, present on admission. Active. - Appreciate palliative care consult. Will followup with recommendations - Continue to titrate pain medications with comfort as goal - Further transitioning of pain meds to oral per palliative care # Leukocytosis, present on admission. Active. - Likely related to steroid use. Possible infection as well - Cultures negative to date - Previous MRSA negative. - Patient was on ciprofloxacin and Flagyl by mouth prior to admission, stopped now per palliative care # Scrotal Edema, Present on admission. Active. - Scrotal support. - The patient had a scrotal ultrasound done on previous visit with: No remarkable findings per report. - Encouraged elevating scrotum to reduce swelling by using a towel. # Rectal Adenocarcinoma, stage IV, present on admission. Active. - Discussed with his oncologist, Dr. Elias, on 01/01. Per discussion patient' s prognosis is expected to less than 6 months and at most one year. Dr. Elias supports the Hospice option at this time. # Chronic normocytic Anemia, present on admission. Active. - Patient is transfused with 2 units of blood 12/13, posttransfusion H&H came up appropriately # Goals of care: - Appreciate palliative care consult. Will followup with recommendations - Patient transitioned to full comfort care now with possible goal of going home with hospice Dispo: 2-3 days pending adequate pain and symptom control Resuscitation Status: DNR/DNI:Do Not Resuscitate/Intubate Time spent 25 minutes of face to face with family answering multiple questions and concerns. Ravi Castillo January 04, 2017 14:06
[2017-01-04] MEDS: 0.9% Sodium Chloride 250 ML IV SCH (14:47)
--- NOTE | 2017-01-04 16:28 | NUR ---
Social Work: Continued d/c planning Data: Pt is on day 4 of hospitalization. EMR reviewed. SERVICE DELIVERY MANAGER called [facility] who states they have pt scheduled to open with them at pt's home on Saturday between 2 and 3 pm. SERVICE DELIVERY MANAGER notified by Palliative MD that pt's family is considering SNF with hospice. SERVICE DELIVERY MANAGER will follow up with them on 01/05. LAKISHA Helms
--- NOTE | 2017-01-04 18:20 | NUR ---
Family emptied nephrostomy x2 today. Per ARAM Dickey I emtered those in as x2 output. RN asked me to have the family alert us when the bags need to be emptied., family agreed they would call us.
--- NOTE | 2017-01-04 23:18 | NUR ---
Methadone Methadone sent up from pharmacy, 20 mg sent, 15 mg ordered. Wasted 5mg with Lorena Moore. Addendum: 01/05/17 at 0457 by NELLY MOORE RN Verified 5mg Methadone liquid wasted with Margie Hampton RN.
[2017-01-05] VITALS (7 sets, daily range): BP systolic 138–143; BP diastolic 90–96; PULSE 128–145; RESP 10–16; O2SAT 88–91
[2017-01-05] MEDS: Sodium Chloride LOK Flush 10 mL Syringe IVFLUSH SCH ×3 (00:54→23:39)
[2017-01-05] MEDS: HYDROmorphone PCA 0.2 mg/mL 30 mL Inj IV PRN ×4 (02:49→20:07)
--- NOTE | 2017-01-05 04:34 | NUR ---
lorazepam IV lorazepam DC, wasted 100 mg with Lorena Kelly RN.
[2017-01-05] MEDS: Furosemide 10 mg/mL 4 mL Inj IVPUSH SCH (09:17)
[2017-01-05] MEDS: Methadone 10 mg/mL 30 mL Oral Concentration PO SCH ×2 (09:58→20:16)
[2017-01-05] MEDS ORDERED: Methadone 10 mg/mL Oral Concentrate PO ONE ×2 (09:58→20:16)
--- NOTE | 2017-01-05 12:53 | PCM.PNMED ---
Subjective Date of Service January 05, 2017 Subjective ROS limited 2ndry to patient quite sedated on current pain medication Exam Vital Signs Vital Sign - Last Date Time Temp Pulse Resp B/P Pulse Ox O2 Delivery O2 Flow Rate FiO2 01/05/17 05:34 36.8 128 14 143/96 88 Room Air Intake and Output 01/04/17 01/04/17 01/05/17 Cumulative From/Thru 15:00 23:00 07:00 12/30/16 22:20 - 01/05/17 06:05 Intake Total 249 ml 0 ml 5313 ml Output Total 500 ml 400 ml 5972 ml Balance -251 ml -400 ml -659 ml Intake Oral 0 ml 0 ml 2086 ml IV Total 249 ml 3227 ml Output Urine Total 500 ml 400 ml 5915 ml Stool Total 57 ml # Voids 2 9 # Bowel Movements 0 5 Exam Full exam deferred 2ndry to patient being comfort care at this time. He appears to be calm and in no acute discomfort General: No Acute Distress IVs and Medications Medications Reviewed: Medications were reviewed in detail Lab and Diagnostics Result Diagram: 12/30/16223012/30/162230 Assessment & Plan 56-year-old male history of ulcerative colitis, stage IV rectal adenocarcinoma with diverting colostomy, Uropathy with b/l nephrostomy tubes, and LLE DVT who presented to the ED for severe intractable scrotal pain and swelling. # Intractable scrotal pain and swelling, present on admission. Active. - Appreciate palliative care consult. Will followup with recommendations - Continue to titrate pain medications with comfort as goal - Further transitioning of pain meds to oral per palliative care - Continue with diuresis with Lasix - Continue with both IV Dilaudid and Oral methadone for now - Patient's family note that patient seems comfortable on current regimen of medications and ask not to change his medications for now # Leukocytosis, present on admission. Active. - Likely related to steroid use. Possible infection as well - Cultures negative to date - Previous MRSA negative. - Patient was on ciprofloxacin and Flagyl by mouth prior to admission, stopped now per palliative care # Rectal Adenocarcinoma, stage IV, present on admission. Active. - Discussed with his oncologist, Dr. Elias, on 01/01. Per discussion patient' s prognosis is expected to less than 6 months and at most one year. Dr. Elias supports the Hospice option at this time. # Chronic normocytic Anemia, present on admission. Active. - Patient is transfused with 2 units of blood 12/13, posttransfusion H&H came up appropriately # Goals of care: - Appreciate palliative care consult. Will followup with recommendations - Patient transitioned to full comfort care with possible goal of going home with hospice Dispo: 2-3 days pending adequate pain and symptom control Resuscitation Status: DNR/DNI:Do Not Resuscitate/Intubate Ravi Castillo January 05, 2017 12:52
--- NOTE | 2017-01-05 16:24 | NUR ---
Social Work: Continued d/c planning Data: ALLERGY AND IMMUNOLOGY CHIEF spoke with Palliative MD regarding d/c plan for pt. Palliative MD requested ALLERGY AND IMMUNOLOGY CHIEF explained SNF along side of hospice options with family. ALLERGY AND IMMUNOLOGY CHIEF spoke with pt's and mother. ALLERGY AND IMMUNOLOGY CHIEF explained that SNF would be private pay and hospice would be covered by insurance, and also explained that [facility] is an option to consider. Pt's spouse states she wants to stick with the plan of pt discharging home on Saturday if medically able to do so with hospice. ALLERGY AND IMMUNOLOGY CHIEF will discuss with MD on 01/06. Plan: Pt will either go home on Saturday with hospice to open between 2-3pm or pass here. ALLERGY AND IMMUNOLOGY CHIEF will continue to follow. LAKISHA Helms
--- NOTE | 2017-01-05 18:42 | NUR ---
Comfort Patient continues to be on CUSTOMER SERVICE REPRESENTATIVE. CUSTOMER SERVICE REPRESENTATIVE button used prior to turning or cares. Patient now NPO per this RN's judgment due to unsafe swallow. Family at bedside informed and agrees to plan. Staff continue to do oral care for comfort.
[2017-01-06] VITALS (7 sets, daily range): PULSE 138; RESP 15–20; O2SAT 80–96
[2017-01-06] MEDS: 0.9% Sodium Chloride 250 ML IV SCH ×2 (01:37→15:08)
[2017-01-06] MEDS: HYDROmorphone PCA 0.2 mg/mL 30 mL Inj IV PRN ×4 (01:37→18:18)
[2017-01-06] MEDS: Sodium Chloride LOK Flush 10 mL Syringe IVFLUSH SCH ×4 (01:38→23:07)
[2017-01-06] MEDS ORDERED: Methadone 10 mg/mL Oral Concentrate PO ONE ×2 (08:47→19:51)
[2017-01-06] MEDS: Methadone 10 mg/mL 30 mL Oral Concentration PO SCH ×2 (08:47→19:51)
[2017-01-06] MEDS: Furosemide 10 mg/mL 4 mL Inj IVPUSH SCH (08:48)
--- NOTE | 2017-01-06 11:18 | NUR ---
Drain sites Copious amount of drainage noted from bilateral drain sites. Drsgs both changed as well as linen. Pt tolerated well.
--- NOTE | 2017-01-06 11:58 | NUR ---
Social Work: Continued d/c planning Data: Pt is on day 6 of hospitalization. EMR reviewed. Pt discussed in rounds. MD states that pt likely to pass here in the next 48 hours. MD requested CIGARETTE MACHINE OPERATOR delay hospice opening date. CIGARETTE MACHINE OPERATOR called [facility] and requested pt's opening date be cancelled and we will update hospice daily if they may be needed. CIGARETTE MACHINE OPERATOR will continue to follow. Assessment: Pt with caregiving at baseline. Plan: Pt will likely pass here in the next 48 hours per MD. CIGARETTE MACHINE OPERATOR will daily update hospice on pt status and if hospice may be appropriate again. CIGARETTE MACHINE OPERATOR will continue to follow. LAKISHA Helms
--- NOTE | 2017-01-06 14:41 | PCM.PNMED ---
Subjective Date of Service January 06, 2017 Subjective ROS limited 2ndry to patient quite sedated on current pain medication Exam Vital Signs Vital Sign - Last Date Time Temp Pulse Resp B/P Pulse Ox O2 Delivery O2 Flow Rate FiO2 01/06/17 11:40 16 96 01/05/17 20:19 38.7 145 138/90 Room Air Intake and Output 01/05/17 01/05/17 01/06/17 Cumulative From/Thru 15:00 23:00 07:00 12/30/16 22:20 - 01/06/17 06:20 Intake Total 490 ml 0 ml 5803 ml Output Total 300 ml 650 ml 150 ml 7072 ml Balance -300 ml -160 ml -150 ml -1269 ml Intake Oral 0 ml 2086 ml IV Total 490 ml 3717 ml Output Urine Total 650 ml 150 ml 6715 ml Stool Total 57 ml Drainage Total 300 ml 300 ml # Voids 9 # Bowel Movements 0 5 Exam Full exam deferred 2ndry to patient being comfort care at this time. He appears to be calm and in no acute discomfort General: No Acute Distress IVs and Medications Medications Reviewed: Medications were reviewed in detail Assessment & Plan 56-year-old male history of ulcerative colitis, stage IV rectal adenocarcinoma with diverting colostomy, Uropathy with b/l nephrostomy tubes, and LLE DVT who presented to the ED for severe intractable scrotal pain and swelling. # Intractable scrotal pain and swelling, present on admission. Active. - Appreciate palliative care consult. Will followup with recommendations - Continue to titrate pain medications with comfort as goal - Further transitioning of pain meds to oral per palliative care - Continue with diuresis with Lasix - Continue with both IV Dilaudid and Oral methadone for now - Patient's family note that patient seems comfortable on current regimen of medications and ask not to change his medications for now # Leukocytosis, present on admission. Active. - Likely related to steroid use. Possible infection as well - Cultures negative to date - Previous MRSA negative. - Patient was on ciprofloxacin and Flagyl by mouth prior to admission, stopped now per palliative care # Rectal Adenocarcinoma, stage IV, present on admission. Active. - Discussed with his oncologist, Dr. Elias, on 01/01. Per discussion patient' s prognosis is expected to less than 6 months and at most one year. Dr. Elias supports the Hospice option at this time. # Chronic normocytic Anemia, present on admission. Active. - Patient is transfused with 2 units of blood 12/13, posttransfusion H&H came up appropriately # Goals of care: - Appreciate palliative care consult. Will followup with recommendations - Patient transitioned to full comfort care with possible goal of going home with hospice Dispo: 1-2 days pending adequate pain and symptom control Resuscitation Status: DNR/DNI:Do Not Resuscitate/Intubate Ravi Castillo January 06, 2017 14:41
--- NOTE | 2017-01-06 18:29 | NUR ---
Comfort Care TECHNICAL SPECIALIST continues with basal rate. RR 15. Turning for comfort. Mouth care provided. Frequent rounding in place and beverage cart provided. Family reports pt appears comfortable and is comfortable with plan of care at this time. Plan is d/c home with hospice.
[2017-01-07] MEDS: HYDROmorphone PCA 0.2 mg/mL 30 mL Inj IV PRN ×2 (00:01→05:29)
[2017-01-07] MEDS: 0.9% Sodium Chloride 250 ML IV SCH (00:36)
[2017-01-07 00:50] VITALS: RESP 18
--- NOTE | 2017-01-07 05:07 | NUR ---
Patient condition Patient has remained sedated through shift. RR 16-22 with assessment, deep and regular breaths at beginning of shift, but they have become more shallow and slightly irregular. Oral and skin care provided. Patient is very warm to touch, HR 138 when checked. Slight gurgles heard with breathing, scopalamine patch behind left ear. Dilaudid ELECTRONIC TRANSACTION IMPLEMENTER is infusing with continuous rate of 1 mg/hr. 100 ml urine output, no new drainage from abscess drain, minimal colostomy output. Family in room, slept through most of the night. Very frequent monitoring in place. Patient is on a P500 bed for increased comfort.
[2017-01-07 05:36] VITALS: RESP 16
--- NOTE | 2017-01-07 06:20 | NUR ---
Patient condition Patient's respiration rate is 12, irregular with up to 15 second pauses. Family in room, woken up with report of change in breathing pattern. Encouraged family to call other members that are not present and said that the change in breathing can signify that he is close to passing, although it is uncertain. Patient non-responsive. Dilaudid continues to infuse at 1 mg/hr.
[2017-01-07] MEDS: Sodium Chloride LOK Flush 10 mL Syringe IVFLUSH SCH (08:15)
[2017-01-07] MEDS: Furosemide 10 mg/mL 4 mL Inj IVPUSH SCH (08:24)
[2017-01-07] MEDS: Methadone 10 mg/mL 30 mL Oral Concentration PO SCH (08:24)
--- NOTE | 2017-01-07 08:40 | NUR ---
Expiration Family at bedside, sts "I think he's gone". This RN auscultated chest, no heart beat found. Confirmed with smelter charger Isabel Romero. notified. Family at bedside, Addendum: 01/07/17 at 1218 by MISBAH ARIZMENDI RN Family left bedside, gold colored chain and crucifix removed by this RN, send home with Marianne (). Bag of belongings gathered by family, taken from [facility] by Marianne. Port-a-cath access removed, lateral drain and bag removed. Nephrostomy bag removed, drains remain in place. Eyes moistened and taped, head slightly elevated for possible cornea donation. [facility] to follow up after remains are in the [facility]. Paperwork completed, faxed to nursing coal handling supervisor. Face sheet and additional paperwork accompanied remains. Security transported remains to [facility]
--- NOTE | 2017-01-07 08:53 | NUR ---
Social Work-discharge: Data& assessment:EMR reviewed. SW updated by battery recharger that pt has passed this morning. SW updated Hospice. No other SW needs identified. Plan:Pt has today, SW updated by edging machine operator. No other SW needs identified. LAKISHA Pichardo
--- NOTE | 2017-01-07 10:29 | PCM.DC.MEX ---
Discharge Summary Date of Service January 07, 2017 Dates of Hospitalization Date of Hospital Admission December 31, 2016 at 02:10 Date of Expiration: January 07, 2017 Time of Expiration: 08:40 Providers: Admitting Physician: Alfreda Castro DO Primary Care Physician: Tessa Anderosn MD Attending Physician: Alfreda Castro DO Diagnosis at Time of # Patient has # Rectal Adenocarcinoma, stage IV, present on admission. # Intractable scrotal pain and swelling, present on admission. # Leukocytosis, present on admission. - Likely related to steroid use. Possible infection as well # Chronic normocytic Anemia, present on admission. Active. Consultations 1. Palliative care Brief History As noted in H&P by Dr. Pérez: Patient is a 56-year-old male history of ulcerative colitis, stage IV rectal adenocarcinoma with diverting colostomy, recent stay at [facility] for uropathy with b/l nephrostomy tubes placed, and LLE DVT who presented to the ED for severe intractable scrotal pain and swelling. Attempt at surgical management thwarted by extent of tumor now with obstructive uropathy requiring diversion and progressive pain and swelling LLE and scrotum. Pain management has been an issue with attempt at d/cing him with Oxycontin 90 mg TID and hydromorphone 8 mg 2-3 tabs Q 3 hour PRN. His brother describes - first difficulty getting the oxycontin then unclear on how he takes his meds. In a 4 hour stretch of his brother being there over the weekend he took pills ( unknown what) first 4 tabs then 1-2 hours later another 2 and then again another 2 tabs. He has had poor PO intake and increasing agitation and restlessness. He has had increasing confusion, trying to pull out his catheters/ IV with a goal to "go home" since here. He has known progressive stage 4 rectal CA and is not able to manage any further chemo.He has declined hospice because he "can believe I am dying". He has intractable pain with urinary urgency and severe pain at the end of attempts to urinate. He has had recent scant rectal bleeding. He has a baseline diverting colostomy. He has been followed by Dr. Elias who advised against further chemo due to debility as well as the patient's difficulty with tolerating the burden of chemo -appts, infusions, N,V etc. Pt and Marianne are hoping for goal of "holistic" approach. He has lost 10 kg in the last few weeks. He and his SO Marianne last week. They had been partners for about 20 yrs. Hospital Course # Intractable scrotal pain and swelling, present on admission. - Appreciate palliative care consult. - Continued to titrate pain medications with comfort as goal - Continued diuresis with Lasix with noted improvement in the scrotal swelling. - Continue with both IV Dilaudid and Oral methadone # Leukocytosis, present on admission. - Likely related to steroid use. Possible infection as well - Cultures negative - Previous MRSA negative. - Patient was on ciprofloxacin and Flagyl by mouth prior to admission, stopped per palliative care # Rectal Adenocarcinoma, stage IV, present on admission. - Discussed with his oncologist, Dr. Elias, on 01/01. Per discussion patient' s prognosis was deemed less than 6 months and at most one year. Dr. Elias supported the Hospice option at this time. # Chronic normocytic Anemia, present on admission. - Patient was transfused with 2 units of blood 12/13 # Goals of care: - Palliative care consulted and patient was treated with comfort care protocol Exam Test 12/30/16 22:31 12/31/16 04:15 12/31/16 10:50 White Blood Count 16.9th/mm3 (3.8-10.1) Red Blood Count 3.35mil/mm3 (4.40-5.80) Hemoglobin 9.8g/dL (13.8-17.2) Hematocrit 31.5% (41.0-50.0) Mean Corpuscular Volume 94.0fL (81-100) Mean Corpuscular Hemoglobin 29.3pg (27.0-35.0) Mean Corpuscular Hemoglobin Concent 31.1% (32.0-37.0) Red Cell Distribution Width 15.6% (12.3-15.4) Platelet Count 805bil/L (150-400) Neutrophils (%) (Auto) 83.7% (40-74) Lymphocytes (%) (Auto) 4.4% (14-46) Monocytes (%) (Auto) 10.4% (4-12) Eosinophils (%) (Auto) 0.9% (0-5) Basophils (%) (Auto) 0.3% (0-3) Hold Purple Top Tube Received (Received) Hold Blue Top Tube Received (Received) Sodium Level 135mEq/L (134-144) Potassium Level 3.9mEq/L (3.5-5.2) Chloride Level 94mEq/L (97-108) Carbon Dioxide Level 25mmol/L (18-29) Blood Urea Nitrogen 19mg/dL (6-24) Creatinine 0.87mg/dL (0.76-1.27) Estimat Glomerular Filtration Rate 97mL/min (>59) Glucose Level 95mg/dL (60-99) Calcium Level 9.5mg/dL (8.5-10.1) Magnesium Level 1.7mg/dL (1.6-2.6) Total Bilirubin 0.2mg/dL (0.0-1.2) Aspartate Amino Transf (AST/SGOT) 28U/L (0-50) Alanine Aminotransferase (ALT/SGPT) 26U/L (0-44) Alkaline Phosphatase 177U/L (25-150) Total Protein 8.5g/dL (6.4-8.4) Albumin 3.1g/dL (3.4-5.0) Hold [place] Top Tube Received (Received) Phosphorus Level 3.6mg/dL (2.5-4.9) Lactic Acid Level 1.2mmol/L (0.4-2.0) copies to: Tessa Anderson MD; Noam Elias MD, Masoud January 07, 2017 10:29
--- NOTE | 2017-01-07 14:10 | NUR ---
Waste Dilaudid from BELT MOLDER wasted, 3 mg wasted and witnessed by Mara Hernandez RN. syringe and line discarded.
== END 2017-01-07 08:40 | disposition expired | DRG 376 ==
LOC: EDBD 22:16 → SED 22:16 → OBSVTOIN 12-31 02:10 → OSC 12-31 02:10 → MPC 12-31 02:32
PROVIDERS: ADMIT Internal Medicine; ATTEND Internal Medicine
DX: C19 Malignant neoplasm of rectosigmoid junction (principal); N50.82 Scrotal pain; D64.9 Anemia, unspecified; N50.89 Other specified disorders of the male genital organs; Z51.5 Encounter for palliative care; Z66 Do not resuscitate; G89.3 Neoplasm related pain (acute) (chronic)